=== PATIENT | female | born 1940 | race Caucasian/White ===

== ENCOUNTER 2017-03-07 17:52 | Emergency (ER) | payer BC ==
[2017-03-07 18:01] VITALS: BP 136/74; PULSE 90; TEMP 97.7; BMI 26.9
--- NOTE | 2017-03-07 18:04 | PDOC ---
Rapid Medical Evaluation Time Seen by Provider: 03/07/17 18:01 Medical Evaluation: Allergies Allergy/AdvReac Type Severity Reaction Status Date / Time No Known Drug Allergies Allergy Verified 03/07/17 18:01 Vital Signs Temp Pulse Resp BP Pulse Ox 97.7 F 90 20 136/74 95 03/07/17 17:58 03/07/17 17:58 03/07/17 17:58 03/07/17 17:58 03/07/17 17:58 03/07/17 18:01 I have performed a brief in-person evaluation of this patient. The patient presents with a chief complaint of: Sent in by Dr James for leukopenia (0.08 on labs yesterday). H/o breast ca s/p lumpectomy and radiation , RA on prednisone Pertinent physical exam findings:Stable and in NAD I have ordered the following:Pt has ready bed and sent directly to the main ED The patient will proceed to the ED for further evaluation.
--- NOTE | 2017-03-07 19:53 | PDOC ---
*Physical Exam - Vital Signs Last Vital Signs Temp Pulse Resp BP Pulse Ox 97.7 F 90 20 136/74 96 03/07/17 17:58 03/07/17 17:58 03/07/17 17:58 03/07/17 17:58 03/07/17 18:46 <Kaylah Jc - Last Filed: 03/07/17 22:03> - Vital Signs Last Vital Signs Temp Pulse Resp BP Pulse Ox 97.7 F 90 20 136/74 96 03/07/17 17:58 03/07/17 17:58 03/07/17 17:58 03/07/17 17:58 03/07/17 18:46 - Physical Exam Comments: 03/07/17 19:53 The patient was examined by [JUSTEN Dickerson] under my direct supervision. I personally evaluated the patient. I concur with the above findings and the plan of care. <Jase Aguirre - Last Filed: 03/08/17 01:44> Heart Score/ECG Review #1 03/07/17 22:03 ECG Reviewed by me Vent rate 75 bpm NSR Low voltage QRS Borderline ECG <Kaylah Jc - Last Filed: 03/07/17 22:03> ED Treatment Course - LABORATORY CBC & Chemistry Diagram: 03/07/17 21:00 03/07/17 21:00 - ADDITIONAL ORDERS Additional order review: Laboratory Results 03/07/17 21:00 Urine Color Yellow Urine Appearance Slcloudy Urine pH 6.0 Ur Specific [place] 1.019 Urine Protein Negative Urine Glucose (UA) Negative Urine Ketones Negative Urine Blood Negative Urine Nitrite Negative Urine Bilirubin Negative Urine Urobilinogen Negative 03/07/17 21:00 RBC 3.69 MCV 85.3 MCHC 34.1 RDW 16.6 H MPV 6.8 L Neutrophils % 36.8 L Lymphocytes % 30.4 Monocytes % 29.8 H Eosinophils % 1.4 Basophils % 1.6 <Kaylah Jc - Last Filed: 03/07/17 22:03> - LABORATORY CBC & Chemistry Diagram: 03/07/17 21:00 03/07/17 21:00 <Jase Aguirre - Last Filed: 03/08/17 01:44> Medical Decision Making - Medical Decision Making 03/07/17 21:48 Dr. Annabi paged via phone answering service. Awaiting call back. Dr Ervin conveyancer 03/07/17 21:57 Arcadio returned the page and the patient case was discussed. Documentation prepared by Kaylah Jc, acting as medical massage therapist for Jase Aguirre MD <Kaylah Jc - Last Filed: 03/07/17 22:03> *DC/Admit/Observation/Transfer <Kaylah Jc - Last Filed: 03/07/17 22:03> <Jase Aguirre - Last Filed: 03/08/17 01:44> Diagnosis at time of Disposition: Leukopenia - Discharge Dispostion Disposition: HOME Condition at time of disposition: Stable - Referrals Referrals: Kiki James MD [Staff Physician] - Lavelle Jiang [Staff Physician] - - Patient Instructions Additional Instructions: Your evaluation reveals low white blood cell count which is likely related to your rheumatoid arthritis medication. Follow-up with reactor service operator and senior sales associate for reevaluation and adjustment of medication. Return immediately to the ER for fever of 100.4 or higherd
[2017-03-07 21:24] LABS: BASOPHIL 1.6 % (0-2.0); EOSINOPHIL 1.4 % (0-4.5); MCH 29.1 pg (25.7-33.7); MCHC 34.1 g/dl (32.0-36.0); MEAN CELL VOLUME 85.3 fl (80-96); MEAN PLT VOLUME 6.8 fl (7.5-11.1); NEUTROPHILS 36.8 % (42.8-82.8); PLATELET COUNT 233 K/MM3 (134-434); RDW 16.6 % (11.6-15.6); WHITE BLOOD COUNT 0.8 K/mm3 (4.0-10.0)
[2017-03-07 21:28] LABS: URINE APPEARANCE SLCLOUDY; URINE BILIRUBIN NEGATIVE (NEGATIVE); URINE BLOOD NEGATIVE (NEGATIVE); URINE COLOR YELLOW; URINE GLUCOSE (UA) NEGATIVE (NEGATIVE); URINE KETONE NEGATIVE (NEGATIVE); URINE NITRITE NEGATIVE (NEGATIVE); URINE PROTEIN NEGATIVE (NEGATIVE); URINE UROBILINOGEN NEGATIVE mg/dL (0.2-1.0)
[2017-03-07 21:54] LABS: ALBUMIN 3.2 g/dl (3.4-5.0); ANION GAP 9 (8-16); BILIRUBIN,TOTAL 0.5 mg/dL (0.2-1.0); CALCIUM 9.6 mg/dL (8.5-10.1); CO2 27 mmol/L (21-32); CREATININE 0.7 mg/dL (0.55-1.02); GLUCOSE,RANDOM 98 mg/dL (74-106); SGPT/ALT 13 U/L (12-78)
[2017-03-07 21:55] LABS: ALK PHOS 65 U/L (45-117); TOT PROT 7.9 g/dl (6.4-8.2)
[2017-03-07 21:56] LABS: SGOT/AST 18 U/L (15-37)
--- NOTE | 2017-03-07 23:02 | PDOC ---
History of Present Illness - General Chief Complaint: Revisit, Lab Variance Stated Complaint: PCP SENT Time Seen by Provider: 03/07/17 18:01 History Source: Patient Exam Limitations: No Limitations - History of Present Illness Initial Comments: 03/07/17 22:58 76-year-old female with history of rheumatoid arthritis on methotrexate, Plaquenil and prednisone, as well as history of breast cancer (ductal carcinoma in situ), referred to the ER for severe leukopenia by PMD. Patient denies fevers /chills/nausea/vomiting/cough/dysuria/frequency/urgency. Patient denies abdominal pain/chest pain/rash. REVIEW OF SYSTEMS CONSTITUTIONAL: No fever, no chills, no fatigue EYES: No visual changes ENT: No ear pain, no sore throat CARDIOVASCULAR: No chest pain, no palpitations RESPIRATORY: No cough, no SOB GI: No abdominal pain, no nausea, no vomiting, no constipation, no diarrhea GENITOURINARY: No dysuria, no frequency, no hematuria MUSKULOSKELETAL: No backpain, no joint pain, no myalgias SKIN: No rash NEURO: No headache EXAMINATION CONSTITUTIONAL: Well-appearing; well-nourished; in no apparent distress HEAD: Normocephalic; atraumatic EYES: PERRL; EOM intact ENMT: External appears normal; normal oropharynx NECK: Supple; non-tender; no cervical lymphadenopathy CARD: Normal S1, S2; no murmurs, rubs, or gallops RESP: Normal chest excursion with respiration; breath sounds clear and equal bilaterally; no wheezes, rhonchi, or rales ABD: Soft, non-distended; non-tender; no palpable organomegaly, no palpable hernias EXT: Normal ROM in all four extremities; non-tender to palpation; distal pulses intact SKIN: Warm, dry, no rash NEURO: No focal neurological deficiencies. Past History - Past Medical History Allergies/Adverse Reactions: Allergies Allergy/AdvReac Type Severity Reaction Status Date / Time No Known Drug Allergies Allergy Verified 03/07/17 18:01 Home Medications: Ambulatory Orders Ascorbate Calcium [Vitamin C] 500 mg PO DAILY 11/24/13 Aspirin Coated [Ecotrin -] 81 mg PO DAILY 11/24/13 Calcium Carbonate/Vitamin D3 [Calcium + Vitamin D Tablet] 2 each PO DAILY Folic Acid - 1 mg PO DAILY 11/24/13 Hydrochlorothiazide [Hctz -] 25 mg PO DAILY 11/24/13 Levothyroxine [Synthroid -] 88 mcg PO ASDIR 11/24/13 Levothyroxine [Synthroid -] 100 mcg PO DAILY 11/24/13 Methotrexate Sodium [Methotrexate] 15 mg PO WEEKLY 11/24/13 Quinapril HCl [Accupril] 10 mg PO DAILY 11/24/13 Anemia: No Asthma: No Cancer: Yes (BREAST) Cardiac Disorders: No CVA: No COPD: No CHF: No DVT: No Dementia: No Diabetes: No GI Disorders: No Disorders: No HTN: Yes Hypercholesterolemia: Yes Liver Disease: No Seizures: No Thyroid Disease: Yes Other medical history: ARTHRITIS - Surgical History Abdominal Surgery: No Appendectomy: No Cardiac Surgery: No Cholecystectomy: No Lung Surgery: No Neurologic Surgery: No Orthopedic Surgery: No - Suicide/Smoking/Psychosocial Hx Smoking History: Former smoker Have you smoked in the past 12 months: No If you are a former smoker, when did you quit?: 20 YRS Information on smoking cessation initiated: No Hx Alcohol Use: Yes (SOCIAL) Drug/Substance Use Hx: No Substance Use Type: Alcohol *Physical Exam - Vital Signs Last Vital Signs Temp Pulse Resp BP Pulse Ox 97.7 F 90 20 136/74 96 03/07/17 17:58 03/07/17 17:58 03/07/17 17:58 03/07/17 17:58 03/07/17 18:46 ED Treatment Course - LABORATORY CBC & Chemistry Diagram: 03/07/17 21:00 03/07/17 21:00 - ADDITIONAL ORDERS Additional order review: Laboratory Results 03/07/17 03/07/17 21:00 21:00 Sodium 136 Potassium 3.8 Chloride 100 Carbon Dioxide 27 Anion Gap 9 BUN 13 Creatinine 0.7 Creat Clearance w eGFR > 60 Random Glucose 98 Calcium 9.6 Total Bilirubin 0.5 AST 18 ALT 13 Alkaline Phosphatase 65 Total Protein 7.9 Albumin 3.2 L Urine Color Yellow Urine Appearance Slcloudy Urine pH 6.0 Ur Specific [place] 1.019 Urine Protein Negative Urine Glucose (UA) Negative Urine Ketones Negative Urine Blood Negative Urine Nitrite Negative Urine Bilirubin Negative Urine Urobilinogen Negative 03/07/17 21:00 RBC 3.69 MCV 85.3 MCHC 34.1 RDW 16.6 H MPV 6.8 L Neutrophils % 36.8 L Lymphocytes % 30.4 Monocytes % 29.8 H Eosinophils % 1.4 Basophils % 1.6 Medical Decision Making - Medical Decision Making 03/07/17 22:59 Patient is a well-appearing 76-year-old female with 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 Patient is afebrile; there are no overt signs or symptoms of infection. I discussed the case with Dr. Garcia covering for hematology is Dr. Jiang. Patient's WBC on 02/18/17 was 0.7 and it was suspected the patient leukopenia was related to her medication regimen. Dr. Garcia recommended discharge with rheumatology follow- up for reevaluation of patient medication and close follow-up for possible fever. He advised there is no indication for admission at this time. There is also no indication for Neupogen therapy at this time. I discussed the findings with the patient and she is expressed understanding. Will discharge. *DC/Admit/Observation/Transfer Diagnosis at time of Disposition: Leukopenia Qualifiers: Leukopenia type: unspecified Qualified Code(s): D72.819 - Decreased white blood cell count, unspecified - Discharge Dispostion Disposition: HOME Condition at time of disposition: Stable - Referrals Referrals: Lavelle Jiang [Staff Physician] - Kiki James MD [Staff Physician] - - Patient Instructions Additional Instructions: Your evaluation reveals low white blood cell count which is likely related to your rheumatoid arthritis medication. Follow-up with loading dock hand and brick chimney supervisor for reevaluation and adjustment of medication. Return immediately to the ER for fever of 100.4 or higherd - Post Discharge Activity
[2017-03-08 09:57] LABS: URINE LEUK ESTERASE Negative (NEGATIVE)
--- NOTE | 2017-03-08 11:07 | EKG ---
Test Reason : Blood Pressure : / mmHG Vent. Rate : 075 BPM Atrial Rate : 075 BPM P-R Int : 152 ms QRS Dur : 090 ms QT Int : 400 ms P-R-T Axes : 053 001 017 degrees QTc Int : 446 ms NORMAL SINUS RHYTHM LOW VOLTAGE QRS BORDERLINE ECG WHEN COMPARED WITH ECG OF 15-SEP-2010 08:24, NO SIGNIFICANT CHANGE WAS FOUND Confirmed by EJ BARRIOS MD ([id number]) on 03/08/2017 11:06:45 AM Referred By: Confirmed By:EJ BARRIOS MD
== END 2017-03-07 23:10 | disposition home or self-care (01) ==
LOC: JER 17:52
DX: D72.819 Decreased white blood cell count, unspecified (principal); Z85.3 Personal history of malignant neoplasm of breast
CPT/HCPCS: 36415; 71020-TC; 80053; 81003; 85025; 87040; 87086; 93005; 93010; 99282-25

== ENCOUNTER 2018-03-28 16:25 | Inpatient (IN) | payer BC, OTHER ==
--- NOTE | 2018-03-28 17:05 | PDOC ---
Rapid Medical Evaluation Time Seen by Provider: 03/28/18 17:00 Medical Evaluation: Allergies Allergy/AdvReac Type Severity Reaction Status Date / Time No Known Drug Allergies Allergy Verified 03/28/18 17:00 I have performed a brief in-person evaluation of this patient. The patient presents with a chief complaint of: nausea, decreased appetite, exhausted x 6 weeks. Had a fever and cough today. Pertinent physical exam findings: patient appears pale and weak. tachycardic I have ordered the following: labs, UA/culture, EKG, CXR, flu swab The patient will proceed to the ED for further evaluation. Discharge Disposition - Diagnosis Nausea, Fever - Referrals - Patient Instructions - Post Discharge Activity
--- NOTE | 2018-03-28 17:22 | PDOC ---
History of Present Illness - General Chief Complaint: SIRS, Suspected/Possible Stated Complaint: PCP SENT/WEAKNESS Time Seen by Provider: 03/28/18 17:00 - History of Present Illness Initial Comments: 03/28/18 17:18 77 yo F with h/o breast ca.( DCIS), RA, luekopenia, hypohtyroidism, who p/w fever and cough. Patient reports 3 weeks of intermittent nausea without vomiting , and decreased PO intake. Normal bowel habits. No identifiable triggers or alleviators. Also endorses subjective fevers x 1 week, with objective measuring Tmax 99.0 oral. Denies Tylenol use. Also endorses 1 week of non productive cough. denies symptom management. Daughter reports patient with URI type symptoms rhinnorhea, and cough. No home oxygen, duoneb requirements. Patient denies N/V,orthopnea, PND, hemoptysis, wheezing, palpitations, eg pain/ swelling, F,C, CP, SOB, urinary complaints, abdominal pain, diarrhea, constipation, BPR, hematuria, lightheadedness, weakness, sensory changes. PMHx: as noted above. On MTX x 20 years, Prednisone x 1 week ROS: as noted SHx: tobacco cessation x 30 years ago. Denies Etoh, IVDA. Allergies:NKDA Past History - Past Medical History Allergies/Adverse Reactions: Allergies Allergy/AdvReac Type Severity Reaction Status Date / Time No Known Drug Allergies Allergy Verified 03/28/18 17:00 Home Medications: Ambulatory Orders Ascorbate Calcium [Vitamin C] 500 mg PO DAILY 11/24/13 Aspirin Coated [Ecotrin -] 81 mg PO DAILY 11/24/13 Calcium Carbonate/Vitamin D3 [Calcium + Vitamin D Tablet] 2 each PO DAILY Folic Acid - 1 mg PO DAILY 11/24/13 Hydrochlorothiazide [Hctz -] 25 mg PO DAILY 11/24/13 Levothyroxine [Synthroid -] 88 mcg PO ASDIR 11/24/13 Levothyroxine [Synthroid -] 100 mcg PO DAILY 11/24/13 Methotrexate Sodium [Methotrexate] 10 mg PO WEEKLY 11/24/13 Quinapril HCl [Accupril] 10 mg PO DAILY 11/24/13 Atorvastatin Calcium [Lipitor] 10 mg PO ASDIR 03/28/18 Diazepam [Valium] 5 mg PO BID PRN 03/28/18 Guaifenesin Dm [Mucinex Dm -] 1 tab PO BID 03/28/18 Anemia: No Asthma: No Cancer: Yes (BREAST) Cardiac Disorders: No CVA: No COPD: No CHF: No DVT: No Dementia: No Diabetes: No GI Disorders: No Disorders: No HTN: Yes Hypercholesterolemia: Yes Liver Disease: No Seizures: No Thyroid Disease: Yes - Surgical History Abdominal Surgery: No Appendectomy: No Cardiac Surgery: No Cholecystectomy: No Lung Surgery: No Neurologic Surgery: No Orthopedic Surgery: No - Immunization History Immunization Up to Date: Yes - Suicide/Smoking/Psychosocial Hx Smoking History: Former smoker Have you smoked in the past 12 months: No If you are a former smoker, when did you quit?: 1992 Information on smoking cessation initiated: No Hx Alcohol Use: Yes (SOCIAL) Drug/Substance Use Hx: No Substance Use Type: Alcohol Review of Systems - Review of Systems Comments:: 03/28/18 17:21 GENERAL/CONSTITUTIONAL: + Fever. No weakness. HEAD, EYES, EARS, NOSE AND THROAT: No change in vision. No ear pain or discharge. No sore throat. CARDIOVASCULAR: No chest pain or shortness of breath RESPIRATORY: + cough. No wheezing, or hemoptysis. GASTROINTESTINAL: +nausea. No vomiting, diarrhea or constipation. GENITOURINARY: No dysuria, frequency, or change in urination. MUSCULOSKELETAL: No joint or muscle swelling or pain. No neck or back pain. SKIN: No rash NEUROLOGIC: No headache, vertigo, loss of consciousness, or change in strength/ sensation. ENDOCRINE: No increased thirst. No abnormal weight change HEMATOLOGIC/LYMPHATIC: No anemia, easy bleeding, or history of blood clots. ALLERGIC/IMMUNOLOGIC: No hives or skin allergy. *Physical Exam - Vital Signs Last Vital Signs Temp Pulse Resp BP Pulse Ox 99.6 F 117 H 22 H 104/58 L 96 03/28/18 17:03 03/28/18 17:03 03/28/18 17:03 03/28/18 17:03 03/28/18 17:03 - Physical Exam Comments: 03/28/18 17:21 GENERAL: Awake, alert, and fully oriented, in no acute distress HEAD: No signs of trauma, normocephalic, atraumatic EYES: PERRLA, EOMI, sclera anicteric, conjunctiva clear ENT: Hearing grossly normal, nares patent, oropharynx clear without exudates. Moist mucosa NECK: Normal ROM, supple, no lymphadenopathy, JVD, or masses LUNGS: No distress, speaks full sentences, clear to auscultation bilaterally HEART: Regular rate and rhythm, normal S1 and S2, no murmurs, rubs or gallops, peripheral pulses normal and equal bilaterally. ABDOMEN: Soft, nontender, normoactive bowel sounds. No guarding, no rebound. No masses. Neg CVA ttp. EXTREMITIES : Normal inspection, Normal range of motion, no edema. No clubbing or cyanosis. SKIN: Warm, Dry, normal turgor, no rashes or lesions noted Moderate Sedation - Procedure Monitoring Vital Signs: Procedure Monitoring Vital Signs Temperature 99.6 F 03/28/18 17:03 Pulse Rate 117 H 03/28/18 17:03 Respiratory Rate 22 H 03/28/18 17:03 Blood Pressure 104/58 L 03/28/18 17:03 O2 Sat by Pulse Oximetry (%) 96 03/28/18 17:03 ED Treatment Course - LABORATORY CBC & Chemistry Diagram: 03/28/18 17:46 03/28/18 17:46 Medical Decision Making - Medical Decision Making 03/28/18 17:21 77 yo F with h/o breast ca.( DCIS), RA, luekopenia, hypohtyroidism, who p/w fever, nausea, cough. A&Ox3, HR 117, RR 22, BP 104/58, Oral Temp 99.6, Temp 96% O2. Physical exam unremarkable. R/o PNA. Will consider sepsis 2/2 infection (GI , respiratory source) No urinary complaints, will consider source. Low risk PE weils criteria. Low suspicion COPD, CHF. Will assess for neutropenia/ neutropenic fever. Assess for hypovolemia, electrolyte abnml, metabolic and toxic derangements, acid base disturbances. Ed Course: Sepsis Protocol tylenol, NS 03/28/18 18:29 0.3 WBC 03/28/18 18:36 Na: 129 Trop: Neg Cefepime 2 gm Will admit to medicine 03/28/18 19:10 MASCC score 18 03/28/18 19:55 Patient admitted med/surg Iyahorace James Endorsed to Dr. Valiente *DC/Admit/Observation/Transfer Diagnosis at time of Disposition: Nausea, Fever, Neutropenic fever - Discharge Dispostion Condition at time of disposition: Stable Decision to Admit order: Yes - Referrals - Patient Instructions - Post Discharge Activity
[2018-03-28] MEDS ORDERED: SODIUM CHLORIDE 1,000 ML IV STA (17:46)
[2018-03-28 18:07] LABS: BASO % 1.1 % (0-2.0); HEMATOCRIT 25.4 % (32.4-45.2); LYMPH % 26.4 % (8-40); MCH 27.5 pg (25.7-33.7); MCHC 35.5 g/dl (32.0-36.0); MEAN CELL VOLUME 77.6 fl (80-96); MEAN PLT VOLUME 6.6 fl (7.5-11.1); MONO % 26.8 % (3.8-10.2); NEUT % 44.7 % (42.8-82.8); PLATELET COUNT 230 K/MM3 (134-434); RBC 3.28 M/mm3 (3.60-5.2); RDW 16.9 % (11.6-15.6)
[2018-03-28 18:14] LABS: VENOUS PC02 33.6 mmHg (38-52); VENOUS PH 7.49 (7.32-7.42); VENOUS PO2 54.8 mmHg (28-48)
[2018-03-28 18:24] LABS: WHITE BLOOD COUNT 0.3 K/mm3 (4.0-10.0)
[2018-03-28 18:25] LABS: INR 1.13 (0.83-1.09); PROTHROMBIN TIME (PATIENT) 13.3 SEC (9.7-13.0)
[2018-03-28 18:28] LABS: ACTIVATED PTT 29.1 SECONDS (25.2-36.5)
[2018-03-28 18:38] LABS: ALBUMIN 2.3 g/dl (3.4-5.0); ALK PHOS 74 U/L (45-117); ANION GAP 11 MMOL/L (8-16); BILIRUBIN,TOTAL 0.6 mg/dL (0.2-1); BLOOD UREA NITROGEN 17 mg/dL (7-18); CALCIUM 8.3 mg/dL (8.5-10.1); CHLORIDE 93 mmol/L (98-107); CO2 26 mmol/L (21-32); CREATININE 0.7 mg/dL (0.55-1.3); GLUCOSE,RANDOM 121 mg/dL (74-106); POTASSIUM 3.5 mmol/L (3.5-5.1); SGOT/AST 23 U/L (15-37); SGPT/ALT 17 U/L (13-61); SODIUM 129 mmol/L (136-145); TOT PROT 6.6 g/dl (6.4-8.2)
[2018-03-28] MEDS ORDERED: CEFEPIME HCL/D5W 2 GM/50 ML BAG IVPB ONE (19:03)
[2018-03-28] MEDS ORDERED: ACETAMINOPHEN 1000 MG/100 ML VIAL (NON FORMULARY) IVPB ONE (19:17)
[2018-03-28] MEDS ORDERED: ACETAMINOPHEN INJECTION 100 ML IVPB ONE (19:27)
[2018-03-28] MEDS ORDERED: CEFEPIME 2 GM/100 ML BAG IVPB ONE (19:27)
[2018-03-28] MEDS ORDERED: VANCOMYCIN 1 GRAM (PRE-DOCKED) 1,000 MG/250 ML BAG IVPB ONE ×2 (20:07→20:19)
[2018-03-28 20:25] LABS: URINE APPEARANCE TURBID; URINE COLOR YELLOW; URINE GLUCOSE (UA) NEGATIVE (NEGATIVE); URINE KETONE NEGATIVE (NEGATIVE); URINE LEUK ESTERASE 1+ (NEGATIVE); URINE NITRITE NEGATIVE (NEGATIVE); URINE PROTEIN 2+ (NEGATIVE); URINE UROBILINOGEN NEGATIVE mg/dL (0.2-1.0)
[2018-03-28 20:45] LABS: EPI CELLS RARE /HPF (FEW); URINE HYALINE CAST 9 /lpf
--- NOTE | 2018-03-28 20:59 | HP ---
CHIEF COMPLAINT: subjective fevers PCP: Jacob HISTORY OF PRESENT ILLNESS: 77 yo F with h/o breast ca.( DCIS- excised), RA, luekopenia, hypothyroidism c/o subjective fevers and cough for the past 2 days associated with nausea and decreased PO intake. Patient denied any obvious sick contacts or recent travels. She denied any urinary symptoms or diarrhea. Reports normal bowel movements. Patient has been on methotrexate for her RA for the last 25 years. She said she has seen nuclear reactor technician for her known leukopenia. ER course was notable for: (1) blood cultures (2) vancomycin (3) cefepime Recent Travel: none PAST MEDICAL HISTORY: breast ca.( DCIS), RA, luekopenia, hypothyroidism PAST SURGICAL HISTORY: lumpectomy for breast ca (DCIS) Social History: Smoking: no Alcohol: no Drugs: no Family History: none Allergies No Known Drug Allergies Allergy (Verified 03/28/18 17:00) HOME MEDICATIONS: Home Medications Medication Instructions Recorded Ascorbate Calcium [Vitamin C] 500 mg PO DAILY 11/24/13 Aspirin Coated [Ecotrin -] 81 mg PO DAILY 11/24/13 Calcium Carbonate/Vitamin D3 2 each PO DAILY 11/24/13 [Calcium + Vitamin D Tablet] Folic Acid - 1 mg PO DAILY 11/24/13 Hydrochlorothiazide [Hctz -] 25 mg PO DAILY 11/24/13 Levothyroxine [Synthroid -] 88 mcg PO ASDIR 11/24/13 Levothyroxine [Synthroid -] 100 mcg PO DAILY 11/24/13 Methotrexate Sodium [Methotrexate] 10 mg PO WEEKLY 11/24/13 Quinapril HCl [Accupril] 10 mg PO DAILY 11/24/13 Atorvastatin Calcium [Lipitor] 10 mg PO ASDIR 03/28/18 Diazepam [Valium] 5 mg PO BID PRN 03/28/18 Guaifenesin Dm [Mucinex Dm -] 1 tab PO BID 03/28/18 REVIEW OF SYSTEMS CONSTITUTIONAL: Absent: , diaphoresis, generalized weakness, loss of appetite, weight change Present- fever, chills, malaise, HEENT: Absent: throat pain, throat swelling, difficulty swallowing, mouth swelling, ear pain, eye pain, visual changes Present- rhinorrhea, nasal congestion, CARDIOVASCULAR: Absent: chest pain, syncope, palpitations, irregular heart rate, lightheadedness , peripheral edema RESPIRATORY: Absent:, shortness of breath, dyspnea with exertion, orthopnea, wheezing, stridor, hemoptysis Present- cough GASTROINTESTINAL: Absent: abdominal pain, abdominal distension, nausea, vomiting, diarrhea, constipation, melena, hematochezia GENITOURINARY: Absent: dysuria, frequency, urgency, hesitancy, hematuria, flank pain, genital pain MUSCULOSKELETAL: Absent: myalgia, arthralgia, joint swelling, back pain, neck pain SKIN: Absent: rash, itching, pallor HEMATOLOGIC/IMMUNOLOGIC: Absent: easy bleeding, easy bruising, lymphadenopathy, frequent infections ENDOCRINE: Absent: unexplained weight gain, unexplained weight loss, heat intolerance, cold intolerance NEUROLOGIC: Absent: headache, focal weakness or paresthesias, dizziness, unsteady gait, seizure, mental status changes, bladder or bowel incontinence PSYCHIATRIC: Absent: anxiety, depression, suicidal or homicidal ideation, hallucinations. PHYSICAL EXAMINATION Vital Signs - 24 hr 03/28/18 17:03 Temperature 99.6 F Pulse Rate 117 H Respiratory 22 H Rate Blood Pressure 104/58 L O2 Sat by Pulse 96 Oximetry (%) GENERAL: Awake, alert, and fully oriented, in no acute distress. HEAD: Normal with no signs of trauma. EYES: Pupils equal, round and reactive to light, extraocular movements intact, sclera anicteric, conjunctiva clear. No lid lag. EARS, NOSE, THROAT: Ears normal, nares patent, oropharynx clear without exudates. Moist mucous membranes. NECK: Normal range of motion, supple without lymphadenopathy, JVD, or masses. LUNGS: Breath sounds equal, clear to auscultation bilaterally. No wheezes, and no crackles. No accessory muscle use. HEART: Regular rate and rhythm, normal S1 and S2 without murmur, rub or gallop. ABDOMEN: Soft, nontender, not distended, normoactive bowel sounds, no guarding, no rebound, no masses. No hepatomegaly or splenomegaly. MUSCULOSKELETAL: Normal range of motion at all joints. No bony deformities or tenderness. No CVA tenderness. UPPER EXTREMITIES: 2+ pulses, warm, well-perfused. No cyanosis. No clubbing. No peripheral edema. LOWER EXTREMITIES: 2+ pulses, warm, well-perfused. No calf tenderness. No peripheral edema. NEUROLOGICAL: Cranial nerves II-XII intact. Normal speech. PSYCHIATRIC: Cooperative. Good eye contact. Appropriate mood and affect. SKIN: Warm, dry, normal turgor, no rashes or lesions noted, normal capillary refill. Laboratory Results - last 24 hr 03/28/18 03/28/18 03/28/18 17:46 17:46 17:46 WBC 0.3 L* RBC 3.28 L Hgb 9.0 L Hct 25.4 L D MCV 77.6 L MCH 27.5 MCHC 35.5 RDW 16.9 H Plt Count 230 MPV 6.6 L Absolute Neuts (auto) 0.1 L Neutrophils % 44.7 D Lymphocytes % 26.4 Monocytes % 26.8 H Eosinophils % 1.0 Basophils % 1.1 Nucleated RBC % 1 H PT with INR INR PTT (Actin FS) VBG pH POC VBG pCO2 POC VBG pO2 Mixed VBG HCO3 Sodium 129 L Potassium 3.5 Chloride 93 L Carbon Dioxide 26 Anion Gap 11 BUN 17 Creatinine 0.7 Creat Clearance w eGFR > 60 Random Glucose 121 H Lactic Acid Calcium 8.3 L Total Bilirubin 0.6 AST 23 ALT 17 Alkaline Phosphatase 74 Creatine Kinase 10 L Troponin I < 0.02 Total Protein 6.6 Albumin 2.3 L Urine Color Urine Appearance Urine pH Ur Specific [place] Urine Protein Urine Glucose (UA) Urine Ketones Urine Blood Urine Nitrite Urine Bilirubin Urine Urobilinogen Ur Leukocyte Esterase Urine WBC (Auto) Urine RBC (Auto) Ur Epithelial Cells Hyaline Casts Influenza A (Rapid) Negative Influenza B (Rapid) Negative 03/28/18 03/28/18 03/28/18 17:46 17:46 17:47 WBC RBC Hgb Hct MCV MCH MCHC RDW Plt Count MPV Absolute Neuts (auto) Neutrophils % Lymphocytes % Monocytes % Eosinophils % Basophils % Nucleated RBC % PT with INR 13.30 H INR 1.13 H PTT (Actin FS) 29.1 VBG pH POC VBG pCO2 POC VBG pO2 Mixed VBG HCO3 Sodium Potassium Chloride Carbon Dioxide Anion Gap BUN Creatinine Creat Clearance w eGFR Random Glucose Lactic Acid 0.9 Calcium Total Bilirubin AST ALT Alkaline Phosphatase Creatine Kinase Troponin I < 0.02 Total Protein Albumin Urine Color Urine Appearance Urine pH Ur Specific [place] Urine Protein Urine Glucose (UA) Urine Ketones Urine Blood Urine Nitrite Urine Bilirubin Urine Urobilinogen Ur Leukocyte Esterase Urine WBC (Auto) Urine RBC (Auto) Ur Epithelial Cells Hyaline Casts Influenza A (Rapid) Influenza B (Rapid) 03/28/18 03/28/18 17:47 17:47 WBC RBC Hgb Hct MCV MCH MCHC RDW Plt Count MPV Absolute Neuts (auto) Neutrophils % Lymphocytes % Monocytes % Eosinophils % Basophils % Nucleated RBC % PT with INR INR PTT (Actin FS) VBG pH 7.49 H POC VBG pCO2 33.6 L POC VBG pO2 54.8 H Mixed VBG HCO3 25.1 H Sodium Potassium Chloride Carbon Dioxide Anion Gap BUN Creatinine Creat Clearance w eGFR Random Glucose Lactic Acid Calcium Total Bilirubin AST ALT Alkaline Phosphatase Creatine Kinase Troponin I Total Protein Albumin Urine Color Yellow Urine Appearance Turbid Urine pH 8.0 D Ur Specific [place] 1.016 Urine Protein 2+ H Urine Glucose (UA) Negative Urine Ketones Negative Urine Blood Negative Urine Nitrite Negative Urine Bilirubin 2.0 Urine Urobilinogen Negative Ur Leukocyte Esterase 1+ H Urine WBC (Auto) 57 Urine RBC (Auto) 3 Ur Epithelial Cells Rare Hyaline Casts 9 Influenza A (Rapid) Influenza B (Rapid) CXR reviewed ekg reviewed ASSESSMENT/PLAN: 77yo woman with severe neutropenia from uncertain source. May be possibly from methotrexate. Subjective fevers and low grade fevers in ER. Symptoms consistent with upper respiratory infection. Influenza should be ruled out. No clear evidence pneumonia on cxr. lactate wnl. -observation -treat empirically with vancomycin, cefepime given severity of neutropenia -blood and urine cultures sent -flu swab -resp PCR for viruses -stressed importance of handwashing to family members -d/c methrotrexate for now -heme/onc consult - possible neuogen administration? -ID consult to evaluate for appropriateness of empiric antibiotic therapy #Hypothyroidism -send tsh -c/w levothyroxine #Hypertension- controlled -c/w quinapril and HCTZ #DLP -c/w lipitor #DVT heparin sc Visit type - Emergency Visit Emergency Visit: Yes ED Registration Date: 03/28/18 Care time: The patient presented to the Emergency Department on the above date and was hospitalized for further evaluation of their emergent condition. - New Patient This patient is new to me today: Yes Date on this admission: 03/29/18 - Critical Care Critical Care patient: No
[2018-03-28] MEDS ORDERED: ATORVASTATIN CA 10 MG TABLET (FP) ONE (21:44)
--- NOTE | 2018-03-28 21:47 | PDOC ---
Attending Attestation - Resident Resident Name: SatinderKlausDavid - ED Attending Attestation I have performed the following: I have examined & evaluated the patient, The case was reviewed & discussed with the resident, I agree w/resident's findings & plan, Exceptions are as noted - HPI HPI: 03/28/18 21:48 The patient is a 77 year old female presenting with her daughter, with a significant past medical history of h/o breast ca.( DCIS), RA on methotrexate, leukopenia, hypothyroidism, who presents to the ED complaining of 1 day of fever and cough in the setting of intermittent nausea and decreased PO intake for the past 3 weeks. She reports that she cant identify any triggers to her symptoms. She reports normal bowel movements. She denies taking any medications for her symptoms. She notes that her cough is non productive. She states her WBC is always low because of methotrexate. She saw Dr. James 2 days ago for the nausea and anorexia. When she spiked a fever today, she called his office and was instructed to go to the ED. The patient denies chest pain, shortness of breath, headache and dizziness. Denies chills, vomiting, diarrhea or constipation. Denies dysuria, frequency, urgency and hematuria. Allergies: None Past surgical history: None reported Social History: tobacco cessation x 30 years ago. Denies Etoh, IVDA. - Physicial Exam PE: 03/28/18 21:50 agree with resident exam - Medical Decision Making 03/28/18 19:15 77yo F hx leukopenia presents to the ED with subjective fever today, found to be neutropenic. Pt covered empirically with cefepime, then vanc. Unclear source , CXR clear, possible UTI or flu. Pt admitted for further mgmt.
[2018-03-28] MEDS: ATORVASTATIN CA 10 MG TABLET (FP) PO SCH (22:07)
[2018-03-28] MEDS: guaiFENesin/D-METHORPHAN HB 1 EACH TAB.ER.12H PO SCH (22:07)
[2018-03-28 22:30] LABS: PLATELET ESTIMATE ADEQUATE
[2018-03-29 07:41] LABS: BASO % 2.2 % (0-2.0); HEMATOCRIT 23.7 % (32.4-45.2); HEMOGLOBIN 8.4 GM/dL (10.7-15.3); LYMPH % 35.2 % (8-40); MCH 27.8 pg (25.7-33.7); MCHC 35.3 g/dl (32.0-36.0); MEAN CELL VOLUME 78.6 fl (80-96); MEAN PLT VOLUME 6.5 fl (7.5-11.1); NEUT % 31.6 % (42.8-82.8); PLATELET COUNT 212 K/MM3 (134-434); RBC 3.02 M/mm3 (3.60-5.2); RDW 16.8 % (11.6-15.6)
[2018-03-29 07:54] LABS: WHITE BLOOD COUNT 0.3 K/mm3 (4.0-10.0)
[2018-03-29 08:34] LABS: ANION GAP 10 MMOL/L (8-16); BLOOD UREA NITROGEN 14 mg/dL (7-18); CALCIUM 8.1 mg/dL (8.5-10.1); CHLORIDE 97 mmol/L (98-107); CO2 25 mmol/L (21-32); CREATININE 0.6 mg/dL (0.55-1.3); GLUCOSE,RANDOM 91 mg/dL (74-106); POTASSIUM 3.3 mmol/L (3.5-5.1); SODIUM 132 mmol/L (136-145)
[2018-03-29] MEDS ORDERED: LEVOTHYROXINE NA 25 MCG TABLET (FP) ONE (09:38)
--- NOTE | 2018-03-29 09:39 | CONSULT ---
Consultation: REQUESTING PROVIDER: Dr. James CONSULT REQUEST FOR HEMATOLOGY/ONCOLOGY: We have been asked to medically evaluate this patient for Neutropenia. HISTORY OF PRESENT ILLNESS: Patient is a 77 year old female with a PMHx of rheumatoid arthritis on MTX, HTN , HLD, neutropenia, hypothyroidism, breast cancer (DCIS) who presented to the hospital complaining of nausea, anorexia, with decreased PO intake, associated with subjective fevers and a non productive cough for the past three weeks. Patient denies being around any sick contacts or recent travel. Patient states she started feeling weaker and started having fevers, which prompted this hospital visit. Patient does report a history of low WBC and was worked up for it. Reports that her low WBC's is due to her Methotrexate for her RA. The patient denies chest pain, shortness of breath, headache and dizziness. Denies chills, vomiting, diarrhea or constipation, dysuria, frequency, urgency and hematuria. Patient has history of Breast cancer x2 (lobular and ductal in 1994 and 2011) with RT done 5 days a week for one month 6 years ago Denies any blood disorders or family history of blood disorders PMHx: Rheumatoid Arthritis on MTX (25 years) Neutropenia HTN HLD Hypothyroidism Breast cancer (DCIS) PSHx: Lumpectomy x2 Social Hx: Denies Alcohol use Denies drug use Former Smoker. Quit 30 years ago Allergies: None REVIEW OF SYSTEMS: CONSTITUTIONAL: fever, generalized weakness, malaise, loss of appetite Absent: diaphoresis, weight change HEENT: Absent: rhinorrhea, nasal congestion, throat pain, throat swelling, difficulty swallowing, mouth swelling, ear pain, eye pain, visual changes CARDIOVASCULAR: Absent: chest pain, syncope, palpitations, irregular heart rate, lightheadedness , peripheral edema RESPIRATORY: cough Absent: shortness of breath, dyspnea with exertion, orthopnea, wheezing, stridor , hemoptysis GASTROINTESTINAL: Absent: abdominal pain, abdominal distension, nausea, vomiting, diarrhea, constipation, melena, hematochezia GENITOURINARY: Absent: dysuria, frequency, urgency, hesitancy, hematuria, flank pain, genital pain MUSCULOSKELETAL: Absent: myalgia, arthralgia, joint swelling, back pain, neck pain SKIN: Absent: rash, itching, pallor HEMATOLOGIC/IMMUNOLOGIC: Absent: easy bleeding, easy bruising, lymphadenopathy, frequent infections ENDOCRINE: Absent: unexplained weight gain, unexplained weight loss, heat intolerance, cold intolerance NEUROLOGIC: Absent: headache, focal weakness or paresthesias, dizziness, unsteady gait, seizure, mental status changes, bladder or bowel incontinence PSYCHIATRIC: Absent: anxiety, depression, suicidal or homicidal ideation, hallucinations. PHYSICAL EXAMINATION Vital Signs 03/28/18 17:03 Temperature 99.6 F Pulse Rate 117 H Respiratory 22 H Rate Blood Pressure 104/58 L O2 Sat by Pulse 96 Oximetry (%) GENERAL: Awake, alert, and fully oriented, in no acute distress. HEAD: Normal with no signs of trauma. EYES: Pupils equal, round and reactive to light, extraocular movements intact, sclera anicteric, conjunctiva clear. No lid lag. EARS, NOSE, THROAT: Oropharynx clear without exudates. Moist mucous membranes. NECK: Normal range of motion, supple without lymphadenopathy, JVD, or masses. LUNGS: Breath sounds equal, clear to auscultation bilaterally. No wheezes, and no crackles. No accessory muscle use. HEART: Regular rate and rhythm, normal S1 and S2 without murmur, rub or gallop. BREAST: No masses, discoloration or retractions. No nipple discharge ABDOMEN: Soft, nontender, not distended, normoactive bowel sounds, no guarding, no rebound, no masses. No hepatomegaly or splenomegaly. MUSCULOSKELETAL: Normal range of motion at all joints. No bony deformities or tenderness. No CVA tenderness. EXTREMITIES: 2+ pulses, warm, well-perfused. No calf tenderness. No peripheral edema. NEUROLOGICAL: Cranial nerves II-XII intact. Normal speech. PSYCHIATRIC: Cooperative. Good eye contact. Appropriate mood and affect. SKIN: Warm, dry, normal turgor, no rashes or lesions noted. Laboratory Results 03/29/18 06:15 03/29/18 06:00 03/28/18 03/29/18 03/29/18 17:47 06:00 06:15 Absolute Neuts (auto) 0.1 L INR 1.13 H TSH 1.62 Active Medications Generic Name Dose Route Start Last Admin Trade Name Freq PRN Reason Stop Dose Admin Ascorbic Acid 500 mg 03/29/18 10:00 Vitamin C - PO DAILY [facility] Aspirin 81 mg 03/29/18 10:00 Ecotrin - PO DAILY [facility] Atorvastatin Calcium 10 mg 03/28/18 22:00 03/28/18 22:07 Lipitor - PO 10 mg HS RIMMA Administration Calcium Carbonate/Cholecalciferol 2 tab 03/29/18 10:00 Os-Grupo 500+D - PO DAILY RIMMA Folic Acid 1 mg 03/29/18 10:00 Folic Acid - PO DAILY RIMMA Guaifenesin 1 tablet 03/28/18 22:00 03/28/18 22:07 Mucinex Dm - PO 1 tablet BID RIMMA Administration Hydrochlorothiazide 25 mg 03/29/18 10:00 Hctz - PO DAILY RIMMA Levothyroxine Sodium 100 mcg 03/29/18 07:00 Synthroid - PO 0700 RIMMA Quinapril HCl 10 mg 03/29/18 10:00 Accupril - PO DAILY RIMMA ASSESSMENT/PLAN: Patient is a 77 year old female who presented for fever, chills, non productive cough, anorexia, nausea and was found to have neutropenia with neutropenic fevers. We were consulted for further evaluation. Problem List: Neutropenia Neutropenic fevers Bone Marrow Suppression Microcytic Anemia Upper Respiratory tract infection Rheumatoid Arthritis on MTX (25 years) Neutropenia HTN HLD Hypothyroidism Breast cancer (DCIS) Plan: -Patient with bone marrow suppresion wit WBC 0.3 and ANC 0.1 with unclear etiology but likely secondary to Methotrexate use and viral syndrome. Will likely need a flow cytometry. Will need to rule out sepsis related etiology. Patient may need a dose of neupogen -Will order Iron studies and check for B12, folate, and TSH -Rule out hemolytic anemia and order LDH, Retic and hapto -IV abx, as per ID -Continue to monitor CBC -Recommend Rheumatology consult as her hazardous materials handler was considering to switch to tofacitinib -Recommend U/S of liver and spleen Dispo: We will continue to follow the patient. Thank you for this consultative opportunity. Visit type - Emergency Visit Emergency Visit: Yes ED Registration Date: 03/30/18 Care time: The patient presented to the Emergency Department on the above date and was hospitalized for further evaluation of their emergent condition. - New Patient This patient is new to me today: Yes Date on this admission: 03/30/18 - Critical Care Critical Care patient: No
[2018-03-29] MEDS: LEVOTHYROXINE NA 100 MCG TABLET (FP) PO SCH (11:05)
[2018-03-29] MEDS: ASCORBIC ACID 500 MG TABLET (FP) PO SCH (11:06)
[2018-03-29] MEDS: guaiFENesin/D-METHORPHAN HB 1 EACH TAB.ER.12H PO SCH ×2 (11:06→22:54)
[2018-03-29] MEDS: FOLIC ACID 1 MG TABLET (FP) PO SCH (11:06)
[2018-03-29] MEDS: ASPIRIN COATED 81 MG TABLET.EC PO SCH (11:06)
[2018-03-29] MEDS: HYDROCHLOROTHIAZIDE 25 MG TABLET (FP) PO SCH (11:06)
[2018-03-29] MEDS: QUINAPRIL HCL 10 MG TABLET (FP) PO SCH (11:06)
[2018-03-29] MEDS: CALCIUM 500MG/VIT-D 200 UNITS COMBO TABLET (FP) PO SCH (11:06)
--- NOTE | 2018-03-29 11:44 | EKG ---
Test Reason : Blood Pressure : / mmHG Vent. Rate : 102 BPM Atrial Rate : 102 BPM P-R Int : 134 ms QRS Dur : 072 ms QT Int : 312 ms P-R-T Axes : 057 007 011 degrees QTc Int : 406 ms SINUS TACHYCARDIA LOW VOLTAGE QRS CANNOT RULE OUT ANTERIOR INFARCT , AGE UNDETERMINED ABNORMAL ECG WHEN COMPARED WITH ECG OF 07-MAR-2017 21:52, NO SIGNIFICANT CHANGE WAS FOUND Confirmed by OG SPAIN, KEVIN ([id number]) on 03/29/2018 11:44:42 AM Referred By: Confirmed By:KEVIN FOLEY MD
--- NOTE | 2018-03-29 12:25 | PN ---
Progress Note (short form) - Note Progress Note: ID Consult dictated Profound neutropenia ? drug-induced Reported fever Await c/s Empiric cefepime Neutropenic precautions
[2018-03-29] MEDS ORDERED: diazePAM 5 MG TABLET PO PRN (12:42)
[2018-03-29] MEDS ORDERED: POTASSIUM CHLORIDE TABS 20 MEQ TABLET.ER (FP) PO ONE ×2 (12:44→12:59)
--- NOTE | 2018-03-29 12:45 | PN ---
Progress Note, Physician History of Present Illness: 77 yo F with h/o breast ca.( DCIS- excised), RA, luekopenia, hypothyroidism c/o subjective fevers and cough for the past 2 days associated with nausea and decreased PO intake. Patient denied any obvious sick contacts or recent travels. She denied any urinary symptoms or diarrhea. Reports normal bowel movements. Patient has been on methotrexate for her RA for the last 25 years. - Current Medication List Current Medications: Active Medications Ascorbic Acid (Vitamin C -) 500 mg PO DAILY [facility] Last Admin: 03/29/18 11:06 Dose: 500 mg Aspirin (Ecotrin -) 81 mg PO DAILY [facility] Last Admin: 03/29/18 11:06 Dose: 81 mg Atorvastatin Calcium (Lipitor -) 10 mg PO HS [facility] Last Admin: 03/28/18 22:07 Dose: 10 mg Calcium Carbonate/Cholecalciferol (Os-Rgupo 500+D -) 2 tab PO DAILY [facility] Last Admin: 03/29/18 11:06 Dose: 2 tab Folic Acid (Folic Acid -) 1 mg PO DAILY [facility] Last Admin: 03/29/18 11:06 Dose: 1 mg Guaifenesin (Mucinex Dm -) 1 tablet PO BID [facility] Last Admin: 03/29/18 11:06 Dose: 1 tablet Hydrochlorothiazide (Hctz -) 25 mg PO DAILY [facility] Last Admin: 03/29/18 11:06 Dose: 25 mg Cefepime HCl 1 gm/ Dextrose 100 mls @ 200 mls/hr IVPB Q8H-IV RMIMA; Protocol Levothyroxine Sodium (Synthroid -) 100 mcg PO 0700 [facility] Last Admin: 03/29/18 11:05 Dose: 100 mcg Quinapril HCl (Accupril -) 10 mg PO DAILY [facility] Last Admin: 03/29/18 11:06 Dose: 10 mg - Objective Vital Signs: Vital Signs Temperature 98.8 F 03/29/18 09:56 Pulse Rate 103 H 03/29/18 09:56 Respiratory Rate 18 03/29/18 09:56 Blood Pressure 107/48 L 03/29/18 09:56 O2 Sat by Pulse Oximetry (%) 94 L 03/29/18 09:56 Labs: CBC, BMP 03/29/18 06:15 03/29/18 06:00 INR, PTT INR 1.13 (0.83-1.09) H 03/28/18 17:47 Problem List - Problems (1) Neutropenic fever Assessment/Plan: -treat empirically with vancomycin, cefepime given severity of neutropenia -blood and urine cultures sent -flu swab -resp PCR for viruses -stressed importance of handwashing to family members -d/c methrotrexate for now -heme/onc consult - possible neuogen administration? -ID consult to evaluate for appropriateness of empiric antibiotic therapy Code(s): D70.9 - NEUTROPENIA, UNSPECIFIED; R50.81 - FEVER PRESENTING WITH CONDITIONS CLASSIFIED ELSEWHERE (2) Rheumatoid arthritis Assessment/Plan: -hold mtx Code(s): M06.9 - RHEUMATOID ARTHRITIS, UNSPECIFIED (3) Leukopenia Assessment/Plan: -77yo woman with severe neutropenia from uncertain source. -May be possibly from methotrexate. -hem Code(s): D72.819 - DECREASED WHITE BLOOD CELL COUNT, UNSPECIFIED Qualifiers: Leukopenia type: unspecified Qualified Code(s): D72.819 - Decreased white blood cell count, unspecified
[2018-03-29] MEDS ORDERED: CEFEPIME 1 GM/100 ML BAG IVPB ONE (12:59)
[2018-03-29] MEDS: CEFEPIME 1 GM in DEXTROSE 5%-WATER 100 ML IVPB SCH ×2 (13:13→17:18)
--- NOTE | 2018-03-29 14:20 | CONS ---
INFECTIOUS DISEASE CONSULTATION DATE OF CONSULTATION: DATE OF DICTATION: 03/29/2018 HISTORY OF PRESENT ILLNESS: The patient is a 77-year-old female evaluated for febrile neutropenia. The patient was admitted to the hospital with a several-week history of anorexia, nausea, vomiting, weight loss, and a several-day history of fever and cough. Patient states she has not been feeling well for the past several weeks with anorexia, nausea, vomiting, and weight loss. Over the past several days, she has developed a dry cough and reported fever. She was advised to go to the emergency room. In the emergency room, patient was found to be profoundly neutropenic. Cultures were obtained. She was empirically treated with antibiotics. At the present time, she complains of generalized weakness and fatigue. She has a dry cough. She denies any shortness of breath or chest pain. No reports of hemoptysis. She denies any abdominal pain, diarrhea, dysuria or hematuria. Of note, the patient has been on methotrexate for the past 20-25 years for rheumatoid arthritis. Over the past several months, prednisone was added. She denies being on any antitumor-necrosis factor medications. She denies any ill contacts. States she has received influenza and pneumococcal vaccines. No recent travel or significant pet exposure. PAST MEDICAL HISTORY: Positive for hypertension, long-standing rheumatoid arthritis, breast cancer status post lumpectomy, hypothyroidism. PAST SURGICAL HISTORY: Status post lumpectomy. ALLERGIES: No known allergies. MEDICATIONS: At home include vitamin C, Ecotrin, folic acid, hydrochlorothiazide, Synthroid, methotrexate, Accupril, Lipitor, and Valium. SOCIAL HISTORY: She resides at home in the community with her family. Former smoker. Occasional EtOH. SYSTEMS REVIEW: Neurologic: No loss of consciousness, seizure activity, focal weakness. Cardiac: Negative chest pain or palpitations. Respiratory: As per HPI. Gastrointestinal: As per HPI. Genitourinary: Negative for urinary tract infection. LABORATORY DATA: White count 0.3, neutrophils 31%, lymphocytes 35%, hematocrit 23.7, platelet count 212. Creatinine 0.6. Flu swab negative. Urinalysis: White cells 57. Culture is pending. Chest x-ray: Negative for acute infiltrate. PHYSICAL EXAMINATION: General: She is awake, supine on the stretcher in the emergency room. She is weak appearing. Vital Signs: Temperature 98.8, T-maximum 99.6, blood pressure 107/48, pulse 103, regular, respirations 18 per minute. Eyes: Sclerae are anicteric. Throat: Oropharynx negative. Neck: Supple. Heart: Heart sounds S1, S2. Lungs: A few crepitations, left base. Abdomen: Soft and nontender. Extremities: Edema 1+. IMPRESSION: 1. Profound neutropenia. Likely drug induced. 2. Fever, cough. Rule out respiratory tract infection. 3. Rheumatoid arthritis. On methotrexate and prednisone. PLAN: Await sepsis workup. Empiric antibiotic coverage with cefepime 2 g IV piggyback every 8 hours. Neutropenic precautions. Will follow. Thank you for the kind referral. GARY OWEN M.D. [id number]
[2018-03-29 16:13] VITALS: BMI 25.3
[2018-03-29] MEDS ORDERED: CEFEPIME HCL 1 GM VIAL (RESTRICTED TO ID) ONE (17:05)
[2018-03-29] MEDS ORDERED: DEXTROSE 5%-WATER 100 ML IVPB ONE (17:05)
--- NOTE | 2018-03-29 18:20 | PN ---
Teaching Attending Note Name of Resident: Emily Jackson ATTENDING PHYSICIAN STATEMENT I saw and evaluated the patient. I reviewed the resident's note and discussed the case with the resident. I agree with the resident's findings and plan as documented. ASSESSMENT AND PLAN: 77 y/o patient with h/o RA, on intermediate frame tender MTX, followed by Dr. Jiang for leukopenia. Last CBC in 09/07 was WBC of 1200 Patient with recent URI/cough --which is improving Comes in with weaknessfatigue WBC --300/ ? viral marrow suppression on top pf chronic marrow suppression with MTx. ? autoimmune ? primary marrow pathology followed by Dr. De La Torre rheumatology and Dr. Jiang from hematology . Baseline wBC very low --800to 1200 worsening due to recent viral infxn? hold mtx check U?S liver/spleen? [facility] consult will follow and consider GCSF per clinical course, risks/benefits.
[2018-03-29] MEDS ORDERED: PT OWN MED DRAWER 7, Y5N ONE (18:45)
[2018-03-29] MEDS: ATORVASTATIN CA 10 MG TABLET (FP) PO SCH (22:54)
[2018-03-30] MEDS ORDERED: CEFEPIME HCL 1 GM VIAL (RESTRICTED TO ID) ONE ×3 (01:15→08:30)
[2018-03-30] MEDS ORDERED: DEXTROSE 5%-WATER 100 ML IVPB ONE ×2 (01:16→08:30)
[2018-03-30] MEDS: CEFEPIME 1 GM in DEXTROSE 5%-WATER 100 ML IVPB SCH ×3 (01:40→17:18)
[2018-03-30] MEDS: LEVOTHYROXINE NA 100 MCG TABLET (FP) PO SCH (06:21)
[2018-03-30 07:26] LABS: BASO % 2.2 % (0-2.0); EOS % 5.8 % (0-4.5); HEMATOCRIT 24.6 % (32.4-45.2); LYMPH % 26.9 % (8-40); MCH 26.1 pg (25.7-33.7); MCHC 32.7 g/dl (32.0-36.0); MEAN CELL VOLUME 79.9 fl (80-96); MEAN PLT VOLUME 6.3 fl (7.5-11.1); MONO % 23.4 % (3.8-10.2); NEUT % 41.7 % (42.8-82.8); PLATELET COUNT 188 K/MM3 (134-434); RBC 3.08 M/mm3 (3.60-5.2); RDW 16.5 % (11.6-15.6)
[2018-03-30 07:34] LABS: WHITE BLOOD COUNT 0.4 K/mm3 (4.0-10.0)
[2018-03-30] MEDS: HYDROCHLOROTHIAZIDE 25 MG TABLET (FP) PO SCH (09:40)
[2018-03-30] MEDS: ASPIRIN COATED 81 MG TABLET.EC PO SCH (09:40)
[2018-03-30] MEDS: ASCORBIC ACID 500 MG TABLET (FP) PO SCH (09:40)
[2018-03-30] MEDS: FOLIC ACID 1 MG TABLET (FP) PO SCH (09:40)
[2018-03-30] MEDS: CALCIUM 500MG/VIT-D 200 UNITS COMBO TABLET (FP) PO SCH (09:40)
[2018-03-30] MEDS: guaiFENesin/D-METHORPHAN HB 1 EACH TAB.ER.12H PO SCH ×2 (09:45→21:57)
[2018-03-30] MEDS: QUINAPRIL HCL 10 MG TABLET (FP) PO SCH (09:45)
[2018-03-30 12:15] LABS: ALK PHOS 59 U/L (45-117); ANION GAP 12 MMOL/L (8-16); BILIRUBIN,TOTAL 0.6 mg/dL (0.2-1); BLOOD UREA NITROGEN 13 mg/dL (7-18); CALCIUM 7.9 mg/dL (8.5-10.1); CHLORIDE 96 mmol/L (98-107); CO2 24 mmol/L (21-32); CREATININE 0.6 mg/dL (0.55-1.3); GLUCOSE,RANDOM 90 mg/dL (74-106); POTASSIUM 3.1 mmol/L (3.5-5.1); SGOT/AST 16 U/L (15-37); SGPT/ALT 12 U/L (13-61); SODIUM 132 mmol/L (136-145); TOT PROT 5.7 g/dl (6.4-8.2)
[2018-03-30 12:59] LABS: OVALOCYTE 1+; PLATELET ESTIMATE ADEQUATE
--- NOTE | 2018-03-30 13:23 | PN ---
Progress Note, Physician - Current Medication List Current Medications: Active Medications Ascorbic Acid (Vitamin C -) 500 mg PO DAILY [facility] Last Admin: 03/30/18 09:40 Dose: 500 mg Aspirin (Ecotrin -) 81 mg PO DAILY [facility] Last Admin: 03/30/18 09:40 Dose: 81 mg Atorvastatin Calcium (Lipitor -) 10 mg PO HS [facility] Last Admin: 03/29/18 22:54 Dose: 10 mg Calcium Carbonate/Cholecalciferol (Os-Grupo 500+D -) 2 tab PO DAILY [facility] Last Admin: 03/30/18 09:40 Dose: 2 tab Diazepam (Valium -) 5 mg PO BID PRN PRN Reason: ANXIETY Folic Acid (Folic Acid -) 1 mg PO DAILY [facility] Last Admin: 03/30/18 09:40 Dose: 1 mg Guaifenesin (Mucinex Dm -) 1 tablet PO BID [facility] Last Admin: 03/30/18 09:45 Dose: 1 tablet Hydrochlorothiazide (Hctz -) 25 mg PO DAILY [facility] Last Admin: 03/30/18 09:40 Dose: 25 mg Cefepime HCl 1 gm/ Dextrose 100 mls @ 200 mls/hr IVPB Q8H-IV [facility]; Protocol Last Admin: 03/30/18 09:41 Dose: 200 mls/hr Levothyroxine Sodium (Synthroid -) 100 mcg PO 0700 [facility] Last Admin: 03/30/18 06:21 Dose: 100 mcg Quinapril HCl (Accupril -) 10 mg PO DAILY [facility] Last Admin: 03/30/18 09:45 Dose: 10 mg - Objective Vital Signs: Vital Signs Temperature 98.2 F 03/30/18 10:00 Pulse Rate 92 H 03/30/18 10:00 Respiratory Rate 18 03/30/18 10:00 Blood Pressure 125/79 03/30/18 10:00 O2 Sat by Pulse Oximetry (%) 96 03/30/18 09:00 Cardiovascular: Yes: S1, S2 Respiratory: Yes: Regular, CTA Bilaterally Gastrointestinal: Yes: Normal Bowel Sounds, Soft. No: Tenderness Labs: CBC, BMP 03/30/18 06:00 03/30/18 06:00 INR, PTT INR 1.13 (0.83-1.09) H 03/28/18 17:47 Problem List - Problems (1) Neutropenic fever Assessment/Plan: -treat empirically with vancomycin, cefepime given severity of neutropenia -blood and urine cultures sent Microbiology 03/28/18 17:46 Urine - Urine Clean Catch Urine Culture - Preliminary Non Lactose Fermenting Gnb Pending Organism 03/28/18 17:47 Blood - Peripheral Venous Blood Culture - Preliminary Pending Organism 03/28/18 17:47 Blood - Peripheral Venous Blood Culture - Preliminary NO GROWTH OBTAINED AFTER 24 HOURS, INCUBATION TO CONTINUE FOR 4 DAYS. -flu swab -resp PCR for viruses -stressed importance of handwashing to family members -d/c methrotrexate for now -heme/onc consult - possible neuogen administration? -ID consult to evaluate for appropriateness of empiric antibiotic therapy Code(s): D70.9 - NEUTROPENIA, UNSPECIFIED; R50.81 - FEVER PRESENTING WITH CONDITIONS CLASSIFIED ELSEWHERE (2) Rheumatoid arthritis Assessment/Plan: -hold mtx Code(s): M06.9 - RHEUMATOID ARTHRITIS, UNSPECIFIED (3) Leukopenia Assessment/Plan: -77yo woman with severe neutropenia from uncertain source. -May be possibly from methotrexate. -hem Code(s): D72.819 - DECREASED WHITE BLOOD CELL COUNT, UNSPECIFIED Qualifiers: Leukopenia type: unspecified Qualified Code(s): D72.819 - Decreased white blood cell count, unspecified
[2018-03-30 15:33] LABS: LDH 131 U/L (84-246)
[2018-03-30] MEDS ORDERED: POTASSIUM CHLORIDE ORAL LIQUID 20 MEQ/15 ML PO ONE (17:00)
[2018-03-30] MEDS ORDERED: POTASSIUM CHLORIDE TABS 10 MEQ TABLET.ER (FP) PO ONE (17:02)
[2018-03-30] MEDS: ATORVASTATIN CA 10 MG TABLET (FP) PO SCH (21:57)
--- NOTE | 2018-03-30 23:46 | PN ---
Progress Note, Physician Chief Complaint: neutropenia History of Present Illness: Feels well. Denies fevers, chills, diarrhea, dysuria. - Current Medication List Current Medications: Active Medications Acetaminophen (Tylenol -) 650 mg PO Q6H PRN PRN Reason: FEVER Ascorbic Acid (Vitamin C -) 500 mg PO DAILY [facility] Last Admin: 03/30/18 09:40 Dose: 500 mg Aspirin (Ecotrin -) 81 mg PO DAILY [facility] Last Admin: 03/30/18 09:40 Dose: 81 mg Atorvastatin Calcium (Lipitor -) 10 mg PO HS [facility] Last Admin: 03/30/18 21:57 Dose: Not Given Calcium Carbonate/Cholecalciferol (Os-Grupo 500+D -) 2 tab PO DAILY [facility] Last Admin: 03/30/18 09:40 Dose: 2 tab Diazepam (Valium -) 5 mg PO BID PRN PRN Reason: ANXIETY Folic Acid (Folic Acid -) 1 mg PO DAILY [facility] Last Admin: 03/30/18 09:40 Dose: 1 mg Guaifenesin (Mucinex Dm -) 1 tablet PO BID [facility] Last Admin: 03/30/18 21:57 Dose: Not Given Hydrochlorothiazide (Hctz -) 25 mg PO DAILY [facility] Last Admin: 03/30/18 09:40 Dose: 25 mg Cefepime HCl 1 gm/ Dextrose 100 mls @ 200 mls/hr IVPB Q8H-IV [facility]; Protocol Last Admin: 03/30/18 17:18 Dose: 200 mls/hr Levothyroxine Sodium (Synthroid -) 100 mcg PO 0700 [facility] Last Admin: 03/30/18 06:21 Dose: 100 mcg Quinapril HCl (Accupril -) 10 mg PO DAILY [facility] Last Admin: 03/30/18 09:45 Dose: 10 mg - Objective Vital Signs: Vital Signs Temperature 98.9 F 03/30/18 21:59 Pulse Rate 93 H 03/30/18 21:59 Respiratory Rate 18 03/30/18 21:59 Blood Pressure 108/58 L 03/30/18 21:59 O2 Sat by Pulse Oximetry (%) 97 03/30/18 21:00 Constitutional: Yes: No Distress, Calm Eyes: Yes: Conjunctiva Clear Cardiovascular: Yes: WNL, Regular Rate and Rhythm Respiratory: Yes: WNL, CTA Bilaterally Gastrointestinal: Yes: WNL, Soft Labs: CBC, BMP 03/30/18 06:00 03/30/18 06:00 INR, PTT INR 1.13 (0.83-1.09) H 03/28/18 17:47 Problem List - Problems (1) Neutropenia Assessment/Plan: Present since at least 2012, fluctuating, and likely related to RA or MTX. Follows with Dr. Jiang Remains afebrile. +Splenomegaly on imaging Please send peripheral flow to evaluate for LGL Please call if febrile or signs of infection, may need GCSF Code(s): D70.9 - NEUTROPENIA, UNSPECIFIED
[2018-03-31] MEDS ORDERED: CEFEPIME HCL 1 GM VIAL (RESTRICTED TO ID) ONE ×3 (01:03→16:04)
[2018-03-31] MEDS ORDERED: DEXTROSE 5%-WATER 100 ML IVPB ONE ×3 (01:03→16:04)
[2018-03-31] MEDS: CEFEPIME 1 GM in DEXTROSE 5%-WATER 100 ML IVPB SCH ×3 (01:50→16:59)
[2018-03-31] MEDS: BENZOCAINE/MENTH/CETYLPYRD CL 1 EACH LOZENGE MM PRN ×2 (04:45→09:36)
[2018-03-31] MEDS: LEVOTHYROXINE NA 100 MCG TABLET (FP) PO SCH (06:07)
[2018-03-31 08:05] LABS: SERUM IRON SATURATION 13 % (15-55); TOTAL IRON BINDING CAPACITY 171 ug/dL (250-450); UIBC 149 ug/dL (118-369)
[2018-03-31 08:56] LABS: ANION GAP 12 MMOL/L (8-16); BLOOD UREA NITROGEN 11 mg/dL (7-18); CALCIUM 8.2 mg/dL (8.5-10.1); CHLORIDE 95 mmol/L (98-107); CO2 23 mmol/L (21-32); CREATININE 0.5 mg/dL (0.55-1.3); GLUCOSE,RANDOM 89 mg/dL (74-106); POTASSIUM 3.7 mmol/L (3.5-5.1); SODIUM 130 mmol/L (136-145)
[2018-03-31] MEDS: FOLIC ACID 1 MG TABLET (FP) PO SCH (09:33)
[2018-03-31] MEDS: HYDROCHLOROTHIAZIDE 25 MG TABLET (FP) PO SCH (09:33)
[2018-03-31] MEDS: QUINAPRIL HCL 10 MG TABLET (FP) PO SCH (09:33)
[2018-03-31] MEDS: ASCORBIC ACID 500 MG TABLET (FP) PO SCH (09:34)
[2018-03-31] MEDS: CALCIUM 500MG/VIT-D 200 UNITS COMBO TABLET (FP) PO SCH (09:34)
[2018-03-31] MEDS: guaiFENesin/D-METHORPHAN HB 1 EACH TAB.ER.12H PO SCH ×2 (09:35→22:29)
[2018-03-31] MEDS: ASPIRIN COATED 81 MG TABLET.EC PO SCH (09:39)
--- NOTE | 2018-03-31 14:19 | PN ---
Progress Note, Physician History of Present Illness: Awake, alert C/O generalized weakness No c/o fever/ chills No urinary tract complaints BC SCN Urine c/s Proteus sp - Current Medication List Current Medications: Active Medications Acetaminophen (Tylenol -) 650 mg PO Q6H PRN PRN Reason: FEVER Ascorbic Acid (Vitamin C -) 500 mg PO DAILY [facility] Last Admin: 03/31/18 09:34 Dose: 500 mg Aspirin (Ecotrin -) 81 mg PO DAILY [facility] Last Admin: 03/31/18 09:39 Dose: 81 mg Atorvastatin Calcium (Lipitor -) 10 mg PO HS [facility] Last Admin: 03/30/18 21:57 Dose: Not Given Benzocaine/Menthol (Cepacol Lozenge -) 1 each MM PRN PRN PRN Reason: SORE THROAT Last Admin: 03/31/18 09:36 Dose: 1 each Calcium Carbonate/Cholecalciferol (Os-Grupo 500+D -) 2 tab PO DAILY [facility] Last Admin: 03/31/18 09:34 Dose: 2 tab Diazepam (Valium -) 5 mg PO BID PRN PRN Reason: ANXIETY Folic Acid (Folic Acid -) 1 mg PO DAILY [facility] Last Admin: 03/31/18 09:33 Dose: 1 mg Guaifenesin (Mucinex Dm -) 1 tablet PO BID [facility] Last Admin: 03/31/18 09:35 Dose: 1 tablet Hydrochlorothiazide (Hctz -) 25 mg PO DAILY [facility] Last Admin: 03/31/18 09:33 Dose: 25 mg Cefepime HCl 1 gm/ Dextrose 100 mls @ 200 mls/hr IVPB Q8H-IV [facility]; Protocol Last Admin: 03/31/18 09:35 Dose: 200 mls/hr Levothyroxine Sodium (Synthroid -) 100 mcg PO 0700 [facility] Last Admin: 03/31/18 06:07 Dose: 100 mcg Quinapril HCl (Accupril -) 10 mg PO DAILY [facility] Last Admin: 03/31/18 09:33 Dose: Not Given - Objective Vital Signs: Vital Signs Temperature 99.4 F 03/31/18 09:32 Pulse Rate 101 H 03/31/18 09:32 Respiratory Rate 20 03/31/18 09:32 Blood Pressure 104/42 L 03/31/18 09:32 O2 Sat by Pulse Oximetry (%) 97 03/31/18 09:00 Constitutional: Yes: No Distress Eyes: Yes: Conjunctiva Clear Cardiovascular: Yes: Regular Rate and Rhythm, S1, S2 Gastrointestinal: Yes: Normal Bowel Sounds, Soft. No: Tenderness Edema: No Labs: CBC, BMP 03/30/18 06:00 03/31/18 06:00 INR, PTT INR 1.13 (0.83-1.09) H 03/28/18 17:47 Assessment/Plan Leukopenia/ neutropenia likely medication-induced +BC SCN= contaminant Continue empiric cefepime
--- NOTE | 2018-03-31 15:09 | PN ---
Progress Note, Physician - Current Medication List Current Medications: Active Medications Acetaminophen (Tylenol -) 650 mg PO Q6H PRN PRN Reason: FEVER Ascorbic Acid (Vitamin C -) 500 mg PO DAILY [facility] Last Admin: 03/31/18 09:34 Dose: 500 mg Aspirin (Ecotrin -) 81 mg PO DAILY [facility] Last Admin: 03/31/18 09:39 Dose: 81 mg Atorvastatin Calcium (Lipitor -) 10 mg PO HS [facility] Last Admin: 03/30/18 21:57 Dose: Not Given Benzocaine/Menthol (Cepacol Lozenge -) 1 each MM PRN PRN PRN Reason: SORE THROAT Last Admin: 03/31/18 09:36 Dose: 1 each Calcium Carbonate/Cholecalciferol (Os-Grupo 500+D -) 2 tab PO DAILY [facility] Last Admin: 03/31/18 09:34 Dose: 2 tab Diazepam (Valium -) 5 mg PO BID PRN PRN Reason: ANXIETY Folic Acid (Folic Acid -) 1 mg PO DAILY [facility] Last Admin: 03/31/18 09:33 Dose: 1 mg Guaifenesin (Mucinex Dm -) 1 tablet PO BID [facility] Last Admin: 03/31/18 09:35 Dose: 1 tablet Hydrochlorothiazide (Hctz -) 25 mg PO DAILY [facility] Last Admin: 03/31/18 09:33 Dose: 25 mg Cefepime HCl 1 gm/ Dextrose 100 mls @ 200 mls/hr IVPB Q8H-IV [facility]; Protocol Last Admin: 03/31/18 09:35 Dose: 200 mls/hr Levothyroxine Sodium (Synthroid -) 100 mcg PO 0700 [facility] Last Admin: 03/31/18 06:07 Dose: 100 mcg Quinapril HCl (Accupril -) 10 mg PO DAILY [facility] Last Admin: 03/31/18 09:33 Dose: Not Given - Objective Vital Signs: Vital Signs Temperature 99.4 F 03/31/18 09:32 Pulse Rate 101 H 03/31/18 09:32 Respiratory Rate 20 03/31/18 09:32 Blood Pressure 104/42 L 03/31/18 09:32 O2 Sat by Pulse Oximetry (%) 97 03/31/18 09:00 Cardiovascular: Yes: S1, S2 Respiratory: Yes: Regular, CTA Bilaterally Gastrointestinal: Yes: Normal Bowel Sounds, Soft Labs: CBC, BMP 03/30/18 06:00 03/31/18 06:00 INR, PTT INR 1.13 (0.83-1.09) H 03/28/18 17:47 Problem List - Problems (1) Neutropenic fever Assessment/Plan: -treat empirically with vancomycin, cefepime given severity of neutropenia -blood and urine cultures sent 03/28/18 17:47 Blood - Peripheral Venous Blood Culture - Preliminary Staphylococcus Coagulase Neg 03/28/18 17:46 Urine - Urine Clean Catch Urine Culture - Final Proteus Mirabilis Diphtheroid/Corynebacterium 03/28/18 17:47 Blood - Peripheral Venous Blood Culture - Preliminary NO GROWTH OBTAINED AFTER 48 HOURS, INCUBATION TO CONTINUE FOR 3 DAYS. -ID consult to evaluate for antibiotic therapy Code(s): D70.9 - NEUTROPENIA, UNSPECIFIED; R50.81 - FEVER PRESENTING WITH CONDITIONS CLASSIFIED ELSEWHERE (2) Rheumatoid arthritis Assessment/Plan: -hold mtx Code(s): M06.9 - RHEUMATOID ARTHRITIS, UNSPECIFIED (3) Leukopenia Assessment/Plan: -77yo woman with severe neutropenia from uncertain source. -May be possibly from methotrexate. -hem Code(s): D72.819 - DECREASED WHITE BLOOD CELL COUNT, UNSPECIFIED Qualifiers: Leukopenia type: unspecified Qualified Code(s): D72.819 - Decreased white blood cell count, unspecified
--- NOTE | 2018-03-31 21:05 | PN ---
Progress Note, Physician Chief Complaint: neutropenia History of Present Illness: Feels well. Denies fevers and chills. No complaints. - Current Medication List Current Medications: Active Medications Acetaminophen (Tylenol -) 650 mg PO Q6H PRN PRN Reason: FEVER Ascorbic Acid (Vitamin C -) 500 mg PO DAILY [facility] Last Admin: 03/31/18 09:34 Dose: 500 mg Aspirin (Ecotrin -) 81 mg PO DAILY [facility] Last Admin: 03/31/18 09:39 Dose: 81 mg Atorvastatin Calcium (Lipitor -) 10 mg PO HS [facility] Last Admin: 03/30/18 21:57 Dose: Not Given Benzocaine/Menthol (Cepacol Lozenge -) 1 each MM PRN PRN PRN Reason: SORE THROAT Last Admin: 03/31/18 09:36 Dose: 1 each Calcium Carbonate/Cholecalciferol (Os-Grupo 500+D -) 2 tab PO DAILY [facility] Last Admin: 03/31/18 09:34 Dose: 2 tab Diazepam (Valium -) 5 mg PO BID PRN PRN Reason: ANXIETY Folic Acid (Folic Acid -) 1 mg PO DAILY [facility] Last Admin: 03/31/18 09:33 Dose: 1 mg Guaifenesin (Mucinex Dm -) 1 tablet PO BID [facility] Last Admin: 03/31/18 09:35 Dose: 1 tablet Hydrochlorothiazide (Hctz -) 25 mg PO DAILY [facility] Last Admin: 03/31/18 09:33 Dose: 25 mg Cefepime HCl 1 gm/ Dextrose 100 mls @ 200 mls/hr IVPB Q8H-IV [facility]; Protocol Last Admin: 03/31/18 16:59 Dose: 200 mls/hr Levothyroxine Sodium (Synthroid -) 100 mcg PO 0700 [facility] Last Admin: 03/31/18 06:07 Dose: 100 mcg Quinapril HCl (Accupril -) 10 mg PO DAILY [facility] Last Admin: 03/31/18 09:33 Dose: Not Given - Objective Vital Signs: Vital Signs Temperature 98.8 F 03/31/18 19:13 Pulse Rate 106 H 03/31/18 19:13 Respiratory Rate 20 03/31/18 19:13 Blood Pressure 123/56 L 03/31/18 19:13 O2 Sat by Pulse Oximetry (%) 97 03/31/18 09:00 Constitutional: Yes: Well Nourished Cardiovascular: Yes: WNL, Regular Rate and Rhythm Respiratory: Yes: WNL, CTA Bilaterally Gastrointestinal: Yes: WNL, Soft Edema: No Labs: CBC, BMP 03/30/18 06:00 03/31/18 06:00 INR, PTT INR 1.13 (0.83-1.09) H 03/28/18 17:47 Problem List - Problems (1) Neutropenia Assessment/Plan: Present since at least 2012, fluctuating, and likely related to RA or MTX. Follows with Dr. Jiang Remains afebrile. +Splenomegaly on imaging No CBC today, ordered for tomorrow peripheral flow to evaluate for LGL Please call if febrile or signs of infection, may need GCSF Code(s): D70.9 - NEUTROPENIA, UNSPECIFIED
[2018-03-31] MEDS: ATORVASTATIN CA 10 MG TABLET (FP) PO SCH (22:29)
[2018-04-01] MEDS ORDERED: CEFEPIME HCL 1 GM VIAL (RESTRICTED TO ID) ONE ×3 (00:55→17:00)
[2018-04-01] MEDS ORDERED: DEXTROSE 5%-WATER 100 ML IVPB ONE ×3 (00:55→17:01)
[2018-04-01] MEDS: CEFEPIME 1 GM in DEXTROSE 5%-WATER 100 ML IVPB SCH ×3 (01:40→17:44)
[2018-04-01] MEDS: LEVOTHYROXINE NA 100 MCG TABLET (FP) PO SCH (06:09)
[2018-04-01 07:33] LABS: HEMATOCRIT 23.4 % (32.4-45.2); HEMOGLOBIN 7.8 GM/dL (10.7-15.3); MCH 26.2 pg (25.7-33.7); MCHC 33.2 g/dl (32.0-36.0); MEAN CELL VOLUME 78.9 fl (80-96); MEAN PLT VOLUME 6.5 fl (7.5-11.1); PLATELET COUNT 172 K/MM3 (134-434); RBC 2.96 M/mm3 (3.60-5.2); RDW 16.5 % (11.6-15.6)
[2018-04-01 08:07] LABS: WHITE BLOOD COUNT 0.5 K/mm3 (4.0-10.0)
[2018-04-01] MEDS: CALCIUM 500MG/VIT-D 200 UNITS COMBO TABLET (FP) PO SCH (11:25)
[2018-04-01] MEDS: ASPIRIN COATED 81 MG TABLET.EC PO SCH (11:25)
[2018-04-01] MEDS: FOLIC ACID 1 MG TABLET (FP) PO SCH (11:25)
[2018-04-01] MEDS: HYDROCHLOROTHIAZIDE 25 MG TABLET (FP) PO SCH (11:25)
[2018-04-01] MEDS: QUINAPRIL HCL 10 MG TABLET (FP) PO SCH (11:25)
[2018-04-01] MEDS: ASCORBIC ACID 500 MG TABLET (FP) PO SCH (11:25)
[2018-04-01] MEDS: guaiFENesin/D-METHORPHAN HB 1 EACH TAB.ER.12H PO SCH ×2 (11:26→21:44)
[2018-04-01 11:54] LABS: ANISOCYTOSIS 2+; MACROCYTOSIS 0; OVALOCYTE 1+; PLATELET ESTIMATE NORMAL; TEAR DROP CELLS 1+
--- NOTE | 2018-04-01 12:10 | PN ---
Progress Note, Physician Chief Complaint: Sepsis History of Present Illness: NAD wants to go home Seen by ID and hematology On neutropenic precautions afebrile overnight - Current Medication List Current Medications: Active Medications Acetaminophen (Tylenol -) 650 mg PO Q6H PRN PRN Reason: FEVER Ascorbic Acid (Vitamin C -) 500 mg PO DAILY [facility] Last Admin: 04/01/18 11:25 Dose: 500 mg Aspirin (Ecotrin -) 81 mg PO DAILY [facility] Last Admin: 04/01/18 11:25 Dose: 81 mg Atorvastatin Calcium (Lipitor -) 10 mg PO HS [facility] Last Admin: 03/31/18 22:29 Dose: Not Given Benzocaine/Menthol (Cepacol Lozenge -) 1 each MM PRN PRN PRN Reason: SORE THROAT Last Admin: 03/31/18 09:36 Dose: 1 each Calcium Carbonate/Cholecalciferol (Os-Grupo 500+D -) 2 tab PO DAILY [facility] Last Admin: 04/01/18 11:25 Dose: 2 tab Diazepam (Valium -) 5 mg PO BID PRN PRN Reason: ANXIETY Ferrous Sulfate (Feosol -) 325 mg PO DAILY [facility] Folic Acid (Folic Acid -) 1 mg PO DAILY [facility] Last Admin: 04/01/18 11:25 Dose: 1 mg Guaifenesin (Mucinex Dm -) 1 tablet PO BID [facility] Last Admin: 04/01/18 11:26 Dose: 1 tablet Hydrochlorothiazide (Hctz -) 25 mg PO DAILY [facility] Last Admin: 04/01/18 11:25 Dose: 25 mg Cefepime HCl 1 gm/ Dextrose 100 mls @ 200 mls/hr IVPB Q8H-IV [facility]; Protocol Last Admin: 04/01/18 11:24 Dose: 200 mls/hr Levothyroxine Sodium (Synthroid -) 100 mcg PO 0700 [facility] Last Admin: 04/01/18 06:09 Dose: 100 mcg Quinapril HCl (Accupril -) 10 mg PO DAILY [facility] Last Admin: 04/01/18 11:25 Dose: Not Given - Objective Vital Signs: Vital Signs Temperature 98.2 F 04/01/18 10:00 Pulse Rate 87 04/01/18 10:00 Respiratory Rate 20 04/01/18 10:00 Blood Pressure 111/47 L 04/01/18 10:00 O2 Sat by Pulse Oximetry (%) 97 12/09/18 21:00 Constitutional: Yes: Well Nourished, No Distress, Calm Cardiovascular: Yes: Regular Rate and Rhythm Respiratory: Yes: Regular Gastrointestinal: Yes: Normal Bowel Sounds, Soft Musculoskeletal: Yes: WNL Extremities: Yes: WNL Edema: No Peripheral Pulses WNL: Yes Neurological: Yes: Alert, Oriented Psychiatric: Yes: Alert, Oriented Labs: CBC, BMP 04/01/18 06:00 03/31/18 06:00 INR, PTT INR 1.13 (0.83-1.09) H 03/28/18 17:47 Problem List - Problems (1) Sepsis Assessment/Plan: cultures: Microbiology 03/28/18 17:47 Blood - Peripheral Venous Blood Culture - Preliminary NO GROWTH OBTAINED AFTER 96 HOURS, INCUBATION TO CONTINUE FOR 1 DAYS. 03/28/18 17:47 Blood - Peripheral Venous Blood Culture - Final Staphylococcus Epidermidis 03/28/18 17:46 Urine - Urine Clean Catch Urine Culture - Final Proteus Mirabilis Diphtheroid/Corynebacterium -BC contaminated -UC as above -seen by ID -On IV abx -afebrile Code(s): A41.9 - SEPSIS, UNSPECIFIED ORGANISM (2) Urinary tract infection Assessment/Plan: -seen by ID -On IV abx -afebrile -asymptomatic -to be switched to PO abx in am Code(s): N39.0 - URINARY TRACT INFECTION, SITE NOT SPECIFIED (3) Leukopenia Assessment/Plan: -seen by hematology -chronic leukopenia -methotrexate on hold -neutropenic precautions -f/u outpatient Code(s): D72.819 - DECREASED WHITE BLOOD CELL COUNT, UNSPECIFIED Qualifiers: Leukopenia type: unspecified Qualified Code(s): D72.819 - Decreased white blood cell count, unspecified (4) Neutropenic fever Assessment/Plan: -afebrile -BC contaminated -being treated for UTI -neutropenic precautions Code(s): D70.9 - NEUTROPENIA, UNSPECIFIED; R50.81 - FEVER PRESENTING WITH CONDITIONS CLASSIFIED ELSEWHERE (5) Rheumatoid arthritis Assessment/Plan: -follows with rheumatology outpatient -No acute symptoms at this time -methotrexate on hold at this time. Code(s): M06.9 - RHEUMATOID ARTHRITIS, UNSPECIFIED (6) Anemia Assessment/Plan: -PRBC x 1 today -Iron % low, start on Ferrous sulfate 325 mg po daily -Thyroid and B12 unremarkable -Hematology on board -monitor trend -Stool OB Code(s): D64.9 - ANEMIA, UNSPECIFIED (7) Hyponatremia Assessment/Plan: -monitor trend -fluid restriction to 1L -nephrology consult Code(s): E87.1 - HYPO-OSMOLALITY AND HYPONATREMIA Assessment/Plan see problem list Self ambulatory
[2018-04-01] MEDS: FERROUS SO4 325 MG TABLET (FP) PO SCH (13:17)
--- NOTE | 2018-04-01 17:18 | PN ---
Progress Note (short form) - Note Progress Note: PROGRESS NOTE FOR HEMATOLOGY/ONCOLOGY Patient seen and examined by me at bedside Offers no complaints and states she is feeling better No fevers overnight Otherwise, denies fever, chills, nausea, vomiting, chest pain, palpitations, shortness of breath, dysuria, hematuria Vital Signs Temperature 98.6 F 04/01/18 14:32 Pulse Rate 91 H 04/01/18 14:32 Respiratory Rate 20 04/01/18 14:32 Blood Pressure 114/51 L 04/01/18 14:32 O2 Sat by Pulse Oximetry (%) 97 04/01/18 09:00 GENERAL: Awake, alert, and fully oriented, in no acute distress. EYES: PERRL sclera anicteric, conjunctiva clear. EARS, NOSE, THROAT: No oral thrush. Moist mucous membranes. LUNGS: Breath sounds equal, clear to auscultation bilaterally. No wheezes, and no crackles. No accessory muscle use. HEART: Regular rate and rhythm, normal S1 and S2 without murmur, rub or gallop. ABDOMEN: Soft, nontender, not distended, normoactive bowel sounds, no guarding, no rebound, no masses. No hepatomegaly or splenomegaly. EXTREMITIES: No peripheral edema. NEUROLOGICAL: Cranial nerves II-XII intact. Normal speech. CBC, BMP 04/01/18 06:00 03/31/18 06:00 ASSESSMENT/PLAN: Patient is a 77 year old female who presented for fever, chills, non productive cough, anorexia, nausea and was found to have neutropenia with neutropenic fevers. We were consulted for further evaluation. Problem List: Neutropenia Neutropenic fevers Bone Marrow Suppression Microcytic Anemia Upper Respiratory tract infection Rheumatoid Arthritis on MTX (25 years) Neutropenia HTN HLD Hypothyroidism Breast cancer (DCIS) Plan: -Patient with bone marrow suppresion wit WBC 0.3 and ANC 0.1 with unclear etiology but likely secondary to Methotrexate use and viral syndrome. 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
--- NOTE | 2018-04-01 17:39 | PN ---
Progress Note, Physician History of Present Illness: Awake, alert No focal complaint No c/o fever/ chills No urinary tract complaints BC SCN ( contaminant) Urine c/s Proteus sp - Current Medication List Current Medications: Active Medications Acetaminophen (Tylenol -) 650 mg PO Q6H PRN PRN Reason: FEVER Ascorbic Acid (Vitamin C -) 500 mg PO DAILY [facility] Last Admin: 04/01/18 11:25 Dose: 500 mg Aspirin (Ecotrin -) 81 mg PO DAILY [facility] Last Admin: 04/01/18 11:25 Dose: 81 mg Atorvastatin Calcium (Lipitor -) 10 mg PO HS [facility] Last Admin: 03/31/18 22:29 Dose: Not Given Benzocaine/Menthol (Cepacol Lozenge -) 1 each MM PRN PRN PRN Reason: SORE THROAT Last Admin: 03/31/18 09:36 Dose: 1 each Calcium Carbonate/Cholecalciferol (Os-Grupo 500+D -) 2 tab PO DAILY [facility] Last Admin: 04/01/18 11:25 Dose: 2 tab Ferrous Sulfate (Feosol -) 325 mg PO DAILY [facility] Last Admin: 04/01/18 13:17 Dose: 325 mg Folic Acid (Folic Acid -) 1 mg PO DAILY [facility] Last Admin: 04/01/18 11:25 Dose: 1 mg Guaifenesin (Mucinex Dm -) 1 tablet PO BID [facility] Last Admin: 04/01/18 11:26 Dose: 1 tablet Hydrochlorothiazide (Hctz -) 25 mg PO DAILY [facility] Last Admin: 04/01/18 11:25 Dose: 25 mg Cefepime HCl 1 gm/ Dextrose 100 mls @ 200 mls/hr IVPB Q8H-IV [facility]; Protocol Last Admin: 04/01/18 11:24 Dose: 200 mls/hr Levothyroxine Sodium (Synthroid -) 100 mcg PO 0700 [facility] Last Admin: 04/01/18 06:09 Dose: 100 mcg Quinapril HCl (Accupril -) 10 mg PO DAILY [facility] Last Admin: 04/01/18 11:25 Dose: Not Given - Objective Vital Signs: Vital Signs Temperature 98.6 F 04/01/18 14:32 Pulse Rate 91 H 04/01/18 14:32 Respiratory Rate 20 04/01/18 14:32 Blood Pressure 114/51 L 04/01/18 14:32 O2 Sat by Pulse Oximetry (%) 97 04/01/18 09:00 Constitutional: Yes: No Distress Cardiovascular: Yes: Regular Rate and Rhythm, S1, S2 Respiratory: Yes: CTA Bilaterally Gastrointestinal: Yes: Normal Bowel Sounds, Soft Edema: No Labs: CBC, BMP 04/01/18 06:00 03/31/18 06:00 INR, PTT INR 1.13 (0.83-1.09) H 03/28/18 17:47 Assessment/Plan Leukopenia/ neutropenia likely medication-induced +BC SCN= contaminant Proteus UTI Switch to po levaquin x 7d Outpatient hematology/ rheum follow up
[2018-04-01] MEDS ORDERED: FUROSEMIDE 40 MG/4 ML INJECTABLE VIAL IVPUSH ONE (18:12)
--- NOTE | 2018-04-01 18:19 | PN ---
Teaching Attending Note Name of Resident: Emily Jacskon ATTENDING PHYSICIAN STATEMENT I saw and evaluated the patient. I reviewed the resident's note and discussed the case with the resident. I agree with the resident's findings and plan as documented. ASSESSMENT AND PLAN: 77 y/o patient with h/o RA, on intermediate designer MTX, followed by Dr. Santizo for leukopenia. Last CBC in 09/07 was WBC of 1200 Patient with recent URI/cough --which is improving Comes in with weaknessfatigue WBC --300/ ? viral marrow suppression on top pf chronic marrow suppression with MTx. ? autoimmune ? primary marrow pathology followed by Dr. De La Torre rheumatology and Dr. Santizo from hematology . Baseline wBC very low --800to 1200 worsening due to recent viral infxn? hold mtx check flowcytomeyry will follow and consider GCSF per clinical course, risks/benefits. follow up closely with dr. santizo
[2018-04-01] MEDS: ATORVASTATIN CA 10 MG TABLET (FP) PO SCH (21:42)
[2018-04-01] MEDS: BENZOCAINE/MENTH/CETYLPYRD CL 1 EACH LOZENGE MM PRN (21:43)
[2018-04-02] MEDS ORDERED: CEFEPIME HCL 1 GM VIAL (RESTRICTED TO ID) ONE ×3 (02:36→17:00)
[2018-04-02] MEDS ORDERED: DEXTROSE 5%-WATER 100 ML IVPB ONE ×3 (02:37→17:01)
[2018-04-02] MEDS: CEFEPIME 1 GM in DEXTROSE 5%-WATER 100 ML IVPB SCH ×3 (03:13→18:12)
[2018-04-02] MEDS ORDERED: FUROSEMIDE 40 MG/4 ML INJECTABLE VIAL IVPUSH ONE (03:15)
[2018-04-02] MEDS: LEVOTHYROXINE NA 100 MCG TABLET (FP) PO SCH (06:05)
[2018-04-02] MEDS ORDERED: PT OWN MED DRAWER 7, Y5N ONE (08:58)
[2018-04-02] MEDS: QUINAPRIL HCL 10 MG TABLET (FP) PO SCH (09:15)
[2018-04-02] MEDS: HYDROCHLOROTHIAZIDE 25 MG TABLET (FP) PO SCH (09:15)
[2018-04-02] MEDS: ASPIRIN COATED 81 MG TABLET.EC PO SCH (09:15)
[2018-04-02] MEDS: FERROUS SO4 325 MG TABLET (FP) PO SCH (09:15)
[2018-04-02] MEDS: guaiFENesin/D-METHORPHAN HB 1 EACH TAB.ER.12H PO SCH ×2 (09:15→21:50)
[2018-04-02] MEDS: CALCIUM 500MG/VIT-D 200 UNITS COMBO TABLET (FP) PO SCH (09:15)
[2018-04-02] MEDS: ASCORBIC ACID 500 MG TABLET (FP) PO SCH (09:15)
[2018-04-02 10:30] LABS: BASO % 0.2 % (0-2.0); EOS % 3.3 % (0-4.5); HEMATOCRIT 32.9 % (32.4-45.2); LYMPH % 27.2 % (8-40); MCH 26.4 pg (25.7-33.7); MCHC 33.4 g/dl (32.0-36.0); MEAN PLT VOLUME 6.5 fl (7.5-11.1); MONO % 40.6 % (3.8-10.2); NEUT % 28.7 % (42.8-82.8); PLATELET COUNT 179 K/MM3 (134-434); RBC 4.17 M/mm3 (3.60-5.2); RDW 16.2 % (11.6-15.6)
--- NOTE | 2018-04-02 10:33 | DS ---
Physical Examination Vital Signs: Vital Signs Temperature 98.6 F 04/02/18 06:25 Pulse Rate 109 H 04/02/18 06:25 Respiratory Rate 20 04/02/18 06:25 Blood Pressure 116/54 L 04/02/18 06:25 O2 Sat by Pulse Oximetry (%) 97 04/01/18 21:00 Findings/Remarks: 77 yo F with h/o breast ca.( DCIS- excised), RA, luekopenia, hypothyroidism c/o subjective fevers and cough for the past 2 days associated with nausea and decreased PO intake. Patient denied any obvious sick contacts or recent travels. She denied any urinary symptoms or diarrhea. Reports normal bowel movements. Patient has been on methotrexate for her RA for the last 25 years. 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 Constitutional: Yes: Well Nourished, No Distress, Calm Cardiovascular: Yes: Regular Rate and Rhythm Respiratory: Yes: Regular Gastrointestinal: Yes: Normal Bowel Sounds, Soft Musculoskeletal: Yes: WNL Extremities: Yes: WNL Edema: No Peripheral Pulses WNL: Yes Neurological: Yes: Alert, Oriented Psychiatric: Yes: Alert, Oriented Discharge Summary Reason For Visit: FEVER LEUKOPENIA FEBRILE NEUTROPENIA Current Active Problems Anemia (Acute) Fever (Acute) Hyponatremia (Acute) Nausea (Acute) Neutropenia (Acute) Neutropenic fever (Acute) Rheumatoid arthritis (Acute) Sepsis (Acute) Urinary tract infection (Acute) Condition: Stable - Instructions Diet, Activity, Other Instructions: -Follow up with Dr Jiang within 1 week -Hold methotrexate until follow up with Rheumatology -Start Ferrous sulfate 1 tab daily -Take Levofloxacin 500 mg 1 tab daily x 7 days Referrals: Lavelle Jiang [Staff Physician] - Disposition: HOME - Home Medications Comprehensive Discharge Medication List: Ambulatory Orders Ascorbate Calcium [Vitamin C] 500 mg PO DAILY 11/24/13 Aspirin Coated [Ecotrin -] 81 mg PO DAILY 11/24/13 Calcium Carbonate/Vitamin D3 [Calcium 600-Vit D3 200 Tablet] 2 each PO DAILY 08/04 Folic Acid - 1 mg PO DAILY 11/24/13 Hydrochlorothiazide [Hctz -] 25 mg PO DAILY 11/24/13 Levothyroxine [Synthroid -] 88 mcg PO ASDIR 11/24/13 Levothyroxine [Synthroid -] 100 mcg PO DAILY 08/04/14 Methotrexate Sodium [Methotrexate] 10 mg PO WEEKLY 11/24/13 Quinapril HCl [Accupril -] 10 mg PO DAILY 11/24/13 Atorvastatin Calcium [Lipitor] 10 mg PO ASDIR 03/28/18 Diazepam [Valium] 5 mg PO BID PRN 03/28/18 Guaifenesin Dm [Mucinex Dm -] 1 tab PO BID 03/28/18 Acetaminophen [Tylenol .Regular Strength -] 650 mg PO Q6H PRN tablet 04/01/18 Ferrous Sulfate [Feosol] 325 mg PO DAILY #30 ud 04/01/18 Levofloxacin [Levaquin] 500 mg PO DAILY #7 tablet 04/01/18
[2018-04-02 10:54] LABS: WHITE BLOOD COUNT 0.4 K/mm3 (4.0-10.0)
[2018-04-02 11:15] LABS: ALBUMIN 2.2 g/dl (3.4-5.0); ALK PHOS 79 U/L (45-117); ANION GAP 13 MMOL/L (8-16); BILIRUBIN,TOTAL 1.8 mg/dL (0.2-1); BLOOD UREA NITROGEN 10 mg/dL (7-18); CALCIUM 8.3 mg/dL (8.5-10.1); CHLORIDE 88 mmol/L (98-107); CO2 25 mmol/L (21-32); CREATININE 0.6 mg/dL (0.55-1.3); GLUCOSE,RANDOM 102 mg/dL (74-106); SGOT/AST 23 U/L (15-37); SGPT/ALT 17 U/L (13-61); SODIUM 125 mmol/L (136-145); TOT PROT 6.4 g/dl (6.4-8.2)
[2018-04-02] MEDS ORDERED: SODIUM CHLORIDE 1,000 ML IV SCH (12:00)
[2018-04-02 12:47] LABS: ANISOCYTOSIS 1+; MACROCYTOSIS 0; PLATELET ESTIMATE NORMAL
[2018-04-02 13:14] LABS: ANION GAP 12 MMOL/L (8-16); BLOOD UREA NITROGEN 12 mg/dL (7-18); CALCIUM 8.3 mg/dL (8.5-10.1); CHLORIDE 88 mmol/L (98-107); CO2 26 mmol/L (21-32); CREATININE 0.6 mg/dL (0.55-1.3); GLUCOSE,RANDOM 102 mg/dL (74-106); POTASSIUM 3.2 mmol/L (3.5-5.1); SODIUM 126 mmol/L (136-145)
--- NOTE | 2018-04-02 13:27 | CONSULT ---
Consult - text type - Consultation Consultation Note: Renal consult for hyponatremia This is a 77 year old woman with hx of breast Ca, RA, Leukopenia, hypothryodism who presented with fevers and cough and found to have UTI and subsequently developed hyponatremia with serum na of 125. Pt is awake and alert and offers no acute complaints. No CP, sob, abd pain, fever or chills. No N/V/D. No seizures or confusion. Reports poor oral intake still of solutes. Does drink water. Was on HCTZ. PMhx: as above Allergies: NKDA Family hx: NC Social Hx: No T/A/D ROS: as per HPI, all other pertinent ros negative Vital Signs Temperature 98.2 F 04/02/18 10:00 Pulse Rate 96 H 04/02/18 10:00 Respiratory Rate 20 04/02/18 10:00 Blood Pressure 119/54 L 04/02/18 10:00 O2 Sat by Pulse Oximetry (%) 97 04/02/18 09:00 Intake & Output 03/30/18 03/31/18 04/01/18 04/02/18 23:59 23:59 23:59 23:59 Intake Total 577 016 7399 0 Balance 112 485 7521 0 Weight 64.864 kg NAD awake and alert MMM Neck supple RRR, No M/R CTA soft NT/ND no LE edema CBC, BMP 04/02/18 09:50 04/02/18 12:15 Current Medications Acetaminophen (Tylenol -) 650 mg PO Q6H PRN PRN Reason: FEVER Ascorbic Acid (Vitamin C -) 500 mg PO DAILY [facility] Last Admin: 04/02/18 09:15 Dose: 500 mg Aspirin (Ecotrin -) 81 mg PO DAILY [facility] Last Admin: 04/02/18 09:15 Dose: 81 mg Atorvastatin Calcium (Lipitor -) 10 mg PO HS [facility] Last Admin: 04/01/18 21:42 Dose: 10 mg Benzocaine/Menthol (Cepacol Lozenge -) 1 each MM PRN PRN PRN Reason: SORE THROAT Last Admin: 04/01/18 21:43 Dose: 1 each Calcium Carbonate/Cholecalciferol (Os-Grupo 500+D -) 2 tab PO DAILY [facility] Last Admin: 04/02/18 09:15 Dose: 2 tab Ferrous Sulfate (Feosol -) 325 mg PO DAILY [facility] Last Admin: 04/02/18 09:15 Dose: 325 mg Guaifenesin (Mucinex Dm -) 1 tablet PO BID [facility] Last Admin: 04/02/18 09:15 Dose: 1 tablet Cefepime HCl 1 gm/ Dextrose 100 mls @ 200 mls/hr IVPB Q8H-IV [facility]; Protocol Last Admin: 04/02/18 09:14 Dose: 200 mls/hr Sodium Chloride (Normal Saline -) 1,000 mls @ 100 mls/hr IV ASDIR [facility] Last Admin: 04/02/18 12:00 Dose: 100 mls/hr Levothyroxine Sodium (Synthroid -) 100 mcg PO 0700 [facility] Last Admin: 04/02/18 06:05 Dose: 100 mcg Quinapril HCl (Accupril -) 10 mg PO DAILY [facility] Last Admin: 04/02/18 09:15 Dose: Not Given 77 year old woman with hx of breast Ca, RA, Leukopenia, hypothryodism who presented with fevers and cough and found to have UTI and subsequently developed hyponatremia with serum na of 125. #Hypovolemic Hyponatremia from diuretics #UTI #Leukopenia #Hypokalemia Will d/c HCTZ Trial of NS at 100cc per hour with repeat serum na at 6pm Limit oral water intake advised to increase oral solute intake continue abx as per primary supplament K, goal > 3.5 Trend renal function and electrolytes daily Thank you Norberto Hopson DO
[2018-04-02] MEDS ORDERED: POTASSIUM CHLORIDE TABS 10 MEQ TABLET.ER (FP) PO ONE (14:15)
--- NOTE | 2018-04-02 16:26 | PN ---
Progress Note (short form) - Note Progress Note: Patient seen and examined Afebrile States she is leaving tomorrow. Have advised follow up with rheumatology and hematology as outpatient. Last Vital Signs Temp Pulse Resp BP Pulse Ox 98.8 F 91 H 20 110/53 L 97 04/02/18 14:14 04/02/18 14:14 04/02/18 14:14 04/02/18 14:14 04/02/18 09:00 HEENT: SIMON, EOM Intact Cor: RSR, No murmurs, No gallops Lungs: Clear to P&A Abd: Soft, Normal bowel sounds, No organomegaly Ext:No significant edema, rheumatoid changes hands Skin: No rashes, Integument intact CBC, BMP 04/02/18 09:50 04/02/18 12:15 Current Medications Generic Name Dose Route Start Last Admin Trade Name Freq PRN Reason Stop Dose Admin Acetaminophen 650 mg 03/30/18 16:59 Tylenol - PO Q6H PRN FEVER Ascorbic Acid 500 mg 03/29/18 10:00 04/02/18 09:15 Vitamin C - PO 500 mg DAILY [facility] Administration Aspirin 81 mg 03/29/18 10:00 04/02/18 09:15 Ecotrin - PO 81 mg DAILY [facility] Administration Atorvastatin Calcium 10 mg 03/28/18 22:00 04/01/18 21:42 Lipitor - PO 10 mg HS [facility] Administration Benzocaine/Menthol 1 each 03/31/18 03:56 04/01/18 21:43 Cepacol Lozenge - MM 1 each PRN PRN Administration SORE THROAT Calcium Carbonate/Cholecalciferol 2 tab 03/29/18 10:00 04/02/18 09:15 Os-Grupo 500+D - PO 2 tab DAILY [facility] Administration Ferrous Sulfate 325 mg 04/01/18 12:15 04/02/18 09:15 Feosol - PO 325 mg DAILY [facility] Administration Guaifenesin 1 tablet 03/28/18 22:00 04/02/18 09:15 Mucinex Dm - PO 1 tablet BID [facility] Administration Cefepime HCl 1 gm/ Dextrose 100 mls @ 200 mls/hr 03/29/18 12:45 04/02/18 09: 14 IVPB 200 mls/hr Q8H-IV [facility] Administration Protocol Sodium Chloride 1,000 mls @ 100 mls/hr 04/02/18 12:00 04/02/18 12:00 Normal Saline - IV 100 mls/hr ASDIR [facility] Administration Levothyroxine Sodium 100 mcg 03/29/18 07:00 04/02/18 06:05 Synthroid - PO 100 mcg 0700 [facility] Administration Quinapril HCl 10 mg 03/29/18 10:00 04/02/18 09:15 Accupril - PO Not Given DAILY [facility] Impression: Neutropenia Antibiotics- cefepime Rheumatoid arthritis- on Mtx Hypokalemia Plan: Replete K+ Begin leucovourm 25 mg q 6h - anticipate some improvement if MTX is significant component of neutropenia.
[2018-04-02] MEDS: LEUCOVORIN CALCIUM 25 MG PO SCH ×2 (18:13→21:50)
[2018-04-02] MEDS: ATORVASTATIN CA 10 MG TABLET (FP) PO SCH (21:50)
[2018-04-03] MEDS ORDERED: CEFEPIME HCL 1 GM VIAL (RESTRICTED TO ID) ONE ×3 (00:42→18:04)
[2018-04-03] MEDS ORDERED: DEXTROSE 5%-WATER 100 ML IVPB ONE ×3 (00:42→18:05)
[2018-04-03] MEDS: CEFEPIME 1 GM in DEXTROSE 5%-WATER 100 ML IVPB SCH ×3 (01:45→18:17)
[2018-04-03] MEDS: ACETAMINOPHEN 325 MG TABLET (FP) PO PRN ×2 (06:04→17:15)
[2018-04-03] MEDS: LEVOTHYROXINE NA 100 MCG TABLET (FP) PO SCH (06:04)
--- NOTE | 2018-04-03 07:16 | PN ---
Progress Note (short form) - Note Progress Note: Patient seen and examined Discussed with patient risk of infection including serious infection with low WBC count. Still anxious for discharge, but will stay one more day. In view of her desire to go home, will give neupogen ( granix) . [Patient informed of risk of musculoskeletal complaints with neupogen. She agrees. Last Vital Signs Temp Pulse Resp BP Pulse Ox 99.7 F H 98 H 20 105/46 L 96 04/03/18 06:00 04/03/18 06:00 04/03/18 06:00 04/03/18 06:00 04/02/18 21:00 HEENT: SIMON, EOM Intact Oropharynx: No thrush, No mucositis Cor: RSR, No murmurs, No gallops Lungs: Clear to P&A Abd: Soft, Normal bowel sounds, No organomegaly Ext:No significant edema, rheumatoid changes Skin: No rashes, Integument intact CBC, BMP 04/02/18 09:50 04/02/18 12:15 Current Medications Generic Name Dose Route Start Last Admin Trade Name Freq PRN Reason Stop Dose Admin Acetaminophen 650 mg 03/30/18 16:59 04/03/18 06:04 Tylenol - PO 650 mg Q6H PRN Administration FEVER Ascorbic Acid 500 mg 03/29/18 10:00 04/02/18 09:15 Vitamin C - PO 500 mg DAILY [facility] Administration Aspirin 81 mg 03/29/18 10:00 04/02/18 09:15 Ecotrin - PO 81 mg DAILY [facility] Administration Atorvastatin Calcium 10 mg 03/28/18 22:00 04/02/18 21:50 Lipitor - PO Not Given HS [facility] Benzocaine/Menthol 1 each 03/31/18 03:56 04/01/18 21:43 Cepacol Lozenge - MM 1 each PRN PRN Administration SORE THROAT Calcium Carbonate/Cholecalciferol 2 tab 03/29/18 10:00 04/02/18 09:15 Os-Grupo 500+D - PO 2 tab DAILY [facility] Administration Ferrous Sulfate 325 mg 04/01/18 12:15 04/02/18 09:15 Feosol - PO 325 mg DAILY [facility] Administration Guaifenesin 1 tablet 03/28/18 22:00 04/02/18 21:50 Mucinex Dm - PO Not Given BID [facility] Cefepime HCl 1 gm/ Dextrose 100 mls @ 200 mls/hr 03/29/18 12:45 04/03/18 01: 45 IVPB 200 mls/hr Q8H-IV [facility] Administration Protocol Sodium Chloride 1,000 mls @ 100 mls/hr 04/02/18 12:00 04/02/18 12:00 Normal Saline - IV 100 mls/hr ASDIR [facility] Administration Leucovorin Calcium 25 mg 04/02/18 18:00 04/02/18 21:50 Leucovorin - PO 25 mg QID [facility] Administration Levothyroxine Sodium 100 mcg 03/29/18 07:00 04/03/18 06:04 Synthroid - PO 100 mcg 0700 [facility] Administration Quinapril HCl 10 mg 03/29/18 10:00 04/02/18 09:15 Accupril - PO Not Given DAILY [facility] Impression: Neutropenia--?? methotrexate , ? other Rheumatoid arthritis Plan: Granix Continue leucovorum If patient is discharged 04/04, would discharge on oral antibiotic -cipro for neutropenic prophylaxis. Follow up with hematology and rheumatology as outpatient .
[2018-04-03 07:38] LABS: BASO % 2.4 % (0-2.0); EOS % 2.5 % (0-4.5); HEMATOCRIT 26.3 % (32.4-45.2); HEMOGLOBIN 9.6 GM/dL (10.7-15.3); LYMPH % 26.8 % (8-40); MCH 28.3 pg (25.7-33.7); MCHC 36.4 g/dl (32.0-36.0); MEAN CELL VOLUME 77.7 fl (80-96); MEAN PLT VOLUME 6.7 fl (7.5-11.1); MONO % 48.9 % (3.8-10.2); NEUT % 19.4 % (42.8-82.8); PLATELET COUNT 181 K/MM3 (134-434); RBC 3.39 M/mm3 (3.60-5.2); RDW 15.9 % (11.6-15.6)
[2018-04-03 07:42] LABS: WHITE BLOOD COUNT 0.5 K/mm3 (4.0-10.0)
[2018-04-03 08:12] LABS: ALBUMIN 2.1 g/dl (3.4-5.0); ALK PHOS 61 U/L (45-117); ANION GAP 18 MMOL/L (8-16); BILIRUBIN,TOTAL 0.8 mg/dL (0.2-1); BLOOD UREA NITROGEN 12 mg/dL (7-18); CALCIUM 7.6 mg/dL (8.5-10.1); CHLORIDE 88 mmol/L (98-107); CO2 21 mmol/L (21-32); CREATININE 0.6 mg/dL (0.55-1.3); GLUCOSE,RANDOM 85 mg/dL (74-106); SGOT/AST 30 U/L (15-37); SGPT/ALT 20 U/L (13-61); SODIUM 127 mmol/L (136-145); TOT PROT 5.5 g/dl (6.4-8.2)
[2018-04-03 08:21] LABS: POTASSIUM 2.9 mmol/L (3.5-5.1)
--- NOTE | 2018-04-03 10:06 | PN ---
Progress Note, Physician - Current Medication List Current Medications: Active Medications Acetaminophen (Tylenol -) 650 mg PO Q6H PRN PRN Reason: FEVER Last Admin: 04/03/18 06:04 Dose: 650 mg Ascorbic Acid (Vitamin C -) 500 mg PO DAILY [facility] Last Admin: 04/02/18 09:15 Dose: 500 mg Aspirin (Ecotrin -) 81 mg PO DAILY [facility] Last Admin: 04/02/18 09:15 Dose: 81 mg Atorvastatin Calcium (Lipitor -) 10 mg PO HS [facility] Last Admin: 04/02/18 21:50 Dose: Not Given Benzocaine/Menthol (Cepacol Lozenge -) 1 each MM PRN PRN PRN Reason: SORE THROAT Last Admin: 04/01/18 21:43 Dose: 1 each Calcium Carbonate/Cholecalciferol (Os-Grupo 500+D -) 2 tab PO DAILY [facility] Last Admin: 04/02/18 09:15 Dose: 2 tab Ferrous Sulfate (Feosol -) 325 mg PO DAILY [facility] Last Admin: 04/02/18 09:15 Dose: 325 mg Guaifenesin (Mucinex Dm -) 1 tablet PO BID [facility] Last Admin: 04/02/18 21:50 Dose: Not Given Cefepime HCl 1 gm/ Dextrose 100 mls @ 200 mls/hr IVPB Q8H-IV [facility]; Protocol Last Admin: 04/03/18 01:45 Dose: 200 mls/hr Sodium Chloride (Normal Saline -) 1,000 mls @ 100 mls/hr IV ASDIR [facility] Last Admin: 04/02/18 12:00 Dose: 100 mls/hr Potassium Chloride (Potassium Chloride 10 Meq Premix Ivpb -) 10 meq in 100 mls @ 100 mls/hr IVPB Q60M [facility] Stop: 04/03/18 12:29 Leucovorin Calcium (Leucovorin -) 25 mg PO QID [facility] Last Admin: 04/02/18 21:50 Dose: 25 mg Levothyroxine Sodium (Synthroid -) 100 mcg PO 0700 [facility] Last Admin: 04/03/18 06:04 Dose: 100 mcg Quinapril HCl (Accupril -) 10 mg PO DAILY [facility] Last Admin: 04/02/18 09:15 Dose: Not Given Tbo-Filgrastim (Granix -) 300 mcg SQ DAILY [facility] - Objective Vital Signs: Vital Signs Temperature 99.7 F H 04/03/18 06:00 Pulse Rate 98 H 04/03/18 06:00 Respiratory Rate 20 04/03/18 06:00 Blood Pressure 105/46 L 04/03/18 06:00 O2 Sat by Pulse Oximetry (%) 96 04/02/18 21:00 Cardiovascular: Yes: S1, S2 Respiratory: Yes: Regular, CTA Bilaterally Gastrointestinal: Yes: Normal Bowel Sounds, Soft Labs: CBC, BMP 04/03/18 06:15 04/03/18 06:15 INR, PTT INR 1.13 (0.83-1.09) H 03/28/18 17:47 Problem List - Problems (1) Neutropenic fever Assessment/Plan: -treat empirically with vancomycin, cefepime given severity of neutropenia -blood and urine cultures sent 03/28/18 17:47 Blood - Peripheral Venous Blood Culture - Preliminary Staphylococcus Coagulase Neg 03/28/18 17:46 Urine - Urine Clean Catch Urine Culture - Final Proteus Mirabilis Diphtheroid/Corynebacterium 03/28/18 17:47 Blood - Peripheral Venous Blood Culture - Preliminary NO GROWTH OBTAINED AFTER 48 HOURS, INCUBATION TO CONTINUE FOR 3 DAYS. -ID consult to evaluate for antibiotic therapy Code(s): D70.9 - NEUTROPENIA, UNSPECIFIED; R50.81 - FEVER PRESENTING WITH CONDITIONS CLASSIFIED ELSEWHERE (2) Rheumatoid arthritis Assessment/Plan: -hold mtx Code(s): M06.9 - RHEUMATOID ARTHRITIS, UNSPECIFIED (3) Leukopenia Assessment/Plan: -77yo woman with severe neutropenia from uncertain source. -May be possibly from methotrexate. -hem Granix Continue leucovorum If patient is discharged 04/04, would discharge on oral antibiotic -cipro for neutropenic prophylaxis. Code(s): D72.819 - DECREASED WHITE BLOOD CELL COUNT, UNSPECIFIED Qualifiers: Leukopenia type: unspecified Qualified Code(s): D72.819 - Decreased white blood cell count, unspecified (4) Hyponatremia Assessment/Plan: _vf per renal replace k Code(s): E87.1 - HYPO-OSMOLALITY AND HYPONATREMIA
[2018-04-03 10:42] LABS: ANISOCYTOSIS 1+; MACROCYTOSIS 0; PLATELET ESTIMATE NORMAL
[2018-04-03] MEDS: CALCIUM 500MG/VIT-D 200 UNITS COMBO TABLET (FP) PO SCH (11:02)
[2018-04-03] MEDS: ASCORBIC ACID 500 MG TABLET (FP) PO SCH (11:03)
[2018-04-03] MEDS: ASPIRIN COATED 81 MG TABLET.EC PO SCH (11:03)
[2018-04-03] MEDS: FERROUS SO4 325 MG TABLET (FP) PO SCH (11:03)
[2018-04-03] MEDS: guaiFENesin/D-METHORPHAN HB 1 EACH TAB.ER.12H PO SCH ×3 (11:05→21:46)
[2018-04-03] MEDS: LEUCOVORIN CALCIUM 25 MG PO SCH ×5 (11:05→21:46)
[2018-04-03] MEDS: KCL 10 MEQ IVPB 10 MEQ/100 ML INFUS.BAG IVPB SCH ×3 (11:07→14:41)
[2018-04-03] MEDS: QUINAPRIL HCL 10 MG TABLET (FP) PO SCH (11:18)
[2018-04-03] MEDS: TBO-FILGRASTIM 300 MCG/0.5 ML DISP.SYRINGE SQ SCH (12:24)
--- NOTE | 2018-04-03 17:35 | PN ---
Progress Note (short form) - Note Progress Note: Renal follow up for hyponatremia Pt seen and examined at the bedside awake and alert no acute complaints no confusion, cp, abd pain, N/V Vital Signs Temperature 99.7 F H 04/03/18 14:53 Pulse Rate 97 H 04/03/18 14:53 Respiratory Rate 20 04/03/18 14:53 Blood Pressure 120/50 L 04/03/18 14:53 O2 Sat by Pulse Oximetry (%) 96 04/02/18 21:00 Intake & Output 03/31/18 04/01/18 04/02/18 04/03/18 23:59 23:59 23:59 23:59 Intake Total 850 1150 1200 1250 Balance 850 1150 1200 1250 NAD awake and alert neck supple soft NT/ND no LE edema CBC, BMP 04/03/18 06:15 04/03/18 06:15 Current Medications Acetaminophen (Tylenol -) 650 mg PO Q6H PRN PRN Reason: FEVER Last Admin: 04/03/18 17:15 Dose: 650 mg Ascorbic Acid (Vitamin C -) 500 mg PO DAILY [facility] Last Admin: 04/03/18 11:03 Dose: 500 mg Aspirin (Ecotrin -) 81 mg PO DAILY [facility] Last Admin: 04/03/18 11:03 Dose: 81 mg Atorvastatin Calcium (Lipitor -) 10 mg PO HS [facility] Last Admin: 04/02/18 21:50 Dose: Not Given Benzocaine/Menthol (Cepacol Lozenge -) 1 each MM PRN PRN PRN Reason: SORE THROAT Last Admin: 04/01/18 21:43 Dose: 1 each Calcium Carbonate/Cholecalciferol (Os-Grupo 500+D -) 2 tab PO DAILY [facility] Last Admin: 04/03/18 11:02 Dose: 2 tab Ferrous Sulfate (Feosol -) 325 mg PO DAILY [facility] Last Admin: 04/03/18 11:03 Dose: 325 mg Guaifenesin (Mucinex Dm -) 1 tablet PO BID [facility] Last Admin: 04/03/18 11:19 Dose: Not Given Cefepime HCl 1 gm/ Dextrose 100 mls @ 200 mls/hr IVPB Q8H-IV [facility]; Protocol Last Admin: 04/03/18 11:03 Dose: 200 mls/hr Leucovorin Calcium (Leucovorin -) 25 mg PO QID [facility] Last Admin: 04/03/18 14:41 Dose: 25 mg Levothyroxine Sodium (Synthroid -) 100 mcg PO 0700 [facility] Last Admin: 04/03/18 06:04 Dose: 100 mcg Quinapril HCl (Accupril -) 10 mg PO DAILY [facility] Last Admin: 04/03/18 11:18 Dose: 10 mg Tbo-Filgrastim (Granix -) 300 mcg SQ DAILY [facility] Last Admin: 04/03/18 12:24 Dose: 300 mcg 77 year old woman with hx of breast Ca, RA, Leukopenia, hypothryodism who presented with fevers and cough and found to have UTI and subsequently developed hyponatremia with serum na of 125. #Hypovolemic Hyponatremia from diuretics #UTI #Leukopenia/Neutropenia #Hypokalemia Serum Na stable s/p IVF off fluids since this am, will repeat labs at 6pm no indication for 3% saline urine studies not yet collected s/p KCl supplement, goal K level > 3.5 Heme oncology follow up Norberto Hopson DO
[2018-04-03] MEDS: VANCOMYCIN 1 GRAM (PRE-DOCKED) 1,000 MG/250 ML BAG IVPB SCH (19:17)
[2018-04-03] MEDS ORDERED: ONDANSETRON 4 MG/2 ML VIAL IVPB ONE (19:45)
[2018-04-03 20:40] LABS: ANION GAP 11 MMOL/L (8-16); BLOOD UREA NITROGEN 9 mg/dL (7-18); CALCIUM 8.1 mg/dL (8.5-10.1); CHLORIDE 96 mmol/L (98-107); CO2 21 mmol/L (21-32); CREATININE 0.5 mg/dL (0.55-1.3); GLUCOSE,RANDOM 103 mg/dL (74-106); POTASSIUM 3.4 mmol/L (3.5-5.1); SODIUM 128 mmol/L (136-145)
[2018-04-03] MEDS: ATORVASTATIN CA 10 MG TABLET (FP) PO SCH (21:46)
[2018-04-04] MEDS ORDERED: DEXTROSE 5%-WATER 100 ML IVPB ONE ×4 (02:00→23:52)
[2018-04-04] MEDS ORDERED: CEFEPIME HCL 1 GM VIAL (RESTRICTED TO ID) ONE ×4 (02:00→23:52)
[2018-04-04] MEDS: CEFEPIME 1 GM in DEXTROSE 5%-WATER 100 ML IVPB SCH ×3 (02:47→17:23)
[2018-04-04] MEDS: LEVOTHYROXINE NA 100 MCG TABLET (FP) PO SCH (06:03)
[2018-04-04] MEDS: VANCOMYCIN 1 GRAM (PRE-DOCKED) 1,000 MG/250 ML BAG IVPB SCH ×2 (06:03→19:40)
[2018-04-04 07:40] LABS: BASO % 0.1 % (0-2.0); EOS % 2.3 % (0-4.5); HEMATOCRIT 27.5 % (32.4-45.2); HEMOGLOBIN 9.2 GM/dL (10.7-15.3); LYMPH % 25.7 % (8-40); MCH 26.5 pg (25.7-33.7); MCHC 33.5 g/dl (32.0-36.0); MEAN CELL VOLUME 79.3 fl (80-96); MEAN PLT VOLUME 6.7 fl (7.5-11.1); MONO % 46.6 % (3.8-10.2); NEUT % 25.3 % (42.8-82.8); PLATELET COUNT 176 K/MM3 (134-434); RBC 3.47 M/mm3 (3.60-5.2)
[2018-04-04 07:56] LABS: WHITE BLOOD COUNT 0.6 K/mm3 (4.0-10.0)
[2018-04-04 08:46] LABS: ALBUMIN 1.8 g/dl (3.4-5.0); ALK PHOS 68 U/L (45-117); ANION GAP 11 MMOL/L (8-16); BILIRUBIN,TOTAL 0.7 mg/dL (0.2-1); BLOOD UREA NITROGEN 7 mg/dL (7-18); CALCIUM 7.8 mg/dL (8.5-10.1); CHLORIDE 96 mmol/L (98-107); CO2 20 mmol/L (21-32); CREATININE 0.5 mg/dL (0.55-1.3); GLUCOSE,RANDOM 100 mg/dL (74-106); MAGNESIUM 1.7 mg/dL (1.8-2.4); POTASSIUM 3.3 mmol/L (3.5-5.1); SGOT/AST 21 U/L (15-37); SGPT/ALT 15 U/L (13-61); SODIUM 128 mmol/L (136-145); TOT PROT 5.4 g/dl (6.4-8.2)
--- NOTE | 2018-04-04 08:55 | DS ---
Physical Examination Vital Signs: Vital Signs Temperature 99.5 F 04/04/18 06:23 Pulse Rate 98 H 04/04/18 06:23 Respiratory Rate 18 04/04/18 06:23 Blood Pressure 111/40 L 04/04/18 06:23 O2 Sat by Pulse Oximetry (%) 96 04/03/18 21:00 Labs: CBC, BMP 04/04/18 06:00 04/04/18 06:15 Discharge Summary Reason For Visit: FEVER LEUKOPENIA FEBRILE NEUTROPENIA Current Active Problems Anemia (Acute) DCIS (ductal carcinoma in situ) of breast (Acute) Fever (Acute) Hyponatremia (Acute) Nausea (Acute) Neutropenia (Acute) Neutropenic fever (Acute) Rheumatoid arthritis (Acute) Sepsis (Acute) Urinary tract infection (Acute) Condition: Stable - Instructions Diet, Activity, Other Instructions: -Follow up with Dr Jiang within 1 week -Hold methotrexate until follow up with Rheumatology -Start Ferrous sulfate 1 tab daily -Take Levofloxacin 500 mg 1 tab daily x 7 days Referrals: Lavelle Jiang [Staff Physician] - Sanjay Miranda MD [Staff Physician] - Kiki James MD [Staff Physician] - 1 Week Disposition: HOME - Home Medications Comprehensive Discharge Medication List: Ambulatory Orders Ascorbate Calcium [Vitamin C] 500 mg PO DAILY 11/24/13 Aspirin Coated [Ecotrin -] 81 mg PO DAILY 11/24/13 Calcium Carbonate/Vitamin D3 [Calcium 600-Vit D3 200 Tablet] 2 each PO DAILY 08/04 Folic Acid - 1 mg PO DAILY 11/24/13 Levothyroxine [Synthroid -] 100 mcg PO DAILY 11/24/13 Quinapril HCl [Accupril -] 10 mg PO DAILY 11/24/13 Atorvastatin Calcium [Lipitor] 10 mg PO ASDIR 03/28/18 Diazepam [Valium] 5 mg PO BID PRN 03/28/18 Guaifenesin Dm [Mucinex Dm -] 1 tab PO BID 03/28/18 Acetaminophen [Tylenol .Regular Strength -] 650 mg PO Q6H PRN tablet 04/01/18 Ferrous Sulfate [Feosol] 325 mg PO DAILY #30 ud 04/01/18 Levofloxacin [Levaquin] 500 mg PO DAILY #7 tablet 04/01/18
[2018-04-04] MEDS ORDERED: POTASSIUM CHLORIDE TABS 20 MEQ TABLET.ER (FP) PO ONE (09:30)
[2018-04-04] MEDS: FERROUS SO4 325 MG TABLET (FP) PO SCH (09:48)
[2018-04-04] MEDS: ASPIRIN COATED 81 MG TABLET.EC PO SCH (09:48)
[2018-04-04] MEDS: CALCIUM 500MG/VIT-D 200 UNITS COMBO TABLET (FP) PO SCH (09:48)
[2018-04-04] MEDS: ASCORBIC ACID 500 MG TABLET (FP) PO SCH (09:48)
[2018-04-04] MEDS: LEUCOVORIN CALCIUM 25 MG PO SCH ×5 (09:58→21:25)
[2018-04-04] MEDS: QUINAPRIL HCL 10 MG TABLET (FP) PO SCH (09:59)
[2018-04-04] MEDS: guaiFENesin/D-METHORPHAN HB 1 EACH TAB.ER.12H PO SCH ×2 (10:02→21:23)
--- NOTE | 2018-04-04 10:04 | DS ---
Physical Examination Vital Signs: Vital Signs Temperature 99.5 F 04/04/18 06:23 Pulse Rate 98 H 04/04/18 06:23 Respiratory Rate 18 04/04/18 06:23 Blood Pressure 111/40 L 04/04/18 06:23 O2 Sat by Pulse Oximetry (%) 96 04/03/18 21:00 Cardiovascular: Yes: Regular Rate and Rhythm Respiratory: Yes: Regular, CTA Bilaterally Gastrointestinal: Yes: Normal Bowel Sounds, Soft. No: Tenderness Labs: CBC, BMP 04/04/18 06:00 04/04/18 06:15 Discharge Summary Reason For Visit: FEVER LEUKOPENIA FEBRILE NEUTROPENIA Current Active Problems Anemia (Acute) DCIS (ductal carcinoma in situ) of breast (Acute) Fever (Acute) Hyponatremia (Acute) Nausea (Acute) Neutropenia (Acute) Neutropenic fever (Acute) Rheumatoid arthritis (Acute) Sepsis (Acute) Urinary tract infection (Acute) Hospital Course: 77 yo F with h/o breast ca.( DCIS- excised), RA, luekopenia, hypothyroidism c/o subjective fevers and cough for the past 2 days associated with nausea and decreased PO intake. Patient denied any obvious sick contacts or recent travels. She denied any urinary symptoms or diarrhea. Reports normal bowel movements. Patient has been on methotrexate for her RA for the last 25 years. 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 - Problems (1) Neutropenic fever Assessment/Plan: -treat empirically with vancomycin, cefepime given severity of neutropenia -blood and urine cultures sent 03/28/18 17:47 Blood - Peripheral Venous Blood Culture - Preliminary Staphylococcus Coagulase Neg 03/28/18 17:46 Urine - Urine Clean Catch Urine Culture - Final Proteus Mirabilis Diphtheroid/Corynebacterium 03/28/18 17:47 Blood - Peripheral Venous Blood Culture - Preliminary NO GROWTH OBTAINED AFTER 48 HOURS, INCUBATION TO CONTINUE FOR 3 DAYS. -ID consult to evaluate for antibiotic therapy Code(s): D70.9 - NEUTROPENIA, UNSPECIFIED; R50.81 - FEVER PRESENTING WITH CONDITIONS CLASSIFIED ELSEWHERE (2) Rheumatoid arthritis Assessment/Plan: -hold mtx Code(s): M06.9 - RHEUMATOID ARTHRITIS, UNSPECIFIED (3) Leukopenia Assessment/Plan: -77yo woman with severe neutropenia from uncertain source. -May be possibly from methotrexate. -hem Granix Continue leucovorum x 48 hrs d/w dr wen If patient is discharged 04/04, would discharge on oral antibiotic -cipro for neutropenic prophylaxis. Code(s): D72.819 - DECREASED WHITE BLOOD CELL COUNT, UNSPECIFIED Qualifiers: Leukopenia type: unspecified Qualified Code(s): D72.819 - Decreased white blood cell count, unspecified (4) Hyponatremia Assessment/Plan: _off Ivf per renal replace k Code(s): E87.1 - HYPO-OSMOLALITY AND HYPONATREMIA Condition: Stable - Instructions Diet, Activity, Other Instructions: -Follow up with Dr Jiang within 1 week -Hold methotrexate until follow up with Rheumatology -Start Ferrous sulfate 1 tab daily -Take Levofloxacin 500 mg 1 tab daily x 7 days Referrals: Kiki James MD [Staff Physician] - 1 Week Lavelle Jiang [Staff Physician] - Sanjay Wen MD [Staff Physician] - 1 Week Disposition: HOME - Home Medications Comprehensive Discharge Medication List: Ambulatory Orders Ascorbate Calcium [Vitamin C] 500 mg PO DAILY 11/24/13 Aspirin Coated [Ecotrin -] 81 mg PO DAILY 11/24/13 Calcium Carbonate/Vitamin D3 [Calcium 600-Vit D3 200 Tablet] 2 each PO DAILY 08/04 Folic Acid - 1 mg PO DAILY 11/24/13 Levothyroxine [Synthroid -] 100 mcg PO DAILY 11/24/13 Quinapril HCl [Accupril -] 10 mg PO DAILY 11/24/13 Atorvastatin Calcium [Lipitor] 10 mg PO ASDIR 03/28/18 Diazepam [Valium] 5 mg PO BID PRN 03/28/18 Guaifenesin Dm [Mucinex Dm -] 1 tab PO BID 03/28/18 Acetaminophen [Tylenol .Regular Strength -] 650 mg PO Q6H PRN tablet 04/01/18 Ferrous Sulfate [Feosol] 325 mg PO DAILY #30 ud 04/01/18 Levofloxacin [Levaquin] 500 mg PO DAILY #7 tablet 04/01/18 Leucovorin Calcium 10 mg PO QID #8 tablet 04/04/18 Leucovorin Calcium 15 mg PO QID #8 tablet 04/04/18
[2018-04-04] MEDS: TBO-FILGRASTIM 300 MCG/0.5 ML DISP.SYRINGE SQ SCH (10:48)
[2018-04-04 11:43] LABS: ACANTHOCYTES 0; ANISOCYTOSIS 0; HELMET CELLS 0; HOWELL-JOLLY BODIES 0; MACROCYTOSIS 0; OVALOCYTE 0; PLATELET ESTIMATE NORMAL; ROULEAU 0; SICKELED CELLS 0; TARGET CELLS 0; TEAR DROP CELLS 0; TOXIC GRANULATION 0
[2018-04-04] MEDS: SODIUM CHLORIDE 1 GM TABLET PO SCH (13:30)
[2018-04-04] MEDS ORDERED: PT OWN MED DRAWER 7, Y5N ONE (13:50)
--- NOTE | 2018-04-04 16:26 | PN ---
Progress Note (short form) - Note Progress Note: PROGRESS NOTE FOR HEMATOLOGY/ONCOLOGY Patient seen and examined by me at bedside Offers no complaints and states she is feeling better. Patient wants to go home No fevers overnight Otherwise, denies fever, chills, nausea, vomiting, chest pain, palpitations, shortness of breath, dysuria, hematuria Vital Signs Temperature 98.5 F 04/04/18 14:47 Pulse Rate 92 H 04/04/18 14:47 Respiratory Rate 20 04/04/18 14:47 Blood Pressure 112/48 L 04/04/18 14:47 O2 Sat by Pulse Oximetry (%) 96 04/04/18 10:00 GENERAL: Awake, alert, and fully oriented, in no acute distress. EYES: PERRL sclera anicteric, conjunctiva clear. EARS, NOSE, THROAT: No oral thrush. Moist mucous membranes. LUNGS: Breath sounds equal, clear to auscultation bilaterally. No wheezes, and no crackles. No accessory muscle use. HEART: Regular rate and rhythm, normal S1 and S2 without murmur, rub or gallop. ABDOMEN: Soft, nontender, not distended, normoactive bowel sounds, no guarding, no rebound, no masses. No hepatomegaly or splenomegaly. EXTREMITIES: No peripheral edema. CBC, BMP 04/04/18 06:00 04/04/18 06:15 ASSESSMENT/PLAN: Patient is a 77 year old female who presented for fever, chills, non productive cough, anorexia, nausea and was found to have neutropenia with neutropenic fevers. We were consulted for further evaluation. Problem List: Neutropenia Neutropenic fevers Bone Marrow Suppression Microcytic Anemia Upper Respiratory tract infection Rheumatoid Arthritis on MTX (25 years) Neutropenia HTN HLD Hypothyroidism Breast cancer (DCIS) Plan: -Patient with bone marrow suppresion wit WBC 0.3 and ANC 0.1 with unclear etiology but likely secondary to Methotrexate use and viral syndrome. -Continue Leucovorum -Granix as needed -IV abx, as per ID -Continue to monitor CBC -Patient upon discharge will need oral abx for neutropenia prophylaxis -Follow up with hematology and rheumatology as outpatient
--- NOTE | 2018-04-04 16:59 | PN ---
Progress Note (short form) - Note Progress Note: Renal follow up for hyponatremia Pt seen and examined at the bedside awake and alert no acute complaints Vital Signs Temperature 98.5 F 04/04/18 14:47 Pulse Rate 92 H 04/04/18 14:47 Respiratory Rate 20 04/04/18 14:47 Blood Pressure 112/48 L 04/04/18 14:47 O2 Sat by Pulse Oximetry (%) 96 04/04/18 10:00 NAD awake and alert no LE edmea CBC, BMP 04/04/18 06:00 04/04/18 06:15 77 year old woman with hx of breast Ca, RA, Leukopenia, hypothryodism who presented with fevers and cough and found to have UTI and subsequently developed hyponatremia with serum na of 125. #Hypovolemic Hyponatremia from diuretics #UTI #Leukopenia/Neutropenia #Hypokalemia Serum Na is stable but pt without good solute intake will start oral salt tabs once daily trend serum Na daily if discharged should follow up in 1 week for repeat labs and continue salt tabs as an outpatient Norberto Hopson DO
--- NOTE | 2018-04-04 20:36 | PN ---
Progress Note (short form) - Note Progress Note: 77 y/o patient with RA, chronic severe neutropenia on MTX MTX on hold Leucovorin rescue 1 dose of neuoogen Will check CT cheat noncontrast ?? prolonged neutropenia/fungal infection For BMBX tomorrow with Dr. Miranda
[2018-04-04] MEDS: ATORVASTATIN CA 10 MG TABLET (FP) PO SCH (21:23)
[2018-04-05] MEDS: CEFEPIME 1 GM in DEXTROSE 5%-WATER 100 ML IVPB SCH ×3 (01:32→17:54)
[2018-04-05] MEDS ORDERED: PT OWN MED DRAWER 7, Y5N ONE ×2 (03:55→20:37)
[2018-04-05] MEDS: VANCOMYCIN 1 GRAM (PRE-DOCKED) 1,000 MG/250 ML BAG IVPB SCH ×2 (05:41→17:54)
[2018-04-05] MEDS: LEVOTHYROXINE NA 100 MCG TABLET (FP) PO SCH (06:20)
--- NOTE | 2018-04-05 09:13 | DS ---
Physical Examination Vital Signs: Vital Signs Temperature 98.9 F 04/05/18 06:21 Pulse Rate 99 H 04/05/18 06:21 Respiratory Rate 20 04/05/18 06:21 Blood Pressure 119/48 L 04/05/18 06:21 O2 Sat by Pulse Oximetry (%) 98 04/04/18 21:00 Cardiovascular: Yes: Regular Rate and Rhythm Respiratory: Yes: Regular, CTA Bilaterally Gastrointestinal: Yes: Normal Bowel Sounds, Soft Labs: CBC, BMP 04/04/18 06:00 04/04/18 06:15 Discharge Summary Reason For Visit: FEVER LEUKOPENIA FEBRILE NEUTROPENIA Current Active Problems Anemia (Acute) DCIS (ductal carcinoma in situ) of breast (Acute) Fever (Acute) Hyponatremia (Acute) Nausea (Acute) Neutropenia (Acute) Neutropenic fever (Acute) Rheumatoid arthritis (Acute) Sepsis (Acute) Urinary tract infection (Acute) Hospital Course: 77 yo F with h/o breast ca.( DCIS- excised), RA, luekopenia, hypothyroidism c/o subjective fevers and cough for the past 2 days associated with nausea and decreased PO intake. Patient denied any obvious sick contacts or recent travels. She denied any urinary symptoms or diarrhea. Reports normal bowel movements. Patient has been on methotrexate for her RA for the last 25 years. She said she has seen rn nursery for her known leukopenia. - Problems (1) Neutropenic fever Assessment/Plan: -treat empirically with vancomycin, cefepime given severity of neutropenia -blood and urine cultures sent 03/28/18 17:47 Blood - Peripheral Venous Blood Culture - Preliminary Staphylococcus Coagulase Neg 03/28/18 17:46 Urine - Urine Clean Catch Urine Culture - Final Proteus Mirabilis Diphtheroid/Corynebacterium 03/28/18 17:47 Blood - Peripheral Venous Blood Culture - Preliminary NO GROWTH OBTAINED AFTER 48 HOURS, INCUBATION TO CONTINUE FOR 3 DAYS. -ID consult to evaluate for antibiotic therapy Code(s): D70.9 - NEUTROPENIA, UNSPECIFIED; R50.81 - FEVER PRESENTING WITH CONDITIONS CLASSIFIED ELSEWHERE (2) Rheumatoid arthritis Assessment/Plan: -hold mtx Code(s): M06.9 - RHEUMATOID ARTHRITIS, UNSPECIFIED (3) Leukopenia Assessment/Plan: -77yo woman with severe neutropenia from uncertain source. -May be possibly from methotrexate. -hem Granix Continue leucovorum x 48 hrs d/w dr wen If patient is discharged 04/04, would discharge on oral antibiotic -cipro for neutropenic prophylaxis. Code(s): D72.819 - DECREASED WHITE BLOOD CELL COUNT, UNSPECIFIED Qualifiers: Leukopenia type: unspecified Qualified Code(s): D72.819 - Decreased white blood cell count, unspecified (4) Hyponatremia Assessment/Plan: _off Ivf per renal replace k Code(s): E87.1 - HYPO-OSMOLALITY AND HYPONATREMIA Condition: Stable - Instructions Diet, Activity, Other Instructions: -Follow up with Dr Jiang within 1 week -Hold methotrexate until follow up with Rheumatology -Start Ferrous sulfate 1 tab daily -Take Levofloxacin 500 mg 1 tab daily x 7 days Referrals: Kiki James MD [Staff Physician] - 1 Week Lavelle Jiang [Staff Physician] - Sanjay Wen MD [Staff Physician] - 1 Week Disposition: HOME - Home Medications Comprehensive Discharge Medication List: Ambulatory Orders Ascorbate Calcium [Vitamin C] 500 mg PO DAILY 11/24/13 Aspirin Coated [Ecotrin -] 81 mg PO DAILY 11/24/13 Calcium Carbonate/Vitamin D3 [Calcium 600-Vit D3 200 Tablet] 2 each PO DAILY 08/04 Folic Acid - 1 mg PO DAILY 11/24/13 Levothyroxine [Synthroid -] 100 mcg PO DAILY 11/24/13 Quinapril HCl [Accupril -] 10 mg PO DAILY 11/24/13 Atorvastatin Calcium [Lipitor] 10 mg PO ASDIR 03/28/18 Diazepam [Valium] 5 mg PO BID PRN 03/28/18 Guaifenesin Dm [Mucinex Dm -] 1 tab PO BID 03/28/18 Acetaminophen [Tylenol .Regular Strength -] 650 mg PO Q6H PRN tablet 04/01/18 Ferrous Sulfate [Feosol] 325 mg PO DAILY #30 ud 04/01/18 Levofloxacin [Levaquin] 500 mg PO DAILY #7 tablet 04/01/18 Leucovorin Calcium 10 mg PO QID #8 tablet 04/04/18 Leucovorin Calcium 15 mg PO QID #8 tablet 04/04/18
[2018-04-05] MEDS ORDERED: LIDOCAINE HCL 1%, 10 MG/ML (20ML VIAL) ONE (09:21)
--- NOTE | 2018-04-05 09:30 | PN ---
Progress Note (short form) - Note Progress Note: Patient seen and examined No new complaints Remains afebrile and neutropenic Underwent Chest CT- results- pending Last Vital Signs Temp Pulse Resp BP Pulse Ox 98.9 F 99 H 20 119/48 L 98 04/05/18 06:21 04/05/18 06:21 04/05/18 06:21 04/05/18 06:21 04/04/18 21:00 HEENT: SIMON, EOM Intact Oropharynx: No thrush, No mucositis herpetic lesion lips Cor: RSR, No murmurs, No gallops Lungs: Clear to P&A Abd: Soft, Normal bowel sounds, No organomegaly Ext:No significant edema Skin: No rashes, Integument intact numerous ecchymoses extremities CBC, BMP 04/04/18 06:00 04/04/18 06:15 Current Medications Generic Name Dose Route Start Last Admin Trade Name Freq PRN Reason Stop Dose Admin Acetaminophen 650 mg 03/30/18 16:59 04/03/18 17:15 Tylenol - PO 650 mg Q6H PRN Administration FEVER Ascorbic Acid 500 mg 03/29/18 10:00 04/04/18 09:48 Vitamin C - PO 500 mg DAILY RIMMA Administration Aspirin 81 mg 03/29/18 10:00 04/04/18 09:48 Ecotrin - PO 81 mg DAILY RIMMA Administration Atorvastatin Calcium 10 mg 03/28/18 22:00 04/04/18 21:23 Lipitor - PO Not Given HS RIMMA Benzocaine/Menthol 1 each 03/31/18 03:56 04/01/18 21:43 Cepacol Lozenge - MM 1 each PRN PRN Administration SORE THROAT Calcium Carbonate/Cholecalciferol 2 tab 03/29/18 10:00 04/04/18 09:48 Os-Grupo 500+D - PO 2 tab DAILY RIMMA Administration Ferrous Sulfate 325 mg 04/01/18 12:15 04/04/18 09:48 Feosol - PO 325 mg DAILY RIMMA Administration Guaifenesin 1 tablet 03/28/18 22:00 04/04/18 21:23 Mucinex Dm - PO Not Given BID RIMMA Cefepime HCl 1 gm/ Dextrose 100 mls @ 200 mls/hr 03/29/18 12:45 04/05/18 01: 32 IVPB 200 mls/hr Q8H-IV RIMMA Administration Protocol Vancomycin HCl 1,000 mg in 250 mls @ 166.667 mls/hr 04/03/18 18:00 04/05/18 05:41 Vancomycin (Pre-Docked) IVPB 166.667 mls/hr BID@0600,1800 RIMMA Administration Protocol Leucovorin Calcium 25 mg 04/02/18 18:00 04/04/18 21:25 Leucovorin - PO 25 mg QID RIMMA Administration Levothyroxine Sodium 100 mcg 03/29/18 07:00 04/05/18 06:20 Synthroid - PO 100 mcg 0700 RIMMA Administration Quinapril HCl 10 mg 03/29/18 10:00 04/04/18 09:59 Accupril - PO 10 mg DAILY RIMMA Administration Sodium Chloride 1 gm 04/04/18 13:00 04/04/18 13:30 Sodium Chloride Tablet - PO 1 gm DAILY RIMMA Administration Tbo-Filgrastim 300 mcg 04/03/18 10:00 04/04/18 10:48 Granix - SQ 300 mcg DAILY RIMMA Administration Impression: Neutropenia No significant response to neupogen of leucovorum Rheumatoid arthritis S/P methotrexate therapy Anemia Plan: check CT Bone marrow valtrex Bone marrow evaluation
[2018-04-05] MEDS: LEUCOVORIN CALCIUM 25 MG PO SCH ×4 (10:10→21:38)
--- NOTE | 2018-04-05 11:55 | PN ---
Progress Note (short form) - Note Progress Note: Renal follow up for hyponatremia s/p bone marrow biopsy this am no overnight events no fevers Vital Signs Temperature 98.5 F 04/04/18 14:47 Pulse Rate 92 H 04/04/18 14:47 Respiratory Rate 20 04/04/18 14:47 Blood Pressure 112/48 L 04/04/18 14:47 O2 Sat by Pulse Oximetry (%) 96 04/04/18 10:00 awake and alert no LE edmea CBC, BMP 04/04/18 06:00 04/04/18 06:15 Current Medications Acetaminophen (Tylenol -) 650 mg PO Q6H PRN PRN Reason: FEVER Last Admin: 04/03/18 17:15 Dose: 650 mg Ascorbic Acid (Vitamin C -) 500 mg PO DAILY [facility] Last Admin: 04/04/18 09:48 Dose: 500 mg Aspirin (Ecotrin -) 81 mg PO DAILY [facility] Last Admin: 04/04/18 09:48 Dose: 81 mg Atorvastatin Calcium (Lipitor -) 10 mg PO HS [facility] Last Admin: 04/04/18 21:23 Dose: Not Given Benzocaine/Menthol (Cepacol Lozenge -) 1 each MM PRN PRN PRN Reason: SORE THROAT Last Admin: 04/01/18 21:43 Dose: 1 each Calcium Carbonate/Cholecalciferol (Os-Grupo 500+D -) 2 tab PO DAILY [facility] Last Admin: 04/04/18 09:48 Dose: 2 tab Ferrous Sulfate (Feosol -) 325 mg PO DAILY [facility] Last Admin: 04/04/18 09:48 Dose: 325 mg Guaifenesin (Mucinex Dm -) 1 tablet PO BID [facility] Last Admin: 04/04/18 21:23 Dose: Not Given Cefepime HCl 1 gm/ Dextrose 100 mls @ 200 mls/hr IVPB Q8H-IV RIMMA; Protocol Last Admin: 04/05/18 01:32 Dose: 200 mls/hr Vancomycin HCl (Vancomycin (Pre-Docked)) 1,000 mg in 250 mls @ 166.667 mls/hr IVPB BID@0600,1800 [facility]; Protocol Last Admin: 04/05/18 05:41 Dose: 166.667 mls/hr Leucovorin Calcium (Leucovorin -) 25 mg PO QID [facility] Last Admin: 04/04/18 21:25 Dose: 25 mg Levothyroxine Sodium (Synthroid -) 100 mcg PO 0700 [facility] Last Admin: 04/05/18 06:20 Dose: 100 mcg Quinapril HCl (Accupril -) 10 mg PO DAILY [facility] Last Admin: 04/04/18 09:59 Dose: 10 mg Sodium Chloride (Sodium Chloride Tablet -) 1 gm PO DAILY [facility] Last Admin: 04/04/18 13:30 Dose: 1 gm Tbo-Filgrastim (Granix -) 300 mcg SQ DAILY [facility] Last Admin: 04/04/18 10:48 Dose: 300 mcg Valacyclovir HCl (Valtrex -) 500 mg PO TID [facility] 77 year old woman with hx of breast Ca, RA, Leukopenia, hypothryodism who presented with fevers and cough and found to have UTI and subsequently developed hyponatremia with serum na of 125. #Hypovolemic Hyponatremia from diuretics #UTI #Leukopenia/Neutropenia #Hypokalemia todays labs pending continue salt tabs as long as pt is not tolerating good oral solute diet Trend Na daily no indication for 3% saline continue management of neutropenia as per heme Norberto Hopson DO
[2018-04-05] MEDS ORDERED: DEXTROSE 5%-WATER 100 ML IVPB ONE ×2 (11:58→17:14)
[2018-04-05] MEDS ORDERED: CEFEPIME HCL 1 GM VIAL (RESTRICTED TO ID) ONE ×2 (11:58→17:14)
--- NOTE | 2018-04-05 11:59 | PROC ---
Bone Marrow Aspiration/Biopsy - Consent Indication: Diagnostic Risks and Benefits Explained: Yes Consent on Chart: Yes - Procedure Location: Right Iliac Crest Anesthesia: 1% Lidocaine Sterile Technique: Yes Specimen: Obtained Position: Other (left lateral ) Patient tolerated procedure: Well with minimal pain Sterile Dressing Applied: Yes ( )
[2018-04-05] MEDS: QUINAPRIL HCL 10 MG TABLET (FP) PO SCH (12:07)
[2018-04-05] MEDS: FERROUS SO4 325 MG TABLET (FP) PO SCH (12:08)
[2018-04-05] MEDS: ASCORBIC ACID 500 MG TABLET (FP) PO SCH (12:08)
[2018-04-05] MEDS: ASPIRIN COATED 81 MG TABLET.EC PO SCH (12:08)
[2018-04-05] MEDS: CALCIUM 500MG/VIT-D 200 UNITS COMBO TABLET (FP) PO SCH (12:08)
[2018-04-05] MEDS: guaiFENesin/D-METHORPHAN HB 1 EACH TAB.ER.12H PO SCH ×2 (12:09→21:39)
[2018-04-05] MEDS: SODIUM CHLORIDE 1 GM TABLET PO SCH (12:10)
[2018-04-05 12:17] LABS: HEMATOCRIT 26.8 % (32.4-45.2); HEMOGLOBIN 9.6 GM/dL (10.7-15.3); MCH 27.9 pg (25.7-33.7); MCHC 35.7 g/dl (32.0-36.0); MEAN CELL VOLUME 78.3 fl (80-96); MEAN PLT VOLUME 6.7 fl (7.5-11.1); PLATELET COUNT 188 K/MM3 (134-434); RBC 3.42 M/mm3 (3.60-5.2); RDW 16.5 % (11.6-15.6)
[2018-04-05] MEDS: TBO-FILGRASTIM 300 MCG/0.5 ML DISP.SYRINGE SQ SCH (12:27)
[2018-04-05 12:29] LABS: WHITE BLOOD COUNT 0.5 K/mm3 (4.0-10.0)
[2018-04-05 12:45] LABS: ALBUMIN 1.7 g/dl (3.4-5.0); ALK PHOS 71 U/L (45-117); ANION GAP 9 MMOL/L (8-16); BILIRUBIN,TOTAL 0.6 mg/dL (0.2-1); BLOOD UREA NITROGEN 8 mg/dL (7-18); CHLORIDE 97 mmol/L (98-107); CO2 23 mmol/L (21-32); CREATININE 0.5 mg/dL (0.55-1.3); GLUCOSE,RANDOM 93 mg/dL (74-106); POTASSIUM 3.6 mmol/L (3.5-5.1); SGOT/AST 31 U/L (15-37); SGPT/ALT 18 U/L (13-61); SODIUM 130 mmol/L (136-145); TOT PROT 5.3 g/dl (6.4-8.2)
[2018-04-05 14:24] LABS: ANISOCYTOSIS 1+; MACROCYTOSIS 0; PLATELET ESTIMATE NORMAL
[2018-04-05] MEDS: valACYclovir HCL 500 MG TABLET (FP) PO SCH ×2 (14:28→21:38)
--- NOTE | 2018-04-05 15:45 | PN ---
Progress Note, Physician History of Present Illness: No focal complaint No c/o fever/ chills Weak appearing No c/o chest pain/ dyspnea/ cough BC SCN ( contaminant) Urine c/s Proteus sp CT chest shows MIKE consolidation which may have been present on prior CXRs No known TB exposure - Current Medication List Current Medications: Active Medications Acetaminophen (Tylenol -) 650 mg PO Q6H PRN PRN Reason: FEVER Last Admin: 04/03/18 17:15 Dose: 650 mg Ascorbic Acid (Vitamin C -) 500 mg PO DAILY [facility] Last Admin: 04/05/18 12:08 Dose: 500 mg Aspirin (Ecotrin -) 81 mg PO DAILY [facility] Last Admin: 04/05/18 12:08 Dose: Not Given Atorvastatin Calcium (Lipitor -) 10 mg PO HS [facility] Last Admin: 04/04/18 21:23 Dose: Not Given Benzocaine/Menthol (Cepacol Lozenge -) 1 each MM PRN PRN PRN Reason: SORE THROAT Last Admin: 04/01/18 21:43 Dose: 1 each Calcium Carbonate/Cholecalciferol (Os-Grupo 500+D -) 2 tab PO DAILY [facility] Last Admin: 04/05/18 12:08 Dose: 2 tab Ferrous Sulfate (Feosol -) 325 mg PO DAILY [facility] Last Admin: 04/05/18 12:08 Dose: 325 mg Guaifenesin (Mucinex Dm -) 1 tablet PO BID [facility] Last Admin: 04/05/18 12:09 Dose: 1 tablet Cefepime HCl 1 gm/ Dextrose 100 mls @ 200 mls/hr IVPB Q8H-IV RIMMA; Protocol Last Admin: 04/05/18 12:03 Dose: 200 mls/hr Vancomycin HCl (Vancomycin (Pre-Docked)) 1,000 mg in 250 mls @ 166.667 mls/hr IVPB BID@0600,1800 [facility]; Protocol Last Admin: 04/05/18 05:41 Dose: 166.667 mls/hr Leucovorin Calcium (Leucovorin -) 25 mg PO QID [facility] Last Admin: 04/05/18 14:29 Dose: 25 mg Levothyroxine Sodium (Synthroid -) 100 mcg PO 0700 [facility]IM[facility] Last Admin: 04/05/18 06:20 Dose: 100 mcg Quinapril HCl (Accupril -) 10 mg PO DAILY [facility] Last Admin: 04/05/18 12:07 Dose: 10 mg Sodium Chloride (Sodium Chloride Tablet -) 1 gm PO DAILY [facility] Last Admin: 04/05/18 12:10 Dose: 1 gm Tbo-Filgrastim (Granix -) 300 mcg SQ DAILY [facility] Last Admin: 04/05/18 12:27 Dose: 300 mcg Valacyclovir HCl (Valtrex -) 500 mg PO TID [facility] Last Admin: 04/05/18 14:28 Dose: 500 mg - Objective Vital Signs: Vital Signs Temperature 99.4 F 04/05/18 15:01 Pulse Rate 95 H 04/05/18 15:01 Respiratory Rate 20 04/05/18 15:01 Blood Pressure 117/47 L 04/05/18 15:01 O2 Sat by Pulse Oximetry (%) 98 04/04/18 21:00 Constitutional: Yes: No Distress Cardiovascular: Yes: Regular Rate and Rhythm, S1, S2 Respiratory: Yes: CTA Bilaterally Gastrointestinal: Yes: Normal Bowel Sounds, Soft. No: Tenderness Edema: No Labs: CBC, BMP 04/05/18 10:54 04/05/18 10:54 INR, PTT INR 1.13 (0.83-1.09) H 03/28/18 17:47 Assessment/Plan Leukopenia/ neutropenia likely medication-induced +BC SCN= contaminant Proteus UTI CT MIKE consolidation ? chronic May have been present on previous CXRs Concerned about opportunistic process in light of prolonged neutropenia Has not been on anti TNF meds Obtain Quantiferon, aspergillus serology Pulmonary evaluation Continue cefepime/ vancomycin
--- NOTE | 2018-04-05 16:20 | PN ---
Progress Note (short form) - Note Progress Note: PULMONARY CONSULTATION DICTATED 04/05/18 IMP MIKE/APICAL CONSOLIDATION ?INFECTIOUS,? 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
--- NOTE | 2018-04-05 17:32 | CONS ---
DATE OF CONSULTATION: 04/05/2018 PULMONARY CONSULTATION REFERRING PHYSICIAN: Kiki James M.D. HISTORY OF PRESENT ILLNESS: The patient is a 77-year-old white female with a past medical history of rheumatoid arthritis on methotrexate for greater than 25 years, chronic neutropenia, hypertension, hyperlipidemia, hypothyroidism, history of breast CA status post lumpectomy, postoperative treated with RT 5 days a week for 1 month 6 years ago, history of tobacco use approximately half pack a day for 20 years, quit 20 years ago, admitted to [facility] on March 30 secondary to complaint of nausea, anorexia, decreased p.o. intake, nonproductive cough, approximately 3 weeks' duration prior to admission. Patient denied any hemoptysis. Denied any chest pain or palpitations. Denied any shortness of breath. Apparently she started developing progressive weakness and had intermittent fevers, at which time she presented to the emergency room. In the ER, she was noted to have the neutropenia with a white count of 300. She was admitted for further therapy. On admission, she was evaluated by infectious disease, placed on empiric antibiotic cefepime. Patient hospitalization is significant for an admission x-ray she was noted to have no acute infiltrate. She underwent a CAT scan of the chest on April 04 which revealed consolidation left apex, left upper lobe. There is no evidence of hilar or mediastinal adenopathy. Patient therefore denies any history of COPD or asthma. There is no history of occupational exposure to chemicals and fumes. There is no history of respiratory failure in the past on ventilatory support. PAST MEDICAL HISTORY: Again includes severe rheumatoid arthritis, currently maintained on methotrexate, history of neutropenia, history of breast CA status post lumpectomy, status post RT, hyperlipidemia, hypertension, hypothyroidism. REVIEW OF SYSTEMS: No orthopnea. No PND. No shortness of breath. No cough. No chest pain. No palpitations. No abdominal pain. Positive mild weakness. CURRENT MEDICATIONS: Include Tylenol, Accupril, cefepime, vancomycin, leucovorin, Mucinex, Granix, Lipitor, iron, Cepacol, Ecotrin, Os-Grupo, Synthroid, vitamin C. PHYSICAL EXAMINATION: GENERAL: The patient is an elderly white female, awake, alert, in no acute distress. VITAL SIGNS: She is afebrile. Blood pressure 117/47, respiratory rate 20, O2 saturation 98% on room air. HEENT: Normocephalic, atraumatic. NECK: Supple. HEART: Regular S1, S2. CHEST: Clear. ABDOMEN: Soft, bowel sounds positive. EXTREMITIES: No cyanosis, edema. LABORATORY: BUN 8, creatinine 0.5, potassium 3.6, INR 1.13, WBC 0.5, hemoglobin 9.6, hematocrit 26.8 with platelet count of 188,000. UA is 2+ protein. UA is 2+ protein, 1+ leukocyte esterase. Chest CT as noted earlier. IMPRESSION: 1. Left upper lobe apical consolidation, possible infectious, although cannot exclude malignant etiology. 2. Severe neutropenia. 3. Severe rheumatoid arthritis. 4. Hypothyroidism. 5. History of breast carcinoma status post lumpectomy, status post radiation therapy. 6. Hypertension. 7. Anemia. PLAN: Antibiotics. Monitor CBC. Continue folic acid. Monitor H and H. Also consider CT guided aspiration biopsy, left upper lobe process, follow up cultures. KAYLI FUNEZ M.D. [id number]
[2018-04-05] MEDS: ACETAMINOPHEN 325 MG TABLET (FP) PO PRN (18:01)
[2018-04-05] MEDS: ATORVASTATIN CA 10 MG TABLET (FP) PO SCH (21:38)
[2018-04-06] MEDS ORDERED: CEFEPIME HCL 1 GM VIAL (RESTRICTED TO ID) ONE ×3 (01:22→18:04)
[2018-04-06] MEDS ORDERED: DEXTROSE 5%-WATER 100 ML IVPB ONE ×3 (01:22→18:04)
[2018-04-06] MEDS: CEFEPIME 1 GM in DEXTROSE 5%-WATER 100 ML IVPB SCH ×3 (01:26→18:11)
[2018-04-06] MEDS ORDERED: PT OWN MED DRAWER 7, Y5N ONE ×4 (05:21→18:32)
[2018-04-06] MEDS: VANCOMYCIN 1 GRAM (PRE-DOCKED) 1,000 MG/250 ML BAG IVPB SCH ×2 (05:25→19:21)
[2018-04-06] MEDS: valACYclovir HCL 500 MG TABLET (FP) PO SCH ×3 (05:26→22:01)
[2018-04-06] MEDS: LEVOTHYROXINE NA 100 MCG TABLET (FP) PO SCH (06:07)
--- NOTE | 2018-04-06 08:59 | PN ---
Progress Note, Physician Chief Complaint: Sepsis History of Present Illness: NAD Seen by ID and hematology On neutropenic precautions febrile yesterday CT chest MIKE consolidation Pulmonary workup in progress On IV abx - Current Medication List Current Medications: Active Medications Acetaminophen (Tylenol -) 650 mg PO Q6H PRN PRN Reason: FEVER Last Admin: 04/05/18 18:01 Dose: 650 mg Ascorbic Acid (Vitamin C -) 500 mg PO DAILY [facility] Last Admin: 04/05/18 12:08 Dose: 500 mg Aspirin (Ecotrin -) 81 mg PO DAILY [facility] Last Admin: 04/05/18 12:08 Dose: Not Given Atorvastatin Calcium (Lipitor -) 10 mg PO HS [facility] Last Admin: 04/05/18 21:38 Dose: 10 mg Benzocaine/Menthol (Cepacol Lozenge -) 1 each MM PRN PRN PRN Reason: SORE THROAT Last Admin: 04/01/18 21:43 Dose: 1 each Calcium Carbonate/Cholecalciferol (Os-Grupo 500+D -) 2 tab PO DAILY [facility] Last Admin: 04/05/18 12:08 Dose: 2 tab Ferrous Sulfate (Feosol -) 325 mg PO DAILY [facility] Last Admin: 04/05/18 12:08 Dose: 325 mg Guaifenesin (Mucinex Dm -) 1 tablet PO BID [facility] Last Admin: 04/05/18 21:39 Dose: Not Given Cefepime HCl 1 gm/ Dextrose 100 mls @ 200 mls/hr IVPB Q8H-IV [facility]; Protocol Last Admin: 04/06/18 01:26 Dose: 200 mls/hr Vancomycin HCl (Vancomycin (Pre-Docked)) 1,000 mg in 250 mls @ 166.667 mls/hr IVPB BID@0600,1800 [facility]; Protocol Last Admin: 04/06/18 05:25 Dose: 166.667 mls/hr Leucovorin Calcium (Leucovorin -) 25 mg PO QID [facility] Last Admin: 04/05/18 21:38 Dose: 25 mg Levothyroxine Sodium (Synthroid -) 100 mcg PO 0700 [facility] Last Admin: 04/06/18 06:07 Dose: 100 mcg Quinapril HCl (Accupril -) 10 mg PO DAILY [facility] Last Admin: 04/05/18 12:07 Dose: 10 mg Sodium Chloride (Sodium Chloride Tablet -) 1 gm PO DAILY [facility] Last Admin: 04/05/18 12:10 Dose: 1 gm Tbo-Filgrastim (Granix -) 300 mcg SQ DAILY [facility] Last Admin: 04/05/18 12:27 Dose: 300 mcg Valacyclovir HCl (Valtrex -) 500 mg PO TID [facility] Last Admin: 04/06/18 05:26 Dose: 500 mg - Objective Vital Signs: Vital Signs Temperature 97.7 F 04/06/18 06:00 Pulse Rate 100 H 04/06/18 06:00 Respiratory Rate 20 04/06/18 06:00 Blood Pressure 100/47 L 04/06/18 06:00 O2 Sat by Pulse Oximetry (%) 98 04/05/18 21:00 Constitutional: Yes: Well Nourished, No Distress, Calm Cardiovascular: Yes: Regular Rate and Rhythm Respiratory: Yes: Regular Musculoskeletal: Yes: WNL Extremities: Yes: WNL Edema: No Peripheral Pulses WNL: Yes Neurological: Yes: Alert, Oriented Psychiatric: Yes: Alert, Oriented Labs: CBC, BMP 04/05/18 10:54 04/05/18 10:54 INR, PTT INR 1.13 (0.83-1.09) H 03/28/18 17:47 Problem List - Problems (1) Sepsis Assessment/Plan: cultures: Microbiology 04/03/18 20:30 Blood - Peripheral Venous Blood Culture - Preliminary NO GROWTH OBTAINED AFTER 48 HOURS, INCUBATION TO CONTINUE FOR 3 DAYS. 04/03/18 19:20 Blood - Peripheral Venous Blood Culture - Preliminary NO GROWTH OBTAINED AFTER 48 HOURS, INCUBATION TO CONTINUE FOR 3 DAYS. 04/03/18 21:00 Urine - Urine Clean Catch Urine Culture - Final NO GROWTH OBTAINED 03/28/18 17:47 Blood - Peripheral Venous Blood Culture - Final NO GROWTH AFTER 5 DAYS INCUBATION 03/28/18 17:47 Blood - Peripheral Venous Blood Culture - Final Staphylococcus Epidermidis 03/28/18 17:46 Urine - Urine Clean Catch Urine Culture - Final Proteus Mirabilis Diphtheroid/Corynebacterium -BC contaminated -UC as above -seen by ID -On IV abx -afebrile at the moment Code(s): A41.9 - SEPSIS, UNSPECIFIED ORGANISM (2) Urinary tract infection Assessment/Plan: -seen by ID -On IV abx -afebrile -asymptomatic Code(s): N39.0 - URINARY TRACT INFECTION, SITE NOT SPECIFIED (3) Leukopenia Assessment/Plan: -seen by hematology -chronic leukopenia -methotrexate on hold -neutropenic precautions -bone marrow biopsy done yesterday Code(s): D72.819 - DECREASED WHITE BLOOD CELL COUNT, UNSPECIFIED Qualifiers: Leukopenia type: unspecified Qualified Code(s): D72.819 - Decreased white blood cell count, unspecified (4) Neutropenic fever Assessment/Plan: -afebrile -BC contaminated -being treated for UTI -neutropenic precautions Code(s): D70.9 - NEUTROPENIA, UNSPECIFIED; R50.81 - FEVER PRESENTING WITH CONDITIONS CLASSIFIED ELSEWHERE (5) Rheumatoid arthritis Assessment/Plan: -follows with rheumatology outpatient -No acute symptoms at this time -methotrexate on hold at this time. Code(s): M06.9 - RHEUMATOID ARTHRITIS, UNSPECIFIED (6) Anemia Assessment/Plan: -PRBC x 1 today -Iron % low, start on Ferrous sulfate 325 mg po daily -Thyroid and B12 unremarkable -Hematology on board -monitor trend -Stool OB negative Code(s): D64.9 - ANEMIA, UNSPECIFIED (7) Hyponatremia Assessment/Plan: -stable at this time -monitor trend -fluid restriction to 1L -nephrology consult -sodium chloride tablet Code(s): E87.1 - HYPO-OSMOLALITY AND HYPONATREMIA (8) Hypokalemia Assessment/Plan: -resolved -monitor trend Code(s): E87.6 - HYPOKALEMIA (9) Lung consolidation Assessment/Plan: -Pulmonary on board -awaiting quantiferon, aspergillus ab -ID consult -On IV abx Code(s): J18.1 - LOBAR PNEUMONIA, UNSPECIFIED ORGANISM Assessment/Plan see problem list Physical therapy
--- NOTE | 2018-04-06 10:05 | PN ---
Progress Note (short form) - Note Progress Note: Renal follow up for hyponatremia pt seen and examined at the bedside no acute complaints wants to go home Vital Signs Temperature 97.7 F 04/06/18 06:00 Pulse Rate 100 H 04/06/18 06:00 Respiratory Rate 20 04/06/18 06:00 Blood Pressure 100/47 L 04/06/18 06:00 O2 Sat by Pulse Oximetry (%) 98 04/05/18 21:00 awake and alert no LE edmea CBC, BMP 04/05/18 10:54 04/05/18 10:54 Current Medications Acetaminophen (Tylenol -) 650 mg PO Q6H PRN PRN Reason: FEVER Last Admin: 04/05/18 18:01 Dose: 650 mg Ascorbic Acid (Vitamin C -) 500 mg PO DAILY [facility] Last Admin: 04/05/18 12:08 Dose: 500 mg Aspirin (Ecotrin -) 81 mg PO DAILY [facility] Last Admin: 04/05/18 12:08 Dose: Not Given Atorvastatin Calcium (Lipitor -) 10 mg PO HS [facility] Last Admin: 04/05/18 21:38 Dose: 10 mg Benzocaine/Menthol (Cepacol Lozenge -) 1 each MM PRN PRN PRN Reason: SORE THROAT Last Admin: 04/01/18 21:43 Dose: 1 each Calcium Carbonate/Cholecalciferol (Os-Grupo 500+D -) 2 tab PO DAILY [facility] Last Admin: 04/05/18 12:08 Dose: 2 tab Ferrous Sulfate (Feosol -) 325 mg PO DAILY [facility] Last Admin: 04/05/18 12:08 Dose: 325 mg Guaifenesin (Mucinex Dm -) 1 tablet PO BID [facility] Last Admin: 04/05/18 21:39 Dose: Not Given Cefepime HCl 1 gm/ Dextrose 100 mls @ 200 mls/hr IVPB Q8H-IV [facility]; Protocol Last Admin: 04/06/18 01:26 Dose: 200 mls/hr Vancomycin HCl (Vancomycin (Pre-Docked)) 1,000 mg in 250 mls @ 166.667 mls/hr IVPB BID@0600,1800 [facility]; Protocol Last Admin: 04/06/18 05:25 Dose: 166.667 mls/hr Leucovorin Calcium (Leucovorin -) 25 mg PO QID [facility] Last Admin: 04/05/18 21:38 Dose: 25 mg Levothyroxine Sodium (Synthroid -) 100 mcg PO 0700 [facility] Last Admin: 04/06/18 06:07 Dose: 100 mcg Quinapril HCl (Accupril -) 10 mg PO DAILY [facility] Last Admin: 04/05/18 12:07 Dose: 10 mg Sodium Chloride (Sodium Chloride Tablet -) 1 gm PO DAILY [facility] Last Admin: 04/05/18 12:10 Dose: 1 gm Tbo-Filgrastim (Granix -) 300 mcg SQ DAILY [facility] Last Admin: 04/05/18 12:27 Dose: 300 mcg Valacyclovir HCl (Valtrex -) 500 mg PO TID [facility] Last Admin: 04/06/18 05:26 Dose: 500 mg 77 year old woman with hx of breast Ca, RA, Leukopenia, hypothryodism who presented with fevers and cough and found to have UTI and subsequently developed hyponatremia with serum na of 125. #Hypovolemic Hyponatremia from diuretics #UTI #Leukopenia/Neutropenia #Hypokalemia Serum na improved and stable continue salt tabs for now as pt has poor solute intake trend serum na daily while pt is admitted Norberto Hopson DO
[2018-04-06] MEDS: SODIUM CHLORIDE 1 GM TABLET PO SCH (10:39)
[2018-04-06] MEDS: ASPIRIN COATED 81 MG TABLET.EC PO SCH (10:39)
[2018-04-06] MEDS: TBO-FILGRASTIM 300 MCG/0.5 ML DISP.SYRINGE SQ SCH (10:39)
[2018-04-06] MEDS: CALCIUM 500MG/VIT-D 200 UNITS COMBO TABLET (FP) PO SCH (10:39)
[2018-04-06] MEDS: FERROUS SO4 325 MG TABLET (FP) PO SCH (10:39)
[2018-04-06] MEDS: ASCORBIC ACID 500 MG TABLET (FP) PO SCH (10:39)
[2018-04-06] MEDS: LEUCOVORIN CALCIUM 25 MG PO SCH ×4 (10:40→22:01)
[2018-04-06] MEDS: guaiFENesin/D-METHORPHAN HB 1 EACH TAB.ER.12H PO SCH ×2 (10:41→22:01)
[2018-04-06] MEDS: QUINAPRIL HCL 10 MG TABLET (FP) PO SCH (10:45)
--- NOTE | 2018-04-06 10:54 | PN ---
Progress Note (short form) - Note Progress Note: ID f/u reports less fatigued then on admission no cough lives alone no pets no TB exposure poor appetite, 10 pound weight loss has lived in [place] her whole life Vital Signs Period Temp Pulse Resp BP Sys/Jones Pulse Ox Last 24 Hr 97.7 F-100.5 F 89-100 20-20 95-117/38-55 98 cor-rrr lungs clear abd soft,nt ext no edema chest ct noted, MIKE infiltrate-apex ?old CBC, BMP 04/05/18 10:54 04/05/18 10:54 Microbiology 04/03/18 20:30 Blood - Peripheral Venous Blood Culture - Preliminary NO GROWTH OBTAINED AFTER 48 HOURS, INCUBATION TO CONTINUE FOR 3 DAYS. 04/03/18 19:20 Blood - Peripheral Venous Blood Culture - Preliminary NO GROWTH OBTAINED AFTER 48 HOURS, INCUBATION TO CONTINUE FOR 3 DAYS. 04/03/18 21:00 Urine - Urine Clean Catch Urine Culture - Final NO GROWTH OBTAINED 03/28/18 17:47 Blood - Peripheral Venous Blood Culture - Final NO GROWTH AFTER 5 DAYS INCUBATION 03/28/18 17:47 Blood - Peripheral Venous Blood Culture - Final Staphylococcus Epidermidis 03/28/18 17:46 Urine - Urine Clean Catch Urine Culture - Final Proteus Mirabilis Diphtheroid/Corynebacterium Current Medications Acetaminophen (Tylenol -) 650 mg PO Q6H PRN PRN Reason: FEVER Last Admin: 04/05/18 18:01 Dose: 650 mg Ascorbic Acid (Vitamin C -) 500 mg PO DAILY [facility] Last Admin: 04/06/18 10:39 Dose: 500 mg Aspirin (Ecotrin -) 81 mg PO DAILY [facility] Last Admin: 04/06/18 10:39 Dose: 81 mg Atorvastatin Calcium (Lipitor -) 10 mg PO HS [facility] Last Admin: 04/05/18 21:38 Dose: 10 mg Benzocaine/Menthol (Cepacol Lozenge -) 1 each MM PRN PRN PRN Reason: SORE THROAT Last Admin: 04/01/18 21:43 Dose: 1 each Calcium Carbonate/Cholecalciferol (Os-Grupo 500+D -) 2 tab PO DAILY [facility] Last Admin: 04/06/18 10:39 Dose: 2 tab Ferrous Sulfate (Feosol -) 325 mg PO DAILY [facility] Last Admin: 04/06/18 10:39 Dose: 325 mg Guaifenesin (Mucinex Dm -) 1 tablet PO BID [facility] Last Admin: 04/06/18 10:41 Dose: Not Given Cefepime HCl 1 gm/ Dextrose 100 mls @ 200 mls/hr IVPB Q8H-IV [facility]; Protocol Last Admin: 04/06/18 10:38 Dose: 200 mls/hr Vancomycin HCl (Vancomycin (Pre-Docked)) 1,000 mg in 250 mls @ 166.667 mls/hr IVPB BID@0600,1800 [facility]; Protocol Last Admin: 04/06/18 05:25 Dose: 166.667 mls/hr Leucovorin Calcium (Leucovorin -) 25 mg PO QID [facility] Last Admin: 04/06/18 10:40 Dose: 25 mg Levothyroxine Sodium (Synthroid -) 100 mcg PO 0700 [facility] Last Admin: 04/06/18 06:07 Dose: 100 mcg Quinapril HCl (Accupril -) 10 mg PO DAILY [facility] Last Admin: 04/06/18 10:45 Dose: Not Given Sodium Chloride (Sodium Chloride Tablet -) 1 gm PO DAILY [facility] Last Admin: 04/06/18 10:39 Dose: 1 gm Tbo-Filgrastim (Granix -) 300 mcg SQ DAILY [facility] Last Admin: 04/06/18 10:39 Dose: 300 mcg Valacyclovir HCl (Valtrex -) 500 mg PO TID [facility] Last Admin: 04/06/18 05:26 Dose: 500 mg a/p neutropenia- ?duration, suspected due to MTX, s/p bone marrow yesterday labs ordered left apical infiltrate- not coughing, serologies ordered ?biopsy/bronch- pulmonary following low grade fever on vancol///cefepime check vancomycin trough today history of RA
--- NOTE | 2018-04-06 13:29 | PN ---
Progress Note, Physician History of Present Illness: PLMONARY ALERT,NO DISTRESS,-SOB - Current Medication List Current Medications: Active Medications Acetaminophen (Tylenol -) 650 mg PO Q6H PRN PRN Reason: FEVER Last Admin: 04/05/18 18:01 Dose: 650 mg Ascorbic Acid (Vitamin C -) 500 mg PO DAILY [facility] Last Admin: 04/06/18 10:39 Dose: 500 mg Aspirin (Ecotrin -) 81 mg PO DAILY [facility] Last Admin: 04/06/18 10:39 Dose: 81 mg Atorvastatin Calcium (Lipitor -) 10 mg PO HS [facility] Last Admin: 04/05/18 21:38 Dose: 10 mg Benzocaine/Menthol (Cepacol Lozenge -) 1 each MM PRN PRN PRN Reason: SORE THROAT Last Admin: 04/01/18 21:43 Dose: 1 each Calcium Carbonate/Cholecalciferol (Os-Grupo 500+D -) 2 tab PO DAILY [facility] Last Admin: 04/06/18 10:39 Dose: 2 tab Ferrous Sulfate (Feosol -) 325 mg PO DAILY [facility] Last Admin: 04/06/18 10:39 Dose: 325 mg Guaifenesin (Mucinex Dm -) 1 tablet PO BID [facility] Last Admin: 04/06/18 10:41 Dose: Not Given Cefepime HCl 1 gm/ Dextrose 100 mls @ 200 mls/hr IVPB Q8H-IV [facility]; Protocol Last Admin: 04/06/18 10:38 Dose: 200 mls/hr Vancomycin HCl (Vancomycin (Pre-Docked)) 1,000 mg in 250 mls @ 166.667 mls/hr IVPB BID@0600,1800 [facility]; Protocol Last Admin: 04/06/18 05:25 Dose: 166.667 mls/hr Leucovorin Calcium (Leucovorin -) 25 mg PO QID [facility] Last Admin: 04/06/18 13:17 Dose: 25 mg Levothyroxine Sodium (Synthroid -) 100 mcg PO 0700 [facility] Last Admin: 04/06/18 06:07 Dose: 100 mcg Quinapril HCl (Accupril -) 10 mg PO DAILY [facility] Last Admin: 04/06/18 10:45 Dose: Not Given Sodium Chloride (Sodium Chloride Tablet -) 1 gm PO DAILY [facility] Last Admin: 04/06/18 10:39 Dose: 1 gm Tbo-Filgrastim (Granix -) 300 mcg SQ DAILY [facility] Last Admin: 04/06/18 10:39 Dose: 300 mcg Valacyclovir HCl (Valtrex -) 500 mg PO TID [facility] Last Admin: 04/06/18 13:17 Dose: 500 mg - Objective Vital Signs: Vital Signs Temperature 98.0 F 04/06/18 10:00 Pulse Rate 100 H 04/06/18 10:00 Respiratory Rate 20 04/06/18 10:00 Blood Pressure 108/55 L 04/06/18 10:00 O2 Sat by Pulse Oximetry (%) 98 04/05/18 21:00 Constitutional: Yes: Well Nourished, Calm Eyes: Yes: WNL HENT: Yes: WNL Neck: Yes: WNL Cardiovascular: Yes: Regular Rate and Rhythm, S1, S2 Respiratory: Yes: CTA Bilaterally Gastrointestinal: Yes: Normal Bowel Sounds, Soft Extremities: Yes: WNL Edema: No Labs: CBC, BMP INR, PTT Problem List - Problems (1) Lung consolidation Code(s): J18.1 - LOBAR PNEUMONIA, UNSPECIFIED ORGANISM (2) Anemia Code(s): D64.9 - ANEMIA, UNSPECIFIED (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
--- NOTE | 2018-04-06 18:01 | PN ---
Progress Note (short form) - Note Progress Note: Patient seen in follow up. No new complaints. No significant events overnight. Inpatient Meds reviewed. Current Medications Generic Name Dose Route Start Last Admin Trade Name Freq PRN Reason Stop Dose Admin Acetaminophen 650 mg 03/30/18 16:59 04/05/18 18:01 Tylenol - PO 650 mg Q6H PRN Administration FEVER Ascorbic Acid 500 mg 03/29/18 10:00 04/06/18 10:39 Vitamin C - PO 500 mg DAILY [facility] Administration Aspirin 81 mg 03/29/18 10:00 04/06/18 10:39 Ecotrin - PO 81 mg DAILY [facility] Administration Atorvastatin Calcium 10 mg 03/28/18 22:00 04/05/18 21:38 Lipitor - PO 10 mg HS [facility] Administration Benzocaine/Menthol 1 each 03/31/18 03:56 04/01/18 21:43 Cepacol Lozenge - MM 1 each PRN PRN Administration SORE THROAT Calcium Carbonate/Cholecalciferol 2 tab 03/29/18 10:00 04/06/18 10:39 Os-Grupo 500+D - PO 2 tab DAILY [facility] Administration Ferrous Sulfate 325 mg 04/01/18 12:15 04/06/18 10:39 Feosol - PO 325 mg DAILY [facility] Administration Guaifenesin 1 tablet 03/28/18 22:00 04/06/18 10:41 Mucinex Dm - PO Not Given BID [facility] Cefepime HCl 1 gm/ Dextrose 100 mls @ 200 mls/hr 03/29/18 12:45 04/06/18 10: 38 IVPB 200 mls/hr Q8H-IV [facility] Administration Protocol Vancomycin HCl 1,000 mg in 250 mls @ 166.667 mls/hr 04/03/18 18:00 04/06/18 05:25 Vancomycin (Pre-Docked) IVPB 166.667 mls/hr BID@0600,1800 [facility] Administration Protocol Leucovorin Calcium 25 mg 04/02/18 18:00 04/06/18 13:17 Leucovorin - PO 25 mg QID [facility] Administration Levothyroxine Sodium 100 mcg 03/29/18 07:00 04/06/18 06:07 Synthroid - PO 100 mcg 0700 [facility] Administration Quinapril HCl 10 mg 03/29/18 10:00 04/06/18 10:45 Accupril - PO Not Given DAILY [facility] Sodium Chloride 1 gm 04/04/18 13:00 04/06/18 10:39 Sodium Chloride Tablet - PO 1 gm DAILY [facility] Administration Tbo-Filgrastim 300 mcg 04/03/18 10:00 04/06/18 10:39 Granix - SQ 300 mcg DAILY [facility] Administration Valacyclovir HCl 500 mg 04/05/18 14:00 04/06/18 13:17 Valtrex - PO 500 mg TID [facility] Administration On Examination: Last Vital Signs Temp Pulse Resp BP Pulse Ox 99.0 F 96 H 20 107/56 L 98 04/06/18 14:34 04/06/18 14:34 04/06/18 14:34 04/06/18 14:34 04/06/18 09:00 General: In no acute distress, lying comfortably in bed. Extremities: No pallor or icterus. No pedal edema. No palpable lymphadenopathy. CVS: S1, S2, regular, no gallop or murmur. Chest: good air entry bilaterally, clear Abdomen: Non-distended, non-tender, no palpable organomegaly. Neuro: Alert, oriented, non-focal. Labs: CBC, BMP 04/05/18 10:54 04/05/18 10:54 Assessment. Prolonged neutropenia, likely attributable to prior MTX use (RA). MTX now held for over 1 week, no receovery yet seen - continue to observe. Bone marrow biopsy performed yesterday - result pending. Concern about L apical lung infiltrate. Trial of Abics. Possible biopsy if does not resolve.
[2018-04-06] MEDS: ATORVASTATIN CA 10 MG TABLET (FP) PO SCH (22:01)
[2018-04-07] MEDS ORDERED: CEFEPIME HCL 1 GM VIAL (RESTRICTED TO ID) ONE ×2 (01:11→16:32)
[2018-04-07] MEDS ORDERED: DEXTROSE 5%-WATER 100 ML IVPB ONE ×2 (01:11→16:32)
[2018-04-07] MEDS: CEFEPIME 1 GM in DEXTROSE 5%-WATER 100 ML IVPB SCH ×3 (01:19→17:22)
[2018-04-07] MEDS: LEVOTHYROXINE NA 100 MCG TABLET (FP) PO SCH (06:20)
[2018-04-07] MEDS: VANCOMYCIN 1 GRAM (PRE-DOCKED) 1,000 MG/250 ML BAG IVPB SCH (06:21)
[2018-04-07] MEDS: valACYclovir HCL 500 MG TABLET (FP) PO SCH ×3 (06:21→21:47)
[2018-04-07] MEDS: ASPIRIN COATED 81 MG TABLET.EC PO SCH (09:24)
[2018-04-07] MEDS: FERROUS SO4 325 MG TABLET (FP) PO SCH (09:24)
[2018-04-07] MEDS: ASCORBIC ACID 500 MG TABLET (FP) PO SCH (09:24)
[2018-04-07] MEDS: CALCIUM 500MG/VIT-D 200 UNITS COMBO TABLET (FP) PO SCH (09:24)
[2018-04-07] MEDS: LEUCOVORIN CALCIUM 25 MG PO SCH ×4 (09:25→21:47)
[2018-04-07] MEDS: QUINAPRIL HCL 10 MG TABLET (FP) PO SCH (09:25)
[2018-04-07] MEDS: SODIUM CHLORIDE 1 GM TABLET PO SCH (09:25)
[2018-04-07] MEDS: guaiFENesin/D-METHORPHAN HB 1 EACH TAB.ER.12H PO SCH ×2 (09:26→21:47)
--- NOTE | 2018-04-07 09:32 | PN ---
Progress Note, Physician Chief Complaint: Sepsis History of Present Illness: NAD Seen by ID and hematology On neutropenic precautions afebrile CT chest MIKE consolidation Pulmonary workup in progress On IV abx - Current Medication List Current Medications: Active Medications Acetaminophen (Tylenol -) 650 mg PO Q6H PRN PRN Reason: FEVER Last Admin: 04/05/18 18:01 Dose: 650 mg Ascorbic Acid (Vitamin C -) 500 mg PO DAILY [facility] Last Admin: 04/07/18 09:24 Dose: 500 mg Aspirin (Ecotrin -) 81 mg PO DAILY [facility] Last Admin: 04/07/18 09:24 Dose: 81 mg Atorvastatin Calcium (Lipitor -) 10 mg PO HS [facility] Last Admin: 04/06/18 22:01 Dose: 10 mg Benzocaine/Menthol (Cepacol Lozenge -) 1 each MM PRN PRN PRN Reason: SORE THROAT Last Admin: 04/01/18 21:43 Dose: 1 each Calcium Carbonate/Cholecalciferol (Os-Grupo 500+D -) 2 tab PO DAILY [facility] Last Admin: 04/07/18 09:24 Dose: 2 tab Ferrous Sulfate (Feosol -) 325 mg PO DAILY [facility] Last Admin: 04/07/18 09:24 Dose: 325 mg Guaifenesin (Mucinex Dm -) 1 tablet PO BID [facility] Last Admin: 04/07/18 09:26 Dose: 1 tablet Cefepime HCl 1 gm/ Dextrose 100 mls @ 200 mls/hr IVPB Q8H-IV [facility]; Protocol Last Admin: 04/07/18 09:22 Dose: Not Given Vancomycin HCl (Vancomycin (Pre-Docked)) 1,000 mg in 250 mls @ 166.667 mls/hr IVPB BID@0600,1800 [facility]; Protocol Last Admin: 04/07/18 06:21 Dose: Not Given Leucovorin Calcium (Leucovorin -) 25 mg PO QID [facility] Last Admin: 04/07/18 09:25 Dose: 25 mg Levothyroxine Sodium (Synthroid -) 100 mcg PO 0700 [facility] Last Admin: 04/07/18 06:20 Dose: 100 mcg Quinapril HCl (Accupril -) 10 mg PO DAILY [facility] Last Admin: 04/07/18 09:25 Dose: 10 mg Sodium Chloride (Sodium Chloride Tablet -) 1 gm PO DAILY [facility] Last Admin: 04/07/18 09:25 Dose: 1 gm Tbo-Filgrastim (Granix -) 300 mcg SQ DAILY [facility] Last Admin: 04/06/18 10:39 Dose: 300 mcg Valacyclovir HCl (Valtrex -) 500 mg PO TID [facility] Last Admin: 04/07/18 06:21 Dose: 500 mg - Objective Vital Signs: Vital Signs Temperature 97.8 F 04/07/18 07:00 Pulse Rate 102 H 04/07/18 07:00 Respiratory Rate 18 04/07/18 07:00 Blood Pressure 124/49 L 04/07/18 07:00 O2 Sat by Pulse Oximetry (%) 96 04/06/18 21:00 Constitutional: Yes: Well Nourished, No Distress, Calm Cardiovascular: Yes: Regular Rate and Rhythm Respiratory: Yes: Regular Gastrointestinal: Yes: Normal Bowel Sounds, Soft Musculoskeletal: Yes: WNL Extremities: Yes: WNL Edema: No Peripheral Pulses WNL: Yes Neurological: Yes: Alert, Oriented Psychiatric: Yes: Alert, Oriented Labs: CBC, BMP 04/05/18 10:54 04/05/18 10:54 INR, PTT INR 1.13 (0.83-1.09) H 03/28/18 17:47 Problem List - Problems (1) Sepsis Assessment/Plan: cultures: Microbiology 04/03/18 20:30 Blood - Peripheral Venous Blood Culture - Preliminary NO GROWTH OBTAINED AFTER 48 HOURS, INCUBATION TO CONTINUE FOR 3 DAYS. 04/03/18 19:20 Blood - Peripheral Venous Blood Culture - Preliminary NO GROWTH OBTAINED AFTER 48 HOURS, INCUBATION TO CONTINUE FOR 3 DAYS. 04/03/18 21:00 Urine - Urine Clean Catch Urine Culture - Final NO GROWTH OBTAINED 03/28/18 17:47 Blood - Peripheral Venous Blood Culture - Final NO GROWTH AFTER 5 DAYS INCUBATION 03/28/18 17:47 Blood - Peripheral Venous Blood Culture - Final Staphylococcus Epidermidis 03/28/18 17:46 Urine - Urine Clean Catch Urine Culture - Final Proteus Mirabilis Diphtheroid/Corynebacterium -BC contaminated -UC as above -seen by ID -On IV abx -afebrile at the moment Code(s): A41.9 - SEPSIS, UNSPECIFIED ORGANISM (2) Urinary tract infection Assessment/Plan: -seen by ID -On IV abx -afebrile -asymptomatic Code(s): N39.0 - URINARY TRACT INFECTION, SITE NOT SPECIFIED (3) Leukopenia Assessment/Plan: -seen by hematology -chronic leukopenia -methotrexate on hold -neutropenic precautions -bone marrow biopsy done yesterday Code(s): D72.819 - DECREASED WHITE BLOOD CELL COUNT, UNSPECIFIED Qualifiers: Leukopenia type: unspecified Qualified Code(s): D72.819 - Decreased white blood cell count, unspecified (4) Neutropenic fever Assessment/Plan: -afebrile -BC contaminated -being treated for UTI -neutropenic precautions Code(s): D70.9 - NEUTROPENIA, UNSPECIFIED; R50.81 - FEVER PRESENTING WITH CONDITIONS CLASSIFIED ELSEWHERE (5) Rheumatoid arthritis Assessment/Plan: -follows with rheumatology outpatient -No acute symptoms at this time -methotrexate on hold at this time. Code(s): M06.9 - RHEUMATOID ARTHRITIS, UNSPECIFIED (6) Anemia Assessment/Plan: -PRBC x 1 today -Iron % low, start on Ferrous sulfate 325 mg po daily -Thyroid and B12 unremarkable -Hematology on board -monitor trend -Stool OB negative Code(s): D64.9 - ANEMIA, UNSPECIFIED (7) Hyponatremia Assessment/Plan: -stable at this time -monitor trend -fluid restriction to 1L -nephrology consult -sodium chloride tablet -repeat labs pending Code(s): E87.1 - HYPO-OSMOLALITY AND HYPONATREMIA (8) Hypokalemia Assessment/Plan: -resolved -monitor trend Code(s): E87.6 - HYPOKALEMIA (9) Lung consolidation Assessment/Plan: -Pulmonary on board -awaiting quantiferon, aspergillus ab -ID consult -On IV abx Code(s): J18.1 - LOBAR PNEUMONIA, UNSPECIFIED ORGANISM Assessment/Plan see problem list Physical therapy
--- NOTE | 2018-04-07 09:47 | PN ---
Progress Note (short form) - Note Progress Note: Renal follow up for hyponatremia pt seen and examined at the bedside no complaints denies any cough, cp, abd pain, N/V/D Vital Signs Temperature 97.8 F 04/07/18 07:00 Pulse Rate 102 H 04/07/18 07:00 Respiratory Rate 18 04/07/18 07:00 Blood Pressure 124/49 L 04/07/18 07:00 O2 Sat by Pulse Oximetry (%) 96 04/06/18 21:00 Intake & Output 04/04/18 04/05/18 04/06/18 04/07/18 23:59 23:59 23:59 23:59 Intake Total 750 600 800 100 Balance 750 600 800 100 awake and alert no LE edmea CBC, BMP 04/05/18 10:54 04/05/18 10:54 Current Medications Acetaminophen (Tylenol -) 650 mg PO Q6H PRN PRN Reason: FEVER Last Admin: 04/05/18 18:01 Dose: 650 mg Ascorbic Acid (Vitamin C -) 500 mg PO DAILY [facility] Last Admin: 04/07/18 09:24 Dose: 500 mg Aspirin (Ecotrin -) 81 mg PO DAILY [facility] Last Admin: 04/07/18 09:24 Dose: 81 mg Atorvastatin Calcium (Lipitor -) 10 mg PO HS [facility] Last Admin: 04/06/18 22:01 Dose: 10 mg Benzocaine/Menthol (Cepacol Lozenge -) 1 each MM PRN PRN PRN Reason: SORE THROAT Last Admin: 04/01/18 21:43 Dose: 1 each Calcium Carbonate/Cholecalciferol (Os-Grupo 500+D -) 2 tab PO DAILY [facility] Last Admin: 04/07/18 09:24 Dose: 2 tab Ferrous Sulfate (Feosol -) 325 mg PO DAILY [facility] Last Admin: 04/07/18 09:24 Dose: 325 mg Guaifenesin (Mucinex Dm -) 1 tablet PO BID [facility] Last Admin: 04/07/18 09:26 Dose: 1 tablet Cefepime HCl 1 gm/ Dextrose 100 mls @ 200 mls/hr IVPB Q8H-IV [facility]; Protocol Last Admin: 04/07/18 09:22 Dose: Not Given Vancomycin HCl (Vancomycin (Pre-Docked)) 1,000 mg in 250 mls @ 166.667 mls/hr IVPB BID@0600,1800 [facility]; Protocol Last Admin: 04/07/18 06:21 Dose: Not Given Leucovorin Calcium (Leucovorin -) 25 mg PO QID [facility] Last Admin: 04/07/18 09:25 Dose: 25 mg Levothyroxine Sodium (Synthroid -) 100 mcg PO 0700 [facility] Last Admin: 04/07/18 06:20 Dose: 100 mcg Quinapril HCl (Accupril -) 10 mg PO DAILY [facility] Last Admin: 04/07/18 09:25 Dose: 10 mg Sodium Chloride (Sodium Chloride Tablet -) 1 gm PO DAILY [facility] Last Admin: 04/07/18 09:25 Dose: 1 gm Tbo-Filgrastim (Granix -) 300 mcg SQ DAILY [facility] Last Admin: 04/06/18 10:39 Dose: 300 mcg Valacyclovir HCl (Valtrex -) 500 mg PO TID [facility] Last Admin: 04/07/18 06:21 Dose: 500 mg 77 year old woman with hx of breast Ca, RA, Leukopenia, hypothryodism who presented with fevers and cough and found to have UTI and subsequently developed hyponatremia with serum na of 125. #Hypovolemic Hyponatremia from diuretics #UTI #Leukopenia/Neutropenia #Hypokalemia no labs from the past 2 days, will order stat labs today continue salt tabs daily continue fluid restriction of 1.5L encouraged oral solute intake Norberto Hopson DO
[2018-04-07 10:17] LABS: BASO % 1.4 % (0-2.0); EOS % 3.1 % (0-4.5); HEMATOCRIT 27.4 % (32.4-45.2); HEMOGLOBIN 9.7 GM/dL (10.7-15.3); LYMPH % 13.9 % (8-40); MCH 27.7 pg (25.7-33.7); MCHC 35.3 g/dl (32.0-36.0); MEAN CELL VOLUME 78.4 fl (80-96); MEAN PLT VOLUME 7.2 fl (7.5-11.1); MONO % 45.2 % (3.8-10.2); NEUT % 36.4 % (42.8-82.8); PLATELET COUNT 127 K/MM3 (134-434); RBC 3.49 M/mm3 (3.60-5.2); RDW 16.3 % (11.6-15.6)
--- NOTE | 2018-04-07 10:18 | PN ---
Progress Note (short form) - Note Progress Note: ID f/u refusing IV-wants to go home, she is dressed now taking meds lives alone no pets no TB exposure poor appetite, 10 pound weight loss has lived in [place] her whole life Vital Signs Period Temp Pulse Resp BP Sys/Jones Pulse Ox Last 24 Hr 97.8 F-99.0 F 96-102 18-20 95-124/47-60 96 cor-rrr lungs clear abd soft,nt ext no edema LABS pending Microbiology 04/03/18 20:30 Blood - Peripheral Venous Blood Culture - Preliminary NO GROWTH OBTAINED AFTER 72 HOURS, INCUBATION TO CONTINUE FOR 2 DAYS. 04/03/18 19:20 Blood - Peripheral Venous Blood Culture - Preliminary NO GROWTH OBTAINED AFTER 72 HOURS, INCUBATION TO CONTINUE FOR 2 DAYS. 04/03/18 21:00 Urine - Urine Clean Catch Urine Culture - Final NO GROWTH OBTAINED 03/28/18 17:47 Blood - Peripheral Venous Blood Culture - Final NO GROWTH AFTER 5 DAYS INCUBATION 03/28/18 17:47 Blood - Peripheral Venous Blood Culture - Final Staphylococcus Epidermidis 03/28/18 17:46 Urine - Urine Clean Catch Urine Culture - Final Proteus Mirabilis Diphtheroid/Corynebacterium Current Medications Acetaminophen (Tylenol -) 650 mg PO Q6H PRN PRN Reason: FEVER Last Admin: 04/05/18 18:01 Dose: 650 mg Ascorbic Acid (Vitamin C -) 500 mg PO DAILY [facility] Last Admin: 04/07/18 09:24 Dose: 500 mg Aspirin (Ecotrin -) 81 mg PO DAILY [facility] Last Admin: 04/07/18 09:24 Dose: 81 mg Atorvastatin Calcium (Lipitor -) 10 mg PO HS [facility] Last Admin: 04/06/18 22:01 Dose: 10 mg Benzocaine/Menthol (Cepacol Lozenge -) 1 each MM PRN PRN PRN Reason: SORE THROAT Last Admin: 04/01/18 21:43 Dose: 1 each Calcium Carbonate/Cholecalciferol (Os-Grupo 500+D -) 2 tab PO DAILY [facility] Last Admin: 04/07/18 09:24 Dose: 2 tab Ferrous Sulfate (Feosol -) 325 mg PO DAILY [facility] Last Admin: 04/07/18 09:24 Dose: 325 mg Guaifenesin (Mucinex Dm -) 1 tablet PO BID [facility] Last Admin: 04/07/18 09:26 Dose: 1 tablet Cefepime HCl 1 gm/ Dextrose 100 mls @ 200 mls/hr IVPB Q8H-IV [facility]; Protocol Last Admin: 04/07/18 09:22 Dose: Not Given Vancomycin HCl (Vancomycin (Pre-Docked)) 1,000 mg in 250 mls @ 166.667 mls/hr IVPB BID@0600,1800 [facility]; Protocol Last Admin: 04/07/18 06:21 Dose: Not Given Leucovorin Calcium (Leucovorin -) 25 mg PO QID [facility] Last Admin: 04/07/18 09:25 Dose: 25 mg Levothyroxine Sodium (Synthroid -) 100 mcg PO 0700 [facility] Last Admin: 04/07/18 06:20 Dose: 100 mcg Quinapril HCl (Accupril -) 10 mg PO DAILY [facility] Last Admin: 04/07/18 09:25 Dose: 10 mg Sodium Chloride (Sodium Chloride Tablet -) 1 gm PO DAILY [facility] Last Admin: 04/07/18 09:25 Dose: 1 gm Tbo-Filgrastim (Granix -) 300 mcg SQ DAILY [facility] Last Admin: 04/06/18 10:39 Dose: 300 mcg Valacyclovir HCl (Valtrex -) 500 mg PO TID [facility] Last Admin: 04/07/18 06:21 Dose: 500 mg a/p neutropenia- ?duration, suspected due to MTX, s/p bone marrow yesterday labs ordered and pending left apical infiltrate- not coughing, serologies ordered ?biopsy/bronch- pulmonary following low grade fever on vanco/cefepime vanco level is 22- will d/c vancomycin continue cefepime if patient permits- d/w daughter, mother consents to continuing iv antiibotics will d/w primary service history of RA
[2018-04-07 10:52] LABS: ANION GAP 10 MMOL/L (8-16); BLOOD UREA NITROGEN 9 mg/dL (7-18); CALCIUM 8.5 mg/dL (8.5-10.1); CHLORIDE 96 mmol/L (98-107); CO2 22 mmol/L (21-32); CREATININE 0.6 mg/dL (0.55-1.3); GLUCOSE,RANDOM 100 mg/dL (74-106); POTASSIUM 3.2 mmol/L (3.5-5.1); SODIUM 129 mmol/L (136-145)
[2018-04-07 11:21] LABS: WHITE BLOOD COUNT 0.6 K/mm3 (4.0-10.0)
[2018-04-07 12:18] LABS: ANISOCYTOSIS 1+; MACROCYTOSIS 0; PLATELET ESTIMATE DECREASED
[2018-04-07] MEDS: TBO-FILGRASTIM 300 MCG/0.5 ML DISP.SYRINGE SQ SCH (13:27)
--- NOTE | 2018-04-07 14:22 | PN ---
Progress Note, Physician History of Present Illness: PULMONARY ALERT,NO DISTRESS,-SOB,-COUGH - Current Medication List Current Medications: Active Medications Acetaminophen (Tylenol -) 650 mg PO Q6H PRN PRN Reason: FEVER Last Admin: 04/05/18 18:01 Dose: 650 mg Ascorbic Acid (Vitamin C -) 500 mg PO DAILY [facility] Last Admin: 04/07/18 09:24 Dose: 500 mg Aspirin (Ecotrin -) 81 mg PO DAILY [facility] Last Admin: 04/07/18 09:24 Dose: 81 mg Atorvastatin Calcium (Lipitor -) 10 mg PO HS [facility] Last Admin: 04/06/18 22:01 Dose: 10 mg Benzocaine/Menthol (Cepacol Lozenge -) 1 each MM PRN PRN PRN Reason: SORE THROAT Last Admin: 04/01/18 21:43 Dose: 1 each Calcium Carbonate/Cholecalciferol (Os-Grupo 500+D -) 2 tab PO DAILY [facility] Last Admin: 04/07/18 09:24 Dose: 2 tab Ferrous Sulfate (Feosol -) 325 mg PO DAILY [facility] Last Admin: 04/07/18 09:24 Dose: 325 mg Guaifenesin (Mucinex Dm -) 1 tablet PO BID [facility] Last Admin: 04/07/18 09:26 Dose: 1 tablet Cefepime HCl 1 gm/ Dextrose 100 mls @ 200 mls/hr IVPB Q8H-IV [facility]; Protocol Last Admin: 04/07/18 09:22 Dose: Not Given Leucovorin Calcium (Leucovorin -) 25 mg PO QID [facility] Last Admin: 04/07/18 13:28 Dose: 25 mg Levothyroxine Sodium (Synthroid -) 100 mcg PO 0700 [facility] Last Admin: 04/07/18 06:20 Dose: 100 mcg Quinapril HCl (Accupril -) 10 mg PO DAILY [facility] Last Admin: 04/07/18 09:25 Dose: 10 mg Sodium Chloride (Sodium Chloride Tablet -) 1 gm PO DAILY [facility] Last Admin: 04/07/18 09:25 Dose: 1 gm Tbo-Filgrastim (Granix -) 300 mcg SQ DAILY [facility] Last Admin: 04/07/18 13:27 Dose: 300 mcg Valacyclovir HCl (Valtrex -) 500 mg PO TID [facility] Last Admin: 04/07/18 13:28 Dose: 500 mg - Objective Vital Signs: Vital Signs Temperature 98.2 F 04/07/18 14:06 Pulse Rate 94 H 04/07/18 14:06 Respiratory Rate 17 04/07/18 14:06 Blood Pressure 109/46 L 04/07/18 14:06 O2 Sat by Pulse Oximetry (%) 96 04/06/18 21:00 Constitutional: Yes: Well Nourished, Calm Eyes: Yes: WNL HENT: Yes: WNL Neck: Yes: WNL Cardiovascular: Yes: Regular Rate and Rhythm, S1, S2 Respiratory: Yes: CTA Bilaterally Gastrointestinal: Yes: Normal Bowel Sounds, Soft Extremities: Yes: WNL Edema: No Labs: CBC, BMP 04/07/18 09:45 04/07/18 09:45 INR, PTT INR 1.13 (0.83-1.09) H 03/28/18 17:47 Problem List - Problems (1) Lung consolidation Code(s): J18.1 - LOBAR PNEUMONIA, UNSPECIFIED ORGANISM (2) Anemia Code(s): D64.9 - ANEMIA, UNSPECIFIED (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
[2018-04-07] MEDS ORDERED: PT OWN MED DRAWER 7, Y5N ONE (20:32)
[2018-04-07] MEDS: ATORVASTATIN CA 10 MG TABLET (FP) PO SCH (21:47)
[2018-04-08] MEDS ORDERED: DEXTROSE 5%-WATER 100 ML IVPB ONE ×3 (01:22→16:52)
[2018-04-08] MEDS ORDERED: CEFEPIME HCL 1 GM VIAL (RESTRICTED TO ID) ONE ×3 (01:22→16:52)
[2018-04-08] MEDS: CEFEPIME 1 GM in DEXTROSE 5%-WATER 100 ML IVPB SCH ×3 (02:26→18:53)
[2018-04-08] MEDS ORDERED: PT OWN MED DRAWER 7, Y5N ONE (05:31)
[2018-04-08] MEDS: LEVOTHYROXINE NA 100 MCG TABLET (FP) PO SCH (06:02)
[2018-04-08] MEDS: valACYclovir HCL 500 MG TABLET (FP) PO SCH ×3 (06:02→22:57)
[2018-04-08 06:08] LABS: EOS % 0.4 % (0-4.5); HEMATOCRIT 26.6 % (32.4-45.2); HEMOGLOBIN 8.8 GM/dL (10.7-15.3); LYMPH % 17.7 % (8-40); MCH 26.3 pg (25.7-33.7); MEAN CELL VOLUME 79.7 fl (80-96); MEAN PLT VOLUME 7.4 fl (7.5-11.1); MONO % 39.9 % (3.8-10.2); PLATELET COUNT 105 K/MM3 (134-434); RBC 3.34 M/mm3 (3.60-5.2); RDW 16.7 % (11.6-15.6)
[2018-04-08 06:15] LABS: WHITE BLOOD COUNT 0.8 K/mm3 (4.0-10.0)
[2018-04-08 06:38] LABS: ALBUMIN 1.6 g/dl (3.4-5.0); ALK PHOS 69 U/L (45-117); ANION GAP 8 MMOL/L (8-16); BILIRUBIN,TOTAL 0.5 mg/dL (0.2-1); BLOOD UREA NITROGEN 10 mg/dL (7-18); CALCIUM 8.7 mg/dL (8.5-10.1); CHLORIDE 98 mmol/L (98-107); CO2 23 mmol/L (21-32); CREATININE 0.6 mg/dL (0.55-1.3); GLUCOSE,RANDOM 88 mg/dL (74-106); POTASSIUM 3.3 mmol/L (3.5-5.1); SGOT/AST 24 U/L (15-37); SGPT/ALT 11 U/L (13-61); SODIUM 129 mmol/L (136-145); TOT PROT 5.2 g/dl (6.4-8.2)
[2018-04-08 10:35] LABS: ANISOCYTOSIS 2+; MACROCYTOSIS 0; PLATELET ESTIMATE DECREASED
[2018-04-08] MEDS: ASPIRIN COATED 81 MG TABLET.EC PO SCH (11:19)
--- NOTE | 2018-04-08 11:19 | PN ---
Progress Note, Physician History of Present Illness: OOB in chair No focal complaint Denies cough/ sputum No chest pain/dyspnea No c/o fever/ chills Weak appearing BC SCN ( contaminant) Urine c/s Proteus sp - Current Medication List Current Medications: Active Medications Acetaminophen (Tylenol -) 650 mg PO Q6H PRN PRN Reason: FEVER Last Admin: 04/05/18 18:01 Dose: 650 mg Ascorbic Acid (Vitamin C -) 500 mg PO DAILY [facility] Last Admin: 04/07/18 09:24 Dose: 500 mg Aspirin (Ecotrin -) 81 mg PO DAILY [facility] Last Admin: 04/07/18 09:24 Dose: 81 mg Atorvastatin Calcium (Lipitor -) 10 mg PO HS [facility] Last Admin: 04/07/18 21:47 Dose: 10 mg Benzocaine/Menthol (Cepacol Lozenge -) 1 each MM PRN PRN PRN Reason: SORE THROAT Last Admin: 04/01/18 21:43 Dose: 1 each Calcium Carbonate/Cholecalciferol (Os-Grupo 500+D -) 2 tab PO DAILY [facility] Last Admin: 04/07/18 09:24 Dose: 2 tab Ferrous Sulfate (Feosol -) 325 mg PO DAILY [facility] Last Admin: 04/07/18 09:24 Dose: 325 mg Guaifenesin (Mucinex Dm -) 1 tablet PO BID [facility] Last Admin: 04/07/18 21:47 Dose: Not Given Cefepime HCl 1 gm/ Dextrose 100 mls @ 200 mls/hr IVPB Q8H-IV [facility]; Protocol Last Admin: 04/08/18 02:26 Dose: 200 mls/hr Leucovorin Calcium (Leucovorin -) 25 mg PO QID [facility] Last Admin: 04/07/18 21:47 Dose: 25 mg Levothyroxine Sodium (Synthroid -) 100 mcg PO 0700 [facility] Last Admin: 04/08/18 06:02 Dose: 100 mcg Quinapril HCl (Accupril -) 10 mg PO DAILY [facility] Last Admin: 04/07/18 09:25 Dose: 10 mg Sodium Chloride (Sodium Chloride Tablet -) 1 gm PO DAILY [facility] Last Admin: 04/07/18 09:25 Dose: 1 gm Tbo-Filgrastim (Granix -) 300 mcg SQ DAILY [facility] Last Admin: 12/16/18 13:27 Dose: 300 mcg Valacyclovir HCl (Valtrex -) 500 mg PO TID [facility] Last Admin: 04/08/18 06:02 Dose: 500 mg - Objective Vital Signs: Vital Signs Temperature 97.3 F L 04/08/18 10:44 Pulse Rate 97 H 04/08/18 10:44 Respiratory Rate 18 04/08/18 10:44 Blood Pressure 96/50 L 04/08/18 10:44 O2 Sat by Pulse Oximetry (%) 96 04/07/18 09:00 Constitutional: Yes: No Distress Eyes: Yes: Conjunctiva Clear Cardiovascular: Yes: Regular Rate and Rhythm, S1, S2 Respiratory: Yes: CTA Bilaterally Gastrointestinal: Yes: Normal Bowel Sounds, Soft. No: Tenderness Edema: No Labs: CBC, BMP 04/08/18 05:30 04/08/18 05:30 INR, PTT INR 1.13 (0.83-1.09) H 03/28/18 17:47 Assessment/Plan Leukopenia/ neutropenia likely medication-induced MIKE consolidation +BC SCN= contaminant Proteus UTI Quantiferon, aspergillus serology pending Pulmonary evaluation appreciated Continue cefepime vancomycin on hold Lung bx per pulmonary
[2018-04-08] MEDS: ASCORBIC ACID 500 MG TABLET (FP) PO SCH (11:26)
[2018-04-08] MEDS: CALCIUM 500MG/VIT-D 200 UNITS COMBO TABLET (FP) PO SCH (11:27)
[2018-04-08] MEDS: QUINAPRIL HCL 10 MG TABLET (FP) PO SCH (11:27)
[2018-04-08] MEDS: FERROUS SO4 325 MG TABLET (FP) PO SCH (11:27)
[2018-04-08] MEDS: LEUCOVORIN CALCIUM 25 MG PO SCH ×4 (11:28→22:57)
[2018-04-08] MEDS: guaiFENesin/D-METHORPHAN HB 1 EACH TAB.ER.12H PO SCH ×2 (11:29→22:58)
[2018-04-08] MEDS: SODIUM CHLORIDE 1 GM TABLET PO SCH (11:29)
[2018-04-08] MEDS ORDERED: POTASSIUM CHLORIDE ORAL LIQUID 20 MEQ/15 ML PO ONE (11:54)
--- NOTE | 2018-04-08 12:04 | PN ---
Progress Note, Physician Chief Complaint: patient seen and examined awaiting lung bopsy - Current Medication List Current Medications: Active Medications Acetaminophen (Tylenol -) 650 mg PO Q6H PRN PRN Reason: FEVER Last Admin: 04/05/18 18:01 Dose: 650 mg Ascorbic Acid (Vitamin C -) 500 mg PO DAILY [facility] Last Admin: 04/08/18 11:26 Dose: 500 mg Aspirin (Ecotrin -) 81 mg PO DAILY [facility] Last Admin: 04/08/18 11:19 Dose: Not Given Atorvastatin Calcium (Lipitor -) 10 mg PO HS [facility] Last Admin: 04/07/18 21:47 Dose: 10 mg Benzocaine/Menthol (Cepacol Lozenge -) 1 each MM PRN PRN PRN Reason: SORE THROAT Last Admin: 04/01/18 21:43 Dose: 1 each Calcium Carbonate/Cholecalciferol (Os-Grupo 500+D -) 2 tab PO DAILY [facility] Last Admin: 04/08/18 11:27 Dose: Not Given Ferrous Sulfate (Feosol -) 325 mg PO DAILY [facility] Last Admin: 04/08/18 11:27 Dose: 325 mg Guaifenesin (Mucinex Dm -) 1 tablet PO BID [facility] Last Admin: 04/08/18 11:29 Dose: Not Given Cefepime HCl 1 gm/ Dextrose 100 mls @ 200 mls/hr IVPB Q8H-IV [facility]; Protocol Last Admin: 04/08/18 11:25 Dose: 200 mls/hr Leucovorin Calcium (Leucovorin -) 25 mg PO QID [facility] Last Admin: 04/08/18 11:28 Dose: 25 mg Levothyroxine Sodium (Synthroid -) 100 mcg PO 0700 [facility] Last Admin: 04/08/18 06:02 Dose: 100 mcg Quinapril HCl (Accupril -) 10 mg PO DAILY [facility] Last Admin: 04/08/18 11:27 Dose: Not Given Sodium Chloride (Sodium Chloride Tablet -) 1 gm PO DAILY [facility] Last Admin: 04/08/18 11:29 Dose: 1 gm Tbo-Filgrastim (Granix -) 300 mcg SQ DAILY [facility] Last Admin: 04/07/18 13:27 Dose: 300 mcg Valacyclovir HCl (Valtrex -) 500 mg PO TID [facility] Last Admin: 04/08/18 06:02 Dose: 500 mg - Objective Vital Signs: Vital Signs Temperature 97.3 F L 04/08/18 10:44 Pulse Rate 97 H 04/08/18 10:44 Respiratory Rate 18 04/08/18 10:44 Blood Pressure 96/50 L 04/08/18 10:44 O2 Sat by Pulse Oximetry (%) 96 04/07/18 09:00 Constitutional: Yes: Calm Cardiovascular: Yes: Regular Rate and Rhythm, S1, S2 Respiratory: Yes: Diminished Gastrointestinal: Yes: Normal Bowel Sounds, Soft Edema: No Neurological: Yes: Alert, Oriented Labs: CBC, BMP 04/08/18 05:30 04/08/18 05:30 INR, PTT INR 1.13 (0.83-1.09) H 03/28/18 17:47 Problem List - Problems (1) Anemia Assessment/Plan: vitamin C and iron Code(s): D64.9 - ANEMIA, UNSPECIFIED (2) Hypokalemia Assessment/Plan: repleted recheck in AM check magnesium Code(s): E87.6 - HYPOKALEMIA (3) Hyponatremia Assessment/Plan: on sodium chloride tablets Code(s): E87.1 - HYPO-OSMOLALITY AND HYPONATREMIA (4) Lung consolidation Assessment/Plan: awaiting lung biopsy to r/o malignancy vs infection on iv abx aspirin on hold informed her daughter Code(s): J18.1 - LOBAR PNEUMONIA, UNSPECIFIED ORGANISM (5) Neutropenia Assessment/Plan: neutropenic precautions heme on board granix and leucovorin on valtrex Code(s): D70.9 - NEUTROPENIA, UNSPECIFIED (6) Hypothyroid Assessment/Plan: on synthroid Code(s): E03.9 - HYPOTHYROIDISM, UNSPECIFIED Assessment/Plan patient has not been eating much per daughter- she is concerned mom is depressed and wants her assessed for it and for capacity to make decision psych consult ordered
[2018-04-08 12:11] LABS: MAGNESIUM 1.9 mg/dL (1.8-2.4)
--- NOTE | 2018-04-08 12:54 | PN ---
Progress Note (short form) - Note Progress Note: Renal follow up for hyponatremia pt seen and examined at the bedside no complaints Vital Signs Temperature 97.3 F L 04/08/18 10:44 Pulse Rate 97 H 04/08/18 10:44 Respiratory Rate 18 04/08/18 10:44 Blood Pressure 96/50 L 04/08/18 10:44 O2 Sat by Pulse Oximetry (%) 96 04/07/18 09:00 Intake & Output 04/05/18 04/06/18 04/07/18 04/08/18 23:59 23:59 23:59 23:59 Intake Total 796 471 7270 500 Balance 180 733 5469 500 awake and alert no LE edmea CBC, BMP 04/08/18 05:30 04/08/18 05:30 Current Medications Acetaminophen (Tylenol -) 650 mg PO Q6H PRN PRN Reason: FEVER Last Admin: 04/05/18 18:01 Dose: 650 mg Ascorbic Acid (Vitamin C -) 500 mg PO DAILY [facility] Last Admin: 04/08/18 11:26 Dose: 500 mg Aspirin (Ecotrin -) 81 mg PO DAILY [facility] Last Admin: 04/08/18 11:19 Dose: Not Given Atorvastatin Calcium (Lipitor -) 10 mg PO HS [facility] Last Admin: 04/07/18 21:47 Dose: 10 mg Benzocaine/Menthol (Cepacol Lozenge -) 1 each MM PRN PRN PRN Reason: SORE THROAT Last Admin: 04/01/18 21:43 Dose: 1 each Calcium Carbonate/Cholecalciferol (Os-Grupo 500+D -) 2 tab PO DAILY [facility] Last Admin: 04/08/18 11:27 Dose: Not Given Ferrous Sulfate (Feosol -) 325 mg PO DAILY [facility] Last Admin: 04/08/18 11:27 Dose: 325 mg Guaifenesin (Mucinex Dm -) 1 tablet PO BID [facility] Last Admin: 04/08/18 11:29 Dose: Not Given Cefepime HCl 1 gm/ Dextrose 100 mls @ 200 mls/hr IVPB Q8H-IV [facility]; Protocol Last Admin: 04/08/18 11:25 Dose: 200 mls/hr Leucovorin Calcium (Leucovorin -) 25 mg PO QID [facility] Last Admin: 04/08/18 11:28 Dose: 25 mg Levothyroxine Sodium (Synthroid -) 100 mcg PO 0700 [facility] Last Admin: 04/08/18 06:02 Dose: 100 mcg Quinapril HCl (Accupril -) 10 mg PO DAILY [facility] Sodium Chloride (Sodium Chloride Tablet -) 1 gm PO DAILY [facility] Last Admin: 04/08/18 11:29 Dose: 1 gm Tbo-Filgrastim (Granix -) 300 mcg SQ DAILY [facility] Last Admin: 04/07/18 13:27 Dose: 300 mcg Valacyclovir HCl (Valtrex -) 500 mg PO TID [facility] Last Admin: 04/08/18 06:02 Dose: 500 mg 77 year old woman with hx of breast Ca, RA, Leukopenia, hypothryodism who presented with fevers and cough and found to have UTI and subsequently developed hyponatremia with serum na of 125. #Hypovolemic Hyponatremia from diuretics #UTI #Leukopenia/Neutropenia #Hypokalemia Na is stable but w/o signifincat improvement repeat urine studies continue salt tabs, increase to BID Trend serum Na daily no indication for 3% saline Norberto Hopson DO
--- NOTE | 2018-04-08 13:49 | PN ---
Progress Note, Physician History of Present Illness: PULMONARY ALERT,NO DISTRESS,-SOB,-CP,-COUGH - Current Medication List Current Medications: Active Medications Acetaminophen (Tylenol -) 650 mg PO Q6H PRN PRN Reason: FEVER Last Admin: 04/05/18 18:01 Dose: 650 mg Ascorbic Acid (Vitamin C -) 500 mg PO DAILY [facility] Last Admin: 04/08/18 11:26 Dose: 500 mg Aspirin (Ecotrin -) 81 mg PO DAILY [facility] Last Admin: 04/08/18 11:19 Dose: Not Given Atorvastatin Calcium (Lipitor -) 10 mg PO HS [facility] Last Admin: 04/07/18 21:47 Dose: 10 mg Benzocaine/Menthol (Cepacol Lozenge -) 1 each MM PRN PRN PRN Reason: SORE THROAT Last Admin: 04/01/18 21:43 Dose: 1 each Calcium Carbonate/Cholecalciferol (Os-Grupo 500+D -) 2 tab PO DAILY [facility] Last Admin: 04/08/18 11:27 Dose: Not Given Ferrous Sulfate (Feosol -) 325 mg PO DAILY [facility] Last Admin: 04/08/18 11:27 Dose: 325 mg Guaifenesin (Mucinex Dm -) 1 tablet PO BID [facility] Last Admin: 04/08/18 11:29 Dose: Not Given Cefepime HCl 1 gm/ Dextrose 100 mls @ 200 mls/hr IVPB Q8H-IV [facility]; Protocol Last Admin: 04/08/18 11:25 Dose: 200 mls/hr Leucovorin Calcium (Leucovorin -) 25 mg PO QID [facility] Last Admin: 04/08/18 11:28 Dose: 25 mg Levothyroxine Sodium (Synthroid -) 100 mcg PO 0700 [facility] Last Admin: 04/08/18 06:02 Dose: 100 mcg Quinapril HCl (Accupril -) 10 mg PO DAILY [facility] Sodium Chloride (Sodium Chloride Tablet -) 1 gm PO BID [facility] Tbo-Filgrastim (Granix -) 300 mcg SQ DAILY [facility] Last Admin: 04/07/18 13:27 Dose: 300 mcg Valacyclovir HCl (Valtrex -) 500 mg PO TID [facility] Last Admin: 04/08/18 06:02 Dose: 500 mg - Objective Vital Signs: Vital Signs Temperature 97.3 F L 04/08/18 10:44 Pulse Rate 97 H 04/08/18 10:44 Respiratory Rate 18 04/08/18 10:44 Blood Pressure 96/50 L 04/08/18 10:44 O2 Sat by Pulse Oximetry (%) 96 04/07/18 09:00 Constitutional: Yes: Well Nourished, Calm Eyes: Yes: WNL HENT: Yes: WNL Neck: Yes: WNL Cardiovascular: Yes: Regular Rate and Rhythm, S1, S2 Respiratory: Yes: CTA Bilaterally Gastrointestinal: Yes: Normal Bowel Sounds, Soft Extremities: Yes: WNL Edema: No Labs: CBC, BMP 04/08/18 05:30 04/08/18 05:30 INR, PTT INR 1.13 (0.83-1.09) H 03/28/18 17:47 Problem List - Problems (1) Lung consolidation Code(s): J18.1 - LOBAR PNEUMONIA, UNSPECIFIED ORGANISM (2) Anemia Code(s): D64.9 - ANEMIA, UNSPECIFIED (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
[2018-04-08] MEDS: TBO-FILGRASTIM 300 MCG/0.5 ML DISP.SYRINGE SQ SCH (18:54)
[2018-04-08] MEDS ORDERED: SODIUM CHLORIDE 1 GM TABLET PO SCH (22:00)
[2018-04-08] MEDS: ATORVASTATIN CA 10 MG TABLET (FP) PO SCH (22:57)
[2018-04-09] MEDS ORDERED: DEXTROSE 5%-WATER 100 ML IVPB ONE ×3 (01:06→16:49)
[2018-04-09] MEDS ORDERED: CEFEPIME HCL 1 GM VIAL (RESTRICTED TO ID) ONE ×3 (01:06→16:49)
[2018-04-09] MEDS: CEFEPIME 1 GM in DEXTROSE 5%-WATER 100 ML IVPB SCH ×3 (01:09→17:05)
[2018-04-09] MEDS: LEVOTHYROXINE NA 100 MCG TABLET (FP) PO SCH (06:50)
[2018-04-09] MEDS: valACYclovir HCL 500 MG TABLET (FP) PO SCH ×3 (06:50→22:10)
[2018-04-09 06:55] LABS: BASO % 2.7 % (0-2.0); EOS % 0.8 % (0-4.5); HEMATOCRIT 24.6 % (32.4-45.2); HEMOGLOBIN 8.6 GM/dL (10.7-15.3); LYMPH % 12.3 % (8-40); MCH 27.7 pg (25.7-33.7); MCHC 35.1 g/dl (32.0-36.0); MEAN CELL VOLUME 78.7 fl (80-96); MEAN PLT VOLUME 7.7 fl (7.5-11.1); MONO % 39.4 % (3.8-10.2); NEUT % 44.8 % (42.8-82.8); PLATELET COUNT 98 K/MM3 (134-434); RBC 3.13 M/mm3 (3.60-5.2); RDW 16.4 % (11.6-15.6)
[2018-04-09 07:13] LABS: WHITE BLOOD COUNT 0.8 K/mm3 (4.0-10.0)
[2018-04-09 07:34] LABS: ALBUMIN 1.6 g/dl (3.4-5.0); ALK PHOS 69 U/L (45-117); ANION GAP 8 MMOL/L (8-16); BILIRUBIN,TOTAL 0.5 mg/dL (0.2-1); BLOOD UREA NITROGEN 11 mg/dL (7-18); CALCIUM 8.4 mg/dL (8.5-10.1); CHLORIDE 100 mmol/L (98-107); CO2 23 mmol/L (21-32); CREATININE 0.7 mg/dL (0.55-1.3); GLUCOSE,RANDOM 103 mg/dL (74-106); POTASSIUM 3.3 mmol/L (3.5-5.1); SGOT/AST 26 U/L (15-37); SGPT/ALT 13 U/L (13-61); SODIUM 130 mmol/L (136-145); TOT PROT 5.3 g/dl (6.4-8.2)
[2018-04-09] MEDS ORDERED: SODIUM CHLORIDE 1,000 ML IV SCH (09:00)
--- NOTE | 2018-04-09 09:49 | PN ---
Progress Note (short form) - Note Progress Note: Consult Progress Note: Hematology/Oncology feeling the same as yesterday with improvement in cough. no complaints of fevers, chest pain, palpitations, melena, sob. Vital Signs Temperature 98.2 F 04/09/18 06:56 Pulse Rate 96 H 04/09/18 06:56 Respiratory Rate 20 04/09/18 06:56 Blood Pressure 113/43 L 04/09/18 06:56 O2 Sat by Pulse Oximetry (%) 96 04/08/18 21:00 PE: NAD SIMON, no scleral ict, facial symmetry oral lesion on upper lip, no thrush, no oral buccal lesions, no thyromegaly CTAB, RRR, no MRG abd soft, nd/nt no edema on b/l LE b/l UE with nonblanching nontender purpura from blood draws Current Medications Acetaminophen (Tylenol -) 650 mg PO Q6H PRN PRN Reason: FEVER Last Admin: 04/05/18 18:01 Dose: 650 mg Ascorbic Acid (Vitamin C -) 500 mg PO DAILY [facility] Last Admin: 04/08/18 11:26 Dose: 500 mg Aspirin (Ecotrin -) 81 mg PO DAILY [facility] Last Admin: 04/08/18 11:19 Dose: Not Given Atorvastatin Calcium (Lipitor -) 10 mg PO HS [facility] Last Admin: 04/08/18 22:57 Dose: 10 mg Benzocaine/Menthol (Cepacol Lozenge -) 1 each MM PRN PRN PRN Reason: SORE THROAT Last Admin: 04/01/18 21:43 Dose: 1 each Calcium Carbonate/Cholecalciferol (Os-Grupo 500+D -) 2 tab PO DAILY [facility] Last Admin: 04/08/18 11:27 Dose: Not Given Ferrous Sulfate (Feosol -) 325 mg PO DAILY [facility] Last Admin: 04/08/18 11:27 Dose: 325 mg Guaifenesin (Mucinex Dm -) 1 tablet PO BID [facility] Last Admin: 04/08/18 22:58 Dose: Not Given Cefepime HCl 1 gm/ Dextrose 100 mls @ 200 mls/hr IVPB Q8H-IV [facility]; Protocol Last Admin: 04/09/18 01:09 Dose: 200 mls/hr Sodium Chloride (Normal Saline -) 1,000 mls @ 75 mls/hr IV ASDIR [facility] Stop: 04/10/18 08:59 Leucovorin Calcium (Leucovorin -) 25 mg PO QID [facility] Last Admin: 04/08/18 22:57 Dose: 25 mg Levothyroxine Sodium (Synthroid -) 100 mcg PO 0700 [facility] Last Admin: 04/09/18 06:50 Dose: 100 mcg Potassium Chloride (Potassium Chloride Oral Liquid) 40 meq PO BID [facility] Stop: 04/09/18 22:01 Quinapril HCl (Accupril -) 10 mg PO DAILY [facility] Tbo-Filgrastim (Granix -) 300 mcg SQ DAILY [facility] Last Admin: 04/08/18 18:54 Dose: 300 mcg Valacyclovir HCl (Valtrex -) 500 mg PO TID [facility] Last Admin: 04/09/18 06:50 Dose: 500 mg Laboratory Last Values WBC 0.8 K/mm3 (4.0-10.0) L* 04/09/18 06:20 RBC 3.13 M/mm3 (3.60-5.2) L 04/09/18 06:20 Hgb 8.6 GM/dL (10.7-15.3) L 04/09/18 06:20 Hct 24.6 % (32.4-45.2) L 04/09/18 06:20 MCV 78.7 fl (80-96) L 04/09/18 06:20 MCH 27.7 pg (25.7-33.7) 04/09/18 06:20 MCHC 35.1 g/dl (32.0-36.0) 04/09/18 06:20 RDW 16.4 % (11.6-15.6) H 04/09/18 06:20 Plt Count 98 K/MM3 (134-434) L 04/09/18 06:20 MPV 7.7 fl (7.5-11.1) 04/09/18 06:20 Absolute Neuts (auto) 0.4 K/mm3 (1.5-8.0) L 04/09/18 06:20 Total Counted 50 03/28/18 17:46 Neutrophils % 44.8 % (42.8-82.8) 04/09/18 06:20 Neutrophils % (Manual) 17.3 % (42.8-82.8) L 04/08/18 05:30 Band Neutrophils % 16.3 % 04/08/18 05:30 Lymphocytes % 12.3 % (8-40) D 04/09/18 06:20 Lymphocytes % (Manual) 25.5 % (8-40) D 04/08/18 05:30 Monocytes % 39.4 % (3.8-10.2) H 04/09/18 06:20 Monocytes % (Manual) 23 % (3.8-10.2) H 04/08/18 05:30 Eosinophils % 0.8 % (0-4.5) D 04/09/18 06:20 Eosinophils % (Manual) 3.1 % (0-4.5) 04/08/18 05:30 Basophils % 2.7 % (0-2.0) H D 04/09/18 06:20 Basophils % (Manual) 0.0 % (0-2.0) 04/08/18 05:30 Myelocytes % (Man) 0 % (0-2) D 04/08/18 05:30 Promyelocytes % (Man) 0 % (0-2) 04/08/18 05:30 Blast Cells % (Manual) 0 % (0-0) 04/08/18 05:30 Nucleated RBC % 0 % (0-0) 04/09/18 06:20 Metamyelocytes 4 % (0-2) H D 04/08/18 05:30 Hypochromia 0 04/08/18 05:30 Toxic Granulation 0 04/04/18 06:00 Dohle Bodies 0 04/04/18 06:00 Platelet Estimate Decreased 04/08/18 05:30 Platelet Comment Present 04/08/18 05:30 Polychromasia 0 04/08/18 05:30 Poikilocytosis 0 04/08/18 05:30 Basophilic Stippling 0 04/04/18 06:00 Anisocytosis 2+ 04/08/18 05:30 Microcytosis 0 04/08/18 05:30 Macrocytosis 0 04/08/18 05:30 Spherocytes 0 04/04/18 06:00 Sickle Cells 0 04/04/18 06:00 Target Cells 0 04/04/18 06:00 Tear Drop Cells 0 04/04/18 06:00 Ovalocytes 0 04/04/18 06:00 Stomatocytes 0 04/04/18 06:00 Helmet Cells 0 04/04/18 06:00 Lr[place] Bodies 0 04/04/18 06:00 [place] Rings 0 04/04/18 06:00 [place] Cells 0 04/04/18 06:00 Acanthocytes (Spur) 0 04/04/18 06:00 Rouleaux 0 04/04/18 06:00 Fragmented RBCs 0 04/04/18 06:00 Schistocytes 0 04/04/18 06:00 Retic Count 1.57 % (0.5-1.5) H 03/30/18 06:00 Haptoglobin 266 mg/dL (34-200) H 03/30/18 06:00 PT with INR 13.30 SEC (9.7-13.0) H 03/28/18 17:47 INR 1.13 (0.83-1.09) H 03/28/18 17:47 PTT (Actin FS) 29.1 SECONDS (25.2-36.5) 03/28/18 17:47 VBG pH 7.49 (7.32-7.42) H 03/28/18 17:47 POC VBG pCO2 33.6 mmHg (38-52) L 03/28/18 17:47 POC VBG pO2 54.8 mmHg (28-48) H 03/28/18 17:47 Mixed VBG HCO3 25.1 meq/L (19-25) H 03/28/18 17:47 Sodium 130 mmol/L (136-145) L 04/09/18 06:20 Potassium 3.3 mmol/L (3.5-5.1) L 04/09/18 06:20 Chloride 100 mmol/L (98-107) 04/09/18 06:20 Carbon Dioxide 23 mmol/L (21-32) 04/09/18 06:20 Anion Gap 8 MMOL/L (8-16) 04/09/18 06:20 BUN 11 mg/dL (7-18) 04/09/18 06:20 Creatinine 0.7 mg/dL (0.55-1.3) 04/09/18 06:20 Creat Clearance w eGFR > 60 (>60) 04/09/18 06:20 Random Glucose 103 mg/dL (74-106) 12/18/18 06:20 Serum Osmolality 264 mosm/kg (278-305) L 04/08/18 12:52 Lactic Acid 0.9 mmol/L (0.4-2.0) 03/28/18 17:46 Calcium 8.4 mg/dL (8.5-10.1) L 04/09/18 06:20 Magnesium 2.0 mg/dL (1.8-2.4) 04/09/18 06:20 Iron 22 ug/dL (27-139) L 03/30/18 06:00 TIBC 171 ug/dL (250-450) L 03/30/18 06:00 Iron Saturation 13 % (15-55) L 03/30/18 06:00 Transferrin 135 mg/dL (200-370) L 03/30/18 06:00 Ferritin 1414.2 ng/ml (8-388) H 03/30/18 06:00 Total Bilirubin 0.5 mg/dL (0.2-1) 04/09/18 06:20 AST 26 U/L (15-37) 04/09/18 06:20 ALT 13 U/L (13-61) 04/09/18 06:20 Alkaline Phosphatase 69 U/L (45-117) 04/09/18 06:20 LD Total 131 U/L (84-246) 03/30/18 06:00 Creatine Kinase 10 IU/L (26-192) L 03/28/18 17:46 Troponin I < 0.02 ng/ml (0.00-0.05) 03/28/18 17:46 Total Protein 5.3 g/dl (6.4-8.2) L 04/09/18 06:20 Albumin 1.6 g/dl (3.4-5.0) L 04/09/18 06:20 Vitamin B12 4347 pg/ml (193-986) H 03/30/18 06:00 Serum Folate 25 ng/mL (3.1-17.5) H 03/30/18 06:00 TSH 1.62 uIU/ml (0.358-3.74) 03/29/18 06:00 Cortisol AM Sample 29.2 ug/dL (.) 04/02/18 12:15 Urine Color Yellow 03/28/18 17:47 Urine Appearance Turbid 12/06/18 17:47 Urine pH 8.0 (5.0-8.0) D 03/28/18 17:47 Ur Specific [place] 1.016 (1.010-1.035) 03/28/18 17:47 Urine Protein 2+ (NEGATIVE) H 03/28/18 17:47 Urine Glucose (UA) Negative (NEGATIVE) 03/28/18 17:47 Urine Ketones Negative (NEGATIVE) 03/28/18 17:47 Urine Blood Negative (NEGATIVE) 03/28/18 17:47 Urine Nitrite Negative (NEGATIVE) 03/28/18 17:47 Urine Bilirubin 2.0 (<2.0 mg/dL) 03/28/18 17:47 Urine Urobilinogen Negative mg/dL (0.2-1.0) 03/28/18 17:47 Ur Leukocyte Esterase 1+ (NEGATIVE) H 03/28/18 17:47 Urine WBC (Auto) 57 /hpf (3-5) 03/28/18 17:47 Urine RBC (Auto) 3 /hpf (0-3) 03/28/18 17:47 Ur Epithelial Cells Rare /HPF (FEW) 03/28/18 17:47 Hyaline Casts 9 /lpf 03/28/18 17:47 Urine Osmolality 417 mosm/kg (300-900) 04/08/18 06:00 Ur Random Sodium < 18 MMOL/L (40-220) L 04/08/18 06:00 Stool Occult Blood Negative (NEGATIVE) 04/03/18 16:30 Vancomycin Pre-Dose 24.0 ug/ml (18-26) 04/06/18 17:21 Influenza A (Rapid) Negative 03/28/18 17:46 Influenza B (Rapid) Negative 03/28/18 17:46 TB Test (QFT) Nil 0.18 IU/mL (.) 04/05/18 15:50 TB Test (QFT) Mitogen 0.12 IU/mL (.) 04/05/18 15:50 TB Test (QFT) Antigen 0.15 IU/mL (.) 04/05/18 15:50 TB Positive Criteria (.) 04/05/18 15:50 Blood Type A POSITIVE 04/01/18 20:00 Antibody Screen Negative 04/01/18 20:00 Crossmatch See Detail 04/01/18 20:00 77 yr old woman with RA, hx of Breast CA(DCIS), hypothryroidism, presented with fevers and cough found to have neutropenia. Problem List: Bone Marrow Suppression Upper Respiratory tract infection Rheumatoid Arthritis on MTX (25 years) Hyponatremia HTN HLD Hypothyroidism Breast cancer (DCIS) A/Plan: -bone marrow suppresion of unclear etiology but likely secondary to Methotrexate use and viral syndrome, though there has been no improvement with MTX being held and with the addition of leucovorum and granix. Rheumatology, Dr. Phillip consulted for further input. - Bone marrrow biopsy on 04/05 is pending results - pending possble CT guided lung biopsy with IR, ASA held. evaluation by CT surgery -Continue Valtrex start apr 05 (day 5) -Granix daily (started Apr 03) -since no improvement with leucovorum after 8 days of treatment, stopped Leucovorum 25mg q6hr today (started Apr 02 (completed 8 days)) -IV abx, as per ID cefepime started Mar 31(Day 10) -Continue to monitor cbc and electrolytes
--- NOTE | 2018-04-09 09:49 | PN ---
Progress Note, Physician Chief Complaint: AWAKE ALERT EVENTS AND NOTES REVIEWED DENIES CHEST PAIN OR SOB - Current Medication List Current Medications: Active Medications Acetaminophen (Tylenol -) 650 mg PO Q6H PRN PRN Reason: FEVER Last Admin: 04/05/18 18:01 Dose: 650 mg Ascorbic Acid (Vitamin C -) 500 mg PO DAILY [facility] Last Admin: 04/08/18 11:26 Dose: 500 mg Aspirin (Ecotrin -) 81 mg PO DAILY [facility] Last Admin: 04/08/18 11:19 Dose: Not Given Atorvastatin Calcium (Lipitor -) 10 mg PO HS [facility] Last Admin: 04/08/18 22:57 Dose: 10 mg Benzocaine/Menthol (Cepacol Lozenge -) 1 each MM PRN PRN PRN Reason: SORE THROAT Last Admin: 04/01/18 21:43 Dose: 1 each Calcium Carbonate/Cholecalciferol (Os-Grupo 500+D -) 2 tab PO DAILY [facility] Last Admin: 04/08/18 11:27 Dose: Not Given Ferrous Sulfate (Feosol -) 325 mg PO DAILY [facility] Last Admin: 04/08/18 11:27 Dose: 325 mg Guaifenesin (Mucinex Dm -) 1 tablet PO BID [facility] Last Admin: 04/08/18 22:58 Dose: Not Given Cefepime HCl 1 gm/ Dextrose 100 mls @ 200 mls/hr IVPB Q8H-IV [facility]; Protocol Last Admin: 04/09/18 01:09 Dose: 200 mls/hr Sodium Chloride (Normal Saline -) 1,000 mls @ 75 mls/hr IV ASDIR [facility] Stop: 04/10/18 08:59 Leucovorin Calcium (Leucovorin -) 25 mg PO QID [facility] Last Admin: 04/08/18 22:57 Dose: 25 mg Levothyroxine Sodium (Synthroid -) 100 mcg PO 0700 [facility] Last Admin: 04/09/18 06:50 Dose: 100 mcg Potassium Chloride (Potassium Chloride Oral Liquid) 40 meq PO BID [facility] Stop: 04/09/18 22:01 Quinapril HCl (Accupril -) 10 mg PO DAILY [facility] Tbo-Filgrastim (Granix -) 300 mcg SQ DAILY [facility] Last Admin: 04/08/18 18:54 Dose: 300 mcg Valacyclovir HCl (Valtrex -) 500 mg PO TID [facility] Last Admin: 04/09/18 06:50 Dose: 500 mg - Objective Vital Signs: Vital Signs Temperature 98.2 F 04/09/18 06:56 Pulse Rate 96 H 04/09/18 06:56 Respiratory Rate 20 04/09/18 06:56 Blood Pressure 113/43 L 04/09/18 06:56 O2 Sat by Pulse Oximetry (%) 96 04/08/18 21:00 Constitutional: Yes: Mild Distress Eyes: Yes: WNL HENT: Yes: WNL Neck: Yes: WNL Cardiovascular: Yes: Regular Rate and Rhythm Respiratory: Yes: Diminished, On Nasal O2 Gastrointestinal: Yes: Soft Genitourinary: Yes: Other Musculoskeletal: Yes: Joint Stiffness, Joint Swelling Extremities: Yes: Deformity Edema: No Peripheral Pulses WNL: Yes Integumentary: Yes: Erythema, Rash Wound/Incision: Yes: Dressing Dry and Intact Neurological: Yes: Pre-Existing Deficit ...Motor Strength: LUE, LLE, RUE, RLE Psychiatric: Yes: WNL Labs: CBC, BMP 04/09/18 06:20 04/09/18 06:20 INR, PTT INR 1.13 (0.83-1.09) H 03/28/18 17:47 Assessment/Plan LEUKOPENIA/RA PNA TRREATED FOR IMMUNOCOMPRIMISED PNEUMONIA WITH LEUKOPENIA IV ABX NEBS PULM AND ID F/U CHECK CULTURES
[2018-04-09] MEDS: ASCORBIC ACID 500 MG TABLET (FP) PO SCH (10:06)
[2018-04-09] MEDS: ASPIRIN COATED 81 MG TABLET.EC PO SCH (10:06)
[2018-04-09] MEDS: FERROUS SO4 325 MG TABLET (FP) PO SCH (10:06)
[2018-04-09] MEDS: CALCIUM 500MG/VIT-D 200 UNITS COMBO TABLET (FP) PO SCH (10:06)
[2018-04-09] MEDS: QUINAPRIL HCL 10 MG TABLET (FP) PO SCH (10:10)
[2018-04-09] MEDS: guaiFENesin/D-METHORPHAN HB 1 EACH TAB.ER.12H PO SCH ×2 (10:21→22:11)
[2018-04-09] MEDS: POTASSIUM CHLORIDE ORAL LIQUID 20 MEQ/15 ML PO SCH ×2 (10:22→22:09)
[2018-04-09] MEDS ORDERED: POTASSIUM CHLORIDE ORAL LIQUID 20 MEQ/15 ML PO ONE (10:30)
--- NOTE | 2018-04-09 10:34 | PN ---
Progress Note (short form) - Note Progress Note: Renal follow up for hyponatremia pt seen and examined at the bedside no complaints no confusion, lethargy or weakness Vital Signs Temperature 98.2 F 04/09/18 06:56 Pulse Rate 96 H 04/09/18 06:56 Respiratory Rate 20 04/09/18 06:56 Blood Pressure 113/43 L 04/09/18 06:56 O2 Sat by Pulse Oximetry (%) 96 04/08/18 21:00 NAD No Le swelling CBC, BMP 04/09/18 06:20 04/09/18 06:20 77 year old woman with hx of breast Ca, RA, Leukopenia, hypothryodism who presented with fevers and cough and found to have UTI and subsequently developed hyponatremia with serum na of 125. #Hypovolemic Hyponatremia from diuretics #UTI #Leukopenia/Neutropenia #Hypokalemia Serum Na stable Repeat urine studies show low urine Na, consistent with volume depletion will start NS at 75cc per hour x 24 hours Trend Na daily no indication for 3% saline Supplement Hans Hopson DO
[2018-04-09] MEDS: TBO-FILGRASTIM 300 MCG/0.5 ML DISP.SYRINGE SQ SCH (10:44)
[2018-04-09 10:51] LABS: ANISOCYTOSIS 1+; MACROCYTOSIS 0; PLATELET ESTIMATE DECREASED
[2018-04-09] MEDS: LEUCOVORIN CALCIUM 25 MG PO SCH ×2 (11:49→13:36)
[2018-04-09] MEDS ORDERED: PT OWN MED DRAWER 7, Y5N ONE ×2 (13:14→16:49)
--- NOTE | 2018-04-09 14:07 | PN ---
Progress Note (short form) - Note Progress Note: PULMONARY Denies shortness of breath, cough or wheezing. No fevers recorded. Vital Signs Period Temp Pulse Resp BP Sys/Jones Pulse Ox Last 24 Hr 98.0 F-98.8 F 80-96 18-20 110-116/42-58 96-97 Gen: mildly tachypneic at rest Heart: RRR Lung: decreased breath sounds at the bases Abd: soft, nontender Ext: no edema CBC, BMP 04/09/18 06:20 04/09/18 06:20 Active Medications Acetaminophen (Tylenol -) 650 mg PO Q6H PRN PRN Reason: FEVER Last Admin: 04/05/18 18:01 Dose: 650 mg Ascorbic Acid (Vitamin C -) 500 mg PO DAILY [facility] Last Admin: 04/09/18 10:06 Dose: 500 mg Aspirin (Ecotrin -) 81 mg PO DAILY [facility] Last Admin: 04/09/18 10:06 Dose: Not Given Atorvastatin Calcium (Lipitor -) 10 mg PO HS [facility] Last Admin: 04/08/18 22:57 Dose: 10 mg Benzocaine/Menthol (Cepacol Lozenge -) 1 each MM PRN PRN PRN Reason: SORE THROAT Last Admin: 04/01/18 21:43 Dose: 1 each Calcium Carbonate/Cholecalciferol (Os-Grupo 500+D -) 2 tab PO DAILY [facility] Last Admin: 04/09/18 10:06 Dose: 2 tab Ferrous Sulfate (Feosol -) 325 mg PO DAILY [facility] Last Admin: 04/09/18 10:06 Dose: 325 mg Guaifenesin (Mucinex Dm -) 1 tablet PO BID [facility] Last Admin: 04/09/18 10:21 Dose: Not Given Cefepime HCl 1 gm/ Dextrose 100 mls @ 200 mls/hr IVPB Q8H-IV [facility]; Protocol Last Admin: 04/09/18 10:09 Dose: 200 mls/hr Sodium Chloride (Normal Saline -) 1,000 mls @ 75 mls/hr IV ASDIR [facility] Stop: 04/10/18 08:59 Last Admin: 04/09/18 10:07 Dose: 75 mls/hr Leucovorin Calcium (Leucovorin -) 25 mg PO QID [facility] Last Admin: 04/09/18 13:36 Dose: 25 mg Levothyroxine Sodium (Synthroid -) 100 mcg PO 0700 [facility] Last Admin: 04/09/18 06:50 Dose: 100 mcg Potassium Chloride (Potassium Chloride Oral Liquid) 40 meq PO BID [facility] Stop: 04/09/18 22:01 Last Admin: 04/09/18 10:22 Dose: Not Given Quinapril HCl (Accupril -) 10 mg PO DAILY [facility] Last Admin: 04/09/18 10:10 Dose: 10 mg Tbo-Filgrastim (Granix -) 300 mcg SQ DAILY [facility] Last Admin: 04/09/18 10:44 Dose: 300 mcg Valacyclovir HCl (Valtrex -) 500 mg PO TID [facility] Last Admin: 04/09/18 13:36 Dose: 500 mg A/P MIKE Consolidation Neutropenia Rheumatoid Arthritis h/o Breast Ca HTN Hypothyroidism Hyponatremia - continue antibiotics - for CT guided biopsy - replete lytes - filgrastim per heme/onc - DVT prophylaxis
--- NOTE | 2018-04-09 14:19 | CON.PSY ---
Psychiatry Consult Chief Complaint: 77 year old female admitted with Ca Breast and seen for Psych eval for depression. she apparantly has been eating poory and appears despondent. Symptoms: reports: Depressed Mood, Anhedonia - Previous Psychiatric Treatment Outpatient: None Inpatient: None - Previous Substance Abuse Treatment Outpatient: None Inpatient: None - Current Medications Current Medications: Active Medications Acetaminophen (Tylenol -) 650 mg PO Q6H PRN PRN Reason: FEVER Last Admin: 04/05/18 18:01 Dose: 650 mg Ascorbic Acid (Vitamin C -) 500 mg PO DAILY [facility] Last Admin: 04/09/18 10:06 Dose: 500 mg Aspirin (Ecotrin -) 81 mg PO DAILY [facility] Last Admin: 04/09/18 10:06 Dose: Not Given Atorvastatin Calcium (Lipitor -) 10 mg PO HS [facility] Last Admin: 04/08/18 22:57 Dose: 10 mg Benzocaine/Menthol (Cepacol Lozenge -) 1 each MM PRN PRN PRN Reason: SORE THROAT Last Admin: 04/01/18 21:43 Dose: 1 each Calcium Carbonate/Cholecalciferol (Os-Grupo 500+D -) 2 tab PO DAILY [facility] Last Admin: 04/09/18 10:06 Dose: 2 tab Ferrous Sulfate (Feosol -) 325 mg PO DAILY [facility] Last Admin: 04/09/18 10:06 Dose: 325 mg Guaifenesin (Mucinex Dm -) 1 tablet PO BID [facility] Last Admin: 04/09/18 10:21 Dose: Not Given Cefepime HCl 1 gm/ Dextrose 100 mls @ 200 mls/hr IVPB Q8H-IV [facility]; Protocol Last Admin: 04/09/18 10:09 Dose: 200 mls/hr Sodium Chloride (Normal Saline -) 1,000 mls @ 75 mls/hr IV ASDIR [facility] Stop: 04/10/18 08:59 Last Admin: 04/09/18 10:07 Dose: 75 mls/hr Leucovorin Calcium (Leucovorin -) 25 mg PO QID [facility] Last Admin: 04/09/18 13:36 Dose: 25 mg Levothyroxine Sodium (Synthroid -) 100 mcg PO 0700 [facility] Last Admin: 04/09/18 06:50 Dose: 100 mcg Potassium Chloride (Potassium Chloride Oral Liquid) 40 meq PO BID [facility] Stop: 04/09/18 22:01 Last Admin: 04/09/18 10:22 Dose: Not Given Quinapril HCl (Accupril -) 10 mg PO DAILY [facility] Last Admin: 04/09/18 10:10 Dose: 10 mg Tbo-Filgrastim (Granix -) 300 mcg SQ DAILY [facility] Last Admin: 04/09/18 10:44 Dose: 300 mcg Valacyclovir HCl (Valtrex -) 500 mg PO TID [facility] Last Admin: 04/09/18 13:36 Dose: 500 mg - Allergies Allergies: Allergies Allergy/AdvReac Type Severity Reaction Status Date / Time No Known Drug Allergies Allergy Verified 03/28/18 17:00 - Current Living Status Usual Living Arrangement: With Child - Current Mental Status Evaluation Appearance: Well Groomed Attitude: Cooperative - Affect Affect: Constrictive Appropriateness: Appropriate to Content - Mood Mood: Depressed - Speech/Language Expressive: Coherent - Thought Process Thought Process: Intact - Thought Content Hallucinations: Absent Delusions: Absent - Self Perception Self Perception: No Impairment - Cognition Attention: Alert Orientation: Time Memory, Immediate Recall: Intact Memory, Short Term: 3/3 Memory, Remote with Promptin/3 - Concentration Serial Sevens Intact: No Simple Calculations Intact: Yes - Insight Insight: Intact - Impulse Control Impulse Control: Minimally Impaired - Suicidal Ideation Suicidal Ideation: No - Homicidal Ideation Homicidal Ideation: No Assessment/Plan 1) will start Remeron 15mg po hs for Depression and anorexia. 2) Patient has the Mental capacity.
[2018-04-09 15:27] LABS: ASPERGIL AG 0.02 Index (0.00-0.49)
--- NOTE | 2018-04-09 17:06 | PN ---
Teaching Attending Note Name of Resident: Massimo Callaway ATTENDING PHYSICIAN STATEMENT I saw and evaluated the patient. I reviewed the resident's note and discussed the case with the resident. I agree with the resident's findings and plan as documented. SUBJECTIVE:Patient seen and examined No significant response to neupogen or leucovorum. To discontinue neupogen. Hemorrhagic , vassculitic component to rash on upper extremities. Last Vital Signs Temp Pulse Resp BP Pulse Ox 98.4 F 82 20 120/60 97 04/09/18 10:00 04/09/18 10:00 04/09/18 10:00 04/09/18 10:00 04/09/18 09:00 HEENT: SIMON, EOM Intact Oropharynx: No thrush, No mucositis,torus Cor: RSR, No murmurs, No gallops Lungs: Clear to P&A Abd: Soft, Normal bowel sounds, No organomegaly Ext:No significant edema Skin: hemorrhagic , vasculitic component to upper extemities CBC, BMP 04/09/18 06:20 04/09/18 06:20 Current Medications Generic Name Dose Route Start Last Admin Trade Name Freq PRN Reason Stop Dose Admin Acetaminophen 650 mg 03/30/18 16:59 04/05/18 18:01 Tylenol - PO 650 mg Q6H PRN Administration FEVER Ascorbic Acid 500 mg 03/29/18 10:00 04/09/18 10:06 Vitamin C - PO 500 mg DAILY [facility] Administration Aspirin 81 mg 03/29/18 10:00 04/09/18 10:06 Ecotrin - PO Not Given DAILY [facility] Atorvastatin Calcium 10 mg 03/28/18 22:00 04/08/18 22:57 Lipitor - PO 10 mg HS [facility] Administration Benzocaine/Menthol 1 each 03/31/18 03:56 04/01/18 21:43 Cepacol Lozenge - MM 1 each PRN PRN Administration SORE THROAT Calcium Carbonate/Cholecalciferol 2 tab 03/29/18 10:00 04/09/18 10:06 Os-Grupo 500+D - PO 2 tab DAILY [facility] Administration Ferrous Sulfate 325 mg 04/01/18 12:15 04/09/18 10:06 Feosol - PO 325 mg DAILY [facility] Administration Guaifenesin 1 tablet 03/28/18 22:00 04/09/18 10:21 Mucinex Dm - PO Not Given BID [facility] Cefepime HCl 1 gm/ Dextrose 100 mls @ 200 mls/hr 03/29/18 12:45 04/09/18 10: 09 IVPB 200 mls/hr Q8H-IV [facility] Administration Protocol Sodium Chloride 1,000 mls @ 75 mls/hr 04/09/18 09:00 04/09/18 10:07 Normal Saline - IV 04/10/18 08:59 75 mls/hr ASDIR [facility] Administration Levothyroxine Sodium 100 mcg 03/29/18 07:00 04/09/18 06:50 Synthroid - PO 100 mcg 0700 [facility] Administration Mirtazapine 15 mg 04/09/18 22:00 Remeron - PO HS [facility] Potassium Chloride 40 meq 04/09/18 10:00 04/09/18 10:22 Potassium Chloride Oral Liquid PO 04/09/18 22:01 Not Given BID [facility] Quinapril HCl 10 mg 04/08/18 12:02 04/09/18 10:10 Accupril - PO 10 mg DAILY [facility] Administration Tbo-Filgrastim 300 mcg 04/03/18 10:00 04/09/18 10:44 Granix - SQ 300 mcg DAILY [facility] Administration Valacyclovir HCl 500 mg 04/05/18 14:00 04/09/18 13:36 Valtrex - PO 500 mg TID [facility] Administration Impression: Rheumatoid arthritis Neutropenia Anemia Rash Lung mass plan -- Await bone marrow biopsy Rheumtology consult discontinue granix and leucovorum monitor CBC Spoke with thoracic surgery - no intervention with neutropenia at this time. OBJECTIVE: ASSESSMENT AND PLAN:
--- NOTE | 2018-04-09 17:55 | CONSULT ---
Consult Consult Specialty:: Thoracic Surgery Referred by:: Dr. Stone Reason for Consultation:: MIKE lung mass - History of Present Illness Chief Complaint: subjective fevers, easy bruising History of Present Illness: 77F with RA, Breast cancer hx, subj fevers, pancytopenia, incidentally found lung mass. Consulted regarding lung mass. - History Source History Provided By: Patient, Medical Record - Past Medical History Cardio/Vascular: Yes: HTN Heme/Onc: Yes: Other (Breast cancer) Rheumatology: Yes: Rheumatoid Arthritis Endocrine: Yes: Hypothyroidism - Alcohol/Substance Use Hx Alcohol Use: Yes (SOCIAL) - Smoking History Smoking history: Former smoker Have you smoked in the past 12 months: No If you are a former smoker, when did you quit?: 1992 - Social History Usual Living Arrangement: With Child Home Medications - Allergies Allergies/Adverse Reactions: Allergies Allergy/AdvReac Type Severity Reaction Status Date / Time No Known Drug Allergies Allergy Verified 03/28/18 17:00 - Home Medications Home Medications: Ambulatory Orders Ascorbate Calcium [Vitamin C] 500 mg PO DAILY 11/24/13 Aspirin Coated [Ecotrin -] 81 mg PO DAILY 11/24/13 Calcium Carbonate/Vitamin D3 [Calcium 600-Vit D3 200 Tablet] 2 each PO DAILY 08/04 Folic Acid - 1 mg PO DAILY 11/24/13 Levothyroxine [Synthroid -] 100 mcg PO DAILY 11/24/13 Quinapril HCl [Accupril -] 10 mg PO DAILY 11/24/13 Atorvastatin Calcium [Lipitor] 10 mg PO ASDIR 03/28/18 Diazepam [Valium] 5 mg PO BID PRN 03/28/18 Guaifenesin Dm [Mucinex Dm -] 1 tab PO BID 03/28/18 Acetaminophen [Tylenol .Regular Strength -] 650 mg PO Q6H PRN tablet 04/01/18 Ferrous Sulfate [Feosol] 325 mg PO DAILY #30 ud 04/01/18 Levofloxacin [Levaquin] 500 mg PO DAILY #7 tablet 04/01/18 Leucovorin Calcium 10 mg PO QID #8 tablet 04/04/18 Leucovorin Calcium 15 mg PO QID #8 tablet 04/04/18 Review of Systems - Review of Systems Constitutional: reports: Weakness Eyes: reports: No Symptoms Neck: reports: No Symptoms Physical Exam Vital Signs: Vital Signs Temperature 98.6 F 04/09/18 16:30 Pulse Rate 76 04/09/18 16:30 Respiratory Rate 18 04/09/18 16:30 Blood Pressure 133/77 04/09/18 16:30 O2 Sat by Pulse Oximetry (%) 97 04/09/18 09:00 Cardiovascular: Yes: Regular Rate and Rhythm Respiratory: Yes: Regular, CTA Bilaterally Labs: CBC, BMP 04/09/18 06:20 04/09/18 06:20 Imaging - Results Cat Scan: Image Reviewed Problem List - Problems (1) Anemia Code(s): D64.9 - ANEMIA, UNSPECIFIED (2) DCIS (ductal carcinoma in situ) of breast Code(s): D05.10 - INTRADUCTAL CARCINOMA IN SITU OF UNSPECIFIED BREAST (3) Lung consolidation Code(s): J18.1 - LOBAR PNEUMONIA, UNSPECIFIED ORGANISM (4) Neutropenia Code(s): D70.9 - NEUTROPENIA, UNSPECIFIED (5) Rheumatoid arthritis Code(s): M06.9 - RHEUMATOID ARTHRITIS, UNSPECIFIED Assessment/Plan Pancytopenia and lung consolidation/bronchiectasis: -I recommend broad abx and no biopsy until pancytopenia resolved; -Reimage in 5-7 days prior to any biopsy; -W/U for hematologic malignancy as etiology (?PET scan) versus drug reaction to RA meds.
[2018-04-09] MEDS: MIRTAZAPINE 15 MG TABLET (FP) PO SCH (22:09)
[2018-04-09] MEDS: ATORVASTATIN CA 10 MG TABLET (FP) PO SCH (22:09)
[2018-04-10] MEDS ORDERED: CEFEPIME HCL 1 GM VIAL (RESTRICTED TO ID) ONE (01:38)
[2018-04-10] MEDS ORDERED: DEXTROSE 5%-WATER 100 ML IVPB ONE (01:38)
[2018-04-10] MEDS: CEFEPIME 1 GM in DEXTROSE 5%-WATER 100 ML IVPB SCH (01:40)
[2018-04-10] MEDS: LEVOTHYROXINE NA 100 MCG TABLET (FP) PO SCH (06:07)
[2018-04-10] MEDS: valACYclovir HCL 500 MG TABLET (FP) PO SCH ×3 (06:07→23:33)
[2018-04-10 07:47] LABS: BASO % 2.3 % (0-2.0); EOS % 4.3 % (0-4.5); HEMATOCRIT 26.2 % (32.4-45.2); HEMOGLOBIN 9.1 GM/dL (10.7-15.3); LYMPH % 16.9 % (8-40); MCH 27.6 pg (25.7-33.7); MCHC 34.6 g/dl (32.0-36.0); MEAN CELL VOLUME 79.9 fl (80-96); MEAN PLT VOLUME 8.2 fl (7.5-11.1); MONO % 39.3 % (3.8-10.2); NEUT % 37.2 % (42.8-82.8); PLATELET COUNT 85 K/MM3 (134-434); RBC 3.28 M/mm3 (3.60-5.2); RDW 17.1 % (11.6-15.6)
[2018-04-10 08:18] LABS: ALBUMIN 1.6 g/dl (3.4-5.0); ALK PHOS 71 U/L (45-117); ANION GAP 7 MMOL/L (8-16); BILIRUBIN,TOTAL 0.6 mg/dL (0.2-1); BLOOD UREA NITROGEN 10 mg/dL (7-18); CALCIUM 8.5 mg/dL (8.5-10.1); CHLORIDE 104 mmol/L (98-107); CO2 22 mmol/L (21-32); CREATININE 0.7 mg/dL (0.55-1.3); GLUCOSE,RANDOM 102 mg/dL (74-106); PHOSPHOROUS 1.4 mg/dL (2.5-4.9); SGOT/AST 29 U/L (15-37); SGPT/ALT 13 U/L (13-61); SODIUM 133 mmol/L (136-145); TOT PROT 5.6 g/dl (6.4-8.2)
[2018-04-10 08:42] LABS: WHITE BLOOD COUNT 0.8 K/mm3 (4.0-10.0)
--- NOTE | 2018-04-10 09:23 | PN ---
Progress Note, Physician - Current Medication List Current Medications: Active Medications Acetaminophen (Tylenol -) 650 mg PO Q6H PRN PRN Reason: FEVER Last Admin: 04/05/18 18:01 Dose: 650 mg Ascorbic Acid (Vitamin C -) 500 mg PO DAILY [facility] [place] Last Admin: 04/09/18 10:06 Dose: 500 mg Atorvastatin Calcium (Lipitor -) 10 mg PO HS [facility] [place] Last Admin: 04/09/18 22:09 Dose: 10 mg Benzocaine/Menthol (Cepacol Lozenge -) 1 each MM PRN PRN PRN Reason: SORE THROAT Last Admin: 04/01/18 21:43 Dose: 1 each Calcium Carbonate/Cholecalciferol (Os-Grupo 500+D -) 2 tab PO DAILY [facility] [place] Last Admin: 04/09/18 10:06 Dose: 2 tab Ferrous Sulfate (Feosol -) 325 mg PO DAILY [facility] [place] Last Admin: 04/09/18 10:06 Dose: 325 mg Guaifenesin (Mucinex Dm -) 1 tablet PO BID [facility] [place] Last Admin: 04/09/18 22:11 Dose: Not Given Cefepime HCl 1 gm/ Dextrose 100 mls @ 200 mls/hr IVPB Q8H-IV [facility] [place]; Protocol Last Admin: 04/10/18 01:40 Dose: 200 mls/hr Levothyroxine Sodium (Synthroid -) 100 mcg PO 0700 [facility] [place] Last Admin: 04/10/18 06:07 Dose: 100 mcg Mirtazapine (Remeron -) 15 mg PO HS [facility] [place] Last Admin: 04/09/18 22:09 Dose: 15 mg Quinapril HCl (Accupril -) 10 mg PO DAILY [facility] [place] Last Admin: 04/09/18 10:10 Dose: 10 mg Valacyclovir HCl (Valtrex -) 500 mg PO TID [facility] [place] Last Admin: 04/10/18 06:07 Dose: 500 mg - Objective Vital Signs: Vital Signs Temperature 97.9 F 04/10/18 06:00 Pulse Rate 100 H 04/10/18 06:00 Respiratory Rate 18 04/10/18 06:00 Blood Pressure 124/45 L 04/10/18 06:00 O2 Sat by Pulse Oximetry (%) 97 04/09/18 21:00 Cardiovascular: Yes: S1, S2 Respiratory: Yes: Regular, CTA Bilaterally Gastrointestinal: Yes: Normal Bowel Sounds, Soft Labs: CBC, BMP 04/10/18 06:15 04/10/18 06:15 INR, PTT INR 1.13 (0.83-1.09) H 03/28/18 17:47 Problem List - Problems (1) Neutropenic fever Code(s): D70.9 - NEUTROPENIA, UNSPECIFIED; R50.81 - FEVER PRESENTING WITH CONDITIONS CLASSIFIED ELSEWHERE (2) Rheumatoid arthritis Code(s): M06.9 - RHEUMATOID ARTHRITIS, UNSPECIFIED (3) Leukopenia Code(s): D72.819 - DECREASED WHITE BLOOD CELL COUNT, UNSPECIFIED Qualifiers: Leukopenia type: unspecified Qualified Code(s): D72.819 - Decreased white blood cell count, unspecified (4) Hyponatremia Code(s): E87.1 - HYPO-OSMOLALITY AND HYPONATREMIA Assessment/Plan - Problems (1) Anemia Assessment/Plan: vitamin C and iron Code(s): D64.9 - ANEMIA, UNSPECIFIED (2) Hypokalemia Assessment/Plan: replete recheck in AM check magnesium Code(s): E87.6 - HYPOKALEMIA (3) Hyponatremia Assessment/Plan: on sodium chloride tablets Code(s): E87.1 - HYPO-OSMOLALITY AND HYPONATREMIA (4) Lung consolidation Assessment/Plan: TS consult noted no lung biopsy at this time on iv abx f/u imaging aspirin on hold informed her daughter Code(s): J18.1 - LOBAR PNEUMONIA, UNSPECIFIED ORGANISM (5) Neutropenia Assessment/Plan: neutropenic precautions heme on board granix and leucovorin stopped on valtrex Code(s): D70.9 - NEUTROPENIA, UNSPECIFIED (6) Hypothyroid Assessment/Plan: on synthroid Code(s): E03.9 - HYPOTHYROIDISM, UNSPECIFIED (7) Thrombocytopenia Assessment/Plan: on abx--dc--id follow up monitor
[2018-04-10] MEDS: ASCORBIC ACID 500 MG TABLET (FP) PO SCH (10:29)
[2018-04-10] MEDS: FERROUS SO4 325 MG TABLET (FP) PO SCH (10:29)
[2018-04-10] MEDS: CALCIUM 500MG/VIT-D 200 UNITS COMBO TABLET (FP) PO SCH (10:29)
[2018-04-10] MEDS: QUINAPRIL HCL 10 MG TABLET (FP) PO SCH (10:30)
[2018-04-10] MEDS: guaiFENesin/D-METHORPHAN HB 1 EACH TAB.ER.12H PO SCH ×2 (10:31→23:33)
[2018-04-10 11:39] LABS: ACANTHOCYTES 0; ANISOCYTOSIS 0; HELMET CELLS 0; HOWELL-JOLLY BODIES 0; MACROCYTOSIS 0; OVALOCYTE 0; PLATELET ESTIMATE DECREASED; ROULEAU 0; SICKELED CELLS 0; TARGET CELLS 0; TEAR DROP CELLS 0; TOXIC GRANULATION 0
--- NOTE | 2018-04-10 12:32 | PN ---
Progress Note (short form) - Note Progress Note: Renal follow up for hyponatremia pt seen and examined at the bedside no complaints denies any sob, cp, abd pain, N/V/D Vital Signs Temperature 97.9 F 04/10/18 06:00 Pulse Rate 100 H 04/10/18 06:00 Respiratory Rate 18 04/10/18 06:00 Blood Pressure 124/45 L 04/10/18 06:00 O2 Sat by Pulse Oximetry (%) 97 04/09/18 21:00 NAD No Le swelling CBC, BMP 04/10/18 06:15 04/10/18 06:15 Current Medications Acetaminophen (Tylenol -) 650 mg PO Q6H PRN PRN Reason: FEVER Last Admin: 04/05/18 18:01 Dose: 650 mg Ascorbic Acid (Vitamin C -) 500 mg PO DAILY [facility] Last Admin: 04/10/18 10:29 Dose: 500 mg Atorvastatin Calcium (Lipitor -) 10 mg PO HS [facility] Last Admin: 04/09/18 22:09 Dose: 10 mg Benzocaine/Menthol (Cepacol Lozenge -) 1 each MM PRN PRN PRN Reason: SORE THROAT Last Admin: 04/01/18 21:43 Dose: 1 each Calcium Carbonate/Cholecalciferol (Os-Grupo 500+D -) 2 tab PO DAILY [facility] Last Admin: 04/10/18 10:29 Dose: 2 tab Ferrous Sulfate (Feosol -) 325 mg PO DAILY [facility] Last Admin: 04/10/18 10:29 Dose: 325 mg Guaifenesin (Mucinex Dm -) 1 tablet PO BID [facility] Last Admin: 04/10/18 10:31 Dose: 1 tablet Levothyroxine Sodium (Synthroid -) 100 mcg PO 0700 [facility] Last Admin: 04/10/18 06:07 Dose: 100 mcg Mirtazapine (Remeron -) 15 mg PO HS [facility] Last Admin: 04/09/18 22:09 Dose: 15 mg Quinapril HCl (Accupril -) 10 mg PO DAILY [facility] Last Admin: 04/10/18 10:30 Dose: 10 mg Valacyclovir HCl (Valtrex -) 500 mg PO TID [facility] Last Admin: 04/10/18 06:07 Dose: 500 mg 77 year old woman with hx of breast Ca, RA, Leukopenia, hypothryodism who presented with fevers and cough and found to have UTI and subsequently developed hyponatremia with serum na of 125. #Hypovolemic Hyponatremia from diuretics #UTI #Leukopenia/Neutropenia #Hypokalemia serum Na imporved s/p IVF will hold IVF and trend with oral diet alone encouraged pt to take in oral solute intake Heme following regarding Neutropenia holding filgrastim and leucovorin because of low plt counts Norberto Hopson DO
--- NOTE | 2018-04-10 14:15 | PN ---
Progress Note (short form) - Note Progress Note: PULMONARY Denies shortness of breath, cough or wheezing. No fevers recorded. Thoracic surgery input appreciated. Vital Signs Period Temp Pulse Resp BP Sys/Jones Pulse Ox Last 24 Hr 97.3 F-98.6 F 74-100 18-18 124-152/45-78 97-97 Gen: mildly tachypneic at rest Heart: RRR Lung: decreased breath sounds at the bases Abd: soft, nontender Ext: no edema CBC, BMP 04/10/18 06:15 04/10/18 06:15 Active Medications Acetaminophen (Tylenol -) 650 mg PO Q6H PRN PRN Reason: FEVER Last Admin: 04/05/18 18:01 Dose: 650 mg Ascorbic Acid (Vitamin C -) 500 mg PO DAILY [facility] Last Admin: 04/10/18 10:29 Dose: 500 mg Atorvastatin Calcium (Lipitor -) 10 mg PO HS [facility] Last Admin: 04/09/18 22:09 Dose: 10 mg Benzocaine/Menthol (Cepacol Lozenge -) 1 each MM PRN PRN PRN Reason: SORE THROAT Last Admin: 04/01/18 21:43 Dose: 1 each Calcium Carbonate/Cholecalciferol (Os-Grupo 500+D -) 2 tab PO DAILY [facility] Last Admin: 04/10/18 10:29 Dose: 2 tab Ferrous Sulfate (Feosol -) 325 mg PO DAILY [facility] Last Admin: 04/10/18 10:29 Dose: 325 mg Guaifenesin (Mucinex Dm -) 1 tablet PO BID [facility] Last Admin: 04/10/18 10:31 Dose: 1 tablet Levothyroxine Sodium (Synthroid -) 100 mcg PO 0700 [facility] Last Admin: 04/10/18 06:07 Dose: 100 mcg Mirtazapine (Remeron -) 15 mg PO HS [facility] Last Admin: 04/09/18 22:09 Dose: 15 mg Quinapril HCl (Accupril -) 10 mg PO DAILY [facility] Last Admin: 04/10/18 10:30 Dose: 10 mg Valacyclovir HCl (Valtrex -) 500 mg PO TID [facility] Last Admin: 04/10/18 14:01 Dose: 500 mg A/P MIKE Consolidation Neutropenia Rheumatoid Arthritis h/o Breast Ca HTN Hypothyroidism Hyponatremia - complete antibiotic course - repeat CT chest as outpt in 4-6 weeks - replete lytes - filgrastim per heme/onc - DVT prophylaxis
--- NOTE | 2018-04-10 15:19 | CONSULT ---
Consult Consult Specialty:: Rheumatology - History of Present Illness History of Present Illness: 77 y/o female with a past medical history of rheumatoid arthritis, chronic neutropenia, hypertension, hyperlipidemia, hypothyroidism, history of breast CA treated with lumpectomy and radiotherapy, ex-smoker (quit 20 years ago), admitted with a 3 week history of nausea, anorexia and nonproductive cough The patient was diagnosed with sero-positive rheumatoid arthritis (rheumatoid factor and CCP positive) in 1998 and since then she has been treated with Methotrexate. I followed the patient in my office from 2012 to 2013. At that time she had active disease and the CBC was normal. . She took Sulfasalazine for a short period of time and refused to take any biological DMARD. The patient has a 2 year history of neutropenia (WBC of about 1000). Laboratory: On admission WBC 0.3 and platelets 230. Today WBC 0.8 and platelets 85. Creatinine 0.7, Urinalysis with protein 2+, no blood and LE 1+. CT scan of the chest reported consolidation with air bronchogram in the left upper lobe and no hilar or mediastinal adenopathy. Spleen Ultrasound: splenomegaly. No response to Neupogen or Leucovorin Bone marrow aspirate: abnormal myeloid maturation on myeloid elements without evidence of increased myeloblasts or lymphoproliferative disorder. (bone marrow morphology and cytogenetic studies are pending). - History Source History Provided By: Patient, Medical Record - Past Medical History Cardio/Vascular: Yes: HTN, Hyperlipdemia Heme/Onc: Yes: Other (Breast cancer) Rheumatology: Yes: Rheumatoid Arthritis Endocrine: Yes: Hypothyroidism - Alcohol/Substance Use Hx Alcohol Use: Yes (SOCIAL) - Smoking History Smoking history: Former smoker Have you smoked in the past 12 months: No If you are a former smoker, when did you quit?: 1992 - Social History Usual Living Arrangement: With Child Home Medications - Allergies Allergies/Adverse Reactions: Allergies Allergy/AdvReac Type Severity Reaction Status Date / Time No Known Drug Allergies Allergy Verified 03/28/18 17:00 - Home Medications Home Medications: Ambulatory Orders Ascorbate Calcium [Vitamin C] 500 mg PO DAILY 11/24/13 Aspirin Coated [Ecotrin -] 81 mg PO DAILY 11/24/13 Calcium Carbonate/Vitamin D3 [Calcium 600-Vit D3 200 Tablet] 2 each PO DAILY 08/04 Folic Acid - 1 mg PO DAILY 11/24/13 Levothyroxine [Synthroid -] 100 mcg PO DAILY 11/24/13 Quinapril HCl [Accupril -] 10 mg PO DAILY 11/24/13 Atorvastatin Calcium [Lipitor] 10 mg PO ASDIR 03/28/18 Diazepam [Valium] 5 mg PO BID PRN 03/28/18 Guaifenesin Dm [Mucinex Dm -] 1 tab PO BID 03/28/18 Acetaminophen [Tylenol .Regular Strength -] 650 mg PO Q6H PRN tablet 04/01/18 Ferrous Sulfate [Feosol] 325 mg PO DAILY #30 ud 04/01/18 Levofloxacin [Levaquin] 500 mg PO DAILY #7 tablet 04/01/18 Leucovorin Calcium 10 mg PO QID #8 tablet 04/04/18 Leucovorin Calcium 15 mg PO QID #8 tablet 04/04/18 Review of Systems - Review of Systems Constitutional: reports: Malaise Eyes: reports: No Symptoms HENT: reports: No Symptoms Neck: reports: No Symptoms Cardiovascular: reports: No Symptoms Respiratory: reports: No Symptoms Gastrointestinal: reports: Nausea Musculoskeletal: reports: Other (The patient denies joint pain or morning stiffness.) Integumentary: reports: No Symptoms Physical Exam Vital Signs: Vital Signs Temperature 97.3 F L 04/10/18 10:00 Pulse Rate 76 04/10/18 10:00 Respiratory Rate 18 04/10/18 10:00 Blood Pressure 152/78 04/10/18 10:00 O2 Sat by Pulse Oximetry (%) 97 04/10/18 09:00 Constitutional: Yes: Mild Distress Eyes: Yes: WNL HENT: Yes: WNL Neck: Yes: WNL Cardiovascular: Yes: WNL Respiratory: Yes: WNL Musculoskeletal: Yes: Other (Subluxation of MCPs with no tenderness or joint effusion.) Labs: CBC, BMP 04/10/18 06:15 04/10/18 06:15 Laboratory Tests 03/28/18 04/10/18 17:47 06:15 Total Bilirubin 0.6 AST 29 ALT 13 Alkaline Phosphatase 71 Total Protein 5.6 L Albumin 1.6 L Urine Color Yellow Urine Appearance Turbid Urine pH 8.0 D Ur Specific [place] 1.016 Urine Protein 2+ H Urine Glucose (UA) Negative Urine Ketones Negative Urine Blood Negative Urine Nitrite Negative Urine Bilirubin 2.0 Urine Urobilinogen Negative Ur Leukocyte Esterase 1+ H Urine WBC (Auto) 57 Urine RBC (Auto) 3 Ur Epithelial Cells Rare Hyaline Casts 9 Problem List - Problems (1) Rheumatoid arthritis Assessment/Plan: correction history of sero-positive rheumatoid arthritis not treated adequately resulting in significant joint damage, The patient has been treated only with Methotrexate and at the present time the disease is not active. She has a 2 year history of neutropenia, at the present time very severe and thrombocytopenia. She has splenomegaly and she did not respond to leucovorin or Neupogen, Bone marrow biopsy and cytogenetic studies are pending. The differential diagnosis include Felty's syndrome, myelosuppression secondary to MTX and myelodysplasia or other myeloproliferative disorder. Plan: Labs (RF, M spike, ESR,) Await for bone marrow Biospy. Continue same medications. Code(s): M06.9 - RHEUMATOID ARTHRITIS, UNSPECIFIED
--- NOTE | 2018-04-10 15:20 | CONSULT ---
Consult Consult Specialty:: PM&R Dr Ford for Dr Cardoso - History of Present Illness Chief Complaint: tired History of Present Illness: This is a 77 year old woman with a medical history of breast cancer, leukopenia , RA, hypothyroidism, who presented to the ED 03/28/18 with 2 days fevers and cough. She was seen by ID for neutropenia in the setting of PNA as well as neutropenic precautions. MTX was held due to neutropenia. She had prolonged hospital course and was seen by multiple specialists including Renal for hypoNa , Pulm for PNA and MIKE consolidation, and Thoracic Surgery for MIKE consolidation. She was not seen by PT. Physiatry was consulted for further recommendations. - Past Medical History Cardio/Vascular: Yes: HTN Rheumatology: Yes: Rheumatoid Arthritis Endocrine: Yes: Hypothyroidism - Alcohol/Substance Use Hx Alcohol Use: Yes (SOCIAL) - Smoking History Smoking history: Former smoker Have you smoked in the past 12 months: No If you are a former smoker, when did you quit?: 1992 - Social History Usual Living Arrangement: Alone (alone in house iwth 2 steps to enter and 1 flight inside, previously Independent in ADLs with [place]) Home Medications - Allergies Allergies/Adverse Reactions: Allergies Allergy/AdvReac Type Severity Reaction Status Date / Time No Known Drug Allergies Allergy Verified 03/28/18 17:00 - Home Medications Home Medications: Ambulatory Orders Ascorbate Calcium [Vitamin C] 500 mg PO DAILY 11/24/13 Aspirin Coated [Ecotrin -] 81 mg PO DAILY 11/24/13 Calcium Carbonate/Vitamin D3 [Calcium 600-Vit D3 200 Tablet] 2 each PO DAILY 08/04 Folic Acid - 1 mg PO DAILY 11/24/13 Levothyroxine [Synthroid -] 100 mcg PO DAILY 11/24/13 Quinapril HCl [Accupril -] 10 mg PO DAILY 11/24/13 Atorvastatin Calcium [Lipitor] 10 mg PO ASDIR 03/28/18 Diazepam [Valium] 5 mg PO BID PRN 03/28/18 Guaifenesin Dm [Mucinex Dm -] 1 tab PO BID 03/28/18 Acetaminophen [Tylenol .Regular Strength -] 650 mg PO Q6H PRN tablet 04/01/18 Ferrous Sulfate [Feosol] 325 mg PO DAILY #30 ud 04/01/18 Levofloxacin [Levaquin] 500 mg PO DAILY #7 tablet 04/01/18 Leucovorin Calcium 10 mg PO QID #8 tablet 04/04/18 Leucovorin Calcium 15 mg PO QID #8 tablet 04/04/18 Review of Systems Findings/Remarks: Denies fevers, chills, changes in vision/ hearing/ mood, CP, SOB, abdominal pain , nausea, vomiting, constipation, diarrhea, dysuria, muscle/ joint pain, numbness/ paresthesias. Notes being tired. Physical Exam Vital Signs: Vital Signs Temperature 97.3 F L 04/10/18 10:00 Pulse Rate 76 04/10/18 10:00 Respiratory Rate 18 04/10/18 10:00 Blood Pressure 152/78 04/10/18 10:00 O2 Sat by Pulse Oximetry (%) 97 04/10/18 09:00 Musculoskeletal: Yes: Other (General: calm elderly F lying in bed NAD N/M: B shoulder flexion to 90 degrees, 4+/5 BUE/ BLE except for 3/5 B HF and 4/ 5 B KE Extremities: no BLE pitting edema, no B calf tenderness) Labs: CBC, BMP 04/10/18 06:15 04/10/18 06:15 Assessment/Plan Impression: 1) Deficits mobility/ ADLs 2) Deconditioning 3) Gait abnormality 4) Pancytopenic 5) PNA with MIKE consolidation 6) HypoNa 7) hx breast cancer 8) RA 9) hx hypothyroidism 10) Overweight Recommendations: 1) PT for stretching strengthening ROM and functional mobility 2) Falls, safety precautions 3) Pulmonary, neutropenic precautions 4) DVT ppx: encourage ambulation, off AC due to thrombocytopenia 5) Skin protection: float heels, frequent turning 6) Denies constipation on current bowel regimen 7) Nutrition consult for overweight 8) Continue plan per primary team 9) Discharge planning: she would likely benefit from inpatient rehabilitation once medically stable Thank you for this referral.
--- NOTE | 2018-04-10 18:14 | PN ---
Progress Note (short form) - Note Progress Note: Patient seen and family at bed side Updated Awaiting results of bone marrow results Differential still includes - MDS. Spleen only mildly enlarged for Felty's Await studies. No change in hemogram. Last Vital Signs Temp Pulse Resp BP Pulse Ox 99.5 F 108 H 18 132/60 97 04/10/18 15:46 04/10/18 15:46 04/10/18 15:46 04/10/18 15:46 04/10/18 09:00 Impression cotinue to monitor Await BM results. Problem List - Problems (1) Anemia Code(s): D64.9 - ANEMIA, UNSPECIFIED (2) Lung consolidation Code(s): J18.1 - LOBAR PNEUMONIA, UNSPECIFIED ORGANISM (3) Neutropenia Code(s): D70.9 - NEUTROPENIA, UNSPECIFIED
[2018-04-10] MEDS ORDERED: PT OWN MED DRAWER 7, Y5N ONE (21:33)
[2018-04-10] MEDS: MIRTAZAPINE 15 MG TABLET (FP) PO SCH (23:33)
[2018-04-10] MEDS: ATORVASTATIN CA 10 MG TABLET (FP) PO SCH (23:33)
[2018-04-11] MEDS ORDERED: PT OWN MED DRAWER 7, Y5N ONE ×2 (05:51→20:03)
[2018-04-11] MEDS: valACYclovir HCL 500 MG TABLET (FP) PO SCH ×3 (06:07→21:39)
[2018-04-11] MEDS: LEVOTHYROXINE NA 100 MCG TABLET (FP) PO SCH (06:07)
[2018-04-11 07:54] LABS: BASO % 2.3 % (0-2.0); EOS % 4.6 % (0-4.5); HEMATOCRIT 23.4 % (32.4-45.2); HEMOGLOBIN 8.1 GM/dL (10.7-15.3); LYMPH % 19.8 % (8-40); MCH 27.7 pg (25.7-33.7); MCHC 34.7 g/dl (32.0-36.0); MEAN CELL VOLUME 79.7 fl (80-96); MEAN PLT VOLUME 8.1 fl (7.5-11.1); MONO % 44.1 % (3.8-10.2); NEUT % 29.2 % (42.8-82.8); PLATELET COUNT 83 K/MM3 (134-434); RBC 2.93 M/mm3 (3.60-5.2)
[2018-04-11 08:04] LABS: ALBUMIN 1.6 g/dl (3.4-5.0); ALK PHOS 64 U/L (45-117); ANION GAP 8 MMOL/L (8-16); BILIRUBIN,TOTAL 0.6 mg/dL (0.2-1); BLOOD UREA NITROGEN 11 mg/dL (7-18); CALCIUM 8.9 mg/dL (8.5-10.1); CHLORIDE 104 mmol/L (98-107); CO2 23 mmol/L (21-32); CREATININE 0.7 mg/dL (0.55-1.3); GLUCOSE,RANDOM 96 mg/dL (74-106); POTASSIUM 3.3 mmol/L (3.5-5.1); SGOT/AST 20 U/L (15-37); SGPT/ALT 11 U/L (13-61); SODIUM 136 mmol/L (136-145); TOT PROT 5.5 g/dl (6.4-8.2)
[2018-04-11 08:58] LABS: WHITE BLOOD COUNT 0.6 K/mm3 (4.0-10.0)
--- NOTE | 2018-04-11 10:08 | PN ---
Progress Note (short form) - Note Progress Note: PULMONARY Denies shortness of breath, cough or wheezing. No fevers recorded. CXR unchanged. Vital Signs Period Temp Pulse Resp BP Sys/Jones Pulse Ox Last 24 Hr 97.3 F-99.5 F 93-108 18-20 105-132/53-60 94 Gen: mildly tachypneic at rest Heart: RRR Lung: decreased breath sounds at the bases Abd: soft, nontender Ext: no edema CBC, BMP 04/11/18 06:30 04/11/18 06:30 Active Medications Acetaminophen (Tylenol -) 650 mg PO Q6H PRN PRN Reason: FEVER Last Admin: 04/05/18 18:01 Dose: 650 mg Ascorbic Acid (Vitamin C -) 500 mg PO DAILY [facility] Last Admin: 04/10/18 10:29 Dose: 500 mg Atorvastatin Calcium (Lipitor -) 10 mg PO HS [facility] Last Admin: 04/10/18 23:33 Dose: 10 mg Benzocaine/Menthol (Cepacol Lozenge -) 1 each MM PRN PRN PRN Reason: SORE THROAT Last Admin: 04/01/18 21:43 Dose: 1 each Calcium Carbonate/Cholecalciferol (Os-Grupo 500+D -) 2 tab PO DAILY [facility] Last Admin: 04/10/18 10:29 Dose: 2 tab Ferrous Sulfate (Feosol -) 325 mg PO DAILY [facility] Last Admin: 04/10/18 10:29 Dose: 325 mg Guaifenesin (Mucinex Dm -) 1 tablet PO BID [facility] Last Admin: 04/10/18 23:33 Dose: Not Given Levothyroxine Sodium (Synthroid -) 100 mcg PO 0700 [facility] Last Admin: 04/11/18 06:07 Dose: 100 mcg Mirtazapine (Remeron -) 15 mg PO HS [facility] Last Admin: 04/10/18 23:33 Dose: 15 mg Quinapril HCl (Accupril -) 10 mg PO DAILY [facility] Last Admin: 04/10/18 10:30 Dose: 10 mg Valacyclovir HCl (Valtrex -) 500 mg PO TID [facility] Last Admin: 04/11/18 06:07 Dose: 500 mg A/P MIKE Consolidation Pancytopenia Rheumatoid Arthritis h/o Breast Ca HTN Hypothyroidism Hyponatremia - complete antibiotic course - repeat CT chest as outpt in 4-6 weeks - replete lytes - f/u BMBx - DVT prophylaxis
[2018-04-11] MEDS: CALCIUM 500MG/VIT-D 200 UNITS COMBO TABLET (FP) PO SCH (10:32)
[2018-04-11] MEDS: FERROUS SO4 325 MG TABLET (FP) PO SCH (10:32)
[2018-04-11] MEDS: ASCORBIC ACID 500 MG TABLET (FP) PO SCH (10:32)
[2018-04-11] MEDS: guaiFENesin/D-METHORPHAN HB 1 EACH TAB.ER.12H PO SCH ×2 (10:33→21:39)
[2018-04-11] MEDS: QUINAPRIL HCL 10 MG TABLET (FP) PO SCH (10:34)
[2018-04-11] MEDS ORDERED: POTASSIUM CHLORIDE ORAL LIQUID 20 MEQ/15 ML PO ONE (11:14)
--- NOTE | 2018-04-11 11:21 | PN ---
Progress Note, Physician Chief Complaint: patient seen and examined awaiting BM biopsy result wbc count is low- neutropenic precaution biopsy on hold for now - Current Medication List Current Medications: Active Medications Acetaminophen (Tylenol -) 650 mg PO Q6H PRN PRN Reason: FEVER Last Admin: 04/05/18 18:01 Dose: 650 mg Ascorbic Acid (Vitamin C -) 500 mg PO DAILY [facility] Last Admin: 04/11/18 10:32 Dose: 500 mg Atorvastatin Calcium (Lipitor -) 10 mg PO HS [facility] Last Admin: 04/10/18 23:33 Dose: 10 mg Benzocaine/Menthol (Cepacol Lozenge -) 1 each MM PRN PRN PRN Reason: SORE THROAT Last Admin: 04/01/18 21:43 Dose: 1 each Calcium Carbonate/Cholecalciferol (Os-Grupo 500+D -) 2 tab PO DAILY [facility] Last Admin: 04/11/18 10:32 Dose: 2 tab Ferrous Sulfate (Feosol -) 325 mg PO DAILY [facility] Last Admin: 04/11/18 10:32 Dose: 325 mg Guaifenesin (Mucinex Dm -) 1 tablet PO BID [facility] Last Admin: 04/11/18 10:33 Dose: Not Given Levothyroxine Sodium (Synthroid -) 100 mcg PO 0700 [facility] Last Admin: 04/11/18 06:07 Dose: 100 mcg Mirtazapine (Remeron -) 15 mg PO HS [facility] Last Admin: 04/10/18 23:33 Dose: 15 mg Potassium Chloride (Potassium Chloride Oral Liquid) 20 meq PO ONCE ONE Stop: 04/11/18 11:15 Quinapril HCl (Accupril -) 10 mg PO DAILY [facility] Last Admin: 04/11/18 10:34 Dose: 10 mg Valacyclovir HCl (Valtrex -) 500 mg PO TID [facility] Last Admin: 04/11/18 06:07 Dose: 500 mg - Objective Vital Signs: Vital Signs Temperature 97.3 F L 04/11/18 06:57 Pulse Rate 104 H 04/11/18 06:57 Respiratory Rate 20 04/11/18 06:57 Blood Pressure 105/55 L 04/11/18 06:57 O2 Sat by Pulse Oximetry (%) 94 L 04/10/18 21:00 Constitutional: Yes: Calm Neck: Yes: Trachea Midline Cardiovascular: Yes: Regular Rate and Rhythm, S1, S2 Respiratory: Yes: CTA Bilaterally Gastrointestinal: Yes: Normal Bowel Sounds, Soft Edema: No Neurological: Yes: Alert Labs: CBC, BMP 04/11/18 06:30 04/11/18 06:30 INR, PTT INR 1.13 (0.83-1.09) H 03/28/18 17:47 Problem List - Problems (1) Anemia Assessment/Plan: on ferrous sulfate BM biopsy pending Code(s): D64.9 - ANEMIA, UNSPECIFIED (2) Hypokalemia Assessment/Plan: repleted recheck in AM check magnesium Code(s): E87.6 - HYPOKALEMIA (3) Hyponatremia Assessment/Plan: on sodium chloride tablets Code(s): E87.1 - HYPO-OSMOLALITY AND HYPONATREMIA (4) Lung consolidation Assessment/Plan: thoracic surgeoon note reviwed to hold off on biopsy til pancytopenia improves on iv abx- completed aspirin on hold informed her daughter Code(s): J18.1 - LOBAR PNEUMONIA, UNSPECIFIED ORGANISM (5) Neutropenia Assessment/Plan: neutropenic precautions heme on board granix and leucovorin on valtrex Code(s): D70.9 - NEUTROPENIA, UNSPECIFIED (6) Hypothyroid Assessment/Plan: on synthroid Code(s): E03.9 - HYPOTHYROIDISM, UNSPECIFIED (7) Depression Assessment/Plan: appreicate psych note started on remeron and has capacity to make decision Code(s): F32.9 - MAJOR DEPRESSIVE DISORDER, SINGLE EPISODE, UNSPECIFIED
[2018-04-11 11:36] LABS: ACANTHOCYTES 0; ANISOCYTOSIS 0; HELMET CELLS 0; HOWELL-JOLLY BODIES 0; MACROCYTOSIS 0; OVALOCYTE 0; PLATELET ESTIMATE DECREASED; ROULEAU 0; SICKELED CELLS 0; TARGET CELLS 0; TEAR DROP CELLS 0; TOXIC GRANULATION 0
--- NOTE | 2018-04-11 12:51 | PN ---
Progress Note (short form) - Note Progress Note: Consult Progress Note: Hematology/Oncology feeling better today. appetite remains the same. has been OOB to chair no complaints of fevers, chest pain, palpitations, melena, sob, nausea, vomiting. Vital Signs Period Temp Pulse Resp BP Sys/Jones Pulse Ox Last 24 Hr 97.3 F-99.5 F 93-108 18-20 105-132/53-60 94 PE: NAD SIMON, no scleral ict, facial symmetry oral lesion on upper lip, no thrush, no oral buccal lesions, no thyromegaly CTAB, RRR, no MRG abd soft, nd/nt no edema on b/l LE b/l UE with nonblanching nontender purpura from blood draws - appears improved from previous assessment CBCD WBC 0.6 K/mm3 (4.0-10.0) L* 04/11/18 06:30 RBC 2.93 M/mm3 (3.60-5.2) L 04/11/18 06:30 Hgb 8.1 GM/dL (10.7-15.3) L 04/11/18 06:30 Hct 23.4 % (32.4-45.2) L 04/11/18 06:30 MCV 79.7 fl (80-96) L 04/11/18 06:30 MCHC 34.7 g/dl (32.0-36.0) 04/11/18 06:30 RDW 17.0 % (11.6-15.6) H 04/11/18 06:30 Plt Count 83 K/MM3 (134-434) L 04/11/18 06:30 MPV 8.1 fl (7.5-11.1) 04/11/18 06:30 CMP Sodium 136 mmol/L (136-145) 04/11/18 06:30 Potassium 3.3 mmol/L (3.5-5.1) L 04/11/18 06:30 Chloride 104 mmol/L (98-107) 04/11/18 06:30 Carbon Dioxide 23 mmol/L (21-32) 04/11/18 06:30 Anion Gap 8 MMOL/L (8-16) 04/11/18 06:30 BUN 11 mg/dL (7-18) 04/11/18 06:30 Creatinine 0.7 mg/dL (0.55-1.3) 04/11/18 06:30 Creat Clearance w eGFR > 60 (>60) 04/11/18 06:30 Calcium 8.9 mg/dL (8.5-10.1) 04/11/18 06:30 Total Bilirubin 0.6 mg/dL (0.2-1) 04/11/18 06:30 AST 20 U/L (15-37) 04/11/18 06:30 ALT 11 U/L (13-61) L 04/11/18 06:30 Alkaline Phosphatase 64 U/L (45-117) 04/11/18 06:30 Total Protein 5.5 g/dl (6.4-8.2) L 04/11/18 06:30 Albumin 1.6 g/dl (3.4-5.0) L 04/11/18 06:30 Active Medications Acetaminophen (Tylenol -) 650 mg PO Q6H PRN PRN Reason: FEVER Last Admin: 04/05/18 18:01 Dose: 650 mg Ascorbic Acid (Vitamin C -) 500 mg PO DAILY [facility] Last Admin: 04/11/18 10:32 Dose: 500 mg Atorvastatin Calcium (Lipitor -) 10 mg PO HS [facility] Last Admin: 04/10/18 23:33 Dose: 10 mg Benzocaine/Menthol (Cepacol Lozenge -) 1 each MM PRN PRN PRN Reason: SORE THROAT Last Admin: 04/01/18 21:43 Dose: 1 each Calcium Carbonate/Cholecalciferol (Os-Grupo 500+D -) 2 tab PO DAILY [facility] Last Admin: 04/11/18 10:32 Dose: 2 tab Ferrous Sulfate (Feosol -) 325 mg PO DAILY [facility] Last Admin: 04/11/18 10:32 Dose: 325 mg Guaifenesin (Mucinex Dm -) 1 tablet PO BID [facility] Last Admin: 04/11/18 10:33 Dose: Not Given Levothyroxine Sodium (Synthroid -) 100 mcg PO 0700 [facility] Last Admin: 04/11/18 06:07 Dose: 100 mcg Mirtazapine (Remeron -) 15 mg PO HS [facility] Last Admin: 04/10/18 23:33 Dose: 15 mg Quinapril HCl (Accupril -) 10 mg PO DAILY [facility] Last Admin: 04/11/18 10:34 Dose: 10 mg Valacyclovir HCl (Valtrex -) 500 mg PO TID [facility] Last Admin: 04/11/18 06:07 Dose: 500 mg 77 yr old woman with RA, hx of Breast CA(DCIS), hypothryroidism, presented with fevers and cough found to have neutropenia. Problem List: Bone Marrow Suppression Upper Respiratory tract infection Rheumatoid Arthritis on MTX (25 years) Hyponatremia - resolved HTN HLD Hypothyroidism Breast cancer (DCIS) A/Plan: -bone marrow suppresion of unclear etiology but likely secondary to Methotrexate use and viral syndrome, though there has been no improvement with MTX being held and with the addition of leucovorum and granix. MDS remains in the differential,bone marrrow biopsy on 04/05 is pending results. likely may not see improvement quickly given prolonged suppression - CT guided lung biopsy deferred until pt's neutropenia improves -Continue Valtrex start apr 05 -since no improvement with leucovorum after 8 days of treatment, (started Apr 02 - Apr 10) (completed 8 days)), Granix dc'd (Apr 03 - apr 09) due to no improvement -IV abx, cefepime Mar 31 - Apr 10, abx discontinued, pending further evaluation from ID
--- NOTE | 2018-04-11 13:30 | PN ---
Progress Note, Physician History of Present Illness: Supine in bed No focal complaint Denies cough/ sputum / hemoptysis No chest pain/dyspnea No c/o fever/ chills Galactomannin (-) Fungitell (+) Off antibiotics - Current Medication List Current Medications: Active Medications Acetaminophen (Tylenol -) 650 mg PO Q6H PRN PRN Reason: FEVER Last Admin: 04/05/18 18:01 Dose: 650 mg Ascorbic Acid (Vitamin C -) 500 mg PO DAILY [facility] Last Admin: 04/11/18 10:32 Dose: 500 mg Atorvastatin Calcium (Lipitor -) 10 mg PO HS [facility] Last Admin: 04/10/18 23:33 Dose: 10 mg Benzocaine/Menthol (Cepacol Lozenge -) 1 each MM PRN PRN PRN Reason: SORE THROAT Last Admin: 04/01/18 21:43 Dose: 1 each Calcium Carbonate/Cholecalciferol (Os-Grupo 500+D -) 2 tab PO DAILY [facility] Last Admin: 04/11/18 10:32 Dose: 2 tab Ferrous Sulfate (Feosol -) 325 mg PO DAILY [facility] Last Admin: 04/11/18 10:32 Dose: 325 mg Guaifenesin (Mucinex Dm -) 1 tablet PO BID [facility] Last Admin: 04/11/18 10:33 Dose: Not Given Levothyroxine Sodium (Synthroid -) 100 mcg PO 0700 [facility] Last Admin: 04/11/18 06:07 Dose: 100 mcg Mirtazapine (Remeron -) 15 mg PO HS [facility] Last Admin: 04/10/18 23:33 Dose: 15 mg Quinapril HCl (Accupril -) 10 mg PO DAILY [facility] Last Admin: 04/11/18 10:34 Dose: 10 mg Valacyclovir HCl (Valtrex -) 500 mg PO TID [facility] Last Admin: 04/11/18 06:07 Dose: 500 mg - Objective Vital Signs: Vital Signs Temperature 97.3 F L 04/11/18 06:57 Pulse Rate 104 H 04/11/18 06:57 Respiratory Rate 20 04/11/18 06:57 Blood Pressure 105/55 L 04/11/18 06:57 O2 Sat by Pulse Oximetry (%) 94 L 04/10/18 21:00 Constitutional: Yes: No Distress Eyes: Yes: Conjunctiva Clear Cardiovascular: Yes: Regular Rate and Rhythm, S1, S2 Respiratory: Yes: CTA Bilaterally Gastrointestinal: Yes: Normal Bowel Sounds, Soft. No: Tenderness Edema: No Labs: CBC, BMP 04/11/18 06:30 04/11/18 06:30 INR, PTT INR 1.13 (0.83-1.09) H 03/28/18 17:47 Assessment/Plan Leukopenia/ neutropenia likely medication-induced MIKE consolidation +BC SCN= contaminant Proteus UTI Awaiting recovery of marrow prior to lung biopsy Would not commit patient to long course of voriconazole without tissue dx (Fungitell assay non- specific) MIKE infiltrate appears chronic and pt w/o pulmonary symptoms
[2018-04-11] MEDS: ATORVASTATIN CA 10 MG TABLET (FP) PO SCH (21:39)
[2018-04-11] MEDS: MIRTAZAPINE 15 MG TABLET (FP) PO SCH (21:39)
[2018-04-12] MEDS: valACYclovir HCL 500 MG TABLET (FP) PO SCH ×3 (06:24→21:36)
[2018-04-12] MEDS: LEVOTHYROXINE NA 100 MCG TABLET (FP) PO SCH (06:24)
[2018-04-12 07:33] LABS: BASO % 2.5 % (0-2.0); EOS % 4.9 % (0-4.5); HEMATOCRIT 24.7 % (32.4-45.2); HEMOGLOBIN 8.4 GM/dL (10.7-15.3); LYMPH % 22.1 % (8-40); MCH 27.2 pg (25.7-33.7); MCHC 34.2 g/dl (32.0-36.0); MEAN CELL VOLUME 79.7 fl (80-96); MEAN PLT VOLUME 8.2 fl (7.5-11.1); NEUT % 29.5 % (42.8-82.8); PLATELET COUNT 96 K/MM3 (134-434); RDW 17.5 % (11.6-15.6)
[2018-04-12 07:53] LABS: WHITE BLOOD COUNT 0.6 K/mm3 (4.0-10.0)
[2018-04-12 08:07] LABS: ALBUMIN 1.8 g/dl (3.4-5.0); ALK PHOS 62 U/L (45-117); ANION GAP 10 MMOL/L (8-16); BILIRUBIN,TOTAL 0.6 mg/dL (0.2-1); BLOOD UREA NITROGEN 12 mg/dL (7-18); CHLORIDE 103 mmol/L (98-107); CO2 23 mmol/L (21-32); CREATININE 0.6 mg/dL (0.55-1.3); GLUCOSE,RANDOM 92 mg/dL (74-106); MAGNESIUM 2.3 mg/dL (1.8-2.4); PHOSPHOROUS 2.8 mg/dL (2.5-4.9); POTASSIUM 3.7 mmol/L (3.5-5.1); SGOT/AST 28 U/L (15-37); SGPT/ALT 17 U/L (13-61); SODIUM 136 mmol/L (136-145); TOT PROT 5.8 g/dl (6.4-8.2)
[2018-04-12] MEDS ORDERED: PT OWN MED DRAWER 7, Y5N ONE ×2 (09:45→21:01)
[2018-04-12] MEDS: CALCIUM 500MG/VIT-D 200 UNITS COMBO TABLET (FP) PO SCH (09:53)
[2018-04-12] MEDS: FERROUS SO4 325 MG TABLET (FP) PO SCH (09:53)
[2018-04-12] MEDS: ASCORBIC ACID 500 MG TABLET (FP) PO SCH (09:53)
[2018-04-12] MEDS: guaiFENesin/D-METHORPHAN HB 1 EACH TAB.ER.12H PO SCH ×2 (09:54→21:37)
[2018-04-12] MEDS: QUINAPRIL HCL 10 MG TABLET (FP) PO SCH (09:54)
--- NOTE | 2018-04-12 10:06 | PN ---
Progress Note, Physician - Current Medication List Current Medications: Active Medications Acetaminophen (Tylenol -) 650 mg PO Q6H PRN PRN Reason: FEVER Last Admin: 04/05/18 18:01 Dose: 650 mg Ascorbic Acid (Vitamin C -) 500 mg PO DAILY [facility] Last Admin: 04/12/18 09:53 Dose: 500 mg Atorvastatin Calcium (Lipitor -) 10 mg PO HS [facility] Last Admin: 04/11/18 21:39 Dose: 10 mg Benzocaine/Menthol (Cepacol Lozenge -) 1 each MM PRN PRN PRN Reason: SORE THROAT Last Admin: 04/01/18 21:43 Dose: 1 each Calcium Carbonate/Cholecalciferol (Os-Grupo 500+D -) 2 tab PO DAILY [facility] Last Admin: 04/12/18 09:53 Dose: 2 tab Ferrous Sulfate (Feosol -) 325 mg PO DAILY [facility] Last Admin: 04/12/18 09:53 Dose: 325 mg Guaifenesin (Mucinex Dm -) 1 tablet PO BID [facility] Last Admin: 04/12/18 09:54 Dose: Not Given Levothyroxine Sodium (Synthroid -) 100 mcg PO 0700 [facility] Last Admin: 04/12/18 06:24 Dose: 100 mcg Mirtazapine (Remeron -) 15 mg PO HS [facility] Last Admin: 04/11/18 21:39 Dose: 15 mg Quinapril HCl (Accupril -) 10 mg PO DAILY [facility] Last Admin: 04/12/18 09:54 Dose: 10 mg Valacyclovir HCl (Valtrex -) 500 mg PO TID [facility] Last Admin: 04/12/18 06:24 Dose: 500 mg - Objective Vital Signs: Vital Signs Temperature 97.5 F L 04/12/18 06:00 Pulse Rate 106 H 04/12/18 06:00 Respiratory Rate 20 04/12/18 06:00 Blood Pressure 110/46 L 04/12/18 06:00 O2 Sat by Pulse Oximetry (%) 96 04/11/18 21:00 Cardiovascular: Yes: Regular Rate and Rhythm Respiratory: Yes: Regular, CTA Bilaterally Gastrointestinal: Yes: Normal Bowel Sounds, Soft. No: Tenderness Labs: CBC, BMP 04/12/18 07:00 04/12/18 07:00 INR, PTT INR 1.13 (0.83-1.09) H 03/28/18 17:47 Problem List - Problems (1) Neutropenic fever Code(s): D70.9 - NEUTROPENIA, UNSPECIFIED; R50.81 - FEVER PRESENTING WITH CONDITIONS CLASSIFIED ELSEWHERE (2) Rheumatoid arthritis Code(s): M06.9 - RHEUMATOID ARTHRITIS, UNSPECIFIED (3) Leukopenia Code(s): D72.819 - DECREASED WHITE BLOOD CELL COUNT, UNSPECIFIED Qualifiers: Leukopenia type: unspecified Qualified Code(s): D72.819 - Decreased white blood cell count, unspecified (4) Hyponatremia Code(s): E87.1 - HYPO-OSMOLALITY AND HYPONATREMIA Assessment/Plan - Problems (1) Anemia Assessment/Plan: on ferrous sulfate BM biopsy pending Code(s): D64.9 - ANEMIA, UNSPECIFIED (2) Hypokalemia Assessment/Plan: repleted Code(s): E87.6 - HYPOKALEMIA (3) Hyponatremia Assessment/Plan: on sodium chloride tablets Code(s): E87.1 - HYPO-OSMOLALITY AND HYPONATREMIA (4) Lung consolidation Assessment/Plan: thoracic surgeon note reviewed to hold off on biopsy til pancytopenia improves on iv abx- completed aspirin on hold informed her daughter Code(s): J18.1 - LOBAR PNEUMONIA, UNSPECIFIED ORGANISM (5) Neutropenia Assessment/Plan: neutropenic precautions heme on board granix and leucovorin stopped on valtrex Code(s): D70.9 - NEUTROPENIA, UNSPECIFIED (6) Hypothyroid Assessment/Plan: on synthroid Code(s): E03.9 - HYPOTHYROIDISM, UNSPECIFIED (7) Depression Assessment/Plan: appreciate psych note started on remeron and has capacity to make decision Code(s): F32.9 - MAJOR DEPRESSIVE DISORDER, SINGLE EPISODE, UNSPECIFIED poor oral intake will discuss with family
--- NOTE | 2018-04-12 13:26 | PN ---
Progress Note (short form) - Note Progress Note: Renal follow up for hyponatremia Vital Signs Temperature 98.2 F 04/12/18 10:00 Pulse Rate 92 H 04/12/18 10:00 Respiratory Rate 20 04/12/18 10:00 Blood Pressure 120/60 04/12/18 10:00 O2 Sat by Pulse Oximetry (%) 96 04/11/18 21:00 Intake & Output 04/09/18 04/10/18 04/11/18 04/12/18 23:59 23:59 23:59 23:59 Intake Total 1825 1125 200 Balance 1825 1125 200 NAD No Le swelling CBC, BMP 04/12/18 07:00 04/12/18 07:00 77 year old woman with hx of breast Ca, RA, Leukopenia, hypothryodism who presented with fevers and cough and found to have UTI and subsequently developed hyponatremia with serum na of 125. #Hypovolemic Hyponatremia from diuretics now resolved #UTI #Leukopenia/Neutropenia #Hypokalemia Serum Na is now improved and stable continue oral solute and fluid intake no further renal work up needed at this time continue supportive care will sign off at this time, please call if any questions or concerns Norberto Hopson DO
--- NOTE | 2018-04-12 13:38 | PN ---
Progress Note (short form) - Note Progress Note: PULMONARY APPEARS CHRONICALLY ILL afebrile Gen: weakness Heart: RRR Lung: decreased breath sounds at the bases Abd: soft, nontender Ext: no edema Active Medications noted labs/meds/notes/images reviewed A/P MIKE Consolidation Pancytopenia Rheumatoid Arthritis h/o Breast Ca HTN Hypothyroidism Hyponatremia - complete antibiotic course - repeat CT chest as outpt in 4-6 weeks - replete lytes - f/u BMBx - DVT prophylaxis - neutropenic precautions Charline CHAVARRIA MD
[2018-04-12 15:34] LABS: ANISOCYTOSIS 0; MACROCYTOSIS 0; PLATELET ESTIMATE DECREASED
--- NOTE | 2018-04-12 21:03 | PN ---
Progress Note (short form) - Note Progress Note: Patient seen and e carrie Feels weak AFVSS Cor: RSR, No murmurs, No gallops Lungs: Clear to P&A Abd: Soft, Normal bowel sounds, No organomegaly Labs/MEds reviewed A/P 77 y/o patient with RA, chronic severe neutropenia on MTX MTX on hold bmbx pending abnormal chest CT--discussed with ID short term f/u further w/u based on course ? prophylactic voriconazole given prolonged neutropenia
[2018-04-12] MEDS: ATORVASTATIN CA 10 MG TABLET (FP) PO SCH (21:36)
[2018-04-12] MEDS: MIRTAZAPINE 15 MG TABLET (FP) PO SCH (21:36)
[2018-04-12] MEDS: DRONABINOL 2.5 MG CAPSULE PO SCH (22:51)
[2018-04-13] MEDS ORDERED: PT OWN MED DRAWER 7, Y5N ONE ×4 (05:46→20:35)
[2018-04-13] MEDS: valACYclovir HCL 500 MG TABLET (FP) PO SCH ×3 (06:25→21:43)
[2018-04-13] MEDS: LEVOTHYROXINE NA 100 MCG TABLET (FP) PO SCH (06:26)
[2018-04-13] MEDS: DRONABINOL 2.5 MG CAPSULE PO SCH ×2 (09:36→21:44)
[2018-04-13] MEDS: CALCIUM 500MG/VIT-D 200 UNITS COMBO TABLET (FP) PO SCH (09:36)
[2018-04-13] MEDS: guaiFENesin/D-METHORPHAN HB 1 EACH TAB.ER.12H PO SCH ×2 (09:37→21:44)
[2018-04-13] MEDS: ASCORBIC ACID 500 MG TABLET (FP) PO SCH (09:37)
[2018-04-13] MEDS: QUINAPRIL HCL 10 MG TABLET (FP) PO SCH (09:37)
[2018-04-13] MEDS: FERROUS SO4 325 MG TABLET (FP) PO SCH (09:37)
--- NOTE | 2018-04-13 09:42 | PN ---
Progress Note, Physician Chief Complaint: Sepsis History of Present Illness: Previous events and notes reviewed alert and awake RN reports new onset confusion with patient not knowing where she is, when spoke with patient she was able to state her location and the year but admits to intermittent periods of confusion afebrile - Current Medication List Current Medications: Active Medications Acetaminophen (Tylenol -) 650 mg PO Q6H PRN PRN Reason: FEVER Last Admin: 04/05/18 18:01 Dose: 650 mg Ascorbic Acid (Vitamin C -) 500 mg PO DAILY [facility] Last Admin: 04/12/18 09:53 Dose: 500 mg Atorvastatin Calcium (Lipitor -) 10 mg PO HS [facility] Last Admin: 04/12/18 21:36 Dose: 10 mg Benzocaine/Menthol (Cepacol Lozenge -) 1 each MM PRN PRN PRN Reason: SORE THROAT Last Admin: 04/01/18 21:43 Dose: 1 each Calcium Carbonate/Cholecalciferol (Os-Grupo 500+D -) 2 tab PO DAILY [facility] Last Admin: 04/12/18 09:53 Dose: 2 tab Dronabinol (Marinol -) 2.5 mg PO BID [facility] Last Admin: 04/12/18 22:51 Dose: 2.5 mg Ferrous Sulfate (Feosol -) 325 mg PO DAILY [facility] Last Admin: 04/12/18 09:53 Dose: 325 mg Guaifenesin (Mucinex Dm -) 1 tablet PO BID [facility] Last Admin: 04/12/18 21:37 Dose: Not Given Levothyroxine Sodium (Synthroid -) 100 mcg PO 0700 [facility] Last Admin: 04/13/18 06:26 Dose: 100 mcg Mirtazapine (Remeron -) 15 mg PO HS [facility] Last Admin: 04/12/18 21:36 Dose: 15 mg Quinapril HCl (Accupril -) 10 mg PO DAILY [facility] Last Admin: 04/12/18 09:54 Dose: 10 mg Valacyclovir HCl (Valtrex -) 500 mg PO TID [facility] Last Admin: 04/13/18 06:25 Dose: 500 mg - Objective Vital Signs: Vital Signs Temperature 97.9 F 04/13/18 06:00 Pulse Rate 86 04/13/18 06:00 Respiratory Rate 18 04/13/18 06:00 Blood Pressure 112/64 04/13/18 06:00 O2 Sat by Pulse Oximetry (%) 96 04/12/18 09:00 Constitutional: Yes: Calm, Mild Distress Neck: Yes: Supple Cardiovascular: Yes: Regular Rate and Rhythm Respiratory: Yes: Regular, CTA Bilaterally Gastrointestinal: Yes: Normal Bowel Sounds, Soft Musculoskeletal: Yes: Muscle Weakness Extremities: Yes: WNL Edema: No Neurological: Yes: Alert, Confusion Psychiatric: Yes: Alert Labs: CBC, BMP 04/12/18 07:00 04/12/18 07:00 INR, PTT INR 1.13 (0.83-1.09) H 03/28/18 17:47 Problem List - Problems (1) Anemia Code(s): D64.9 - ANEMIA, UNSPECIFIED (2) Hyponatremia Code(s): E87.1 - HYPO-OSMOLALITY AND HYPONATREMIA (3) Sepsis Code(s): A41.9 - SEPSIS, UNSPECIFIED ORGANISM (4) Confusion Code(s): R41.0 - DISORIENTATION, UNSPECIFIED Assessment/Plan -UA/CS ordered stat -pending BM biopsy result -neutropenic precaution -hematology on board -cont to trend WBC -monitor BP q3h -O2 sat >90%, O2 via NC PRN -dvt ppx
--- NOTE | 2018-04-13 11:51 | PN ---
Progress Note (short form) - Note Progress Note: PULMONARY Denies shortness of breath, cough or wheezing. No fevers recorded. Vital Signs Period Temp Pulse Resp BP Sys/Jones Pulse Ox Last 24 Hr 97.4 F-98.1 F 72-96 18-20 102-113/37-64 Gen: mildly tachypneic at rest Heart: RRR Lung: decreased breath sounds at the bases Abd: soft, nontender Ext: no edema CBC, BMP 04/12/18 07:00 04/12/18 07:00 Active Medications Acetaminophen (Tylenol -) 650 mg PO Q6H PRN PRN Reason: FEVER Last Admin: 04/05/18 18:01 Dose: 650 mg Ascorbic Acid (Vitamin C -) 500 mg PO DAILY [facility] Last Admin: 04/13/18 09:37 Dose: 500 mg Atorvastatin Calcium (Lipitor -) 10 mg PO HS [facility] Last Admin: 04/12/18 21:36 Dose: 10 mg Benzocaine/Menthol (Cepacol Lozenge -) 1 each MM PRN PRN PRN Reason: SORE THROAT Last Admin: 04/01/18 21:43 Dose: 1 each Calcium Carbonate/Cholecalciferol (Os-Grupo 500+D -) 2 tab PO DAILY [facility] Last Admin: 04/13/18 09:36 Dose: 2 tab Dronabinol (Marinol -) 2.5 mg PO BID [facility] Last Admin: 04/13/18 09:36 Dose: 2.5 mg Ferrous Sulfate (Feosol -) 325 mg PO DAILY [facility] Last Admin: 04/13/18 09:37 Dose: 325 mg Guaifenesin (Mucinex Dm -) 1 tablet PO BID [facility] Last Admin: 04/13/18 09:37 Dose: Not Given Levothyroxine Sodium (Synthroid -) 100 mcg PO 0700 [facility] Last Admin: 04/13/18 06:26 Dose: 100 mcg Mirtazapine (Remeron -) 15 mg PO HS [facility] Last Admin: 04/12/18 21:36 Dose: 15 mg Quinapril HCl (Accupril -) 10 mg PO DAILY [facility] Last Admin: 04/13/18 09:37 Dose: 10 mg Valacyclovir HCl (Valtrex -) 500 mg PO TID [facility] Last Admin: 04/13/18 06:25 Dose: 500 mg A/P MIKE Consolidation Pancytopenia Rheumatoid Arthritis h/o Breast Ca HTN Hypothyroidism Hyponatremia - completed antibiotic course - repeat CT chest as outpt in 4-6 weeks - replete lytes - f/u BMBx - DVT prophylaxis
--- NOTE | 2018-04-13 20:40 | PN ---
Progress Note, Physician Chief Complaint: neutropenia History of Present Illness: No complaints. Denies fevers, chills, diarrhea, dysuria, oral pain. - Current Medication List Current Medications: Active Medications Acetaminophen (Tylenol -) 650 mg PO Q6H PRN PRN Reason: FEVER Last Admin: 04/05/18 18:01 Dose: 650 mg Ascorbic Acid (Vitamin C -) 500 mg PO DAILY [facility] Last Admin: 04/13/18 09:37 Dose: 500 mg Atorvastatin Calcium (Lipitor -) 10 mg PO HS [facility] Last Admin: 04/12/18 21:36 Dose: 10 mg Benzocaine/Menthol (Cepacol Lozenge -) 1 each MM PRN PRN PRN Reason: SORE THROAT Last Admin: 04/01/18 21:43 Dose: 1 each Calcium Carbonate/Cholecalciferol (Os-Grupo 500+D -) 2 tab PO DAILY [facility] Last Admin: 04/13/18 09:36 Dose: 2 tab Dronabinol (Marinol -) 2.5 mg PO BID [facility] Last Admin: 04/13/18 09:36 Dose: 2.5 mg Ferrous Sulfate (Feosol -) 325 mg PO DAILY [facility] Last Admin: 04/13/18 09:37 Dose: 325 mg Guaifenesin (Mucinex Dm -) 1 tablet PO BID [facility] Last Admin: 04/13/18 09:37 Dose: Not Given Levothyroxine Sodium (Synthroid -) 100 mcg PO 0700 [facility] Last Admin: 04/13/18 06:26 Dose: 100 mcg Mirtazapine (Remeron -) 15 mg PO HS [facility] Last Admin: 04/12/18 21:36 Dose: 15 mg Quinapril HCl (Accupril -) 10 mg PO DAILY [facility] Last Admin: 04/13/18 09:37 Dose: 10 mg Valacyclovir HCl (Valtrex -) 500 mg PO TID [facility] Last Admin: 04/13/18 14:55 Dose: 500 mg - Objective Vital Signs: Vital Signs Temperature 98.1 F 04/13/18 10:00 Pulse Rate 96 H 04/13/18 10:00 Respiratory Rate 18 04/13/18 10:00 Blood Pressure 113/49 L 04/13/18 10:00 O2 Sat by Pulse Oximetry (%) 96 04/13/18 13:38 Constitutional: Yes: Well Nourished, No Distress HENT: Yes: WNL (no oral lesions) Cardiovascular: Yes: WNL, Regular Rate and Rhythm Respiratory: Yes: Regular, CTA Bilaterally Gastrointestinal: Yes: WNL, Soft Extremities: Yes: WNL Edema: No Labs: CBC, BMP 04/12/18 07:00 04/12/18 07:00 INR, PTT INR 1.13 (0.83-1.09) H 03/28/18 17:47 Problem List - Problems (1) Neutropenia Code(s): D70.9 - NEUTROPENIA, UNSPECIFIED Assessment/Plan 77F with RA, chronic severe neutropenia on MTX which is now on hold. Remains profoundly neutropenic but afebrile. Awaiting results of marrow biopsy ID for abnormal chest findings Rheumatology following as well
[2018-04-13] MEDS: MIRTAZAPINE 15 MG TABLET (FP) PO SCH (21:44)
[2018-04-13] MEDS: ATORVASTATIN CA 10 MG TABLET (FP) PO SCH (21:44)
[2018-04-14] MEDS: LEVOTHYROXINE NA 100 MCG TABLET (FP) PO SCH (06:15)
[2018-04-14] MEDS: valACYclovir HCL 500 MG TABLET (FP) PO SCH (06:15)
[2018-04-14] MEDS ORDERED: PT OWN MED DRAWER 7, Y5N ONE ×2 (06:52→10:00)
[2018-04-14 07:13] LABS: BASO % 5.3 % (0-2.0); EOS % 2.7 % (0-4.5); HEMATOCRIT 22.6 % (32.4-45.2); HEMOGLOBIN 7.4 GM/dL (10.7-15.3); LYMPH % 21.7 % (8-40); MCH 26.1 pg (25.7-33.7); MCHC 32.6 g/dl (32.0-36.0); MEAN CELL VOLUME 80.1 fl (80-96); MEAN PLT VOLUME 7.4 fl (7.5-11.1); MONO % 29.7 % (3.8-10.2); NEUT % 40.6 % (42.8-82.8); PLATELET COUNT 99 K/MM3 (134-434); RBC 2.82 M/mm3 (3.60-5.2); RDW 17.1 % (11.6-15.6)
[2018-04-14 07:20] LABS: URINE APPEARANCE Clear; URINE BILIRUBIN 1+ (<2.0 mg/dL); URINE COLOR Yellow; URINE GLUCOSE (UA) Negative (NEGATIVE); URINE KETONE 1+ (NEGATIVE); URINE LEUK ESTERASE Negative (NEGATIVE); URINE NITRITE Negative (NEGATIVE); URINE PROTEIN 3+ (NEGATIVE); URINE UROBILINOGEN 0.2 mg/dL (0.2-1.0)
[2018-04-14 07:48] LABS: WHITE BLOOD COUNT 0.6 K/mm3 (4.0-10.0)
[2018-04-14 08:02] LABS: ALBUMIN 1.8 g/dl (3.4-5.0); ALK PHOS 73 U/L (45-117); ANION GAP 9 MMOL/L (8-16); BILIRUBIN,TOTAL 0.8 mg/dL (0.2-1); BLOOD UREA NITROGEN 18 mg/dL (7-18); CALCIUM 8.3 mg/dL (8.5-10.1); CHLORIDE 103 mmol/L (98-107); CO2 23 mmol/L (21-32); CREATININE 0.7 mg/dL (0.55-1.3); GLUCOSE,RANDOM 97 mg/dL (74-106); POTASSIUM 3.2 mmol/L (3.5-5.1); SGOT/AST 72 U/L (15-37); SGPT/ALT 27 U/L (13-61); SODIUM 135 mmol/L (136-145); TOT PROT 5.7 g/dl (6.4-8.2)
[2018-04-14] MEDS: guaiFENesin/D-METHORPHAN HB 1 EACH TAB.ER.12H PO SCH ×2 (10:03→22:34)
[2018-04-14] MEDS: QUINAPRIL HCL 10 MG TABLET (FP) PO SCH (10:04)
[2018-04-14] MEDS: ASCORBIC ACID 500 MG TABLET (FP) PO SCH (10:04)
[2018-04-14] MEDS: DRONABINOL 2.5 MG CAPSULE PO SCH ×2 (10:04→22:34)
[2018-04-14] MEDS: FERROUS SO4 325 MG TABLET (FP) PO SCH (10:04)
[2018-04-14] MEDS: CALCIUM 500MG/VIT-D 200 UNITS COMBO TABLET (FP) PO SCH (10:04)
--- NOTE | 2018-04-14 10:26 | PN ---
Progress Note, Physician Chief Complaint: Neutropenia History of Present Illness: Previous events and notes reviewed alert and awake, less confused denies complaints of pain afebrile Hg 7.4-denies SOB or palpitations - Current Medication List Current Medications: Active Medications Acetaminophen (Tylenol -) 650 mg PO Q6H PRN PRN Reason: FEVER Last Admin: 04/05/18 18:01 Dose: 650 mg Ascorbic Acid (Vitamin C -) 500 mg PO DAILY [facility] Last Admin: 04/14/18 10:04 Dose: 500 mg Atorvastatin Calcium (Lipitor -) 10 mg PO HS [facility] Last Admin: 04/13/18 21:44 Dose: 10 mg Benzocaine/Menthol (Cepacol Lozenge -) 1 each MM PRN PRN PRN Reason: SORE THROAT Last Admin: 04/01/18 21:43 Dose: 1 each Calcium Carbonate/Cholecalciferol (Os-Grupo 500+D -) 2 tab PO DAILY [facility] Last Admin: 04/14/18 10:04 Dose: 2 tab Dronabinol (Marinol -) 2.5 mg PO BID [facility] Last Admin: 04/14/18 10:04 Dose: 2.5 mg Ferrous Sulfate (Feosol -) 325 mg PO DAILY [facility] Last Admin: 04/14/18 10:04 Dose: 325 mg Guaifenesin (Mucinex Dm -) 1 tablet PO BID [facility] Last Admin: 04/14/18 10:03 Dose: Not Given Levothyroxine Sodium (Synthroid -) 100 mcg PO 0700 [facility] Last Admin: 04/14/18 06:15 Dose: 100 mcg Mirtazapine (Remeron -) 15 mg PO HS [facility] Last Admin: 04/13/18 21:44 Dose: 15 mg Quinapril HCl (Accupril -) 10 mg PO DAILY [facility] Last Admin: 04/14/18 10:04 Dose: 10 mg Valacyclovir HCl (Valtrex -) 500 mg PO TID [facility] Last Admin: 04/14/18 06:15 Dose: 500 mg - Objective Vital Signs: Vital Signs Temperature 98.2 F 04/14/18 06:34 Pulse Rate 83 04/14/18 06:11 Respiratory Rate 20 04/14/18 06:34 Blood Pressure 111/48 L 04/14/18 06:11 O2 Sat by Pulse Oximetry (%) 96 04/13/18 21:00 Constitutional: Yes: No Distress, Calm Neck: Yes: Supple Cardiovascular: Yes: Regular Rate and Rhythm Respiratory: Yes: Regular, CTA Bilaterally Gastrointestinal: Yes: WNL, Normal Bowel Sounds, Soft Musculoskeletal: Yes: Muscle Weakness Extremities: Yes: WNL Edema: No Neurological: Yes: Alert, Oriented Psychiatric: Yes: Alert, Oriented Labs: CBC, BMP 04/14/18 06:00 04/14/18 06:00 INR, PTT INR 1.13 (0.83-1.09) H 03/28/18 17:47 Problem List - Problems (1) Anemia Code(s): D64.9 - ANEMIA, UNSPECIFIED (2) Hyponatremia Code(s): E87.1 - HYPO-OSMOLALITY AND HYPONATREMIA (3) Sepsis Code(s): A41.9 - SEPSIS, UNSPECIFIED ORGANISM (4) Confusion Code(s): R41.0 - DISORIENTATION, UNSPECIFIED Assessment/Plan -UA/CS ordered stat -pending BM biopsy result -neutropenic precaution -hematology on board -cont to trend WBC -Hg 7.4-type and screen STAT, transfuse PRBC x 2 units, repeat CBC after 2nd transfusion completed -monitor BP q3h -O2 sat >90%, O2 via NC PRN -dvt ppx
--- NOTE | 2018-04-14 10:48 | PN ---
Progress Note (short form) - Note Progress Note: PULMONARY Denies shortness of breath, cough or wheezing. No fevers recorded. Vital Signs Period Temp Pulse Resp BP Sys/Jones Pulse Ox Last 24 Hr 97.7 F-98.2 F 83-95 20-20 105-126/41-49 96-96 Gen: mildly tachypneic at rest Heart: RRR Lung: decreased breath sounds at the bases Abd: soft, nontender Ext: no edema CBC, BMP 04/14/18 06:00 04/14/18 06:00 Active Medications Acetaminophen (Tylenol -) 650 mg PO Q6H PRN PRN Reason: FEVER Last Admin: 04/05/18 18:01 Dose: 650 mg Ascorbic Acid (Vitamin C -) 500 mg PO DAILY [facility] Last Admin: 04/14/18 10:04 Dose: 500 mg Atorvastatin Calcium (Lipitor -) 10 mg PO HS [facility] Last Admin: 04/13/18 21:44 Dose: 10 mg Benzocaine/Menthol (Cepacol Lozenge -) 1 each MM PRN PRN PRN Reason: SORE THROAT Last Admin: 04/01/18 21:43 Dose: 1 each Calcium Carbonate/Cholecalciferol (Os-Grupo 500+D -) 2 tab PO DAILY [facility] Last Admin: 04/14/18 10:04 Dose: 2 tab Dronabinol (Marinol -) 2.5 mg PO BID [facility] Last Admin: 04/14/18 10:04 Dose: 2.5 mg Ferrous Sulfate (Feosol -) 325 mg PO DAILY [facility] Last Admin: 04/14/18 10:04 Dose: 325 mg Guaifenesin (Mucinex Dm -) 1 tablet PO BID [facility] Last Admin: 04/14/18 10:03 Dose: Not Given Levothyroxine Sodium (Synthroid -) 100 mcg PO 0700 [facility] Last Admin: 04/14/18 06:15 Dose: 100 mcg Mirtazapine (Remeron -) 15 mg PO HS [facility] Last Admin: 04/13/18 21:44 Dose: 15 mg Quinapril HCl (Accupril -) 10 mg PO DAILY [facility] Last Admin: 04/14/18 10:04 Dose: 10 mg Valacyclovir HCl (Valtrex -) 500 mg PO TID [facility] Last Admin: 04/14/18 06:15 Dose: 500 mg A/P MIKE Consolidation Pancytopenia Rheumatoid Arthritis h/o Breast Ca HTN Hypothyroidism Hyponatremia - completed antibiotic course - repeat CT chest as outpt in 4-6 weeks - replete lytes - f/u BMBx - heme/onc f/u - DVT prophylaxis
[2018-04-14 13:12] LABS: ANISOCYTOSIS 2+; MACROCYTOSIS 0; PLATELET ESTIMATE DECREASED
[2018-04-14] MEDS: ATORVASTATIN CA 10 MG TABLET (FP) PO SCH (22:34)
[2018-04-14] MEDS: MIRTAZAPINE 15 MG TABLET (FP) PO SCH (22:34)
--- NOTE | 2018-04-14 22:57 | PN ---
Progress Note, Physician Chief Complaint: neutropenia History of Present Illness: No complaints. Denies fevers, chills, diarrhea, dysuria. NO new events. - Current Medication List Current Medications: Active Medications Acetaminophen (Tylenol -) 650 mg PO Q6H PRN PRN Reason: FEVER Last Admin: 04/05/18 18:01 Dose: 650 mg Ascorbic Acid (Vitamin C -) 500 mg PO DAILY [facility] Last Admin: 04/14/18 10:04 Dose: 500 mg Atorvastatin Calcium (Lipitor -) 10 mg PO [facility] Last Admin: 04/14/18 22:34 Dose: 10 mg Benzocaine/Menthol (Cepacol Lozenge -) 1 each MM PRN PRN PRN Reason: SORE THROAT Last Admin: 04/01/18 21:43 Dose: 1 each Calcium Carbonate/Cholecalciferol (Os-Grupo 500+D -) 2 tab PO DAILY [facility] Last Admin: 04/14/18 10:04 Dose: 2 tab Dronabinol (Marinol -) 2.5 mg PO BID [facility] Last Admin: 04/14/18 22:34 Dose: 2.5 mg Ferrous Sulfate (Feosol -) 325 mg PO DAILY [facility] Last Admin: 04/14/18 10:04 Dose: 325 mg Guaifenesin (Mucinex Dm -) 1 tablet PO BID [facility] Last Admin: 04/14/18 22:34 Dose: Not Given Levothyroxine Sodium (Synthroid -) 100 mcg PO 0700 [facility] Last Admin: 04/14/18 06:15 Dose: 100 mcg Mirtazapine (Remeron -) 15 mg PO [facility] Last Admin: 04/14/18 22:34 Dose: 15 mg Quinapril HCl (Accupril -) 10 mg PO DAILY [facility] Last Admin: 04/14/18 10:04 Dose: 10 mg - Objective Vital Signs: Vital Signs Temperature 98.1 F 04/14/18 22:00 Pulse Rate 100 H 04/14/18 22:00 Respiratory Rate 18 04/14/18 22:00 Blood Pressure 120/60 04/14/18 22:00 O2 Sat by Pulse Oximetry (%) 100 04/14/18 09:00 Constitutional: Yes: Well Nourished, No Distress, Calm Neck: Yes: WNL, Supple Cardiovascular: Yes: WNL, Regular Rate and Rhythm Respiratory: Yes: Regular, CTA Bilaterally Gastrointestinal: Yes: WNL, Soft Extremities: Yes: WNL Edema: No Labs: CBC, BMP 04/14/18 06:00 04/14/18 06:00 INR, PTT INR 1.13 (0.83-1.09) H 03/28/18 17:47 Assessment/Plan 77F with RA, chronic severe neutropenia on MTX which is now on hold. Remains profoundly neutropenic but afebrile. Did not respond to GCSF. Awaiting results of marrow biopsy
[2018-04-15] MEDS: LEVOTHYROXINE NA 100 MCG TABLET (FP) PO SCH (06:15)
--- NOTE | 2018-04-15 09:48 | PN ---
Progress Note (short form) - Note Progress Note: Resting in NAD on RA. Denies shortness of breath, cough or wheezing. No fevers recorded. Intake & Output 04/12/18 04/13/18 04/14/18 04/15/18 23:59 23:59 23:59 23:59 Intake Total 320 550 890 350 Output Total 400 Balance -80 550 890 350 Last Vital Signs Temp Pulse Resp BP Pulse Ox 97.5 F L 81 20 107/50 L 100 04/15/18 06:00 04/15/18 06:00 04/15/18 06:00 04/15/18 06:00 04/14/18 21:00 Active Medications Acetaminophen (Tylenol -) 650 mg PO Q6H PRN PRN Reason: FEVER Last Admin: 04/05/18 18:01 Dose: 650 mg Ascorbic Acid (Vitamin C -) 500 mg PO DAILY [facility] Last Admin: 04/14/18 10:04 Dose: 500 mg Atorvastatin Calcium (Lipitor -) 10 mg PO [facility] Last Admin: 04/14/18 22:34 Dose: 10 mg Benzocaine/Menthol (Cepacol Lozenge -) 1 each MM PRN PRN PRN Reason: SORE THROAT Last Admin: 04/01/18 21:43 Dose: 1 each Calcium Carbonate/Cholecalciferol (Os-Grupo 500+D -) 2 tab PO DAILY [facility] Last Admin: 04/14/18 10:04 Dose: 2 tab Dronabinol (Marinol -) 2.5 mg PO BID [facility] Last Admin: 04/14/18 22:34 Dose: 2.5 mg Ferrous Sulfate (Feosol -) 325 mg PO DAILY [facility] Last Admin: 04/14/18 10:04 Dose: 325 mg Guaifenesin (Mucinex Dm -) 1 tablet PO BID [facility] Last Admin: 04/14/18 22:34 Dose: Not Given Levothyroxine Sodium (Synthroid -) 100 mcg PO 0700 [facility] Last Admin: 04/15/18 06:15 Dose: 100 mcg Mirtazapine (Remeron -) 15 mg PO HS [facility] Last Admin: 04/14/18 22:34 Dose: 15 mg Quinapril HCl (Accupril -) 10 mg PO DAILY [facility] Last Admin: 04/14/18 10:04 Dose: 10 mg Gen: NAD, flat affect Heart: RRR Lung: decreased breath sounds at the bases Abd: soft, nontender Ext: no edema Laboratory Results - last 24 hr 04/14/18 04/14/18 06:00 11:35 Neutrophils % (Manual) 28.9 L Band Neutrophils % 9.3 Lymphocytes % (Manual) 8.2 D Monocytes % (Manual) 30 H Eosinophils % (Manual) 3.1 D Basophils % (Manual) 3.1 H D Myelocytes % (Man) 0 D Promyelocytes % (Man) 0 Blast Cells % (Manual) 0 Metamyelocytes 5 H D Hypochromia 0 Platelet Estimate Decreased Polychromasia 1+ Poikilocytosis 2+ Anisocytosis 2+ Microcytosis 2+ Macrocytosis 0 Naman Cells 2+ Blood Type A POSITIVE Antibody Screen Negative Crossmatch See Detail A/P MIKE Consolidation Pancytopenia Rheumatoid Arthritis h/o Breast Ca HTN Hypothyroidism Hyponatremia - completed antibiotic course - repeat CT chest as outpt in 4-6 weeks - replete lytes - f/u BM Bx result - VTE prophylaxis Dr Palomino
[2018-04-15] MEDS ORDERED: PT OWN MED DRAWER 7, Y5N ONE (10:44)
[2018-04-15] MEDS: QUINAPRIL HCL 10 MG TABLET (FP) PO SCH (10:53)
[2018-04-15] MEDS: guaiFENesin/D-METHORPHAN HB 1 EACH TAB.ER.12H PO SCH ×2 (10:54→23:06)
[2018-04-15] MEDS: DRONABINOL 2.5 MG CAPSULE PO SCH ×3 (10:54→23:09)
[2018-04-15] MEDS: ASCORBIC ACID 500 MG TABLET (FP) PO SCH (10:54)
[2018-04-15] MEDS: CALCIUM 500MG/VIT-D 200 UNITS COMBO TABLET (FP) PO SCH (10:54)
[2018-04-15] MEDS: FERROUS SO4 325 MG TABLET (FP) PO SCH (10:54)
--- NOTE | 2018-04-15 11:17 | PN ---
Progress Note, Physician Chief Complaint: Neutropenia History of Present Illness: Previous events and notes reviewed alert and awake, less confused denies complaints of pain afebrile s/p transfusion 2 U PRBC for Hg 7.4 on examination noted to have difficulty swallowing medication - Current Medication List Current Medications: Active Medications Acetaminophen (Tylenol -) 650 mg PO Q6H PRN PRN Reason: FEVER Last Admin: 04/05/18 18:01 Dose: 650 mg Ascorbic Acid (Vitamin C -) 500 mg PO DAILY [facility] Last Admin: 04/15/18 10:54 Dose: 500 mg Atorvastatin Calcium (Lipitor -) 10 mg PO HS [facility] Last Admin: 04/14/18 22:34 Dose: 10 mg Benzocaine/Menthol (Cepacol Lozenge -) 1 each MM PRN PRN PRN Reason: SORE THROAT Last Admin: 04/01/18 21:43 Dose: 1 each Calcium Carbonate/Cholecalciferol (Os-Grupo 500+D -) 2 tab PO DAILY [facility] Last Admin: 04/15/18 10:54 Dose: 2 tab Dronabinol (Marinol -) 2.5 mg PO BID [facility] Last Admin: 04/15/18 10:54 Dose: 2.5 mg Ferrous Sulfate (Feosol -) 325 mg PO DAILY [facility] Last Admin: 04/15/18 10:54 Dose: 325 mg Guaifenesin (Mucinex Dm -) 1 tablet PO BID [facility] Last Admin: 04/15/18 10:54 Dose: 1 tablet Levothyroxine Sodium (Synthroid -) 100 mcg PO 0700 [facility] Last Admin: 04/15/18 06:15 Dose: 100 mcg Mirtazapine (Remeron -) 15 mg PO HS [facility] Last Admin: 04/14/18 22:34 Dose: 15 mg Quinapril HCl (Accupril -) 10 mg PO DAILY [facility] Last Admin: 04/15/18 10:53 Dose: 10 mg - Objective Vital Signs: Vital Signs Temperature 97.5 F L 04/15/18 06:00 Pulse Rate 81 04/15/18 06:00 Respiratory Rate 20 04/15/18 06:00 Blood Pressure 107/50 L 04/15/18 06:00 O2 Sat by Pulse Oximetry (%) 100 04/14/18 21:00 Constitutional: Yes: No Distress, Calm Eyes: Yes: Conjunctiva Clear Cardiovascular: Yes: Regular Rate and Rhythm Respiratory: Yes: Regular, CTA Bilaterally Gastrointestinal: Yes: Normal Bowel Sounds, Soft Musculoskeletal: Yes: Muscle Weakness Extremities: Yes: WNL Edema: No Neurological: Yes: Alert, Oriented Psychiatric: Yes: Alert, Oriented Labs: CBC, BMP 04/14/18 06:00 04/14/18 06:00 INR, PTT INR 1.13 (0.83-1.09) H 03/28/18 17:47 Problem List - Problems (1) Anemia Code(s): D64.9 - ANEMIA, UNSPECIFIED (2) Hyponatremia Code(s): E87.1 - HYPO-OSMOLALITY AND HYPONATREMIA (3) Sepsis Code(s): A41.9 - SEPSIS, UNSPECIFIED ORGANISM (4) Confusion Code(s): R41.0 - DISORIENTATION, UNSPECIFIED Assessment/Plan -urine culture noted with lactose fermenting neg bacilli, will consult ID -pending BM biopsy result -neutropenic precaution -hematology on board -cont to trend WBC -s/p 2 U PRBC transfusion, pending repeat cbc for H/H post transfusion -FREE LANCE MODEL consult made -O2 sat >90%, O2 via NC PRN -dvt ppx
[2018-04-15 11:36] LABS: HEMATOCRIT 29.3 % (32.4-45.2); HEMOGLOBIN 9.5 GM/dL (10.7-15.3); MCH 26.8 pg (25.7-33.7); MCHC 32.5 g/dl (32.0-36.0); MEAN CELL VOLUME 82.4 fl (80-96); MEAN PLT VOLUME 7.5 fl (7.5-11.1); PLATELET COUNT 117 K/MM3 (134-434); RBC 3.55 M/mm3 (3.60-5.2); RDW 16.7 % (11.6-15.6)
[2018-04-15 12:04] LABS: WHITE BLOOD COUNT 0.8 K/mm3 (4.0-10.0)
--- NOTE | 2018-04-15 13:44 | CONSULT ---
Admitting History and Physical - Primary Care Physician PCP: Kiki James - Admission History of Present Illness: This is a 77 year old woman with a medical history of breast cancer, leukopenia , RA, hypothyroidism, who presented to the ED 03/28/18 with 2 days fevers and cough. She was seen by ID for neutropenia in the setting of PNA as well as neutropenic precautions. MTX was held due to neutropenia. She had prolonged hospital course and was seen by multiple specialists including Renal for hypoNa , Pulm for PNA and MIKE consolidation, and Thoracic Surgery for MIKE consolidation. Pt referred for difficulty taking medication. Per RD-Pt appears with flat affect. Per discussion with ASSOCIATE [employer], pt refusing most items on tray. Pt will eat some yogurt. Per discussion with pt, pt does not want Ensure. Pt receiving snacks. Received consult. Will trial Magic Cup. Noted that Marinol started. Pt also requesting farias, lettuce and tomato sandwich. Pt currently on sodium controlled Selected Entries 04/13/18 04/13/18 04/13/18 06:00 10:00 10:15 Breakfast 25% Lunch Supper Temperature 97.9 F 98.1 F 04/13/18 04/13/18 04/13/18 15:37 17:40 21:47 Breakfast Lunch 50% Supper Temperature 98.0 F 97.8 F 04/13/18 04/14/18 04/14/18:18 06:11 06:34 Breakfast Lunch Supper 0 Temperature 97.7 F 98.2 F 04/14/18 04/14/18 04/14/18 10:00 12:12 15:32 Breakfast 25% Lunch 25% Supper Temperature 98.4 F 04/14/18 04/14/18 04/14/18 19:00 22:00 22:38 Breakfast Lunch Supper 0 Temperature 98.1 F 98.1 F 04/15/18 06:00 Breakfast Lunch Supper Temperature 97.5 F L Laboratory Tests 04/14/18 04/15/18 06:00 10:40 WBC 0.6 L* 0.8 L* This is my first consult with this pt. Flat affect. Seen by Psych for depression, Remeron started 04/09. History Source: Patient, Family Member, Medical Record Limitations to Obtaining History: Clinical Condition - Past Medical History Cardiovascular: Yes: HTN Heme/Onc: Yes: Other (Breast cancer) Rheumatology: Yes: Rheumatoid Arthritis Endocrine: Yes: Hypothyroidism - Advance Directives Advance Directives: Yes: Health Care Proxy - Smoking History Smoking history: Former smoker Have you smoked in the past 12 months: No If you are a former smoker, when did you quit?: 1992 - Alcohol/Substance Use Hx Alcohol Use: Yes (SOCIAL) History - Admission Reason For Visit: FEVER LEUKOPENIA FEBRILE NEUTROPENIA - Diagnostics X-ray: Report Reviewed - General Mental Status: Alert and Oriented, Awake and Alert, Able to Follow Commands Attention: Intact Ability to Follow Directions: Good Head/Neck Control: Good - Hearing Hearing: Normal Speech Evaluation - Communication Primary Language: ROMANIAN Communication: Yes: Within Normal Limits, Simple Responses Oral Expression Ability: Yes: No Impairment - Speech Production Able to Make Needs Known: Yes: WNL Intelligibility: Yes: WNL - Speech Characteristics Voice Loudness: Normal Voice Pitch: Yes: Normal Voice Phonatory-based Quality: Yes: Normal Speech Pattern: Normal Speech Clarity: < 100% Nasal Resonance: Normal Articulation: Yes: Precise Rate of Speech: Intact - Language/Auditory Comprehension Follows: Yes: 1 Stage Simple Commands - Language/Verbal Expression Able to Respond to Simple Queries: Yes: WNL Able to Communicate Wants and Needs: Yes: WNL Functional Communication Status: Yes: WNL - Swallow Evaluation/Bedside Assessment Current Nutritional Intake: Regular, Thin Liquids Oral Secretions: Yes: Tongue Coated (BLACK. r/o throat/bacterial build up? vs from medication) Dentition: Yes: Adequate (blackened b/n teeth) Smile: Normal (assymetric. "cold sore" per pt on upper lip?) Lingual Movement: Symmetric Lingual Speed of Movement: Normal Lingual Movement Strgth Against Opposition: Normal Lingual Movement Characteristics: Normal Velopharyngeal Movement: Normal Laryngeal Movement: Able to Palpate Bolus Size: WFL Labial Seal: WFL Oral Prep Time: WFL A-P Transit: WFL Timing of Swallow: WFL Coughing/Throat Clear: No Change in Voice: No Recommendations - Speech Evaluation, Impression/Plan Impression: Tongue BLACK. r/o throat/bacterial build up? vs from medication. Poor appetite. Weight loss per pt's son with poor PO intake since January.Seems depressed/angry. Started on Remeron 04/09 by Psychiatry. Pt is a full code. Daughter in law requesting "IV nutrition." Swallowing seems intact.r/o thrush/ oral bacteria/depression Discussed with pt and family possible temporary PEG insertion to supplement PO intact. - Disposition Discharge to: To be Determined - Dysphagia Impressions/Plan Swallowing Skills: WF Dysphagia Impressions: No Impairment *Silent aspiration: cannot be R/O at bedside Recommendations: Psych Consult (f/u), Palliative Care (pt's end of life wishes/ TF?), Other (Scrupulous Mouth care, r/o thrush/bacteria) - Recommendations Diet Consistency: Regular, Other (as desired) Medication Administration: Whole with water (in applesauce) Liquids: Thin Liquids Supplement: Magic Cup, IVF if notcontraindicated (Clinimix?), Other (Ensure Enlive burgos flavored.)
--- NOTE | 2018-04-15 19:54 | PN ---
Progress Note, Physician Chief Complaint: neutropenia History of Present Illness: No complaints. Denies fevers, chills, diarrhea, dysuria. . - Current Medication List Current Medications: Active Medications Acetaminophen (Tylenol -) 650 mg PO Q6H PRN PRN Reason: FEVER Last Admin: 04/05/18 18:01 Dose: 650 mg Ascorbic Acid (Vitamin C -) 500 mg PO DAILY [facility] Last Admin: 04/15/18 10:54 Dose: 500 mg Atorvastatin Calcium (Lipitor -) 10 mg PO HS [facility] Last Admin: 04/14/18 22:34 Dose: 10 mg Benzocaine/Menthol (Cepacol Lozenge -) 1 each MM PRN PRN PRN Reason: SORE THROAT Last Admin: 04/01/18 21:43 Dose: 1 each Calcium Carbonate/Cholecalciferol (Os-Grupo 500+D -) 2 tab PO DAILY [facility] Last Admin: 04/15/18 10:54 Dose: 2 tab Dronabinol (Marinol -) 2.5 mg PO BID [facility] Last Admin: 04/15/18 10:54 Dose: 2.5 mg Ferrous Sulfate (Feosol -) 325 mg PO DAILY [facility] Last Admin: 04/15/18 10:54 Dose: 325 mg Guaifenesin (Mucinex Dm -) 1 tablet PO BID [facility] Last Admin: 04/15/18 10:54 Dose: 1 tablet Levothyroxine Sodium (Synthroid -) 100 mcg PO 0700 [facility] Last Admin: 04/15/18 06:15 Dose: 100 mcg Mirtazapine (Remeron -) 15 mg PO HS [facility] Last Admin: 04/14/18 22:34 Dose: 15 mg Quinapril HCl (Accupril -) 10 mg PO DAILY [facility] Last Admin: 04/15/18 10:53 Dose: 10 mg - Objective Vital Signs: Vital Signs Temperature 98.7 F 04/15/18 17:38 Pulse Rate 80 04/15/18 17:38 Respiratory Rate 18 04/15/18 17:38 Blood Pressure 106/89 04/15/18 17:38 O2 Sat by Pulse Oximetry (%) 100 04/14/18 21:00 Constitutional: Yes: No Distress Neck: Yes: Supple Respiratory: Yes: Regular, CTA Bilaterally Gastrointestinal: Yes: Normal Bowel Sounds, Soft Extremities: Yes: WNL Edema: No Labs: CBC, BMP 04/15/18 10:40 04/14/18 06:00 INR, PTT INR 1.13 (0.83-1.09) H 03/28/18 17:47 Assessment/Plan 77F with RA, chronic severe neutropenia on MTX which is now on hold. Remains profoundly neutropenic but afebrile. Did not respond to GCSF. Awaiting results of marrow biopsy
[2018-04-15] MEDS: MIRTAZAPINE 15 MG TABLET (FP) PO SCH (23:05)
[2018-04-15] MEDS: ATORVASTATIN CA 10 MG TABLET (FP) PO SCH (23:06)
[2018-04-16] MEDS: LEVOTHYROXINE NA 100 MCG TABLET (FP) PO SCH (06:22)
--- NOTE | 2018-04-16 09:01 | PN ---
Progress Note (short form) - Note Progress Note: Resting in NAD on RA. Denies shortness of breath, cough or wheezing. No fevers recorded. Intake & Output 04/12/18 04/13/18 04/14/18 04/15/18 23:59 23:59 23:59 23:59 Intake Total 320 550 890 350 Output Total 400 Balance -80 550 890 350 Last Vital Signs Temp Pulse Resp BP Pulse Ox 97.5 F L 81 20 107/50 L 100 04/15/18 06:00 04/15/18 06:00 04/15/18 06:00 04/15/18 06:00 04/14/18 21:00 Active Medications Acetaminophen (Tylenol -) 650 mg PO Q6H PRN PRN Reason: FEVER Last Admin: 04/05/18 18:01 Dose: 650 mg Ascorbic Acid (Vitamin C -) 500 mg PO DAILY [facility] Last Admin: 04/14/18 10:04 Dose: 500 mg Atorvastatin Calcium (Lipitor -) 10 mg PO [facility] Last Admin: 04/14/18 22:34 Dose: 10 mg Benzocaine/Menthol (Cepacol Lozenge -) 1 each MM PRN PRN PRN Reason: SORE THROAT Last Admin: 04/01/18 21:43 Dose: 1 each Calcium Carbonate/Cholecalciferol (Os-Grupo 500+D -) 2 tab PO DAILY [facility] Last Admin: 04/14/18 10:04 Dose: 2 tab Dronabinol (Marinol -) 2.5 mg PO BID [facility] Last Admin: 04/14/18 22:34 Dose: 2.5 mg Ferrous Sulfate (Feosol -) 325 mg PO DAILY [facility] Last Admin: 04/14/18 10:04 Dose: 325 mg Guaifenesin (Mucinex Dm -) 1 tablet PO BID [facility] Last Admin: 04/14/18 22:34 Dose: Not Given Levothyroxine Sodium (Synthroid -) 100 mcg PO 0700 [facility] Last Admin: 04/15/18 06:15 Dose: 100 mcg Mirtazapine (Remeron -) 15 mg PO HS [facility] Last Admin: 04/14/18 22:34 Dose: 15 mg Quinapril HCl (Accupril -) 10 mg PO DAILY [facility] Last Admin: 04/14/18 10:04 Dose: 10 mg Gen: NAD, flat affect Heart: RRR Lung: decreased breath sounds at the bases Abd: soft, nontender Ext: no edema Laboratory Results - last 24 hr 04/14/18 04/14/18 06:00 11:35 Neutrophils % (Manual) 28.9 L Band Neutrophils % 9.3 Lymphocytes % (Manual) 8.2 D Monocytes % (Manual) 30 H Eosinophils % (Manual) 3.1 D Basophils % (Manual) 3.1 H D Myelocytes % (Man) 0 D Promyelocytes % (Man) 0 Blast Cells % (Manual) 0 Metamyelocytes 5 H D Hypochromia 0 Platelet Estimate Decreased Polychromasia 1+ Poikilocytosis 2+ Anisocytosis 2+ Microcytosis 2+ Macrocytosis 0 Naman Cells 2+ Blood Type A POSITIVE Antibody Screen Negative Crossmatch See Detail A/P MIKE Consolidation Pancytopenia Rheumatoid Arthritis h/o Breast Ca HTN Hypothyroidism Hyponatremia - completed antibiotic course - repeat CT chest as outpt in 4-6 weeks - replete lytes - f/u BM Bx result - VTE prophylaxis Dr Palomino
--- NOTE | 2018-04-16 10:15 | PN ---
Progress Note (short form) - Note Progress Note: ID f/u no complaints no fevers no dysuria unclear why urine culture was sent alert Vital Signs Period Temp Pulse Resp BP Sys/Jones Pulse Ox Last 24 Hr 98 F-98.7 F 80-84 18-20 106-131/51-89 cor-rrr lungs clear abd soft,nt ext no edema CBC, BMP 04/15/18 10:40 04/14/18 06:00 Microbiology 04/14/18 06:20 Urine - Urine Clean Catch Urine Culture - Final Klebsiella Pneumoniae - Esbl 04/13/18 10:10 Blood - Peripheral Venous Blood Culture - Preliminary NO GROWTH OBTAINED AFTER 48 HOURS, INCUBATION TO CONTINUE FOR 3 DAYS. 04/13/18 10:20 Blood - Peripheral Venous Blood Culture - Preliminary NO GROWTH OBTAINED AFTER 48 HOURS, INCUBATION TO CONTINUE FOR 3 DAYS. 04/03/18 20:30 Blood - Peripheral Venous Blood Culture - Final NO GROWTH AFTER 5 DAYS INCUBATION 04/03/18 19:20 Blood - Peripheral Venous Blood Culture - Final NO GROWTH AFTER 5 DAYS INCUBATION 04/03/18 21:00 Urine - Urine Clean Catch Urine Culture - Final NO GROWTH OBTAINED 03/28/18 17:47 Blood - Peripheral Venous Blood Culture - Final NO GROWTH AFTER 5 DAYS INCUBATION 03/28/18 17:47 Blood - Peripheral Venous Blood Culture - Final Staphylococcus Epidermidis 03/28/18 17:46 Urine - Urine Clean Catch Urine Culture - Final Proteus Mirabilis Diphtheroid/Corynebacterium UA is negative a/p neutropenia- ?duration, suspected due to MTX, bone marrow biopsy still ending left apical infiltrate d/w PMD yesterday contact isolation for positive urine culture stat blood cultures and meropenem for fever history of RA
[2018-04-16] MEDS: CALCIUM 500MG/VIT-D 200 UNITS COMBO TABLET (FP) PO SCH (11:03)
[2018-04-16] MEDS: FERROUS SO4 325 MG TABLET (FP) PO SCH (11:03)
[2018-04-16] MEDS: DRONABINOL 2.5 MG CAPSULE PO SCH ×2 (11:03→21:09)
[2018-04-16] MEDS: ASCORBIC ACID 500 MG TABLET (FP) PO SCH (11:03)
[2018-04-16] MEDS: QUINAPRIL HCL 10 MG TABLET (FP) PO SCH (11:04)
[2018-04-16] MEDS: guaiFENesin/D-METHORPHAN HB 1 EACH TAB.ER.12H PO SCH ×3 (11:04→21:13)
[2018-04-16 11:59] LABS: HEMATOCRIT 29.4 % (32.4-45.2); HEMOGLOBIN 10.3 GM/dL (10.7-15.3); MCH 28.4 pg (25.7-33.7); MCHC 35.1 g/dl (32.0-36.0); MEAN CELL VOLUME 80.9 fl (80-96); MEAN PLT VOLUME 7.5 fl (7.5-11.1); PLATELET COUNT 146 K/MM3 (134-434); RBC 3.63 M/mm3 (3.60-5.2); RDW 17.1 % (11.6-15.6)
[2018-04-16 12:17] LABS: WHITE BLOOD COUNT 0.8 K/mm3 (4.0-10.0)
[2018-04-16 12:29] LABS: ALBUMIN 1.7 g/dl (3.4-5.0); ALK PHOS 78 U/L (45-117); ANION GAP 10 MMOL/L (8-16); BILIRUBIN,TOTAL 0.9 mg/dL (0.2-1); BLOOD UREA NITROGEN 16 mg/dL (7-18); CALCIUM 8.4 mg/dL (8.5-10.1); CHLORIDE 104 mmol/L (98-107); CO2 23 mmol/L (21-32); CREATININE 0.7 mg/dL (0.55-1.3); GLUCOSE,RANDOM 99 mg/dL (74-106); POTASSIUM 3.4 mmol/L (3.5-5.1); SGOT/AST 38 U/L (15-37); SGPT/ALT 22 U/L (13-61); SODIUM 137 mmol/L (136-145)
[2018-04-16] MEDS ORDERED: POTASSIUM CHLORIDE TABS 20 MEQ TABLET.ER (FP) PO ONE (12:50)
--- NOTE | 2018-04-16 12:50 | PN ---
Progress Note, Physician Chief Complaint: EVENTS AND NOTES REVIEWED IN AN ISOLATION ROOM - Current Medication List Current Medications: Active Medications Acetaminophen (Tylenol -) 650 mg PO Q6H PRN PRN Reason: FEVER Last Admin: 04/05/18 18:01 Dose: 650 mg Ascorbic Acid (Vitamin C -) 500 mg PO DAILY [facility] Last Admin: 04/16/18 11:03 Dose: 500 mg Atorvastatin Calcium (Lipitor -) 10 mg PO HS [facility] Last Admin: 04/15/18 23:06 Dose: 10 mg Benzocaine/Menthol (Cepacol Lozenge -) 1 each MM PRN PRN PRN Reason: SORE THROAT Last Admin: 04/01/18 21:43 Dose: 1 each Calcium Carbonate/Cholecalciferol (Os-Grupo 500+D -) 2 tab PO DAILY [facility] Last Admin: 04/16/18 11:03 Dose: 1 tab Dronabinol (Marinol -) 2.5 mg PO BID [facility] Last Admin: 04/16/18 11:03 Dose: 2.5 mg Ferrous Sulfate (Feosol -) 325 mg PO DAILY [facility] Last Admin: 04/16/18 11:03 Dose: 325 mg Guaifenesin (Mucinex Dm -) 1 tablet PO BID [facility] Last Admin: 04/16/18 11:04 Dose: 1 tablet Levothyroxine Sodium (Synthroid -) 100 mcg PO 0700 [facility] Last Admin: 04/16/18 06:22 Dose: 100 mcg Mirtazapine (Remeron -) 15 mg PO HS [facility] Last Admin: 04/15/18 23:05 Dose: 15 mg Quinapril HCl (Accupril -) 10 mg PO DAILY [facility] Last Admin: 04/16/18 11:04 Dose: 10 mg - Objective Vital Signs: Vital Signs Temperature 98 F 04/16/18 06:49 Pulse Rate 80 04/16/18 06:49 Respiratory Rate 20 04/16/18 06:49 Blood Pressure 131/51 L 04/16/18 06:49 O2 Sat by Pulse Oximetry (%) 100 04/14/18 21:00 Constitutional: Yes: Mild Distress Cardiovascular: Yes: Regular Rate and Rhythm Respiratory: Yes: Diminished, On Nasal O2 Gastrointestinal: Yes: Soft Genitourinary: Yes: Incontinence Musculoskeletal: Yes: Muscle Weakness Neurological: Yes: Pre-Existing Deficit Labs: CBC, BMP 04/16/18 11:35 04/16/18 11:35 INR, PTT INR 1.13 (0.83-1.09) H 03/28/18 17:47 Problem List - Problems (1) Anemia Code(s): D64.9 - ANEMIA, UNSPECIFIED (2) Confusion Code(s): R41.0 - DISORIENTATION, UNSPECIFIED (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
[2018-04-16] MEDS: MIRTAZAPINE 15 MG TABLET (FP) PO SCH (21:09)
[2018-04-16] MEDS: ATORVASTATIN CA 10 MG TABLET (FP) PO SCH (21:09)
--- NOTE | 2018-04-16 21:33 | PN ---
Teaching Attending Note Name of Resident: Massimo Callaway ATTENDING PHYSICIAN STATEMENT I saw and evaluated the patient. I reviewed the resident's note and discussed the case with the resident. I agree with the resident's findings and plan as documented. ASSESSMENT AND PLAN: 77 y/o patient with RA, chronic severe neutropenia on MTX MTX on hold bmbx pending abnormal chest CT--discussed with ID short term f/u
[2018-04-17] MEDS: LEVOTHYROXINE NA 100 MCG TABLET (FP) PO SCH (06:11)
[2018-04-17 07:37] LABS: HEMATOCRIT 26.8 % (32.4-45.2); HEMOGLOBIN 9.3 GM/dL (10.7-15.3); MCH 28.4 pg (25.7-33.7); MCHC 34.8 g/dl (32.0-36.0); MEAN CELL VOLUME 81.6 fl (80-96); MEAN PLT VOLUME 7.5 fl (7.5-11.1); PLATELET COUNT 140 K/MM3 (134-434); RBC 3.28 M/mm3 (3.60-5.2); RDW 17.4 % (11.6-15.6)
[2018-04-17 07:48] LABS: WHITE BLOOD COUNT 0.7 K/mm3 (4.0-10.0)
[2018-04-17 07:50] LABS: ANION GAP 9 MMOL/L (8-16); BLOOD UREA NITROGEN 15 mg/dL (7-18); CALCIUM 8.5 mg/dL (8.5-10.1); CHLORIDE 105 mmol/L (98-107); CO2 24 mmol/L (21-32); CREATININE 0.6 mg/dL (0.55-1.3); GLUCOSE,RANDOM 85 mg/dL (74-106); MAGNESIUM 2.2 mg/dL (1.8-2.4); POTASSIUM 3.6 mmol/L (3.5-5.1); SODIUM 138 mmol/L (136-145)
--- NOTE | 2018-04-17 09:16 | PN ---
Progress Note (short form) - Note Progress Note: Resting in NAD. Denies shortness of breath, cough or wheezing. Noted ABX per ID for (+) urine culture. Intake & Output 04/14/18 04/15/18 04/16/18 04/17/18 23:59 23:59 23:59 23:59 Intake Total 129 558 7689 120 Output Total 2 Balance 553 998 4713 120 Last Vital Signs Temp Pulse Resp BP Pulse Ox 98.5 F 81 18 122/46 L 99 04/17/18 06:22 04/17/18 06:22 04/17/18 06:22 04/17/18 06:22 04/16/18 21:00 Active Medications Acetaminophen (Tylenol -) 650 mg PO Q6H PRN PRN Reason: FEVER Last Admin: 04/05/18 18:01 Dose: 650 mg Ascorbic Acid (Vitamin C -) 500 mg PO DAILY [facility] Last Admin: 04/16/18 11:03 Dose: 500 mg Atorvastatin Calcium (Lipitor -) 10 mg PO [facility] Last Admin: 04/16/18 21:09 Dose: 10 mg Benzocaine/Menthol (Cepacol Lozenge -) 1 each MM PRN PRN PRN Reason: SORE THROAT Last Admin: 04/01/18 21:43 Dose: 1 each Calcium Carbonate/Cholecalciferol (Os-Grupo 500+D -) 2 tab PO DAILY [facility] Last Admin: 04/16/18 11:03 Dose: 1 tab Dronabinol (Marinol -) 2.5 mg PO BID [facility] Last Admin: 04/16/18 21:09 Dose: 2.5 mg Ferrous Sulfate (Feosol -) 325 mg PO DAILY [facility] Last Admin: 04/16/18 11:03 Dose: 325 mg Guaifenesin (Mucinex Dm -) 1 tablet PO BID [facility] Last Admin: 04/16/18 21:13 Dose: Not Given Levothyroxine Sodium (Synthroid -) 100 mcg PO 0700 [facility] Last Admin: 04/17/18 06:11 Dose: 100 mcg Mirtazapine (Remeron -) 15 mg PO HS [facility] Last Admin: 04/16/18 21:09 Dose: 15 mg Quinapril HCl (Accupril -) 10 mg PO DAILY [facility] Last Admin: 04/16/18 11:04 Dose: 10 mg Gen: NAD, flat affect Heart: RRR Lung: decreased breath sounds at the bases Abd: soft, nontender Ext: no edema Laboratory Results - last 24 hr 04/16/18 04/16/18 04/17/18 11:35 11:35 07:00 WBC 0.8 L* 0.7 L* RBC 3.63 3.28 L Hgb 10.3 L 9.3 L Hct 29.4 L 26.8 L MCV 80.9 81.6 MCH 28.4 28.4 MCHC 35.1 34.8 RDW 17.1 H 17.4 H Plt Count 146 D 140 MPV 7.5 7.5 Sodium 137 Potassium 3.4 L Chloride 104 Carbon Dioxide 23 Anion Gap 10 BUN 16 Creatinine 0.7 Creat Clearance w eGFR > 60 Random Glucose 99 Calcium 8.4 L Magnesium Total Bilirubin 0.9 AST 38 H ALT 22 Alkaline Phosphatase 78 Total Protein 6.0 L Albumin 1.7 L 04/17/18 07:00 WBC RBC Hgb Hct MCV MCH MCHC RDW Plt Count MPV Sodium 138 Potassium 3.6 Chloride 105 Carbon Dioxide 24 Anion Gap 9 BUN 15 Creatinine 0.6 Creat Clearance w eGFR > 60 Random Glucose 85 Calcium 8.5 Magnesium 2.2 Total Bilirubin AST ALT Alkaline Phosphatase Total Protein Albumin A/P MIKE Consolidation due to suspected PNA: ABX course completed Pancytopenia Rheumatoid Arthritis h/o Breast Ca HTN Hypothyroidism Hyponatremia - ABX per ID - repeat CT imaging as an outpatient in 4-6 weeks - replete lytes - f/u BM Bx result - VTE prophylaxis Dr Palomino
[2018-04-17] MEDS ORDERED: PT OWN MED DRAWER 7, Y5N ONE (10:02)
[2018-04-17] MEDS: FERROUS SO4 325 MG TABLET (FP) PO SCH (10:06)
[2018-04-17] MEDS: DRONABINOL 2.5 MG CAPSULE PO SCH ×2 (10:06→21:21)
[2018-04-17] MEDS: QUINAPRIL HCL 10 MG TABLET (FP) PO SCH (10:06)
[2018-04-17] MEDS: guaiFENesin/D-METHORPHAN HB 1 EACH TAB.ER.12H PO SCH ×2 (10:07→21:21)
[2018-04-17] MEDS: CALCIUM 500MG/VIT-D 200 UNITS COMBO TABLET (FP) PO SCH (10:07)
[2018-04-17] MEDS: ASCORBIC ACID 500 MG TABLET (FP) PO SCH (10:07)
--- NOTE | 2018-04-17 10:10 | PN ---
Progress Note, Physician Chief Complaint: NO ACUTE CHANGES OVERNIGHT - Current Medication List Current Medications: Active Medications Acetaminophen (Tylenol -) 650 mg PO Q6H PRN PRN Reason: FEVER Last Admin: 04/05/18 18:01 Dose: 650 mg Ascorbic Acid (Vitamin C -) 500 mg PO DAILY [facility] Last Admin: 04/17/18 10:07 Dose: 500 mg Atorvastatin Calcium (Lipitor -) 10 mg PO HS [facility] Last Admin: 04/16/18 21:09 Dose: 10 mg Benzocaine/Menthol (Cepacol Lozenge -) 1 each MM PRN PRN PRN Reason: SORE THROAT Last Admin: 04/01/18 21:43 Dose: 1 each Calcium Carbonate/Cholecalciferol (Os-Grupo 500+D -) 2 tab PO DAILY [facility] Last Admin: 04/17/18 10:07 Dose: 2 tab Dronabinol (Marinol -) 2.5 mg PO BID [facility] Last Admin: 04/17/18 10:06 Dose: 2.5 mg Ferrous Sulfate (Feosol -) 325 mg PO DAILY [facility] Last Admin: 04/17/18 10:06 Dose: 325 mg Guaifenesin (Mucinex Dm -) 1 tablet PO BID [facility] Last Admin: 04/17/18 10:07 Dose: 1 tablet Levothyroxine Sodium (Synthroid -) 100 mcg PO 0700 [facility] Last Admin: 04/17/18 06:11 Dose: 100 mcg Mirtazapine (Remeron -) 15 mg PO HS [facility] Last Admin: 04/16/18 21:09 Dose: 15 mg Quinapril HCl (Accupril -) 10 mg PO DAILY [facility] Last Admin: 04/17/18 10:06 Dose: 10 mg - Objective Vital Signs: Vital Signs Temperature 98.5 F 04/17/18 06:22 Pulse Rate 81 04/17/18 06:22 Respiratory Rate 18 04/17/18 06:22 Blood Pressure 122/46 L 04/17/18 06:22 O2 Sat by Pulse Oximetry (%) 99 04/16/18 21:00 Constitutional: Yes: Mild Distress Eyes: Yes: WNL HENT: Yes: WNL Neck: Yes: WNL Cardiovascular: Yes: WNL Respiratory: Yes: WNL Gastrointestinal: Yes: WNL Genitourinary: Yes: Incontinence Musculoskeletal: Yes: Muscle Weakness Labs: CBC, BMP 12/26/18 07:00 04/17/18 07:00 INR, PTT INR 1.13 (0.83-1.09) H 03/28/18 17:47 Problem List - Problems (1) Anemia Code(s): D64.9 - ANEMIA, UNSPECIFIED (2) Confusion Code(s): R41.0 - DISORIENTATION, UNSPECIFIED (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
--- NOTE | 2018-04-17 13:20 | PN ---
Progress Note, EMPLOYMENT CLERK - Note Progress Note: Selected Entries 04/15/18 04/15/18 04/15/18 06:00 09:40 14:57 Breakfast 25% Diet Tolerated Fair Supper Temperature 97.5 F L 97.3 F L 04/15/18 04/15/18 04/15/18 17:38 19:15 22:00 Breakfast Diet Tolerated Poor Supper 25% Temperature 98.7 F 98.4 F 04/16/18 04/16/18 04/16/18 06:49 08:40 10:00 Breakfast Diet Tolerated Refused Supper Temperature 98 F 97.6 F 04/16/18 04/16/18 04/16/18 10:44 14:18 22:00 Breakfast 25% Diet Tolerated Poor Refused Supper Temperature 97.7 F 97.5 F L 04/17/18 04/17/18 04/17/18 06:22 08:45 09:38 Breakfast 50% Diet Tolerated Fair Supper Temperature 98.5 F 97.5 F L Laboratory Tests 04/17/18 07:00 WBC 0.7 L* Tongue still BLACK. r/o throat/bacterial build up? vs from medication. Per nursing, mouth care did not improve black coating on tongue. Intermittent PO acceptance. Weight loss per pt's son with poor PO intake since January. Started on Remeron 04/09 by Psychiatry. Pt is a full code. Swallowing seems intact. Consider: r/o thrush/oral bacteria/depression possible temporary PEG insertion to supplement PO intact.
[2018-04-17] MEDS: MIRTAZAPINE 15 MG TABLET (FP) PO SCH (21:21)
[2018-04-17] MEDS: ATORVASTATIN CA 10 MG TABLET (FP) PO SCH (22:27)
[2018-04-18] MEDS: LEVOTHYROXINE NA 100 MCG TABLET (FP) PO SCH (06:01)
[2018-04-18] MEDS: FERROUS SO4 325 MG TABLET (FP) PO SCH (10:40)
[2018-04-18] MEDS: ASCORBIC ACID 500 MG TABLET (FP) PO SCH (10:40)
[2018-04-18] MEDS: CALCIUM 500MG/VIT-D 200 UNITS COMBO TABLET (FP) PO SCH (10:40)
[2018-04-18] MEDS: DRONABINOL 2.5 MG CAPSULE PO SCH ×2 (10:40→22:06)
[2018-04-18] MEDS: QUINAPRIL HCL 10 MG TABLET (FP) PO SCH (10:40)
[2018-04-18] MEDS: guaiFENesin/D-METHORPHAN HB 1 EACH TAB.ER.12H PO SCH ×2 (10:40→22:06)
--- NOTE | 2018-04-18 13:19 | PN ---
Progress Note (short form) - Note Progress Note: Resting in NAD. No acute events overnight. Denies shortness of breath or cough. Intake & Output 04/15/18 04/16/18 04/17/18 04/18/18 23:59 23:59 23:59 23:59 Intake Total 870 1100 320 100 Output Total 2 Balance 870 1098 320 100 Last Vital Signs Temp Pulse Resp BP Pulse Ox 98.5 F 91 H 20 125/54 L 99 04/18/18 06:00 04/18/18 06:00 04/18/18 06:00 04/18/18 06:00 04/16/18 21:00 Active Medications Acetaminophen (Tylenol -) 650 mg PO Q6H PRN PRN Reason: FEVER Last Admin: 04/05/18 18:01 Dose: 650 mg Ascorbic Acid (Vitamin C -) 500 mg PO DAILY [facility] Last Admin: 04/18/18 10:40 Dose: 500 mg Atorvastatin Calcium (Lipitor -) 10 mg PO HS [facility] Last Admin: 04/17/18 22:27 Dose: 10 mg Benzocaine/Menthol (Cepacol Lozenge -) 1 each MM PRN PRN PRN Reason: SORE THROAT Last Admin: 04/01/18 21:43 Dose: 1 each Calcium Carbonate/Cholecalciferol (Os-Grupo 500+D -) 2 tab PO DAILY [facility] Last Admin: 04/18/18 10:40 Dose: 2 tab Dronabinol (Marinol -) 2.5 mg PO BID [facility] Last Admin: 04/18/18 10:40 Dose: 2.5 mg Ferrous Sulfate (Feosol -) 325 mg PO DAILY [facility] Last Admin: 04/18/18 10:40 Dose: 325 mg Guaifenesin (Mucinex Dm -) 1 tablet PO BID [facility] Last Admin: 04/18/18 10:40 Dose: 1 tablet Levothyroxine Sodium (Synthroid -) 100 mcg PO 0700 [facility] Last Admin: 04/18/18 06:01 Dose: 100 mcg Mirtazapine (Remeron -) 15 mg PO HS [facility] Last Admin: 04/17/18 21:21 Dose: 15 mg Quinapril HCl (Accupril -) 10 mg PO DAILY [facility] Last Admin: 04/18/18 10:40 Dose: Not Given Gen: NAD, flat affect Heart: RRR Lung: decreased breath sounds at the bases Abd: soft, nontender Ext: no edema Laboratory Results - last 24 hr 04/14/18 11:35 Blood Type A POSITIVE Antibody Screen Negative Crossmatch See Detail A/P MIKE Consolidation due to suspected PNA: ABX course completed Pancytopenia Rheumatoid Arthritis h/o Breast Ca HTN Hypothyroidism Hyponatremia - repeat CT imaging as an outpatient in 4-6 weeks - f/u BM Bx result - VTE prophylaxis Dr Palomino
--- NOTE | 2018-04-18 17:07 | PN ---
Progress Note, Physician Chief Complaint: Neutropenia History of Present Illness: Previous events and notes reviewed alert and awake denies complaints of pain afebrile on examination noted with black colored tongue, denies pain - Current Medication List Current Medications: Active Medications Acetaminophen (Tylenol -) 650 mg PO Q6H PRN PRN Reason: FEVER Last Admin: 04/05/18 18:01 Dose: 650 mg Ascorbic Acid (Vitamin C -) 500 mg PO DAILY [facility] Last Admin: 04/18/18 10:40 Dose: 500 mg Atorvastatin Calcium (Lipitor -) 10 mg PO HS [facility] Last Admin: 04/17/18 22:27 Dose: 10 mg Benzocaine/Menthol (Cepacol Lozenge -) 1 each MM PRN PRN PRN Reason: SORE THROAT Last Admin: 04/01/18 21:43 Dose: 1 each Calcium Carbonate/Cholecalciferol (Os-Grupo 500+D -) 2 tab PO DAILY [facility] Last Admin: 04/18/18 10:40 Dose: 2 tab Dronabinol (Marinol -) 2.5 mg PO BID [facility] Last Admin: 04/18/18 10:40 Dose: 2.5 mg Ferrous Sulfate (Feosol -) 325 mg PO DAILY [facility] Last Admin: 04/18/18 10:40 Dose: 325 mg Guaifenesin (Mucinex Dm -) 1 tablet PO BID [facility] Last Admin: 04/18/18 10:40 Dose: 1 tablet Levothyroxine Sodium (Synthroid -) 100 mcg PO 0700 [facility] Last Admin: 04/18/18 06:01 Dose: 100 mcg Mirtazapine (Remeron -) 15 mg PO HS [facility] Last Admin: 04/17/18 21:21 Dose: 15 mg Nystatin (Nystatin Oral Suspension -) 500,000 units PO Q6HPO [facility] Quinapril HCl (Accupril -) 10 mg PO DAILY [facility] Last Admin: 04/18/18 10:40 Dose: Not Given - Objective Vital Signs: Vital Signs Temperature 98.6 F 04/18/18 17:00 Pulse Rate 81 04/18/18 17:00 Respiratory Rate 20 04/18/18 17:00 Blood Pressure 108/47 L 04/18/18 17:00 O2 Sat by Pulse Oximetry (%) 97 04/18/18 09:00 Constitutional: Yes: No Distress, Calm Eyes: Yes: Conjunctiva Clear HENT: Yes: Other (black colored tongue) Neck: Yes: Supple Cardiovascular: Yes: Regular Rate and Rhythm Respiratory: Yes: Regular, CTA Bilaterally Gastrointestinal: Yes: Normal Bowel Sounds, Soft Musculoskeletal: Yes: Muscle Weakness Extremities: Yes: WNL Edema: No Integumentary: Yes: WNL Neurological: Yes: Alert, Oriented Psychiatric: Yes: Alert, Oriented Labs: CBC, BMP 04/17/18 07:00 04/17/18 07:00 INR, PTT INR 1.13 (0.83-1.09) H 03/28/18 17:47 <Cynthia Vuong - Last Filed: 04/19/18 11:57> - Current Medication List Current Medications: Active Medications Acetaminophen (Tylenol -) 650 mg PO Q6H PRN PRN Reason: FEVER Last Admin: 04/05/18 18:01 Dose: 650 mg Ascorbic Acid (Vitamin C -) 500 mg PO DAILY [facility] Last Admin: 04/19/18 10:36 Dose: 500 mg Atorvastatin Calcium (Lipitor -) 10 mg PO [facility] Last Admin: 04/18/18 22:06 Dose: 10 mg Benzocaine/Menthol (Cepacol Lozenge -) 1 each MM PRN PRN PRN Reason: SORE THROAT Last Admin: 04/01/18 21:43 Dose: 1 each Calcium Carbonate/Cholecalciferol (Os-Grupo 500+D -) 2 tab PO DAILY [facility] Last Admin: 04/19/18 10:36 Dose: 2 tab Dronabinol (Marinol -) 2.5 mg PO BID [facility] Last Admin: 04/19/18 10:36 Dose: 2.5 mg Ferrous Sulfate (Feosol -) 325 mg PO DAILY [facility] Last Admin: 04/19/18 10:36 Dose: 325 mg Guaifenesin (Mucinex Dm -) 1 tablet PO BID [facility] Last Admin: 04/19/18 10:36 Dose: 1 tablet Levothyroxine Sodium (Synthroid -) 100 mcg PO 0700 [facility] Last Admin: 04/19/18 06:30 Dose: 100 mcg Mirtazapine (Remeron -) 15 mg PO HS [facility] Last Admin: 04/18/18 22:06 Dose: 15 mg Nystatin (Nystatin Oral Suspension -) 500,000 units PO Q6HPO [facility] Last Admin: 04/19/18 06:30 Dose: 500,000 units Quinapril HCl (Accupril -) 10 mg PO DAILY [facility] Last Admin: 04/19/18 10:46 Dose: Not Given - Objective Vital Signs: Vital Signs Temperature 97.9 F 04/18/18 22:00 Pulse Rate 87 04/18/18 22:00 Respiratory Rate 18 04/18/18 22:00 Blood Pressure 139/59 L 04/18/18 22:00 O2 Sat by Pulse Oximetry (%) 94 L 04/18/18 21:00 Labs: CBC, BMP 04/19/18 08:47 04/19/18 08:30 INR, PTT INR 1.13 (0.83-1.09) H 03/28/18 17:47 <Violeta Ervin - Last Filed: 04/19/18 11:58> Problem List - Problems (1) Anemia Code(s): D64.9 - ANEMIA, UNSPECIFIED (2) Hyponatremia Code(s): E87.1 - HYPO-OSMOLALITY AND HYPONATREMIA (3) Sepsis Code(s): A41.9 - SEPSIS, UNSPECIFIED ORGANISM (4) Confusion Code(s): R41.0 - DISORIENTATION, UNSPECIFIED <Cynthia Vuong - Last Filed: 04/19/18 11:57> - Problems (1) Anemia Code(s): D64.9 - ANEMIA, UNSPECIFIED (2) Confusion Code(s): R41.0 - DISORIENTATION, UNSPECIFIED (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 Code(s): D05.10 - INTRADUCTAL CARCINOMA IN SITU OF UNSPECIFIED BREAST (4) Depression Code(s): F32.9 - MAJOR DEPRESSIVE DISORDER, SINGLE EPISODE, UNSPECIFIED (5) Fever Code(s): R50.9 - FEVER, UNSPECIFIED (6) Urinary tract infection Code(s): N39.0 - URINARY TRACT INFECTION, SITE NOT SPECIFIED <Violeta Ervin - Last Filed: 04/19/18 11:58> Assessment/Plan -pending BM biopsy result -neutropenic precaution -hematology on board -cont to trend WBC -nystatin PO ordered -O2 sat >90%, O2 via NC PRN -dvt ppx <Cynthia Vuong - Last Filed: 04/19/18 11:57> I REVIEWED AND EXAMINED THE PATIENT WITH JUSTEN VUONG <Violeta Ervin - Last Filed: 04/19/18 11:58>
[2018-04-18] MEDS: NYSTATIN 500,000 UNITS/5 ML SUSPENSION PO SCH (17:37)
[2018-04-18] MEDS ORDERED: PT OWN MED DRAWER 7, Y5N ONE (20:40)
[2018-04-18] MEDS: MIRTAZAPINE 15 MG TABLET (FP) PO SCH (22:06)
[2018-04-18] MEDS: ATORVASTATIN CA 10 MG TABLET (FP) PO SCH (22:06)
[2018-04-19] MEDS: NYSTATIN 500,000 UNITS/5 ML SUSPENSION PO SCH ×4 (00:58→17:39)
[2018-04-19] MEDS: LEVOTHYROXINE NA 100 MCG TABLET (FP) PO SCH (06:30)
[2018-04-19 09:19] LABS: HEMATOCRIT 28.5 % (32.4-45.2); HEMOGLOBIN 9.4 GM/dL (10.7-15.3); MCHC 32.9 g/dl (32.0-36.0); MEAN PLT VOLUME 7.1 fl (7.5-11.1); PLATELET COUNT 131 K/MM3 (134-434); RBC 3.48 M/mm3 (3.60-5.2); RDW 17.7 % (11.6-15.6)
[2018-04-19 09:35] LABS: WHITE BLOOD COUNT 0.7 K/mm3 (4.0-10.0)
[2018-04-19 09:51] LABS: ALBUMIN 1.8 g/dl (3.4-5.0); ALK PHOS 68 U/L (45-117); ANION GAP 7 MMOL/L (8-16); BILIRUBIN,TOTAL 0.8 mg/dL (0.2-1); BLOOD UREA NITROGEN 14 mg/dL (7-18); CALCIUM 8.3 mg/dL (8.5-10.1); CHLORIDE 105 mmol/L (98-107); CO2 26 mmol/L (21-32); CREATININE 0.7 mg/dL (0.55-1.3); GLUCOSE,RANDOM 94 mg/dL (74-106); POTASSIUM 3.6 mmol/L (3.5-5.1); SGOT/AST 26 U/L (15-37); SGPT/ALT 14 U/L (13-61); SODIUM 138 mmol/L (136-145)
[2018-04-19] MEDS ORDERED: PT OWN MED DRAWER 7, Y5N ONE ×2 (09:52→20:43)
[2018-04-19] MEDS: DRONABINOL 2.5 MG CAPSULE PO SCH (10:36)
[2018-04-19] MEDS: CALCIUM 500MG/VIT-D 200 UNITS COMBO TABLET (FP) PO SCH (10:36)
[2018-04-19] MEDS: FERROUS SO4 325 MG TABLET (FP) PO SCH (10:36)
[2018-04-19] MEDS: ASCORBIC ACID 500 MG TABLET (FP) PO SCH (10:36)
[2018-04-19] MEDS: guaiFENesin/D-METHORPHAN HB 1 EACH TAB.ER.12H PO SCH ×2 (10:36→21:43)
[2018-04-19] MEDS: QUINAPRIL HCL 10 MG TABLET (FP) PO SCH (10:46)
--- NOTE | 2018-04-19 10:55 | PN ---
Progress Note (short form) - Note Progress Note: PULMONARY Resting in NAD. No acute events overnight. Denies shortness of breath or cough. Active Medications noted Gen: NAD, flat affect Heart: RRR Lung: decreased breath sounds at the bases Abd: soft, nontender Ext: no edema labs/meds/notes/images reviewed A/P MIKE Consolidation due to suspected PNA: ABX course completed Pancytopenia Rheumatoid Arthritis h/o Breast Ca HTN Hypothyroidism Hyponatremia - repeat CT imaging as an outpatient in 4-6 weeks - f/u BM Bx result - VTE prophylaxis Charline CHAVARRIA MD
--- NOTE | 2018-04-19 12:47 | PN ---
Progress Note, Physician Chief Complaint: Neutropenia History of Present Illness: Previous events and notes reviewed alert and awake, lying in bed denies complaints of pain, SOB, chest pain afebrile on examination noted with black colored tongue, started on nystatin cont with poor PO appetite - Current Medication List Current Medications: Active Medications Acetaminophen (Tylenol -) 650 mg PO Q6H PRN PRN Reason: FEVER Last Admin: 04/05/18 18:01 Dose: 650 mg Ascorbic Acid (Vitamin C -) 500 mg PO DAILY [facility] Last Admin: 04/19/18 10:36 Dose: 500 mg Atorvastatin Calcium (Lipitor -) 10 mg PO HS [facility] Last Admin: 04/18/18 22:06 Dose: 10 mg Benzocaine/Menthol (Cepacol Lozenge -) 1 each MM PRN PRN PRN Reason: SORE THROAT Last Admin: 04/01/18 21:43 Dose: 1 each Calcium Carbonate/Cholecalciferol (Os-Grupo 500+D -) 2 tab PO DAILY [facility] Last Admin: 04/19/18 10:36 Dose: 2 tab Dronabinol (Marinol -) 2.5 mg PO BID [facility] Last Admin: 04/19/18 10:36 Dose: 2.5 mg Ferrous Sulfate (Feosol -) 325 mg PO DAILY [facility] Last Admin: 04/19/18 10:36 Dose: 325 mg Guaifenesin (Mucinex Dm -) 1 tablet PO BID [facility] Last Admin: 04/19/18 10:36 Dose: 1 tablet Levothyroxine Sodium (Synthroid -) 100 mcg PO 0700 [facility] Last Admin: 04/19/18 06:30 Dose: 100 mcg Mirtazapine (Remeron -) 15 mg PO HS [facility] Last Admin: 04/18/18 22:06 Dose: 15 mg Nystatin (Nystatin Oral Suspension -) 500,000 units PO Q6HPO [facility] Last Admin: 04/19/18 06:30 Dose: 500,000 units Quinapril HCl (Accupril -) 10 mg PO DAILY [facility] Last Admin: 04/19/18 10:46 Dose: Not Given - Objective Vital Signs: Vital Signs Temperature 97.9 F 04/18/18 22:00 Pulse Rate 87 04/18/18 22:00 Respiratory Rate 18 04/18/18 22:00 Blood Pressure 139/59 L 04/18/18 22:00 O2 Sat by Pulse Oximetry (%) 94 L 04/18/18 21:00 Constitutional: Yes: No Distress, Calm Eyes: Yes: Conjunctiva Clear HENT: Yes: Thrush Neck: Yes: Supple Cardiovascular: Yes: Regular Rate and Rhythm Respiratory: Yes: Regular, CTA Bilaterally Gastrointestinal: Yes: Normal Bowel Sounds, Soft Musculoskeletal: Yes: Muscle Weakness Extremities: Yes: WNL Edema: No Neurological: Yes: Alert, Oriented Psychiatric: Yes: Alert, Oriented Labs: CBC, BMP 04/19/18 08:47 04/19/18 08:30 INR, PTT INR 1.13 (0.83-1.09) H 03/28/18 17:47 <Cynthia Vaughn - Last Filed: 04/19/18 13:01> - Current Medication List Current Medications: Active Medications Acetaminophen (Tylenol -) 650 mg PO Q6H PRN PRN Reason: FEVER Last Admin: 04/05/18 18:01 Dose: 650 mg Ascorbic Acid (Vitamin C -) 500 mg PO DAILY [facility] Last Admin: 04/19/18 10:36 Dose: 500 mg Atorvastatin Calcium (Lipitor -) 10 mg PO HS [facility] Last Admin: 04/19/18 21:43 Dose: 10 mg Benzocaine/Menthol (Cepacol Lozenge -) 1 each MM PRN PRN PRN Reason: SORE THROAT Last Admin: 04/01/18 21:43 Dose: 1 each Calcium Carbonate/Cholecalciferol (Os-Grupo 500+D -) 2 tab PO DAILY [facility] Last Admin: 04/19/18 10:36 Dose: 2 tab Ferrous Sulfate (Feosol -) 325 mg PO DAILY [facility] Last Admin: 04/19/18 10:36 Dose: 325 mg Guaifenesin (Mucinex Dm -) 1 tablet PO BID [facility] Last Admin: 04/19/18 21:43 Dose: 1 tablet Levothyroxine Sodium (Synthroid -) 100 mcg PO 0700 [facility] Last Admin: 04/20/18 06:24 Dose: 100 mcg Mirtazapine (Remeron -) 15 mg PO HS [facility] Last Admin: 04/19/18 21:43 Dose: 15 mg Nystatin (Nystatin Oral Suspension -) 500,000 units PO Q6HPO [facility] Last Admin: 04/20/18 06:24 Dose: 500,000 units Quinapril HCl (Accupril -) 10 mg PO DAILY [facility] Last Admin: 04/19/18 10:46 Dose: Not Given - Objective Vital Signs: Vital Signs Temperature 98.3 F 04/19/18 22:00 Pulse Rate 62 04/19/18 22:00 Respiratory Rate 20 04/19/18 22:00 Blood Pressure 121/72 04/19/18 22:00 O2 Sat by Pulse Oximetry (%) 93 L 04/19/18 21:00 Labs: CBC, BMP 04/19/18 08:47 04/19/18 08:30 INR, PTT INR 1.13 (0.83-1.09) H 03/28/18 17:47 <Violeta Ervin - Last Filed: 04/20/18 07:57> Problem List - Problems (1) Anemia Code(s): D64.9 - ANEMIA, UNSPECIFIED (2) Hyponatremia Code(s): E87.1 - HYPO-OSMOLALITY AND HYPONATREMIA (3) Sepsis Code(s): A41.9 - SEPSIS, UNSPECIFIED ORGANISM (4) Confusion Code(s): R41.0 - DISORIENTATION, UNSPECIFIED <Cynthia Vaughn - Last Filed: 04/19/18 13:01> - Problems (1) Anemia Code(s): D64.9 - ANEMIA, UNSPECIFIED (2) Confusion Code(s): R41.0 - DISORIENTATION, UNSPECIFIED (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 Code(s): D05.10 - INTRADUCTAL CARCINOMA IN SITU OF UNSPECIFIED BREAST (4) Depression Code(s): F32.9 - MAJOR DEPRESSIVE DISORDER, SINGLE EPISODE, UNSPECIFIED (5) Fever Code(s): R50.9 - FEVER, UNSPECIFIED (6) Urinary tract infection Code(s): N39.0 - URINARY TRACT INFECTION, SITE NOT SPECIFIED <Violeta Ervin - Last Filed: 04/20/18 07:57> Assessment/Plan -pending BM biopsy result -cont with neutropenic precaution -hematology and ID on board -ordered daily weights, cont with marinol and remeron -cont to trend WBC -nystatin PO ordered -O2 sat >90%, O2 via NC PRN -spoke with daughter and requesting short term rehab for discharge -dvt ppx <Cynthia Vaughn - Last Filed: 04/19/18 13:01> I AGREE WITH THE ABOVE NOTE PATIENT SEEN AND EXAMINED ALONGSIDE WITH MARKETING OUTREACH COORDINATOR CAROLANN. <Violeta Ervin - Last Filed: 04/20/18 07:57>
[2018-04-19] MEDS: MIRTAZAPINE 15 MG TABLET (FP) PO SCH (21:43)
[2018-04-19] MEDS: ATORVASTATIN CA 10 MG TABLET (FP) PO SCH (21:43)
--- NOTE | 2018-04-19 23:12 | PN ---
Progress Note (short form) - Note Progress Note: Patient seen and e carrie Feels weak. No specific complaints AFVSS Cor: RSR, No murmurs, No gallops Lungs: Clear to P&A Abd: Soft, Normal bowel sounds, No organomegaly Labs/MEds reviewed A/P 77 y/o patient with RA, chronic severe neutropenia on MTX MTX on hold bmbx pending. Flow shows abnormal myeloid maturation. No blasts. MDS FISH is negative. Await morphology abnormal chest CT--discussed with ID short term f/u further w/u based on course ? prophylactic voriconazole given prolonged neutropenia
[2018-04-20] MEDS: NYSTATIN 500,000 UNITS/5 ML SUSPENSION PO SCH ×4 (00:23→18:31)
[2018-04-20] MEDS: LEVOTHYROXINE NA 100 MCG TABLET (FP) PO SCH (06:24)
[2018-04-20] MEDS ORDERED: PT OWN MED DRAWER 7, Y5N ONE (10:33)
--- NOTE | 2018-04-20 10:37 | PN ---
Progress Note (short form) - Note Progress Note: PULMONARY Resting in NAD. No acute events overnight. Denies shortness of breath or cough. Active Medications noted Gen: NAD, flat affect Heart: RRR Lung: decreased breath sounds at the bases Abd: soft, nontender Ext: no edema labs/meds/notes/images reviewed WBC .7 A/P MIKE Consolidation due to suspected PNA: ABX course completed Pancytopenia Rheumatoid Arthritis h/o Breast Ca HTN Hypothyroidism Hyponatremia - repeat CT imaging as an outpatient in 4-6 weeks - f/u BM Bx result - VTE prophylaxis Charline CHAVARRIA MD
[2018-04-20] MEDS: QUINAPRIL HCL 10 MG TABLET (FP) PO SCH (10:38)
[2018-04-20] MEDS: ASCORBIC ACID 500 MG TABLET (FP) PO SCH (10:41)
[2018-04-20] MEDS: FERROUS SO4 325 MG TABLET (FP) PO SCH (10:41)
[2018-04-20] MEDS: CALCIUM 500MG/VIT-D 200 UNITS COMBO TABLET (FP) PO SCH (10:41)
[2018-04-20] MEDS: guaiFENesin/D-METHORPHAN HB 1 EACH TAB.ER.12H PO SCH ×2 (10:41→22:56)
--- NOTE | 2018-04-20 17:05 | PN ---
Progress Note, Physician Chief Complaint: Sepsis History of Present Illness: NAD Seen by ID and hematology On neutropenic precautions afebrile CT chest MIKE consolidation Pulmonary workup in progress Off Methotrexate for Rheumatoid arthritis Still awaiting biopsy - Current Medication List Current Medications: Active Medications Acetaminophen (Tylenol -) 650 mg PO Q6H PRN PRN Reason: FEVER Last Admin: 04/05/18 18:01 Dose: 650 mg Ascorbic Acid (Vitamin C -) 500 mg PO DAILY [facility] Last Admin: 04/20/18 10:41 Dose: 500 mg Atorvastatin Calcium (Lipitor -) 10 mg PO HS [facility] Last Admin: 04/19/18 21:43 Dose: 10 mg Benzocaine/Menthol (Cepacol Lozenge -) 1 each MM PRN PRN PRN Reason: SORE THROAT Last Admin: 04/01/18 21:43 Dose: 1 each Calcium Carbonate/Cholecalciferol (Os-Grupo 500+D -) 2 tab PO DAILY [facility] Last Admin: 04/20/18 10:41 Dose: 2 tab Ferrous Sulfate (Feosol -) 325 mg PO DAILY [facility] Last Admin: 04/20/18 10:41 Dose: 325 mg Guaifenesin (Mucinex Dm -) 1 tablet PO BID [facility] Last Admin: 04/20/18 10:41 Dose: 1 tablet Levothyroxine Sodium (Synthroid -) 100 mcg PO 0700 [facility] Last Admin: 04/20/18 06:24 Dose: 100 mcg Mirtazapine (Remeron -) 15 mg PO HS [facility] Last Admin: 04/19/18 21:43 Dose: 15 mg Nystatin (Nystatin Oral Suspension -) 500,000 units PO Q6HPO [facility] Last Admin: 04/20/18 12:56 Dose: 500,000 units Quinapril HCl (Accupril -) 10 mg PO DAILY [facility] Last Admin: 04/20/18 10:38 Dose: Not Given - Objective Vital Signs: Vital Signs Temperature 98.3 F 04/19/18 22:00 Pulse Rate 62 04/19/18 22:00 Respiratory Rate 20 04/19/18 22:00 Blood Pressure 121/72 04/19/18 22:00 O2 Sat by Pulse Oximetry (%) 93 L 04/19/18 21:00 Constitutional: Yes: Well Nourished, No Distress, Calm Cardiovascular: Yes: Regular Rate and Rhythm Respiratory: Yes: Regular Gastrointestinal: Yes: Normal Bowel Sounds, Soft Musculoskeletal: Yes: WNL Extremities: Yes: WNL Edema: No Peripheral Pulses WNL: Yes Neurological: Yes: Alert, Oriented Psychiatric: Yes: Alert, Oriented Labs: CBC, BMP 04/19/18 08:47 04/19/18 08:30 INR, PTT INR 1.13 (0.83-1.09) H 03/28/18 17:47 Problem List - Problems (1) Sepsis Assessment/Plan: cultures: Microbiology 04/03/18 20:30 Blood - Peripheral Venous Blood Culture - Preliminary NO GROWTH OBTAINED AFTER 48 HOURS, INCUBATION TO CONTINUE FOR 3 DAYS. 04/03/18 19:20 Blood - Peripheral Venous Blood Culture - Preliminary NO GROWTH OBTAINED AFTER 48 HOURS, INCUBATION TO CONTINUE FOR 3 DAYS. 04/03/18 21:00 Urine - Urine Clean Catch Urine Culture - Final NO GROWTH OBTAINED 03/28/18 17:47 Blood - Peripheral Venous Blood Culture - Final NO GROWTH AFTER 5 DAYS INCUBATION 03/28/18 17:47 Blood - Peripheral Venous Blood Culture - Final Staphylococcus Epidermidis 03/28/18 17:46 Urine - Urine Clean Catch Urine Culture - Final Proteus Mirabilis Diphtheroid/Corynebacterium -BC contaminated -UC as above -seen by ID -On IV abx -afebrile at the moment Code(s): A41.9 - SEPSIS, UNSPECIFIED ORGANISM (2) Urinary tract infection Assessment/Plan: -seen by ID -afebrile -asymptomatic Code(s): N39.0 - URINARY TRACT INFECTION, SITE NOT SPECIFIED (3) Leukopenia Assessment/Plan: -seen by hematology -chronic leukopenia -methotrexate on hold -neutropenic precautions -bone marrow biopsy done on 04/05/18 awaiting results Code(s): D72.819 - DECREASED WHITE BLOOD CELL COUNT, UNSPECIFIED Qualifiers: Leukopenia type: unspecified Qualified Code(s): D72.819 - Decreased white blood cell count, unspecified (4) Neutropenic fever Assessment/Plan: -afebrile -BC contaminated -neutropenic precautions Code(s): D70.9 - NEUTROPENIA, UNSPECIFIED; R50.81 - FEVER PRESENTING WITH CONDITIONS CLASSIFIED ELSEWHERE (5) Rheumatoid arthritis Assessment/Plan: -follows with rheumatology outpatient -No acute symptoms at this time -methotrexate on hold at this time. Code(s): M06.9 - RHEUMATOID ARTHRITIS, UNSPECIFIED (6) Anemia Assessment/Plan: -Iron % low, start on Ferrous sulfate 325 mg po daily -Thyroid and B12 unremarkable -Hematology on board -monitor trend -Stool OB negative Code(s): D64.9 - ANEMIA, UNSPECIFIED (7) Hyponatremia Assessment/Plan: -stable at this time -monitor trend -fluid restriction to 1L -nephrology consult -sodium chloride tablet Code(s): E87.1 - HYPO-OSMOLALITY AND HYPONATREMIA (8) Hypokalemia Assessment/Plan: -resolved -monitor trend Code(s): E87.6 - HYPOKALEMIA (9) Lung consolidation Assessment/Plan: -Pulmonary on board -quantiferon, aspergillus ab- negative -ID consult Code(s): J18.1 - LOBAR PNEUMONIA, UNSPECIFIED ORGANISM Assessment/Plan see problem list Physical therapy
[2018-04-20] MEDS: MIRTAZAPINE 15 MG TABLET (FP) PO SCH (22:55)
[2018-04-20] MEDS: ATORVASTATIN CA 10 MG TABLET (FP) PO SCH (22:55)
[2018-04-21] MEDS: LEVOTHYROXINE NA 100 MCG TABLET (FP) PO SCH (07:17)
[2018-04-21] MEDS: NYSTATIN 500,000 UNITS/5 ML SUSPENSION PO SCH ×4 (07:19→17:10)
--- NOTE | 2018-04-21 09:11 | PN ---
Progress Note, Physician Chief Complaint: Sepsis History of Present Illness: NAD Seen by ID and hematology On neutropenic precautions afebrile CT chest MIKE consolidation Off Methotrexate for Rheumatoid arthritis Still awaiting biopsy results wants to go home - Current Medication List Current Medications: Active Medications Acetaminophen (Tylenol -) 650 mg PO Q6H PRN PRN Reason: FEVER Last Admin: 04/05/18 18:01 Dose: 650 mg Ascorbic Acid (Vitamin C -) 500 mg PO DAILY [facility] Last Admin: 04/20/18 10:41 Dose: 500 mg Atorvastatin Calcium (Lipitor -) 10 mg PO HS [facility] Last Admin: 04/20/18 22:55 Dose: 10 mg Benzocaine/Menthol (Cepacol Lozenge -) 1 each MM PRN PRN PRN Reason: SORE THROAT Last Admin: 04/01/18 21:43 Dose: 1 each Calcium Carbonate/Cholecalciferol (Os-Grupo 500+D -) 2 tab PO DAILY [facility] Last Admin: 04/20/18 10:41 Dose: 2 tab Ferrous Sulfate (Feosol -) 325 mg PO DAILY [facility] Last Admin: 04/20/18 10:41 Dose: 325 mg Guaifenesin (Mucinex Dm -) 1 tablet PO BID [facility] Last Admin: 04/20/18 22:56 Dose: Not Given Levothyroxine Sodium (Synthroid -) 100 mcg PO 0700 [facility] Last Admin: 04/21/18 07:17 Dose: 100 mcg Mirtazapine (Remeron -) 15 mg PO HS [facility] Last Admin: 04/20/18 22:55 Dose: 15 mg Nystatin (Nystatin Oral Suspension -) 500,000 units PO Q6HPO [facility] Last Admin: 04/21/18 07:19 Dose: 500,000 units Quinapril HCl (Accupril -) 10 mg PO DAILY [facility] Last Admin: 04/20/18 10:38 Dose: Not Given - Objective Vital Signs: Vital Signs Temperature 97.6 F 04/21/18 06:00 Pulse Rate 84 04/21/18 06:00 Respiratory Rate 20 04/21/18 06:00 Blood Pressure 120/47 L 04/21/18 06:00 O2 Sat by Pulse Oximetry (%) 94 L 04/20/18 21:00 Constitutional: Yes: Well Nourished, No Distress, Calm Cardiovascular: Yes: Regular Rate and Rhythm Respiratory: Yes: Regular Gastrointestinal: Yes: WNL Genitourinary: Yes: WNL Musculoskeletal: Yes: Muscle Weakness Extremities: Yes: WNL Edema: No Peripheral Pulses WNL: Yes Neurological: Yes: Alert, Oriented Psychiatric: Yes: Alert, Oriented Labs: CBC, BMP 04/19/18 08:47 04/19/18 08:30 INR, PTT INR 1.13 (0.83-1.09) H 03/28/18 17:47 Problem List - Problems (1) Sepsis Assessment/Plan: -resolved -cultures: Microbiology 04/13/18 10:20 Blood - Peripheral Venous Blood Culture - Final NO GROWTH AFTER 5 DAYS INCUBATION 04/13/18 10:10 Blood - Peripheral Venous Blood Culture - Final NO GROWTH AFTER 5 DAYS INCUBATION 04/14/18 06:20 Urine - Urine Clean Catch Urine Culture - Final Klebsiella Pneumoniae - Esbl 04/03/18 20:30 Blood - Peripheral Venous Blood Culture - Final NO GROWTH AFTER 5 DAYS INCUBATION 04/03/18 19:20 Blood - Peripheral Venous Blood Culture - Final NO GROWTH AFTER 5 DAYS INCUBATION 04/03/18 21:00 Urine - Urine Clean Catch Urine Culture - Final NO GROWTH OBTAINED 03/28/18 17:47 Blood - Peripheral Venous Blood Culture - Final NO GROWTH AFTER 5 DAYS INCUBATION 03/28/18 17:47 Blood - Peripheral Venous Blood Culture - Final Staphylococcus Epidermidis 03/28/18 17:46 Urine - Urine Clean Catch Urine Culture - Final Proteus Mirabilis Diphtheroid/Corynebacterium -seen by ID -Finished IV abx -afebrile at the moment Code(s): A41.9 - SEPSIS, UNSPECIFIED ORGANISM (2) Urinary tract infection Assessment/Plan: -seen by ID -afebrile -asymptomatic Code(s): N39.0 - URINARY TRACT INFECTION, SITE NOT SPECIFIED (3) Leukopenia Assessment/Plan: -seen by hematology -chronic leukopenia -methotrexate on hold -neutropenic precautions -bone marrow biopsy done on 04/05/18 awaiting results Code(s): D72.819 - DECREASED WHITE BLOOD CELL COUNT, UNSPECIFIED Qualifiers: Leukopenia type: unspecified Qualified Code(s): D72.819 - Decreased white blood cell count, unspecified (4) Neutropenic fever Assessment/Plan: -afebrile -neutropenic precautions Code(s): D70.9 - NEUTROPENIA, UNSPECIFIED; R50.81 - FEVER PRESENTING WITH CONDITIONS CLASSIFIED ELSEWHERE (5) Rheumatoid arthritis Assessment/Plan: -follows with rheumatology outpatient -No acute symptoms at this time -methotrexate on hold at this time. Code(s): M06.9 - RHEUMATOID ARTHRITIS, UNSPECIFIED (6) Anemia Assessment/Plan: -h/h stable -Iron % low, start on Ferrous sulfate 325 mg po daily -Thyroid and B12 unremarkable -Hematology on board -monitor trend -Stool OB negative Code(s): D64.9 - ANEMIA, UNSPECIFIED (7) Hyponatremia Assessment/Plan: -stable at this time -monitor trend -fluid restriction to 1L -nephrology consult -sodium chloride tablet Code(s): E87.1 - HYPO-OSMOLALITY AND HYPONATREMIA (8) Hypokalemia Assessment/Plan: -resolved -monitor trend Code(s): E87.6 - HYPOKALEMIA (9) Lung consolidation Assessment/Plan: -Pulmonary on board -quantiferon, aspergillus ab- negative -ID consult Code(s): J18.1 - LOBAR PNEUMONIA, UNSPECIFIED ORGANISM Assessment/Plan see problem list Physical therapy
[2018-04-21] MEDS: QUINAPRIL HCL 10 MG TABLET (FP) PO SCH (10:11)
[2018-04-21] MEDS ORDERED: PT OWN MED DRAWER 7, Y5N ONE (10:14)
[2018-04-21] MEDS: guaiFENesin/D-METHORPHAN HB 1 EACH TAB.ER.12H PO SCH ×2 (10:19→22:37)
[2018-04-21] MEDS: CALCIUM 500MG/VIT-D 200 UNITS COMBO TABLET (FP) PO SCH (10:19)
[2018-04-21] MEDS: FERROUS SO4 325 MG TABLET (FP) PO SCH (10:19)
[2018-04-21] MEDS: ASCORBIC ACID 500 MG TABLET (FP) PO SCH (10:19)
[2018-04-21] MEDS ORDERED: MINERAL OIL 30 ML UNIT-DOSE CUP PO PRN (14:45)
[2018-04-21] MEDS: ATORVASTATIN CA 10 MG TABLET (FP) PO SCH (22:37)
[2018-04-21] MEDS: MIRTAZAPINE 15 MG TABLET (FP) PO SCH (22:37)
[2018-04-22] MEDS: LEVOTHYROXINE NA 100 MCG TABLET (FP) PO SCH (07:57)
[2018-04-22] MEDS: NYSTATIN 500,000 UNITS/5 ML SUSPENSION PO SCH ×4 (07:59→18:39)
--- NOTE | 2018-04-22 11:19 | PN ---
Progress Note, Physician Chief Complaint: Neutropenia History of Present Illness: Previous events and notes reviewed alert and awake, lying in bed denies complaints of pain, SOB, chest pain afebrile on examination tongue improving after starting on nystatin cont with poor PO appetite bone marrow bx pending result - Current Medication List Current Medications: Active Medications Acetaminophen (Tylenol -) 650 mg PO Q6H PRN PRN Reason: FEVER Last Admin: 04/05/18 18:01 Dose: 650 mg Ascorbic Acid (Vitamin C -) 500 mg PO DAILY [facility] Last Admin: 04/21/18 10:19 Dose: Not Given Atorvastatin Calcium (Lipitor -) 10 mg PO HS [facility] Last Admin: 04/21/18 22:37 Dose: Not Given Benzocaine/Menthol (Cepacol Lozenge -) 1 each MM PRN PRN PRN Reason: SORE THROAT Last Admin: 04/01/18 21:43 Dose: 1 each Calcium Carbonate/Cholecalciferol (Os-Grupo 500+D -) 2 tab PO DAILY [facility] Last Admin: 04/21/18 10:19 Dose: Not Given Ferrous Sulfate (Feosol -) 325 mg PO DAILY [facility] Last Admin: 04/21/18 10:19 Dose: Not Given Guaifenesin (Mucinex Dm -) 1 tablet PO BID [facility] Last Admin: 04/21/18 22:37 Dose: Not Given Levothyroxine Sodium (Synthroid -) 100 mcg PO 0700 [facility] Last Admin: 04/22/18 07:57 Dose: 100 mcg Mineral Oil (Mineral Oil -) 30 ml PO QID PRN PRN Reason: DRYNESS Last Admin: 04/21/18 17:10 Dose: 30 ml Mirtazapine (Remeron -) 15 mg PO HS [facility] Last Admin: 04/21/18 22:37 Dose: Not Given Nystatin (Nystatin Oral Suspension -) 500,000 units PO Q6HPO [facility] Last Admin: 04/22/18 07:59 Dose: Not Given Quinapril HCl (Accupril -) 10 mg PO DAILY [facility] Last Admin: 04/21/18 10:11 Dose: Not Given - Objective Vital Signs: Vital Signs Temperature 98 F 04/22/18 06:00 Pulse Rate 89 04/22/18 06:00 Respiratory Rate 18 04/22/18 06:00 Blood Pressure 122/44 L 04/22/18 06:00 O2 Sat by Pulse Oximetry (%) 96 04/21/18 21:00 Constitutional: Yes: Well Nourished, No Distress, Calm Eyes: Yes: Conjunctiva Clear Neck: Yes: Supple Cardiovascular: Yes: WNL, Regular Rate and Rhythm Respiratory: Yes: Regular, CTA Bilaterally Gastrointestinal: Yes: WNL, Normal Bowel Sounds, Soft Musculoskeletal: Yes: Muscle Weakness Extremities: Yes: WNL Edema: No Integumentary: Yes: WNL Neurological: Yes: Alert, Oriented Psychiatric: Yes: Alert, Oriented Labs: CBC, BMP 04/19/18 08:47 04/19/18 08:30 INR, PTT INR 1.13 (0.83-1.09) H 03/28/18 17:47 <Cynthia Vaughn - Last Filed: 04/22/18 20:47> - Current Medication List Current Medications: Active Medications Acetaminophen (Tylenol -) 650 mg PO Q6H PRN PRN Reason: FEVER Last Admin: 04/05/18 18:01 Dose: 650 mg Ascorbic Acid (Vitamin C -) 500 mg PO DAILY [facility] Last Admin: 04/23/18 11:16 Dose: Not Given Atorvastatin Calcium (Lipitor -) 10 mg PO HS [facility] Last Admin: 04/22/18 21:23 Dose: 10 mg Benzocaine/Menthol (Cepacol Lozenge -) 1 each MM PRN PRN PRN Reason: SORE THROAT Last Admin: 04/01/18 21:43 Dose: 1 each Calcium Carbonate/Cholecalciferol (Os-Grupo 500+D -) 2 tab PO DAILY [facility] Last Admin: 04/23/18 11:16 Dose: Not Given Ferrous Sulfate (Feosol -) 325 mg PO DAILY [facility] Last Admin: 04/23/18 11:16 Dose: Not Given Guaifenesin (Mucinex Dm -) 1 tablet PO BID [facility] Last Admin: 04/23/18 11:16 Dose: Not Given Levothyroxine Sodium (Synthroid -) 100 mcg PO 0700 [facility] Last Admin: 04/23/18 06:11 Dose: 100 mcg Mineral Oil (Mineral Oil -) 30 ml PO QID PRN PRN Reason: DRYNESS Last Admin: 04/21/18 17:10 Dose: 30 ml Mirtazapine (Remeron -) 15 mg PO HS [facility] Last Admin: 12/31/18 21:23 Dose: Not Given Nystatin (Nystatin Oral Suspension -) 500,000 units PO Q6HPO [facility] Last Admin: 04/23/18 06:11 Dose: 500,000 units Potassium Chloride (K-Dur -) 20 meq PO ONCE ONE Stop: 04/23/18 12:13 Quinapril HCl (Accupril -) 10 mg PO DAILY [facility] Last Admin: 04/23/18 11:15 Dose: Not Given - Objective Vital Signs: Vital Signs Temperature 98.1 F 04/23/18 11:15 Pulse Rate 88 04/23/18 11:15 Respiratory Rate 18 04/23/18 11:15 Blood Pressure 110/42 L 04/23/18 11:15 O2 Sat by Pulse Oximetry (%) 96 04/22/18 21:00 Labs: CBC, BMP 04/23/18 06:23 04/23/18 06:23 INR, PTT INR 1.13 (0.83-1.09) H 03/28/18 17:47 <Violeta Ervin - Last Filed: 04/23/18 12:14> Problem List - Problems (1) Anemia Code(s): D64.9 - ANEMIA, UNSPECIFIED (2) Hyponatremia Code(s): E87.1 - HYPO-OSMOLALITY AND HYPONATREMIA (3) Sepsis Code(s): A41.9 - SEPSIS, UNSPECIFIED ORGANISM (4) Confusion Code(s): R41.0 - DISORIENTATION, UNSPECIFIED <Cynthia Vaughn - Last Filed: 04/22/18 20:47> - Problems (1) Anemia Code(s): D64.9 - ANEMIA, UNSPECIFIED (2) Confusion Code(s): R41.0 - DISORIENTATION, UNSPECIFIED (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 Code(s): D05.10 - INTRADUCTAL CARCINOMA IN SITU OF UNSPECIFIED BREAST (4) Depression Code(s): F32.9 - MAJOR DEPRESSIVE DISORDER, SINGLE EPISODE, UNSPECIFIED (5) Fever Code(s): R50.9 - FEVER, UNSPECIFIED (6) Urinary tract infection Code(s): N39.0 - URINARY TRACT INFECTION, SITE NOT SPECIFIED <Violeta Ervin - Last Filed: 04/23/18 12:14> Assessment/Plan -pending BM biopsy result for disposition -cont with neutropenic precaution -hematology and ID on board -cont with daily weights -cont with remeron -cont to trend WBC -cont with nystatin PO -O2 sat >90%, O2 via NC PRN -spoke with daughter and requesting short term rehab for discharge -dvt ppx <Cynthia Vaughn - Last Filed: 04/22/18 20:47> patient seen and examined agree with above note. <Violeta Ervin - Last Filed: 04/23/18 12:14>
[2018-04-22] MEDS: QUINAPRIL HCL 10 MG TABLET (FP) PO SCH (11:35)
[2018-04-22] MEDS: FERROUS SO4 325 MG TABLET (FP) PO SCH (11:35)
[2018-04-22] MEDS: guaiFENesin/D-METHORPHAN HB 1 EACH TAB.ER.12H PO SCH ×2 (11:35→21:24)
[2018-04-22] MEDS: CALCIUM 500MG/VIT-D 200 UNITS COMBO TABLET (FP) PO SCH (11:36)
[2018-04-22] MEDS: ASCORBIC ACID 500 MG TABLET (FP) PO SCH (11:36)
--- NOTE | 2018-04-22 18:33 | PN ---
Progress Note (short form) - Note Progress Note: Consult Progress Note: Hematology/Oncology has been OOB to chair no complaints of fevers, chest pain, palpitations, melena, sob, nausea, vomiting. PE: NAD SIMON, EOMI CTAB, RRR, abd soft, nd/nt no edema on b/l LE 77 yr old woman with RA, hx of Breast CA(DCIS), hypothryroidism, presented with fevers and cough found to have neutropenia. Problem List: Bone Marrow Suppression Upper Respiratory tract infection Rheumatoid Arthritis on MTX (25 years) Hyponatremia - resolved HTN HLD Hypothyroidism Breast cancer (DCIS) A/Plan: -bone marrow suppresion of unclear etiology but likely secondary to Methotrexate use and viral syndrome, though there has been no improvement with MTX being held and with the addition of leucovorum and granix. MDS remains in the differential, bone marrrow biopsy on 04/05 is pending results. likely may not see improvement quickly given prolonged suppression. - continue to maintain neutropenic precautions, no improvement on today's labs. - CT guided lung biopsy deferred until pt's neutropenia improves
[2018-04-22] MEDS: ATORVASTATIN CA 10 MG TABLET (FP) PO SCH (21:23)
[2018-04-22] MEDS: MIRTAZAPINE 15 MG TABLET (FP) PO SCH (21:23)
[2018-04-23] MEDS: NYSTATIN 500,000 UNITS/5 ML SUSPENSION PO SCH ×5 (00:11→23:30)
[2018-04-23] MEDS: LEVOTHYROXINE NA 100 MCG TABLET (FP) PO SCH (06:11)
[2018-04-23 08:26] LABS: HEMATOCRIT 25.9 % (32.4-45.2); HEMOGLOBIN 8.4 GM/dL (10.7-15.3); MCH 26.8 pg (25.7-33.7); MCHC 32.3 g/dl (32.0-36.0); MEAN PLT VOLUME 7.4 fl (7.5-11.1); PLATELET COUNT 119 K/MM3 (134-434); RBC 3.11 M/mm3 (3.60-5.2); RDW 17.7 % (11.6-15.6)
[2018-04-23 08:58] LABS: ALBUMIN 1.6 g/dl (3.4-5.0); ALK PHOS 66 U/L (45-117); ANION GAP 9 MMOL/L (8-16); BILIRUBIN,TOTAL 0.8 mg/dL (0.2-1); BLOOD UREA NITROGEN 14 mg/dL (7-18); CHLORIDE 103 mmol/L (98-107); CO2 25 mmol/L (21-32); CREATININE 0.7 mg/dL (0.55-1.3); GLUCOSE,RANDOM 93 mg/dL (74-106); POTASSIUM 3.4 mmol/L (3.5-5.1); SGOT/AST 26 U/L (15-37); SGPT/ALT 12 U/L (13-61); SODIUM 138 mmol/L (136-145); TOT PROT 5.9 g/dl (6.4-8.2)
[2018-04-23] MEDS: QUINAPRIL HCL 10 MG TABLET (FP) PO SCH (11:15)
[2018-04-23] MEDS: ASCORBIC ACID 500 MG TABLET (FP) PO SCH (11:16)
[2018-04-23] MEDS: FERROUS SO4 325 MG TABLET (FP) PO SCH (11:16)
[2018-04-23] MEDS: CALCIUM 500MG/VIT-D 200 UNITS COMBO TABLET (FP) PO SCH (11:16)
[2018-04-23] MEDS: guaiFENesin/D-METHORPHAN HB 1 EACH TAB.ER.12H PO SCH ×2 (11:16→21:58)
[2018-04-23] MEDS ORDERED: POTASSIUM CHLORIDE TABS 10 MEQ TABLET.ER (FP) PO ONE (12:12)
--- NOTE | 2018-04-23 12:23 | DS ---
Physical Examination Vital Signs: Vital Signs Temperature 98.1 F 04/23/18 11:15 Pulse Rate 88 04/23/18 11:15 Respiratory Rate 18 04/23/18 11:15 Blood Pressure 110/42 L 04/23/18 11:15 O2 Sat by Pulse Oximetry (%) 96 04/22/18 21:00 Constitutional: Yes: Mild Distress Eyes: Yes: WNL HENT: Yes: WNL Neck: Yes: WNL Cardiovascular: Yes: WNL Respiratory: Yes: WNL Gastrointestinal: Yes: WNL Renal/: Yes: WNL Musculoskeletal: Yes: Joint Stiffness, Muscle Weakness Extremities: Yes: Deformity Edema: Yes Edema: LLE: Trace, RLE: Trace Peripheral Pulses WNL: Yes Integumentary: Yes: Other Neurological: Yes: Pre-Existing Deficit Psychiatric: Yes: WNL Labs: CBC, BMP 04/23/18 06:23 04/23/18 06:23 Discharge Summary Reason For Visit: FEVER LEUKOPENIA FEBRILE NEUTROPENIA Current Active Problems Anemia (Acute) Confusion (Acute) DCIS (ductal carcinoma in situ) of breast (Acute) Depression (Acute) Fever (Acute) Hypokalemia (Acute) Hyponatremia (Acute) Hypothyroid (Acute) Lung consolidation (Acute) Nausea (Acute) Neutropenia (Acute) Neutropenic fever (Acute) Rheumatoid arthritis (Acute) Sepsis (Acute) Urinary tract infection (Acute) Procedures: Principal: CT SCAN/BM BIOPSY Hospital Course: ADMITTED NEUTROPENIC FEVERS, PNA, MDD, TREATED AND WORKED UP WITH IV ABX, PAIN CONTROL, BM BIOPSY Condition: Stable - Instructions Diet, Activity, Other Instructions: -Follow up with Dr Jiang within 1 week -Hold methotrexate until follow up with Rheumatology -Start Ferrous sulfate 1 tab daily -Take Levofloxacin 500 mg 1 tab daily x 7 days Referrals: Kiki James MD [Staff Physician] - 1 Week Lavelle Jiang [Staff Physician] - Sanjay Miranda MD [Staff Physician] - 1 Week Disposition: HOME - Home Medications Comprehensive Discharge Medication List: Ambulatory Orders Ascorbate Calcium [Vitamin C] 500 mg PO DAILY 11/24/13 Aspirin Coated [Ecotrin -] 81 mg PO DAILY 11/24/13 Calcium Carbonate/Vitamin D3 [Calcium 600-Vit D3 200 Tablet] 2 each PO DAILY 08/04 Folic Acid - 1 mg PO DAILY 11/24/13 Levothyroxine [Synthroid -] 100 mcg PO DAILY 11/24/13 Quinapril HCl [Accupril -] 10 mg PO DAILY 11/24/13 Atorvastatin Calcium [Lipitor] 10 mg PO ASDIR 03/28/18 Diazepam [Valium] 5 mg PO BID PRN 03/28/18 Guaifenesin Dm [Mucinex Dm -] 1 tab PO BID 03/28/18 Acetaminophen [Tylenol .Regular Strength -] 650 mg PO Q6H PRN tablet 04/01/18 Ferrous Sulfate [Feosol] 325 mg PO DAILY #30 ud 04/01/18 Levofloxacin [Levaquin] 500 mg PO DAILY #7 tablet 04/01/18 Leucovorin Calcium 10 mg PO QID #8 tablet 04/04/18 Leucovorin Calcium 15 mg PO QID #8 tablet 04/04/18
[2018-04-23] MEDS ORDERED: PT OWN MED DRAWER 7, Y5N ONE (21:02)
[2018-04-23] MEDS: ATORVASTATIN CA 10 MG TABLET (FP) PO SCH (21:56)
[2018-04-23] MEDS: MIRTAZAPINE 15 MG TABLET (FP) PO SCH (21:58)
[2018-04-24] MEDS: NYSTATIN 500,000 UNITS/5 ML SUSPENSION PO SCH ×3 (05:40→18:40)
[2018-04-24] MEDS: LEVOTHYROXINE NA 100 MCG TABLET (FP) PO SCH (06:04)
--- NOTE | 2018-04-24 09:02 | PN ---
Progress Note (short form) - Note Progress Note: AWAITING TRANSFER TO [facility] D/W STAFF AWAITING AUTH. 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
[2018-04-24] MEDS ORDERED: PT OWN MED DRAWER 7, Y5N ONE (09:49)
[2018-04-24] MEDS: ASCORBIC ACID 500 MG TABLET (FP) PO SCH (09:56)
[2018-04-24] MEDS: guaiFENesin/D-METHORPHAN HB 1 EACH TAB.ER.12H PO SCH (09:56)
[2018-04-24] MEDS: CALCIUM 500MG/VIT-D 200 UNITS COMBO TABLET (FP) PO SCH ×2 (09:56→10:03)
[2018-04-24] MEDS: QUINAPRIL HCL 10 MG TABLET (FP) PO SCH (09:56)
[2018-04-24] MEDS: FERROUS SO4 325 MG TABLET (FP) PO SCH ×2 (09:56→10:03)
--- NOTE | 2018-04-24 11:13 | PN ---
Progress Note (short form) - Note Progress Note: PULMONARY Denies shortness of breath, cough or wheezing. No fevers recorded. Vital Signs Period Temp Pulse Resp BP Sys/Jones Pulse Ox Last 24 Hr 98.1 F-98.6 F 79-88 18-20 109-112/42-80 Gen: mildly tachypneic at rest Heart: RRR Lung: decreased breath sounds at the bases Abd: soft, nontender Ext: no edema CBC, BMP 04/23/18 06:23 04/23/18 06:23 Active Medications Acetaminophen (Tylenol -) 650 mg PO Q6H PRN PRN Reason: FEVER Last Admin: 04/05/18 18:01 Dose: 650 mg Ascorbic Acid (Vitamin C -) 500 mg PO DAILY [facility] Last Admin: 04/24/18 09:56 Dose: 500 mg Atorvastatin Calcium (Lipitor -) 10 mg PO HS [facility] Last Admin: 04/23/18 21:56 Dose: 10 mg Benzocaine/Menthol (Cepacol Lozenge -) 1 each MM PRN PRN PRN Reason: SORE THROAT Last Admin: 04/01/18 21:43 Dose: 1 each Calcium Carbonate/Cholecalciferol (Os-Grupo 500+D -) 2 tab PO DAILY [facility] Last Admin: 04/24/18 10:03 Dose: Not Given Ferrous Sulfate (Feosol -) 325 mg PO DAILY [facility] Last Admin: 04/24/18 10:03 Dose: Not Given Guaifenesin (Mucinex Dm -) 1 tablet PO BID [facility] Last Admin: 04/24/18 09:56 Dose: 1 tablet Levothyroxine Sodium (Synthroid -) 100 mcg PO 0700 [facility] Last Admin: 04/24/18 06:04 Dose: 100 mcg Mineral Oil (Mineral Oil -) 30 ml PO QID PRN PRN Reason: DRYNESS Last Admin: 04/21/18 17:10 Dose: 30 ml Mirtazapine (Remeron -) 15 mg PO HS [facility] Last Admin: 04/23/18 21:58 Dose: 15 mg Nystatin (Nystatin Oral Suspension -) 500,000 units PO Q6HPO [facility] Last Admin: 04/24/18 05:40 Dose: 500,000 units Quinapril HCl (Accupril -) 10 mg PO DAILY [facility] Last Admin: 01/02/19 09:56 Dose: 10 mg A/P MIKE Consolidation Pancytopenia Rheumatoid Arthritis h/o Breast Ca HTN Hypothyroidism Hyponatremia - completed antibiotic course - repeat CT chest as outpt in 4-6 weeks - DVT prophylaxis - d/c planning
[2018-04-24 15:30] VITALS: PULSE 88; TEMP 97.6
[2018-04-24 17:14] VITALS: BP 108/45
--- NOTE | 2018-04-24 17:21 | PN ---
Progress Note (short form) - Note Progress Note: AWAITING BONE MARROW BIOPSY, WILL HOLD OFF ON TRANSFER TO [facility] UNTIL RESULTS RETURN. 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
--- NOTE | 2018-04-24 18:05 | PN ---
Progress Note (short form) - Note Progress Note: Patient seen and examined Family informed that bone marrow block was never sent to Hem-Path. Spoke with pathology at length about this. Last Vital Signs Temp Pulse Resp BP Pulse Ox 97.6 F 88 18 108/45 L 96 04/24/18 16:30 04/24/18 16:30 04/24/18 16:30 04/24/18 16:30 04/24/18 09:00 HEENT: SIMON, EOM Intact Oropharynx: No thrush, No mucositis Cor: RSR, No murmurs, No gallops Lungs: diminished breath sounds bilaterally Abd: Soft, Normal bowel sounds, No organomegaly Ext:No significant edema rheumatoid changes joints CBC, BMP 04/23/18 06:23 04/23/18 06:23 Current Medications Generic Name Dose Route Start Last Admin Trade Name Freq PRN Reason Stop Dose Admin Acetaminophen 650 mg 03/30/18 16:59 04/05/18 18:01 Tylenol - PO 650 mg Q6H PRN Administration FEVER Ascorbic Acid 500 mg 03/29/18 10:00 04/24/18 09:56 Vitamin C - PO 500 mg DAILY RIMMA Administration Atorvastatin Calcium 10 mg 03/28/18 22:00 04/23/18 21:56 Lipitor - PO 10 mg HS RIMMA Administration Benzocaine/Menthol 1 each 03/31/18 03:56 04/01/18 21:43 Cepacol Lozenge - MM 1 each PRN PRN Administration SORE THROAT Calcium Carbonate/Cholecalciferol 2 tab 03/29/18 10:00 04/24/18 10:03 Os-Grupo 500+D - PO Not Given DAILY RIMMA Ferrous Sulfate 325 mg 04/01/18 12:15 04/24/18 10:03 Feosol - PO Not Given DAILY RIMMA Guaifenesin 1 tablet 03/28/18 22:00 04/24/18 09:56 Mucinex Dm - PO 1 tablet BID RIMMA Administration Levothyroxine Sodium 100 mcg 03/29/18 07:00 04/24/18 06:04 Synthroid - PO 100 mcg 0700 RIMMA Administration Mineral Oil 30 ml 04/21/18 14:45 04/21/18 17:10 Mineral Oil - PO 30 ml QID PRN Administration DRYNESS Mirtazapine 15 mg 04/09/18 22:00 04/23/18 21:58 Remeron - PO 15 mg HS RIMMA Administration Nystatin 500,000 units 04/18/18 18:00 04/24/18 13:31 Nystatin Oral Suspension - PO 500,000 units Q6HPO RIMMA Administration Quinapril HCl 10 mg 04/08/18 12:02 04/24/18 09:56 Accupril - PO 10 mg DAILY RIMMA Administration Impression: Rheumatoid arthritis Neutropenia Anemia H/O breast ca H/o MIKE consolidation Plan: Needs outpatient follow up on bone marrow . Needs outpatient follow up on MIKE consolidation Pulmonary outpatient f/u F/U Rheumatology Family informed on gravity of fevers in setting of neutropenia. Problem List - Problems (1) Anemia Code(s): D64.9 - ANEMIA, UNSPECIFIED (2) Lung consolidation Code(s): J18.1 - LOBAR PNEUMONIA, UNSPECIFIED ORGANISM (3) Neutropenia Code(s): D70.9 - NEUTROPENIA, UNSPECIFIED
--- NOTE | 2018-04-30 15:06 | PATH ---
Surgical Pathology Report Patient Name: DON WEEKS Med. Rec. #: [id number] /Age/Gender: 1940 (Age: 77) / F Account: [id number] Location: [facility] MED/SURG Taken: 04/05/2018 Received: 04/05/2018 Reported: 04/30/2018 Physicians: Christina Wright M.D. Specimen(s) Received A: BONE MARROW BIOPSY B: BONE MARROW BLOOD 2 GREEN TOPS C: BONE MARROW ASPIRATION SMEARS 5 SLIDES Clinical History Anemia, neutropenia on methotrexate. History of rheumatoid arthritis. Final Diagnosis A-C. BONE MARROW CORE AND ASPIRATE, BIOPSY: HYPERCELLULAR MARROW (~50-60% CELLULARITY) WITH MODERATE MYELOID HYPERPLASIA AND ADEQUATE NUMBER OF MEGAKARYOCYTES. NO EVIDENCE OF INVOLVEMENT BY LYMPHOMA. PLASMA CELLS (<5%) ARE POLYTYPIC. NO EVIDENCE OF METASTATIC CARCINOMA. INCREASED STAINABLE IRON. SEE COMMENT. Comment: Overt morphologic features diagnostic of a myelodysplastic syndrome are not identified. Flow cytometry does not show evidence for an increased blast population or a lymphoproliferative disorder. Evidence of abnormal myeloid maturation is seen by flow cytometry; this finding is most likely secondary to Neupogen therapy. Cytogenetic study shows a normal female karyotype. FISH study for MDS is negative. If clinical concern for MDS persists, a molecular test (inteliigen myeloid) can be performed on an additional peripheral blood sample. Correlation with relevant clinical and laboratory findings is recommended. MICROSCOPIC: ASPIRATE SMEARS (2) are paucispicular and are only focally cellular. Mostly myeloid elements are seen. These appear to be left shifted, with a decrease in segmented neutrophils; this finding may be artifactual, due to paucity of cells. Mostly myelocytes are noted. Neutrophilic forms show evidence of toxic granulation. Occasional giant neutrophilic band forms are seen. A few erythroid precursors are present; they are normoblastic without nuclear:cytoplasmic dyssynchrony. Rare megakaryocytes are noted. Rare mature plasma cells are noted. CORE BIOPSY is ~50-60% cellular. M:E ratio is increased (~6:1). Myeloid elements exhibit complete maturation to segmented neutrophils. An increase in blast cells is not evident. Erythroid elements are relatively decreased; parvovirus-like inclusions are not identified. Megakaryocytes are present in adequate number and include occasional hypolobated forms and occasional naked megakaryocytic nuclei. Megakaryocytic clustering is not noted. No significant lymphoid or plasma cell infiltrate is noted. Granuloma are not identified. Bony trabeculae are unremarkable. Immunoperoxidase studies show no increase in the number of CD34(+), CD117(+) blast cells. A p53 immunostain is negative. CD61 immunostain highlights adequate number of megakaryocytic elements. Few small B-cells and small T-cells are seen scattered in the interstitium. Plasma cells (are polytypic). AE1/AE3 immunostain is negative for metastatic carcinoma. Iron Stain Stainable iron is increased. Reticulin Stain Mild diffuse increase in reticulin fibrosis IMMUNOHISTOCHEMISTRY AE1-AE3 Negative CD117 1-4% Myeloid and Mast Cells CD138 Plasma Cells Positive Plasma Cells and Subset of Epithelial Cells CD34 1-4% CD20 B-cells Positive CD3 T-cells Positive CD61 Megakaryocytes Positive CD71 Erythroid Cells Positive p53 Negative KAPPA IHC Polytypic in Plasma Cells LAMBDA IHC Polytypic in Plasma Cells Myeloperoxidase IHC Myeloid Cells Positive Lysozyme Myeloid Cells Positive FLOW CYTOMETRY ([id number]) Bone Marrow Aspirate show abnormal myeloid maturation on myeloid elements without evidence of increase of myeloblasts or a lymphoproliferative disorder. FLUORESCENCE IN-SITU HYBRIDIZATION (FISH) PANEL performed and interpreted at [facility], [place], [place] (Specimen #: [id number]) shows the following: INTERPRETATION: MDS Panel: 1. Negative for monosomy 5 and a deletion of CSF1R/RPS14 on the long arm of the chromosome 5 at q33. 2. Negative for monosomy 7 and a deletion of MDFIC on the long arm of chromosome 7 at q31. 3. Negative for trisomy 8 4. Negative for a deletion of PTPRT on the long arm of chromosome 20 at q12. CHROMOSOME ANALYSIS performed and interpreted at [facility], [place], [place] (Specimen #: [id number]) shows the following: RESULTS: 46, XX[20] Female karyotype See [facility] reports (Specimen #: [id number], [id number] and [id number]) for additional details. Electronically Signed Usha Jaeger M.D. Addendum Reported: 04/30/2018 Addendum Diagnosis This case was sent to Dr. Pankaj Rodriguez from [facility], [place], [place] ([id number]) for hematopathology consultation, the diagnosis above reflects her opinion. Usha Jaeger M.D. Gross Description A. Received in formalin, labeled with the patient's name and indicated on the requisition to be a bone marrow biopsy, is a 0.6 cm in length x 0.2 cm in diameter mccarthy, cylindrical portion of bone. The specimen is submitted in toto in one cassette, following decalcification. B. Received are 5 bone marrow aspiration smear slides. C. Received are 2 green top tubes of bone marrow blood. 04/05/2018 [facility]04/05/2018
== END 2018-04-24 20:00 | DRG 808 ==
LOC: JER 16:25 → JERBED 19:15 → J7W 03-29 15:25 → OBSVTOIN 03-30 13:46 → J8W 04-06 16:44
PROVIDERS: ADMIT Family Medicine; ATTEND Family Medicine
PROC: 30233N1 Transfusion of Nonautologous Red Blood Cells into Peripheral Vein, Percutaneous Approach (ICD-10-PCS; 2018-04-01)
PROC: 07DR3ZX Extraction of Iliac Bone Marrow, Percutaneous Approach, Diagnostic (ICD-10-PCS; principal; 2018-04-05)
DX: D70.8 Other neutropenia (principal); J18.1 Lobar pneumonia, unspecified organism; E87.1 Hypo-osmolality and hyponatremia; N39.0 Urinary tract infection, site not specified; T45.1X5A Adverse effect of antineoplastic and immunosuppressive drugs, initial encounter; R50.81 Fever presenting with conditions classified elsewhere; E87.6 Hypokalemia; D05.10 Intraductal carcinoma in situ of unspecified breast; I10 Essential (primary) hypertension; D50.9 Iron deficiency anemia, unspecified; B96.4 Proteus (mirabilis) (morganii) as the cause of diseases classified elsewhere; E78.5 Hyperlipidemia, unspecified; D47.3 Essential (hemorrhagic) thrombocythemia; R16.1 Splenomegaly, not elsewhere classified; E03.9 Hypothyroidism, unspecified; Z87.891 Personal history of nicotine dependence; F32.9 Major depressive disorder, single episode, unspecified; R21 Rash and other nonspecific skin eruption; M06.9 Rheumatoid arthritis, unspecified; R91.8 Other nonspecific abnormal finding of lung field; J47.9 Bronchiectasis, uncomplicated
CPT/HCPCS: 36415; 36430; 36511; 71045-TC-FY; 71250-TC; 76705-TC; 80048; 80053; 81003; 81015; 82272; 82533; 82550; 82607; 82728; 82746; 82803; 83010; 83540; 83550; 83605; 83615; 83735; 83930; 83935; 84100; 84300; 84443; 84466; 84484; 85025; 85027; 85044; 85610; 85651; 85730; 86162; 86480; 86850; 86900; 86901; 86922; 87040; 87077; 87086; 87186; 87305; 87449; 87804; 88300-TC; 88305-TC; 88311-TC; 88313-TC; 93005; 93010; 97116-GP; 97162-GP; 99285-25; G0378; G0480; J0131; J1447; J7030; P9038; P9058